=== PATIENT | female | born 1940 | race Caucasian/White ===

== ENCOUNTER → 2016-09-15 | Outpatient (CLI) | payer MEDICARE | LOC: RAD 16:44 | PROVIDERS: ATTEND Internal Medicine | DX: C34.12 Malignant neoplasm of upper lobe, left bronchus or lung (principal) | CPT/HCPCS: 78815; A9552 ==

== ENCOUNTER 2016-10-27 22:37 | Inpatient (IN) | payer MEDICARE ==
[2016-10-27] MEDS ORDERED: IPRATROPIUM/ALBUTEROL 0.5-2.5 MG/3 ML AMPUL NEB ONE (22:48)
[2016-10-27] MEDS ORDERED: MAGNESIUM SULFATE/D5W 100 ML IV ONE (22:48)
[2016-10-27] MEDS ORDERED: LORAZEPAM INJ 2 MG/1 ML VIAL IV ONE (22:49)
--- NOTE | 2016-10-27 23:00 | ER Document Report ---
ED General - General Stated Complaint: DIFFICULTY BREATHING Mode of Arrival: Medic Information source: Patient, Relative, Emergency Med Personnel Notes: This is a 76 year old female with a history of lung cancer who presents via EMS for increased shortness of breath and wheezing. Patient states she has been wheezing for several weeks but it has gradually been getting worse. No fevers or chills. Of note she has also been falling frequently at home and did fall today sustaining a skin tear to her left upper extremity. She is on oral chemotherapy and followed by Dr. Davidson. She received Solumedrol and 2 duonebs enroute. No chest pain. TRAVEL OUTSIDE OF THE [place] IN LAST 30 DAYS: No - Related Data Allergies/Adverse Reactions: latex [Latex] Allergy (Severe, Verified 06/07/11 09:47) rash hydrocodone [Hydrocodone] Allergy (Unknown, Verified 05/07/11 05:17) morphine [Morphine] Allergy (Unknown, Verified 05/07/11 05:17) amoxicillin trihydrate [From Augmentin] Adverse Reaction (Unknown, Verified 01/07 21:27) Dizziness Potassium Clavulanate * [From Augmentin] Adverse Reaction (Unknown, Verified 01/07 21:27) Dizziness olmesartan medoxomil [From May] Adverse Reaction (Verified 05/07/11 05:17) tremor Home Medications: Current Home Medications Acetaminophen 500 mg PO Q4 PRN 10/28/16 [History] Albuterol Sulfate [Proair Respiclick] 90 mcg IH Q4 PRN 10/28/16 [History] Amlodipine Besylate 10 mg PO DAILY 10/28/16 [History] Ascorbic Acid [Vitamin C 500 mg Tablet] 500 mg PO DAILY 10/28/16 [History] Beta-Carotene(A) W-C & E [E-400 C-500 & Beta Carotene] 1 tab PO DAILY 10/28/16 [ History] Budesonide/Formoterol Fumarate [Symbicort Hfa 160-4.5 Mcg Inhaler 6 gm] 2 puff IH Q12 10/28/16 [History] Calcium Carbonate [Calcium] 500 mg PO BID 10/28/16 [History] Cyanocobalamin (Vitamin B-12) [B-12] 1,000 mcg PO DAILY 10/28/16 [History] Erlotinib HCl [Tarceva 150 mg Tablet] 150 mg PO DAILY 10/28/16 [History] Glucosamine/D3/Boswellia Kathy [Osteo Bi-Flex Caplet] 1 tab PO DAILY 10/28/16 [ History] Hydrochlorothiazide 12.5 mg PO DAILY 10/28/16 [History] Loratadine [Claritin] 10 mg PO DAILY 10/28/16 [History] Magnesium Oxide [Magnesium] 500 mg PO DAILY 10/28/16 [History] Multivitamin [Multivitamins] 1 tab PO DAILY 10/28/16 [History] Valsartan [Diovan 160 mg Tablet] 160 mg PO DAILY 10/28/16 [History] Past Medical History - General Information source: Patient, Relative, [facility] Records - Social History Smoking Status: Current Every Day Smoker Drug Abuse: None Lives with: Family Family History: Reviewed & Not Pertinent - Past Medical History Cardiac Medical History: Reports: Hx Hypertension Denies: Hx Coronary Artery Disease, Hx Heart Attack, Hx Pulmonary Embolism Pulmonary Medical History: Denies: Hx Asthma, Hx Bronchitis, Hx Pneumonia, Hx Respiratory Failure, Hx Sleep Apnea, Hx Tuberculosis Neurological Medical History: Denies: Hx Cerebrovascular Accident Malignancy Medical History: Reports: Hx Lung Cancer. Denies: Hx Leukemia Musculoskeltal Medical History: Reports Hx Arthritis, Denies Hx Fibromyalgia, Denies Hx Multiple Sclerosis, Denies Hx Muscular Dystrophy Psychiatric Medical History: Denies: Hx Dementia Traumatic Medical History: Denies: Hx Fractures Infectious Medical History: Denies: Hx HIV Past Surgical History: Reports: Hx Appendectomy - 1977, Hx Hysterectomy, Hx Tonsillectomy - age 17, Hx Tubal Ligation - 1974. Denies: Hx Bowel Surgery, Hx Section, Hx Cholecystectomy, Hx Coronary Artery Bypass Graft, Hx Gastric Bypass Surgery, Hx Herniorrhaphy, Hx Mastectomy - Immunizations Hx Diphtheria, Pertussis, Tetanus Vaccination: No Hx Pneumococcal Vaccination: 04/08/08 Review of Systems - Review of Systems Notes: REVIEW OF SYSTEMS: CONSTITUTIONAL : Denies fever, chills, or sweats. EENT: Denies eye, ear, throat, or mouth pain or symptoms. Denies nasal or sinus congestion. CARDIOVASCULAR: Denies chest pain. RESPIRATORY: As per history of present illness GASTROINTESTINAL: Denies abdominal pain. Denies nausea, vomiting, or diarrhea. GENITOURINARY: Denies difficulty urinating, painful urination, burning, frequency, or blood in urine. MUSCULOSKELETAL: Denies neck or back pain or joint pain or swelling. SKIN: Denies rash or skin lesions. HEMATOLOGIC : Denies easy bruising or bleeding. LYMPHATIC: No complaints NEUROLOGICAL: Denies altered mental status or loss of consciousness. Denies headache. Frequent recent falls as per history of present illness PSYCHIATRIC: Denies anxiety or stress or depression. ALL OTHER SYSTEMS REVIEWED AND NEGATIVE. Physical Exam - Vital signs Vitals: Pulse Ox 100 10/27/16 22:45 - Notes Notes: PHYSICAL EXAMINATION: GENERAL: somewhat ill-appearing elderly female in mild to moderate respiratory distress, conversant with some conversational dyspnea HEAD: Atraumatic, normocephalic. EYES: Pupils equal round and reactive to light, extraocular movements intact, sclera anicteric, conjunctiva are normal. ENT: nares patent, oropharynx clear without exudates. Moist mucous membranes. NECK: Normal range of motion, supple without lymphadenopathy LUNGS: Diffuse inspiratory and expiratory wheezes most pronounced on the left. HEART: Tachycardic, regular rate, no murmurs appreciated. ABDOMEN: Soft, nontender, normoactive bowel sounds. No guarding, no rebound. No masses appreciated. EXTREMITIES: Normal range of motion. 1+ bilateral LE edema, symmetric NEUROLOGICAL: Cranial nerves grossly intact. Normal speech. No gross focal motor or sensory deficits appreciated. PSYCH: Normal mood, somewhat anxious affect SKIN: Warm, Dry, normal turgor, skin tear to L forearm Course - Re-evaluation Re-evalutation: 10/28/16 03:47 Patient has been reevaluated multiple times. At this time she is somewhat improved with a improvement in her conversational dyspnea. She has a O2 requirement of 2 L. Her CTA of her chest is reviewed and she has no visualized PE or infiltrate. I discussed the case with Dr. Carcamo who is on-call for Dr. Albert and she agrees with admission and has no further recommendations at this time. Discussed with hospitalist Dr. Maciel who will admit. Patient and her family are very comfortable with the plan. Questions are answered. - Vital Signs Vital signs: Temp Pulse Resp BP Pulse Ox 98.1 F 109 H 24 H 126/54 H 99 10/28/16 06:31 10/28/16 06:31 10/28/16 06:31 10/28/16 06:31 10/28/16 06:31 - Laboratory Result Diagrams: 10/27/16 23:13 10/27/16 23:13 Laboratory results interpreted by me: 10/27/16 10/27/16 10/27/16 23:13 23:13 23:13 WBC 12.6 H Seg Neutrophils % 87.2 H Lymphocytes % 7.2 L Absolute Neutrophils 10.9 H Carbonic Acid ABG pH ABG pCO2 ABG pO2 ABG HCO3 ABG Total CO2 Sodium 124.9 L Chloride 86 L Glucose 179 H Creatine Kinase 137 H NT-Pro-B Natriuret Pep 603 H 10/28/16 00:05 WBC Seg Neutrophils % Lymphocytes % Absolute Neutrophils Carbonic Acid 1.59 H ABG pH 7.34 L ABG pCO2 52.7 H ABG pO2 107.9 H ABG HCO3 27.5 H ABG Total CO2 29.1 H Sodium Chloride Glucose Creatine Kinase NT-Pro-B Natriuret Pep - Diagnostic Test Radiology reviewed: Reports reviewed - EKG at 2301 demonstrates sinus tachycardia with a rate of 128. There are nonspecific ST-T changes. Discharge - Discharge Clinical Impression: Respiratory distress Lung cancer Qualifiers: Laterality: right Lung location: upper lobe of lung Qualified Code(s): C34.11 - Malignant neoplasm of upper lobe, right bronchus or lung Disposition: ADMITTED INPATIENT Admitting Provider: Hospitalist - Dr. Maciel Unit Admitted: Telemetry
[2016-10-27] MEDS ORDERED: LEVALBUTEROL HCL NEB 1.25 MG/3 ML AMPUL NEB ONE (23:04)
[2016-10-27 23:30] LABS: ABSOLUTE LYMPHOCYTES (AUTO) 0.9 10^3/uL (0.5-4.7); ABSOLUTE MONOCYTES (AUTO) 0.6 10^3/uL (0.1-1.4); ABSOLUTE NEUT (AUTO) 10.9 10^3/uL (1.7-8.2); BASOPHILS % (AUTO) 0.2 % (0-2); EOSINOPHILS % (AUTO) 0.3 % (0-6); HEMATOCRIT 38.6 % (36.0-47.0); HEMOGLOBIN 13.4 g/dL (12.0-15.5); HGB HCT DIFFERENCE 1.6; LYMPHOCYTES % (AUTO) 7.2 % (13-45); MEAN CORPUSCULAR HEMOGLOBIN 31.1 pg (27.0-33.4); MEAN CORPUSCULAR HGB CONC 34.7 g/dL (32.0-36.0); MEAN CORPUSCULAR VOLUME 90 fl (80-97); MONOCYTES % (AUTO) 5.1 % (3-13); RED CELL DISTRIBUTION WIDTH 13.3 % (11.5-14.0); SEGMENTED NEUTROPHILS % (AUTO) 87.2 % (42-78); WHITE BLOOD COUNT 12.6 10^3/uL (4.0-10.5)
[2016-10-27 23:44] LABS: ALANINE AMINOTRANSFERASE 37 U/L (9-52); ALBUMIN 4.3 g/dL (3.5-5.0); ALKALINE PHOSPHATASE 109 U/L (38-126); ANION GAP 12 (5-19); ASPARTATE AMINO TRANSFERASE 33 U/L (14-36); BILIRUBIN,DIRECT 0.2 mg/dL (0.0-0.4); BILIRUBIN,TOTAL 0.6 mg/dL (0.2-1.3); BLOOD UREA NITROGEN 18 mg/dL (7-20); CALCIUM 9.7 mg/dL (8.4-10.2); CARBON DIOXIDE 27 mmol/L (22-30); CHLORIDE 86 mmol/L (98-107); CREATINE KINASE 137 U/L (30-135); CREATININE RESULT 0.69 mg/dL (0.52-1.25); GLUCOSE 179 mg/dL (75-110); SODIUM 124.9 mmol/L (137-145); TOTAL PROTEIN 7.2 g/dL (6.3-8.2)
[2016-10-27 23:56] LABS: CREATINE KINASE MB 3.79 ng/mL (<4.55)
[2016-10-27 23:57] LABS: TROPONIN I < 0.012 ng/mL
[2016-10-28 00:20] LABS: ARTERIAL BLOOD BASE EXCESS 0.7 mmol/L; ARTERIAL BLOOD O2 SATURATION 97.6 % (94-98)
--- NOTE | 2016-10-28 00:26 | EKG REPORT ---
SEVERITY:- ABNORMAL ECG - SINUS TACHYCARDIA MIKEL, CONSIDER BIATRIAL ABNORMALITIES INFERIOR INFARCT, AGE INDETERMINATE ANTERIOR INFARCT, OLD : Confirmed by: Alissa Vigil 28-Oct-2016 00:25:26
[2016-10-28] MEDS ORDERED: NORMAL SALINE 500 ML IV ONE (03:07)
[2016-10-28] MEDS ORDERED: TRAMADOL HCL 50 MG TABLET PO PRN (03:48)
[2016-10-28] MEDS ORDERED: ACETAMINOPHEN 325 MG TABLET PO PRN ×2 (03:52→05:00)
[2016-10-28] MEDS ORDERED: IPRATROPIUM/ALBUTEROL 0.5-2.5 MG/3 ML AMPUL NEB PRN ×2 (03:52→05:01)
[2016-10-28] MEDS ORDERED: ONDANSETRON HCL INJ/PF 4 MG/2 ML SDV IV PRN ×2 (03:52→05:01)
[2016-10-28] MEDS ORDERED: FLUTICASONE NASAL SPRAY 50 MCG/SPRY 120 SPRAY/16 GM NASL SCH (04:00)
[2016-10-28] MEDS ORDERED: AZITHROMYCIN INJ 500 MG VIAL IV PRN (04:40)
[2016-10-28] MEDS ORDERED: AZITHROMYCIN 500 MG in DEXTROSE 5%-WATER 250 ML IV ONE (05:00)
[2016-10-28] MEDS ORDERED: CHLORPHENIRAMINE MALEATE 4 MG TABLET PO PRN (05:06)
[2016-10-28] MEDS ORDERED: CHLORPHENIRAMINE MALEATE 4 MG TABLET PO ONE (05:06)
[2016-10-28] MEDS ORDERED: (PENDING PHARMACY ID) (Acetaminophen [Acetaminophen] 500 MG) PO PRN (05:07)
--- NOTE | 2016-10-28 05:25 | PDOC H&P ---
History of Present Illness Admission Date/PCP: 10/28/16 03:57 ELIZ BACA MD Patient complains of: Shortness of breath History of Present Illness: NISA JC is a 76 year old female with a past medical history of hypertension, COPD with ongoing tobacco dependence and lung cancer. She been her usual state of health until proximally 4 days ago noting rhinorrhea and postnasal drip despite the use of Claritin. She denies chest pain nausea vomiting diaphoresis or fever. In the emergency room she has a fairly unremarkable workup with mild hypoxia a negative CTA of the chest and referred to the hospitalist for admission. Past Medical History Cardiac Medical History: Reports: Hypertension Denies: Coronary Artery Disease, Myocardial Infarction, Pulmonary Embolism Pulmonary Medical History: Reports: Other - Lung cancer Denies: Asthma, Bronchitis, Pneumonia, Respiratory Failure, Sleep Apnea, Tuberculosis Neurological Medical History: Malignancy Medical History: Reports: Lung Cancer Denies: Leukemia Musculoskeltal Medical History: Reports: Arthritis Denies: Fibromyalgia Psychiatric Medical History: Denies: Dementia Hematology: Reports: Anemia - hx of Denies: Hemophilia, Sickle Cell Disease Infectious Medical History: Denies: HIV Past Surgical History Past Surgical History: Reports: Appendectomy - 1977, Hysterectomy, Tonsillectomy - age 17, Tubal Ligation - 1974 Denies: Amputation, Section, Cholecystectomy, Coronary Artery Bypass Graft, Gastric Bypass Surgery, Herniorrhaphy, Mastectomy Social History Information Source: Patient, Relative Lives with: Family Smoking Status: Current Every Day Smoker Cigarettes Packs Per Day: 1 Number of Years Smokin Frequency of Alcohol Use: None - Advance Directive Resuscitation Status: Full Code Family History Family History: COPD Parental Family History Reviewed: Yes Children Family History Reviewed: Yes Sibling(s) Family History Reviewed.: Yes Medication/Allergy Home Medications: Acetaminophen 500 mg PO Q4 PRN 10/28/16 Albuterol Sulfate [Proair Respiclick] 90 mcg IH Q4 PRN 10/28/16 Amlodipine Besylate 10 mg PO DAILY 10/28/16 Ascorbic Acid [Vitamin C 500 mg Tablet] 500 mg PO DAILY 10/28/16 Beta-Carotene(A) W-C & E [E-400 C-500 & Beta Carotene] 1 tab PO DAILY 10/28/16 Budesonide/Formoterol Fumarate [Symbicort Hfa 160-4.5 Mcg Inhaler 6 gm] 2 puff IH Q12 10/28/16 Calcium Carbonate [Calcium] 500 mg PO BID 10/28/16 Cyanocobalamin (Vitamin B-12) [B-12] 1,000 mcg PO DAILY 10/28/16 Erlotinib HCl [Tarceva 150 mg Tablet] 150 mg PO DAILY 10/28/16 Glucosamine/D3/Boswellia Kathy [Osteo Bi-Flex Caplet] 1 tab PO DAILY 10/28/16 Hydrochlorothiazide 12.5 mg PO DAILY 10/28/16 Loratadine [Claritin] 10 mg PO DAILY 10/28/16 Magnesium Oxide [Magnesium] 500 mg PO DAILY 10/28/16 Multivitamin [Multivitamins] 1 tab PO DAILY 10/28/16 Valsartan [Diovan 160 mg Tablet] 160 mg PO DAILY 10/28/16 Allergies/Adverse Reactions: latex [Latex] Allergy (Severe, Verified 06/07/11 09:47) rash hydrocodone [Hydrocodone] Allergy (Unknown, Verified 05/07/11 05:17) morphine [Morphine] Allergy (Unknown, Verified 05/07/11 05:17) amoxicillin trihydrate [From Augmentin] Adverse Reaction (Unknown, Verified 01/07 21:27) Dizziness Potassium Clavulanate * [From Augmentin] Adverse Reaction (Unknown, Verified 01/07 21:27) Dizziness olmesartan medoxomil [From May] Adverse Reaction (Verified 05/07/11 05:17) tremor Review of Systems Constitutional: PRESENT: fatigue, weakness, other - Falls Eyes: ABSENT: visual disturbances Ears: ABSENT: hearing changes Cardiovascular: ABSENT: chest pain, dyspnea on exertion, edema, orthropnea, palpitations Respiratory: PRESENT: cough, dyspnea. ABSENT: hemoptysis, sputum Gastrointestinal: ABSENT: abdominal pain, constipation, diarrhea, hematemesis, hematochezia, nausea, vomiting Genitourinary: ABSENT: dysuria, hematuria Musculoskeletal: PRESENT: muscle weakness Integumentary: PRESENT: other - Chronic changes with Ecchymosis of the forearms and hands Neurological: ABSENT: abnormal gait, abnormal speech, confusion, dizziness, focal weakness, syncope Psychiatric: ABSENT: anxiety, depression, homidical ideation, suicidal ideation Endocrine: ABSENT: cold intolerance, heat intolerance, polydipsia, polyuria Hematologic/Lymphatic: ABSENT: easy bleeding, easy bruising Allergic/Immunologic: PRESENT: as per HPI Physical Exam Vital Signs: Temp Pulse Resp BP Pulse Ox 97.8 F 30 H 128/47 H 97 10/28/16 02:55 10/28/16 04:01 10/28/16 04:01 10/28/16 04:01 General appearance: PRESENT: cooperative, mild distress, thin Head exam: PRESENT: atraumatic, normocephalic Eye exam: PRESENT: conjunctiva pink, EOMI, PERRLA. ABSENT: scleral icterus Ear exam: PRESENT: normal external ear exam Mouth exam: PRESENT: moist, tongue midline Neck exam: ABSENT: carotid bruit, JVD, lymphadenopathy, thyromegaly Respiratory exam: PRESENT: accessory muscle use, crackles, prolonged expiratory phas, retraction, symmetrical, tachypnea, wheezes. ABSENT: chest wall tenderness, clear to auscultation clarice Cardiovascular exam: PRESENT: RRR. ABSENT: diastolic murmur, rubs, systolic murmur Pulses: PRESENT: normal dorsalis pedis pul Vascular exam: PRESENT: normal capillary refill GI/Abdominal exam: PRESENT: normal bowel sounds, soft. ABSENT: distended, guarding, mass, organolmegaly, rebound, tenderness Rectal exam: PRESENT: deferred Extremities exam: PRESENT: full ROM. ABSENT: calf tenderness, clubbing, pedal edema Neurological exam: PRESENT: alert, awake, oriented to person, oriented to place , oriented to time, oriented to situation, CN II-XII grossly intact. ABSENT: motor sensory deficit Psychiatric exam: PRESENT: appropriate affect, normal mood. ABSENT: homicidal ideation, suicidal ideation Skin exam: PRESENT: dry, intact, warm, other - Widespread chronic changes with ecchymosis notable upper extremities. ABSENT: cyanosis, rash, skin tears Results Impressions: Chest X-Ray 10/27/16 22:47 IMPRESSION: NO ACUTE RADIOGRAPHIC FINDING IN THE CHEST.Similar chronic scarring in the left upper lobe and parahilar region. Chest/Abdomen CTA 10/28/16 00:16 IMPRESSION: 1. NORMAL CTA OF THE CHEST. NO PULMONARY EMBOLI. 2. STABLE FINDINGS IN THE CHEST INCLUDING A SPICULATED MASS IN THE RIGHT APEX, SCARRING IN THE LEFT APEX, AND EMPHYSEMATOUS CHANGES. NO ACUTE FINDINGS. Assessment & Plan - Diagnosis (1) COPD exacerbation Is this a current diagnosis for this admission?: YesPlan: Acute on chronic uncontrolled Likely secondary to ongoing tobacco and uncontrolled allergic sinusitis. She'll be observed on a monitored bed without tobacco, initiation of oxygen, chlorpheniramine, prednisone, Flonase and albuterol with Atrovent with reevaluation for home oxygen (2) Allergic sinusitis Is this a current diagnosis for this admission?: YesPlan: Trial chlorpheniramine (3) Hyponatremia Is this a current diagnosis for this admission?: YesPlan: Likely secondary to chronic lung disease versus Hydrocort thiazide will reevaluate chemistry (4) Lung cancer Qualifiers: Laterality: right Lung location: upper lobe of lung Qualified Code( s): C34.11 - Malignant neoplasm of upper lobe, right bronchus or lung Is this a current diagnosis for this admission?: YesPlan: Patient's on Tarceva and will continue consider oncology consultation though imaging reveals stability over time - Time Time Spent: 50 to 70 Minutes
[2016-10-28 05:55] LABS: CREATINE KINASE MB 5.51 ng/mL (<4.55)
[2016-10-28 06:05] LABS: TROPONIN I 0.07 ng/mL
[2016-10-28] MEDS: IPRATROPIUM/ALBUTEROL 0.5-2.5 MG/3 ML AMPUL NEB SCH ×2 (07:54→15:59)
--- NOTE | 2016-10-28 08:44 | Physician Advisory Note ---
Physician Advisor ProgressNote .: [facility] have reviewed the medical record for this patient. Physician Advisor Statement: Very nice documentation in H&P of accessory muscle use, retrations, tachypnea , hypoxemia in ED, & of the hyponatremia w/likely causes. Possible documentation opportunities if attending agrees: 1. "Acute Hypoxemic/Hypercarbic Respiratory Failure" 2. "Suspected Acute Bronchitis" [or what is being tx'd with Zithromax, since not all COPD exac.s require abx] 3. "suspected protein-calorie malnutrition [state mild, mod, or severe] with BMI __, ____[?wt loss, ?appetite loss, ]" [if possible, give specifics on intake, wt loss, loss of SQ fat & muscle mass, diminished hand wool brusher strength, & clinical importance such as (A) nutritional assessment ordered, (B) modified diet or supplements ordered, (C) additional labs ordered, (D) prolonged wound healing time, (E) delayed infxn clearance] 4. "Acute Respiratory Acidosis due to COPD exac" As always, if concerned about any unstable VS or abnormal labs, please comment on them - what bad things they might indicate, why they concern you - & note what doing about them. Please also document each day the potential clinical problems you are concerned could occur if pt not kept in hospital for tx at this time. (These points are john - if present in each note, attending's status decision should be sufficiently supported.) Discussion: 76yo female w/ chronic co-morbidities including emphysema, RUL lung CA of ___ type on po Tarceva, tobacco dependence ongoing, HTN - presented late 30 PM to ED w/SOB/wheezing worsened to the point of conversational dyspnea, "requiring 2L O2" in ED, mild-mod resp distress. EMS gave Solumedrol & 2 Duonebs. ED gave IV Mag, 500ml NS, Duoneb, Xopanex neb, Ativan x1, & 2L O2, with improvement in her conversational dyspnea. (+) Initial VS incl HR 128, RR36 - still w/accessory muscle use, retractions, tachypnea, tachycardia even after EMS & ED tx's. WBC 12.6, Na 124.9, glc 179, Cr 0.69, BNP 603, PH 7.34, pCO2 52.7, bicarb 29.1. CTA neg for PE/infiltrate, but still w/RUL mass & emphysema. Attending ordered q4h VS, prednisone 30mg bid, O2 2L, Duonebs, IV Zithromax, Flonase, I/Os, tele, daily wts, f/u labs, PEP device. Status: Medicare pt arrived very late PM with serious downturn in already-poor breathing function. By time of admission orders, has already failed 1MN worth of intense acute hospital care, & remains severely tachypneic & tachycardic this AM, to the point the telemetry floor nurse has been trying to contact the attending with concerns about accepting patient to that level of care due to such high risk for acute decompensation. There is no question that tx w/monitoring for response in inpatient hospital setting is medically reasonable & necessary to protect pt's health, safety, & medical condition in this case, and that this patient will undoubtedly require at least a 2nd MN of hospital care before there is any chance of her improving sufficiently for safe d/c. Appropriate to change to Inpt status. Thanks for your help with documentation accuracy/specificity improvement! Arabella Monk MD [facility] Physician Advisor, Fellow of Hospital Medicine
[2016-10-28] MEDS ORDERED: OXYCODONE HCL IR 5 MG TABLET PO PRN (08:52)
[2016-10-28] MEDS: NICOTINE 14 MG/24 HR PATCH.TD24 TD SCH (09:29)
[2016-10-28] MEDS: PREDNISONE 20 MG TABLET PO SCH ×2 (09:30→17:14)
[2016-10-28] MEDS: VALSARTAN 160 MG TABLET PO SCH (09:30)
[2016-10-28] MEDS: FLUTICASONE NASAL SPRAY 50 MCG/SPRY 120 SPRAY/16 GM NASL SCH ×2 (09:30→21:59)
[2016-10-28] MEDS ORDERED: METHYLPREDNISOLONE INJ 40 MG/1 ML SDV IV ONE (09:30)
[2016-10-28] MEDS: LORATADINE 10 MG TABLET PO SCH (09:32)
[2016-10-28] MEDS: DOCUSATE SODIUM 100 MG CAPSULE PO SCH ×2 (09:32→17:13)
[2016-10-28] MEDS: AMLODIPINE BESYLATE 10 MG TABLET PO SCH (09:32)
[2016-10-28] MEDS: ERLOTINIB HCL 150 MG PO SCH (09:34)
[2016-10-28] MEDS: HEPARIN SOD (PORCINE) 5,000 UNIT/ML 1 ML SYRINGE SUBCUT SCH ×3 (09:34→21:59)
[2016-10-28] MEDS ORDERED: (PENDING PHARMACY ID) (Magnesium Oxide [Magnesium] 500 MG) PO SCH (10:00)
[2016-10-28] MEDS ORDERED: BENAZEPRIL PO SCH (10:00)
[2016-10-28] MEDS ORDERED: AMLODIPINE BESYLATE PO SCH (10:00)
--- NOTE | 2016-10-28 10:14 | PDOC PROGRESS REPORT ---
Subjective Progress Note for:: 10/28/16 Subjective:: Continues with cough and shortness of breath. Also complains of back pain. Physical Exam Vital Signs: Temp Pulse Resp BP Pulse Ox 98.8 F 107 H 17 142/57 H 95 10/28/16 07:52 10/28/16 07:54 10/28/16 07:54 10/28/16 07:52 10/28/16 07:52 General appearance: PRESENT: mild distress Eye exam: PRESENT: conjunctiva pink. ABSENT: scleral icterus Mouth exam: PRESENT: moist, tongue midline Neck exam: ABSENT: JVD Respiratory exam: PRESENT: accessory muscle use, prolonged expiratory phas, retraction, tachypnea, wheezes Cardiovascular exam: PRESENT: RRR. ABSENT: diastolic murmur, rubs, systolic murmur GI/Abdominal exam: PRESENT: normal bowel sounds, soft. ABSENT: distended, guarding, mass, organolmegaly, rebound, tenderness Extremities exam: ABSENT: calf tenderness, clubbing, pedal edema Neurological exam: PRESENT: alert, awake, oriented to person, oriented to place , oriented to time, oriented to situation, CN II-XII grossly intact. ABSENT: motor sensory deficit Psychiatric exam: PRESENT: anxious Skin exam: PRESENT: dry, intact, warm. ABSENT: cyanosis, rash Results Impressions: Chest X-Ray 10/27/16 22:47 IMPRESSION: NO ACUTE RADIOGRAPHIC FINDING IN THE CHEST.Similar chronic scarring in the left upper lobe and parahilar region. Chest/Abdomen CTA 10/28/16 00:16 IMPRESSION: 1. NORMAL CTA OF THE CHEST. NO PULMONARY EMBOLI. 2. STABLE FINDINGS IN THE CHEST INCLUDING A SPICULATED MASS IN THE RIGHT APEX, SCARRING IN THE LEFT APEX, AND EMPHYSEMATOUS CHANGES. NO ACUTE FINDINGS. Assessment & Plan - Diagnosis (1) Acute and chronic respiratory failure with hypoxia Is this a current diagnosis for this admission?: YesPlan: The patient has acute on chronic respiratory failure secondary to her COPD, bronchitis, lung cancer. The patient is an mild to moderate risk for distress this morning with continued expiratory wheezing, retraction and some splinting. Because of this we will add on IV steroids. The patient will be changed from an observation to inpatient as she is going to require at least 2 additional midnights because of her worsening respiratory failure. (2) COPD exacerbation Is this a current diagnosis for this admission?: YesPlan: Patient has an acute COPD exacerbation. We'll treat with the IV Solu-Medrol, nebulizers, Zithromax. (3) Acute bronchitis Is this a current diagnosis for this admission?: YesPlan: Patient has an acute bronchitis and has been started on Zithromax. (4) Hyponatremia Is this a current diagnosis for this admission?: YesPlan: Most likely secondary to her underlying lung cancer. (5) Lung cancer Qualifiers: Laterality: right Lung location: upper lobe of lung Qualified Code( s): C34.11 - Malignant neoplasm of upper lobe, right bronchus or lung Is this a current diagnosis for this admission?: YesPlan: CT scan does not show any progression. She has been on Tarceva. (6) Tobacco dependence Is this a current diagnosis for this admission?: YesPlan: The patient has been encouraged to quit smoking. (7) Back pain Is this a current diagnosis for this admission?: YesPlan: Patient has pain over her sacroiliac joint area. Will give oxycodone as needed. This should hopefully improve also with the IV steroids. - Time Time Spent with patient: 25-34 minutes - Inpatient Certification Medical Necessity: Need Close Monitoring Due to Risk of Patient Decompensation - Plan Summary Plan Summary: We'll be changed from an observation to inpatient as I anticipate that she will require at least 2 or more midnight hospital stay because of her worsening respiratory status with acute on chronic hypoxic respiratory failure.
[2016-10-28] MEDS: MAGNESIUM OXIDE 400 MG TABLET PO SCH (11:19)
[2016-10-28 11:36] LABS: CREATINE KINASE MB 6.22 ng/mL (<4.55); TROPONIN I 0.066 ng/mL
[2016-10-28 13:18] LABS: APPEARANCE,URINE CLEAR; BILIRUBIN,URINE NEGATIVE (NEGATIVE); GLUCOSE, URINE NEGATIVE (NEGATIVE); KETONES,URINE NEGATIVE (NEGATIVE); LEUKOCYTE ESTERASE,URINE NEGATIVE (NEGATIVE); NITRITE,URINE NEGATIVE (NEGATIVE); PROTEIN,URINE NEGATIVE (NEGATIVE); URINE SPECIFIC GRAVITY 1.008; UROBILINOGEN,URINE NEGATIVE mg/dL (<2.0)
[2016-10-28] MEDS: METHYLPREDNISOLONE INJ 40 MG/1 ML SDV IV SCH ×2 (13:36→21:59)
[2016-10-28 17:50] LABS: CREATINE KINASE MB 6.13 ng/mL (<4.55); TROPONIN I 0.05 ng/mL
[2016-10-28] MEDS: AZITHROMYCIN 500 MG in DEXTROSE 5%-WATER 250 ML IV SCH (21:59)
[2016-10-29] MEDS: IPRATROPIUM/ALBUTEROL 0.5-2.5 MG/3 ML AMPUL NEB SCH ×4 (00:14→19:57)
[2016-10-29 04:38] LABS: ABSOLUTE LYMPHOCYTES (AUTO) 0.5 10^3/uL (0.5-4.7); ABSOLUTE MONOCYTES (AUTO) 0.4 10^3/uL (0.1-1.4); ABSOLUTE NEUT (AUTO) 7.7 10^3/uL (1.7-8.2); BASOPHILS % (AUTO) 0.1 % (0-2); HEMATOCRIT 32.3 % (36.0-47.0); LYMPHOCYTES % (AUTO) 6.3 % (13-45); MEAN CORPUSCULAR HEMOGLOBIN 30.9 pg (27.0-33.4); MEAN CORPUSCULAR HGB CONC 34.4 g/dL (32.0-36.0); MEAN CORPUSCULAR VOLUME 90 fl (80-97); MONOCYTES % (AUTO) 4.6 % (3-13); RED CELL DISTRIBUTION WIDTH 13.4 % (11.5-14.0); WHITE BLOOD COUNT 8.7 10^3/uL (4.0-10.5)
[2016-10-29 04:44] LABS: ANION GAP 8 (5-19); BLOOD UREA NITROGEN 16 mg/dL (7-20); CALCIUM 9.3 mg/dL (8.4-10.2); CARBON DIOXIDE 30 mmol/L (22-30); CHLORIDE 95 mmol/L (98-107); CREATININE RESULT 0.59 mg/dL (0.52-1.25); GLUCOSE 139 mg/dL (75-110); POTASSIUM 4.4 mmol/L (3.6-5.0); SODIUM 132.7 mmol/L (137-145)
[2016-10-29 04:51] LABS: HEMOGLOBIN 11.1 g/dL (12.0-15.5)
[2016-10-29] MEDS: HEPARIN SOD (PORCINE) 5,000 UNIT/ML 1 ML SYRINGE SUBCUT SCH ×3 (05:36→22:36)
[2016-10-29] MEDS: METHYLPREDNISOLONE INJ 40 MG/1 ML SDV IV SCH (05:36)
[2016-10-29] MEDS: VALSARTAN 160 MG TABLET PO SCH (09:09)
[2016-10-29] MEDS: AMLODIPINE BESYLATE 10 MG TABLET PO SCH (09:10)
[2016-10-29] MEDS: PREDNISONE 20 MG TABLET PO SCH (09:10)
[2016-10-29] MEDS: DOCUSATE SODIUM 100 MG CAPSULE PO SCH ×2 (09:10→18:13)
[2016-10-29] MEDS: MAGNESIUM OXIDE 400 MG TABLET PO SCH (09:10)
[2016-10-29] MEDS: NICOTINE 14 MG/24 HR PATCH.TD24 TD SCH (09:10)
[2016-10-29] MEDS: LORATADINE 10 MG TABLET PO SCH (09:10)
[2016-10-29] MEDS: ERLOTINIB HCL 150 MG PO SCH (09:12)
[2016-10-29] MEDS: FLUTICASONE NASAL SPRAY 50 MCG/SPRY 120 SPRAY/16 GM NASL SCH ×2 (09:13→23:54)
[2016-10-29] MEDS ORDERED: METHYLPREDNISOLONE INJ 40 MG/1 ML SDV IV SCH (15:00)
[2016-10-29] MEDS ORDERED: IPRATROPIUM/ALBUTEROL 0.5-2.5 MG/3 ML AMPUL NEB PRN (15:00)
--- NOTE | 2016-10-29 15:06 | PDOC PROGRESS REPORT ---
Subjective Progress Note for:: 10/29/16 Subjective:: Patient's breathing improved, still with a lot of coughing however. No chills or fever. No chest pain nausea or vomiting. No dizziness or lightheadedness. Patient has baseline chronic wheezing. Still is a current smoker despite having COPD, and lung cancer. Patient wants to change diet to regular. Physical Exam Vital Signs: Temp Pulse Resp BP Pulse Ox 97.9 F 109 H 18 127/56 H 97 10/29/16 11:11 10/29/16 11:11 10/29/16 11:11 10/29/16 11:11 10/29/16 11:11 Intake & Output 10/28/16 10/29/16 10/30/16 06:59 06:59 06:59 Intake Total 941 Output Total 2300 Balance -1359 Weight 67.5 kg General appearance: PRESENT: cooperative, mild distress - Respiratory villalobos Head exam: PRESENT: normocephalic Eye exam: PRESENT: conjunctiva pale, EOMI Ear exam: PRESENT: drainage, normal external ear exam, TM's normal bilaterally Mouth exam: PRESENT: moist, neck supple Neck exam: ABSENT: JVD Respiratory exam: PRESENT: rhonchi - few bilateral, wheezes - Mild bilateral expiratory Cardiovascular exam: PRESENT: RRR. ABSENT: gallop GI/Abdominal exam: PRESENT: diminished bowel sounds, soft. ABSENT: tenderness Extremities exam: ABSENT: pedal edema Neurological exam: PRESENT: alert, awake, oriented to situation Skin exam: PRESENT: dry, warm. ABSENT: cyanosis Results Laboratory Results: 10/29/16 03:54 10/29/16 03:54 10/29/16 10/29/16 03:54 03:54 WBC 8.7 RBC 3.60 L Hgb 11.1 L D Hct 32.3 L MCV 90 MCH 30.9 MCHC 34.4 RDW 13.4 Plt Count 176 Seg Neutrophils % 89.0 H Lymphocytes % 6.3 L Monocytes % 4.6 Eosinophils % 0.0 Basophils % 0.1 Absolute Neutrophils 7.7 Absolute Lymphocytes 0.5 Absolute Monocytes 0.4 Absolute Eosinophils 0.0 Absolute Basophils 0.0 Sodium 132.7 L Potassium 4.4 Chloride 95 L Carbon Dioxide 30 Anion Gap 8 BUN 16 Creatinine 0.59 Est GFR ( Amer) > 60 Est GFR (Non-Af Amer) > 60 Glucose 139 H Calcium 9.3 10/28/16 10/28/16 10/28/16 10:56 10:56 17:00 Creatine Kinase 213 H 397 H CK-MB (CK-2) 6.22 H Troponin I 0.066 10/28/16 17:00 Creatine Kinase CK-MB (CK-2) 6.13 H Troponin I 0.050 Impressions: Chest X-Ray 10/27/16 22:47 IMPRESSION: NO ACUTE RADIOGRAPHIC FINDING IN THE CHEST.Similar chronic scarring in the left upper lobe and parahilar region. Chest/Abdomen CTA 10/28/16 00:16 IMPRESSION: 1. NORMAL CTA OF THE CHEST. NO PULMONARY EMBOLI. 2. STABLE FINDINGS IN THE CHEST INCLUDING A SPICULATED MASS IN THE RIGHT APEX, SCARRING IN THE LEFT APEX, AND EMPHYSEMATOUS CHANGES. NO ACUTE FINDINGS. Assessment & Plan - Diagnosis (1) COPD exacerbation Is this a current diagnosis for this admission?: Yes (2) Allergic sinusitis Is this a current diagnosis for this admission?: Yes (3) Hyponatremia Is this a current diagnosis for this admission?: Yes (4) Lung cancer Qualifiers: Laterality: right Lung location: upper lobe of lung Qualified Code( s): C34.11 - Malignant neoplasm of upper lobe, right bronchus or lung Is this a current diagnosis for this admission?: Yes (5) Tobacco dependence Is this a current diagnosis for this admission?: Yes (6) Essential hypertension Is this a current diagnosis for this admission?: Yes - Time Time Spent with patient: 25-34 minutes - Plan Summary Plan Summary: Increase steroids and nebulizers. Change diet to regular. Out of bed and have physical therapy. Continue other medications and supportive care.
[2016-10-29] MEDS: METHYLPREDNISOLONE INJ 125 MG/2 ML SDV IV SCH ×2 (15:23→22:34)
[2016-10-29] MEDS: AZITHROMYCIN 500 MG in DEXTROSE 5%-WATER 250 ML IV SCH (22:35)
[2016-10-29] MEDS ORDERED: FLUTICASONE NASAL SPRAY 50 MCG/SPRY 120 SPRAY/16 GM ONE (23:10)
[2016-10-30] MEDS: IPRATROPIUM/ALBUTEROL 0.5-2.5 MG/3 ML AMPUL NEB SCH ×7 (00:31→23:27)
[2016-10-30] MEDS: METHYLPREDNISOLONE INJ 125 MG/2 ML SDV IV SCH ×4 (04:29→21:38)
[2016-10-30] MEDS: HEPARIN SOD (PORCINE) 5,000 UNIT/ML 1 ML SYRINGE SUBCUT SCH ×3 (05:16→21:39)
[2016-10-30] MEDS: LORATADINE 10 MG TABLET PO SCH (10:04)
[2016-10-30] MEDS: MAGNESIUM OXIDE 400 MG TABLET PO SCH (10:04)
[2016-10-30] MEDS: VALSARTAN 160 MG TABLET PO SCH (10:04)
[2016-10-30] MEDS: DOCUSATE SODIUM 100 MG CAPSULE PO SCH ×2 (10:04→19:59)
[2016-10-30] MEDS: FLUTICASONE NASAL SPRAY 50 MCG/SPRY 120 SPRAY/16 GM NASL SCH (10:05)
[2016-10-30] MEDS: AMLODIPINE BESYLATE 10 MG TABLET PO SCH (10:05)
[2016-10-30] MEDS: NICOTINE 14 MG/24 HR PATCH.TD24 TD SCH (10:05)
[2016-10-30] MEDS: ERLOTINIB HCL 150 MG PO SCH (10:06)
--- NOTE | 2016-10-30 14:43 | PDOC PROGRESS REPORT ---
Subjective Progress Note for:: 10/30/16 Subjective:: Patient slightly improved today from yesterday. There is no diarrhea, but is constipated. No reported temperature spikes, nausea or vomiting, chills nor fever, worsening respiratory discomfort. Patient reports Claritin intake but not sure whether it is helping. Patient likewise not on oxygen at home, baseline has intermittent wheezing. Physical Exam Vital Signs: Temp Pulse Resp BP Pulse Ox 97.6 F 92 21 H 162/61 H 99 10/30/16 12:00 10/30/16 12:00 10/30/16 12:00 10/30/16 12:00 10/30/16 12:00 Intake & Output 10/29/16 10/30/16 10/31/16 06:59 06:59 06:59 Intake Total 941 2592 Output Total 2300 2800 Balance -1359 -208 Weight 67.5 kg 64.7 kg General appearance: PRESENT: no acute distress, cooperative Head exam: PRESENT: normocephalic Eye exam: PRESENT: EOMI, PERRLA Mouth exam: PRESENT: moist, neck supple Neck exam: ABSENT: JVD Respiratory exam: PRESENT: rhonchi - few, wheezes - Mild expiratory Cardiovascular exam: PRESENT: RRR. ABSENT: gallop GI/Abdominal exam: PRESENT: soft. ABSENT: distended, tenderness Extremities exam: ABSENT: pedal edema Neurological exam: PRESENT: alert, awake, oriented to situation Skin exam: PRESENT: dry, warm. ABSENT: cyanosis Results Laboratory Results: 10/29/16 03:54 10/29/16 03:54 10/28/16 10/28/16 10/28/16 10:56 10:56 17:00 Creatine Kinase 213 H 397 H CK-MB (CK-2) 6.22 H Troponin I 0.066 10/28/16 17:00 Creatine Kinase CK-MB (CK-2) 6.13 H Troponin I 0.050 Impressions: Chest X-Ray 10/27/16 22:47 IMPRESSION: NO ACUTE RADIOGRAPHIC FINDING IN THE CHEST.Similar chronic scarring in the left upper lobe and parahilar region. Chest/Abdomen CTA 10/28/16 00:16 IMPRESSION: 1. NORMAL CTA OF THE CHEST. NO PULMONARY EMBOLI. 2. STABLE FINDINGS IN THE CHEST INCLUDING A SPICULATED MASS IN THE RIGHT APEX, SCARRING IN THE LEFT APEX, AND EMPHYSEMATOUS CHANGES. NO ACUTE FINDINGS. Assessment & Plan - Diagnosis (1) COPD exacerbation Is this a current diagnosis for this admission?: Yes (2) Allergic sinusitis Is this a current diagnosis for this admission?: Yes (3) Hyponatremia Is this a current diagnosis for this admission?: Yes (4) Lung cancer Qualifiers: Laterality: right Lung location: upper lobe of lung Qualified Code( s): C34.11 - Malignant neoplasm of upper lobe, right bronchus or lung Is this a current diagnosis for this admission?: Yes (5) Tobacco dependence Is this a current diagnosis for this admission?: Yes (6) Essential hypertension Is this a current diagnosis for this admission?: Yes - Time Time Spent with patient: 25-34 minutes - Plan Summary Plan Summary: I will try the patient on metered-dose inhalers and Cipro to help w/ Advair. Continue steroids and nebulizers. Discontinue intravenous antibiotic and switched to oral. Increase activity and ambulate around with physical therapy. Check room air oxygen at rest and on ambulation in a.m..
[2016-10-30] MEDS ORDERED: BISACODYL 10 MG SUPP.RECT PR ONE (15:00)
[2016-10-30] MEDS: LEVOFLOXACIN 750 MG TABLET PO SCH (15:28)
[2016-10-30] MEDS: FLUTICASONE/SALMETEROL DISKUS 250-50 MCG/DOSE IH SCH (19:59)
[2016-10-30 20:11] LABS: ARTERIAL BLOOD BASE EXCESS 6.5 mmol/L; ARTERIAL BLOOD O2 SATURATION 93.2 % (94-98)
[2016-10-31] MEDS: METHYLPREDNISOLONE INJ 125 MG/2 ML SDV IV SCH ×3 (04:00→17:22)
[2016-10-31] MEDS: LORAZEPAM INJ 2 MG/1 ML VIAL IV PRN ×2 (04:00→22:32)
[2016-10-31] MEDS: IPRATROPIUM/ALBUTEROL 0.5-2.5 MG/3 ML AMPUL NEB SCH ×2 (04:46→07:57)
[2016-10-31] MEDS: ERLOTINIB HCL 150 MG PO SCH (07:07)
[2016-10-31] MEDS: HEPARIN SOD (PORCINE) 5,000 UNIT/ML 1 ML SYRINGE SUBCUT SCH ×3 (07:10→21:33)
[2016-10-31] MEDS: FLUTICASONE/SALMETEROL DISKUS 250-50 MCG/DOSE IH SCH ×2 (07:13→17:22)
[2016-10-31] MEDS ORDERED: LEVALBUTEROL HCL NEB 1.25 MG/3 ML AMPUL NEB PRN (08:15)
--- NOTE | 2016-10-31 08:29 | PDOC PROGRESS REPORT ---
Subjective Progress Note for:: 10/31/16 Subjective:: Patient yesterday developed episodes of tachycardia and shortness of breath. Patient developed shaking as well. Thought she might be having seizures. Patient likewise started to develop reportedly some upward rolling of the eyeballs, after seizure activity described to the patient and the family. CT of the brain did not reveal any metastatic disease. Chest x-ray without any acute infiltrate. ABG shows no CO2 retention. Started on and beer yesterday. On high-dose steroids. This morning she is much better. Physical Exam Vital Signs: Temp Pulse Resp BP Pulse Ox 98.3 F 111 H 18 151/71 H 93 10/31/16 03:38 10/31/16 08:00 10/31/16 08:00 10/31/16 03:38 10/31/16 08:00 Intake & Output 10/30/16 10/31/16 11/01/16 06:59 06:59 06:59 Intake Total 2592 1172 Output Total 2800 2300 Balance -208 -1128 Weight 64.7 kg 57.9 kg General appearance: PRESENT: no acute distress, cooperative Head exam: PRESENT: normocephalic Eye exam: PRESENT: EOMI Mouth exam: PRESENT: moist, neck supple Neck exam: ABSENT: JVD Respiratory exam: PRESENT: decreased breath sounds, wheezes - Significantly improved Cardiovascular exam: PRESENT: RRR. ABSENT: gallop GI/Abdominal exam: PRESENT: normal bowel sounds, soft. ABSENT: distended Extremities exam: ABSENT: pedal edema Neurological exam: PRESENT: alert, awake, oriented to situation Skin exam: PRESENT: dry, warm. ABSENT: cyanosis Results Laboratory Results: 10/29/16 03:54 10/29/16 03:54 10/30/16 20:00 Carbonic Acid 1.21 HCO3/H2CO3 Ratio 25:1 ABG pH 7.49 H ABG pCO2 40.3 ABG pO2 61.1 L ABG HCO3 30.3 H ABG O2 Saturation 93.2 L ABG Base Excess 6.5 FiO2 2L 10/28/16 10/28/16 10/28/16 10:56 10:56 17:00 Creatine Kinase 213 H 397 H CK-MB (CK-2) 6.22 H Troponin I 0.066 10/28/16 17:00 Creatine Kinase CK-MB (CK-2) 6.13 H Troponin I 0.050 Impressions: Chest/Abdomen CTA 10/28/16 00:16 IMPRESSION: 1. NORMAL CTA OF THE CHEST. NO PULMONARY EMBOLI. 2. STABLE FINDINGS IN THE CHEST INCLUDING A SPICULATED MASS IN THE RIGHT APEX, SCARRING IN THE LEFT APEX, AND EMPHYSEMATOUS CHANGES. NO ACUTE FINDINGS. Chest X-Ray 10/30/16 00:00 IMPRESSION: NO ACUTE RADIOGRAPHIC FINDING IN THE CHEST. Head CT 10/30/16 00:00 IMPRESSION: No acute findings.No enhancing lesions. Assessment & Plan - Diagnosis (1) COPD exacerbation Is this a current diagnosis for this admission?: Yes (2) Allergic sinusitis Is this a current diagnosis for this admission?: Yes (3) Hyponatremia Is this a current diagnosis for this admission?: Yes (4) Lung cancer Qualifiers: Laterality: right Lung location: upper lobe of lung Qualified Code( s): C34.11 - Malignant neoplasm of upper lobe, right bronchus or lung Is this a current diagnosis for this admission?: Yes (5) Tobacco dependence Is this a current diagnosis for this admission?: Yes (6) Essential hypertension Is this a current diagnosis for this admission?: Yes - Time Time Spent with patient: 25-34 minutes - Plan Summary Plan Summary: Change albuterol to Xopenex. Continue Advair. Decrease intravenous steroid dose. Obtain home oxygen requirement/O2 saturation on ambulation and at rest. Continue current antibiotics for now. Blood culture result likely a contaminant. Continue supportive care.
[2016-10-31] MEDS: MAGNESIUM OXIDE 400 MG TABLET PO SCH (11:03)
[2016-10-31] MEDS: VALSARTAN 160 MG TABLET PO SCH (11:03)
[2016-10-31] MEDS: LORATADINE 10 MG TABLET PO SCH (11:03)
[2016-10-31] MEDS: AMLODIPINE BESYLATE 10 MG TABLET PO SCH (11:03)
[2016-10-31] MEDS: DOCUSATE SODIUM 100 MG CAPSULE PO SCH ×2 (11:03→17:22)
[2016-10-31] MEDS: NICOTINE 14 MG/24 HR PATCH.TD24 TD SCH (11:04)
[2016-10-31] MEDS: IPRATROPIUM BROMIDE 0.02% NEB 0.5 MG/2.5 ML AMPUL NEB SCH ×4 (12:24→23:20)
[2016-10-31] MEDS: LEVALBUTEROL HCL NEB 1.25 MG/3 ML AMPUL NEB SCH ×4 (12:24→23:21)
[2016-10-31] MEDS: LEVOFLOXACIN 750 MG TABLET PO SCH (17:22)
[2016-11-01] MEDS: METHYLPREDNISOLONE INJ 125 MG/2 ML SDV IV SCH ×3 (02:25→17:17)
[2016-11-01] MEDS: LEVALBUTEROL HCL NEB 1.25 MG/3 ML AMPUL NEB SCH ×5 (03:57→20:48)
[2016-11-01] MEDS: IPRATROPIUM BROMIDE 0.02% NEB 0.5 MG/2.5 ML AMPUL NEB SCH ×3 (03:58→12:38)
[2016-11-01] MEDS: FLUTICASONE/SALMETEROL DISKUS 250-50 MCG/DOSE IH SCH ×2 (05:18→17:18)
[2016-11-01] MEDS: GUAIFENESIN SYRP 200 MG/10 ML UDC PO PRN ×2 (05:19→19:48)
[2016-11-01] MEDS: ERLOTINIB HCL 150 MG PO SCH (05:19)
[2016-11-01] MEDS: HEPARIN SOD (PORCINE) 5,000 UNIT/ML 1 ML SYRINGE SUBCUT SCH ×3 (05:19→22:55)
[2016-11-01 06:16] LABS: HEMATOCRIT 35.2 % (36.0-47.0); HGB HCT DIFFERENCE 0.8; MEAN CORPUSCULAR HEMOGLOBIN 30.9 pg (27.0-33.4); MEAN CORPUSCULAR HGB CONC 34.2 g/dL (32.0-36.0); MEAN CORPUSCULAR VOLUME 90 fl (80-97); RED BLOOD COUNT 3.89 10^6/uL (3.72-5.28); RED CELL DISTRIBUTION WIDTH 13.6 % (11.5-14.0); WHITE BLOOD COUNT 8.4 10^3/uL (4.0-10.5)
[2016-11-01 06:33] LABS: ANION GAP 9 (5-19); BLOOD UREA NITROGEN 27 mg/dL (7-20); CALCIUM 9.3 mg/dL (8.4-10.2); CARBON DIOXIDE 34 mmol/L (22-30); CHLORIDE 90 mmol/L (98-107); GLUCOSE 141 mg/dL (75-110); POTASSIUM 4.3 mmol/L (3.6-5.0); SODIUM 132.7 mmol/L (137-145)
[2016-11-01] MEDS: DOCUSATE SODIUM 100 MG CAPSULE PO SCH ×2 (10:24→17:17)
[2016-11-01] MEDS: MAGNESIUM OXIDE 400 MG TABLET PO SCH (10:24)
[2016-11-01] MEDS: LORATADINE 10 MG TABLET PO SCH (10:24)
[2016-11-01] MEDS: VALSARTAN 160 MG TABLET PO SCH (10:24)
[2016-11-01] MEDS: AMLODIPINE BESYLATE 10 MG TABLET PO SCH (10:24)
[2016-11-01] MEDS: NICOTINE 14 MG/24 HR PATCH.TD24 TD SCH (10:25)
--- NOTE | 2016-11-01 10:43 | PDOC PROGRESS REPORT ---
Subjective Progress Note for:: 11/01/16 Subjective:: Complains of some shortness of breath but reports it is slowly improving. Physical Exam Vital Signs: Temp Pulse Resp BP Pulse Ox 97.5 F 121 H 24 H 122/49 L 94 11/01/16 00:06 11/01/16 08:14 11/01/16 08:14 11/01/16 00:06 11/01/16 08:14 Intake & Output 10/31/16 11/01/16 11/02/16 06:59 06:59 06:59 Intake Total 1172 1255 Output Total 2300 2100 Balance -1128 -845 Weight 57.9 kg 62.3 kg General appearance: PRESENT: no acute distress Eye exam: PRESENT: conjunctiva pink. ABSENT: scleral icterus Ear exam: PRESENT: normal external ear exam Mouth exam: PRESENT: moist, tongue midline Neck exam: ABSENT: JVD Respiratory exam: PRESENT: wheezes - Scattered expiratory wheezes on the left. ABSENT: rales, rhonchi Cardiovascular exam: PRESENT: RRR. ABSENT: diastolic murmur, rubs, systolic murmur GI/Abdominal exam: PRESENT: normal bowel sounds, soft. ABSENT: distended, guarding, mass, organolmegaly, rebound, tenderness Extremities exam: ABSENT: calf tenderness, clubbing, pedal edema Neurological exam: PRESENT: alert, awake, oriented to person, oriented to place , oriented to time, oriented to situation, CN II-XII grossly intact. ABSENT: motor sensory deficit Psychiatric exam: PRESENT: appropriate affect Skin exam: PRESENT: dry, intact, warm. ABSENT: cyanosis, rash Results Laboratory Results: 11/01/16 05:00 11/01/16 05:00 11/01/16 11/01/16 05:00 05:00 WBC 8.4 RBC 3.89 Hgb 12.0 Hct 35.2 L MCV 90 MCH 30.9 MCHC 34.2 RDW 13.6 Plt Count 204 Sodium 132.7 L Potassium 4.3 Chloride 90 L Carbon Dioxide 34 H Anion Gap 9 BUN 27 H Creatinine 0.80 Est GFR ( Amer) > 60 Est GFR (Non-Af Amer) > 60 Glucose 141 H Calcium 9.3 10/28/16 10/28/16 10/28/16 10:56 10:56 17:00 Creatine Kinase 213 H 397 H CK-MB (CK-2) 6.22 H Troponin I 0.066 10/28/16 17:00 Creatine Kinase CK-MB (CK-2) 6.13 H Troponin I 0.050 Impressions: Chest/Abdomen CTA 10/28/16 00:16 IMPRESSION: 1. NORMAL CTA OF THE CHEST. NO PULMONARY EMBOLI. 2. STABLE FINDINGS IN THE CHEST INCLUDING A SPICULATED MASS IN THE RIGHT APEX, SCARRING IN THE LEFT APEX, AND EMPHYSEMATOUS CHANGES. NO ACUTE FINDINGS. Chest X-Ray 10/30/16 00:00 IMPRESSION: NO ACUTE RADIOGRAPHIC FINDING IN THE CHEST. Head CT 10/30/16 00:00 IMPRESSION: No acute findings.No enhancing lesions. Assessment & Plan - Diagnosis (1) Acute and chronic respiratory failure with hypoxia Is this a current diagnosis for this admission?: YesPlan: Secondary to acute COPD exacerbation. Patient still has some scattered expiratory wheezes on the left. We'll continue with the steroids and nebulizers. (2) COPD exacerbation Is this a current diagnosis for this admission?: YesPlan: Patient has an acute COPD exacerbation. We'll treat with the IV Solu-Medrol, nebulizers, and Levaquin. (3) Acute bronchitis Is this a current diagnosis for this admission?: YesPlan: Patient has an acute bronchitis and is on Levaquin. (4) Hyponatremia Is this a current diagnosis for this admission?: YesPlan: Most likely secondary to her underlying lung cancer. (5) Lung cancer Qualifiers: Laterality: right Lung location: upper lobe of lung Qualified Code( s): C34.11 - Malignant neoplasm of upper lobe, right bronchus or lung Is this a current diagnosis for this admission?: YesPlan: CT scan does not show any progression. She has been on Tarceva. (6) Tobacco dependence Is this a current diagnosis for this admission?: YesPlan: The patient has been encouraged to quit smoking. (7) Back pain Is this a current diagnosis for this admission?: YesPlan: Improving. - Time Time Spent with patient: 25-34 minutes - Inpatient Certification Medical Necessity: Need Close Monitoring Due to Risk of Patient Decompensation
[2016-11-01] MEDS: LEVOFLOXACIN 750 MG TABLET PO SCH (17:18)
[2016-11-02] MEDS: LORAZEPAM INJ 2 MG/1 ML VIAL IV PRN (00:19)
[2016-11-02] MEDS: METHYLPREDNISOLONE INJ 125 MG/2 ML SDV IV SCH (02:29)
[2016-11-02 05:51] LABS: ABSOLUTE LYMPHOCYTES (AUTO) 0.5 10^3/uL (0.5-4.7); ABSOLUTE MONOCYTES (AUTO) 0.6 10^3/uL (0.1-1.4); ABSOLUTE NEUT (AUTO) 7.8 10^3/uL (1.7-8.2); BASOPHILS % (AUTO) 0.1 % (0-2); HEMATOCRIT 35.1 % (36.0-47.0); HEMOGLOBIN 12.1 g/dL (12.0-15.5); HGB HCT DIFFERENCE 1.2; LYMPHOCYTES % (AUTO) 5.7 % (13-45); MEAN CORPUSCULAR HEMOGLOBIN 31.3 pg (27.0-33.4); MEAN CORPUSCULAR HGB CONC 34.4 g/dL (32.0-36.0); MEAN CORPUSCULAR VOLUME 91 fl (80-97); MONOCYTES % (AUTO) 6.5 % (3-13); RED BLOOD COUNT 3.86 10^6/uL (3.72-5.28); RED CELL DISTRIBUTION WIDTH 13.6 % (11.5-14.0); SEGMENTED NEUTROPHILS % (AUTO) 87.7 % (42-78); WHITE BLOOD COUNT 8.9 10^3/uL (4.0-10.5)
[2016-11-02] MEDS: FLUTICASONE/SALMETEROL DISKUS 250-50 MCG/DOSE IH SCH ×2 (06:06→17:24)
[2016-11-02] MEDS: ERLOTINIB HCL 150 MG PO SCH (06:06)
[2016-11-02] MEDS: HEPARIN SOD (PORCINE) 5,000 UNIT/ML 1 ML SYRINGE SUBCUT SCH ×3 (06:06→21:56)
[2016-11-02 06:09] LABS: ANION GAP 6 (5-19); BLOOD UREA NITROGEN 23 mg/dL (7-20); CALCIUM 8.8 mg/dL (8.4-10.2); CARBON DIOXIDE 35 mmol/L (22-30); CHLORIDE 91 mmol/L (98-107); CREATININE RESULT 0.69 mg/dL (0.52-1.25); GLUCOSE 132 mg/dL (75-110); POTASSIUM 4.1 mmol/L (3.6-5.0); SODIUM 132.3 mmol/L (137-145)
[2016-11-02] MEDS: LEVALBUTEROL HCL NEB 1.25 MG/3 ML AMPUL NEB SCH ×3 (08:25→19:24)
--- NOTE | 2016-11-02 10:13 | PDOC PROGRESS REPORT ---
Subjective Progress Note for:: 11/02/16 Subjective:: Complains of nonproductive cough. Physical Exam Vital Signs: Temp Pulse Resp BP Pulse Ox 98.1 F 107 H 18 130/59 H 97 11/02/16 04:51 11/02/16 07:15 11/02/16 07:15 11/02/16 07:15 11/02/16 07:15 Intake & Output 11/01/16 11/02/16 11/03/16 06:59 06:59 06:59 Intake Total 1255 1070 Output Total 2100 Balance -845 1070 Weight 62.3 kg 62.4 kg General appearance: PRESENT: no acute distress Eye exam: PRESENT: conjunctiva pink. ABSENT: scleral icterus Mouth exam: PRESENT: moist, tongue midline Neck exam: ABSENT: JVD Respiratory exam: PRESENT: clear to auscultation clarice. ABSENT: rales, rhonchi, wheezes Cardiovascular exam: PRESENT: RRR. ABSENT: diastolic murmur, rubs, systolic murmur GI/Abdominal exam: PRESENT: normal bowel sounds, soft. ABSENT: distended, guarding, mass, organolmegaly, rebound, tenderness Extremities exam: ABSENT: calf tenderness, clubbing, pedal edema Neurological exam: PRESENT: alert, awake, oriented to person, oriented to place , oriented to time, oriented to situation, CN II-XII grossly intact. ABSENT: motor sensory deficit Psychiatric exam: PRESENT: appropriate affect Skin exam: PRESENT: dry, intact, warm. ABSENT: cyanosis, rash Results Laboratory Results: 11/02/16 05:04 11/02/16 05:04 11/02/16 11/02/16 05:04 05:04 WBC 8.9 RBC 3.86 Hgb 12.1 Hct 35.1 L MCV 91 MCH 31.3 MCHC 34.4 RDW 13.6 Plt Count 187 Seg Neutrophils % 87.7 H Lymphocytes % 5.7 L Monocytes % 6.5 Eosinophils % 0.0 Basophils % 0.1 Absolute Neutrophils 7.8 Absolute Lymphocytes 0.5 Absolute Monocytes 0.6 Absolute Eosinophils 0.0 Absolute Basophils 0.0 Sodium 132.3 L Potassium 4.1 Chloride 91 L Carbon Dioxide 35 H Anion Gap 6 BUN 23 H Creatinine 0.69 Est GFR ( Amer) > 60 Est GFR (Non-Af Amer) > 60 Glucose 132 H Calcium 8.8 10/28/16 10/28/16 10/28/16 10:56 10:56 17:00 Creatine Kinase 213 H 397 H CK-MB (CK-2) 6.22 H Troponin I 0.066 10/28/16 17:00 Creatine Kinase CK-MB (CK-2) 6.13 H Troponin I 0.050 Impressions: Chest/Abdomen CTA 10/28/16 00:16 IMPRESSION: 1. NORMAL CTA OF THE CHEST. NO PULMONARY EMBOLI. 2. STABLE FINDINGS IN THE CHEST INCLUDING A SPICULATED MASS IN THE RIGHT APEX, SCARRING IN THE LEFT APEX, AND EMPHYSEMATOUS CHANGES. NO ACUTE FINDINGS. Chest X-Ray 10/30/16 00:00 IMPRESSION: NO ACUTE RADIOGRAPHIC FINDING IN THE CHEST. Head CT 10/30/16 00:00 IMPRESSION: No acute findings.No enhancing lesions. Assessment & Plan - Diagnosis (1) Acute and chronic respiratory failure with hypoxia Is this a current diagnosis for this admission?: YesPlan: Secondary to acute COPD exacerbation. Patient is improving with no wheezing today on exam. She desaturates on room air when walking. Will change to oral prednisone and if she continues to improve we'll plan on discharge home tomorrow with home oxygen. (2) COPD exacerbation Is this a current diagnosis for this admission?: YesPlan: Patient has an acute COPD exacerbation. We'll change from Solu-Medrol to prednisone and continue with nebulizers, and Levaquin. (3) Acute bronchitis Is this a current diagnosis for this admission?: YesPlan: Patient has an acute bronchitis and is on Levaquin. (4) Hyponatremia Is this a current diagnosis for this admission?: YesPlan: Most likely secondary to her underlying lung cancer. (5) Lung cancer Qualifiers: Laterality: right Lung location: upper lobe of lung Qualified Code( s): C34.11 - Malignant neoplasm of upper lobe, right bronchus or lung Is this a current diagnosis for this admission?: YesPlan: CT scan does not show any progression. She has been on Tarceva. (6) Tobacco dependence Is this a current diagnosis for this admission?: YesPlan: The patient has been encouraged to quit smoking. (7) Back pain Is this a current diagnosis for this admission?: YesPlan: Improving. - Time Time Spent with patient: 25-34 minutes - Inpatient Certification Medical Necessity: Need Close Monitoring Due to Risk of Patient Decompensation - Plan Summary Plan Summary: We'll plan on discharge tomorrow if she continues to improve. She will need home oxygen at 2 L per nasal cannula.
[2016-11-02] MEDS: DOCUSATE SODIUM 100 MG CAPSULE PO SCH ×2 (10:20→17:24)
[2016-11-02] MEDS: LORATADINE 10 MG TABLET PO SCH (10:20)
[2016-11-02] MEDS: AMLODIPINE BESYLATE 10 MG TABLET PO SCH (10:21)
[2016-11-02] MEDS: NICOTINE 14 MG/24 HR PATCH.TD24 TD SCH (10:21)
[2016-11-02] MEDS: VALSARTAN 160 MG TABLET PO SCH (10:21)
[2016-11-02] MEDS: MAGNESIUM OXIDE 400 MG TABLET PO SCH (10:21)
[2016-11-02] MEDS: GUAIFENESIN 600 MG TABLET.SA PO SCH ×2 (12:05→21:56)
[2016-11-02] MEDS: PREDNISONE 20 MG TABLET PO SCH (12:06)
[2016-11-02] MEDS: LEVOFLOXACIN 750 MG TABLET PO SCH (16:07)
[2016-11-02] MEDS: FAMOTIDINE 20 MG TABLET PO SCH (17:24)
[2016-11-03] MEDS: FLUTICASONE/SALMETEROL DISKUS 250-50 MCG/DOSE IH SCH (06:17)
[2016-11-03] MEDS: ERLOTINIB HCL 150 MG PO SCH (06:18)
[2016-11-03] MEDS: HEPARIN SOD (PORCINE) 5,000 UNIT/ML 1 ML SYRINGE SUBCUT SCH (06:18)
[2016-11-03] MEDS: LEVALBUTEROL HCL NEB 1.25 MG/3 ML AMPUL NEB SCH (07:43)
[2016-11-03 07:59] VITALS: BP 124/70
--- NOTE | 2016-11-03 10:05 | PDOC DISCHARGE SUMMARY ---
General - Admit/Disc Date/PCP Admission Date/Primary Care Provider: 10/28/16 08:53 LEIZ BACA MD Discharge Date: 11/03/16 - Discharge Diagnosis (1) Acute and chronic respiratory failure with hypoxia Is this a current diagnosis for this admission?: YesSummary: Secondary to acute COPD exacerbation and bronchitis. (2) COPD exacerbation Is this a current diagnosis for this admission?: YesSummary: Treated with IV steroids and Levaquin. Being sent home on a prednisone taper. (3) Acute bronchitis Is this a current diagnosis for this admission?: YesSummary: Completed a course of Levaquin. (4) Hyponatremia Is this a current diagnosis for this admission?: YesSummary: Most likely secondary to her underlying lung cancer. (5) Lung cancer Is this a current diagnosis for this admission?: YesSummary: Being treated with Tarceva as an outpatient (6) Tobacco dependence Is this a current diagnosis for this admission?: YesSummary: Patient is encouraged to quit smoking (7) Back pain Is this a current diagnosis for this admission?: Yes - Additional Information Resuscitation Status: Full Code Discharge Diet: Cardiac Discharge Activity: Activity As Tolerated Home Medications: Acetaminophen 500 mg PO Q4 PRN 10/28/16 Albuterol Sulfate [Proair HFA Inhalation Aerosol 8.5 gm MDI] 2 puff IH Q6HP PRN 10/28/16 Amlodipine Besylate 10 mg PO DAILY 10/28/16 Budesonide/Formoterol Fumarate [Symbicort Hfa 160-4.5 Mcg Inhaler 6 gm] 2 puff IH Q12 10/28/16 Erlotinib HCl [Tarceva 150 mg Tablet] 150 mg PO DAILY 10/28/16 Hydrochlorothiazide 12.5 mg PO DAILY 10/28/16 Loratadine [Claritin] 10 mg PO DAILY 10/28/16 Valsartan [Diovan 160 mg Tablet] 160 mg PO DAILY 10/28/16 Guaifenesin [Mucinex Sr 600 mg Tablet.sa] 1,200 mg PO Q12 tablet.sa 11/03/16 Nicotine [Nicoderm 14 mg/24 Hr Transdermal Patch] 1 each TD DAILY patch.td24 Prednisone [Deltasone 20 mg Tablet] 10 mg PO DAILY #39 tablet 11/03/16 History of Present Illness History of Present Illness: NISA JC is a 76 year old female who has been getting treatment as outpatient for lung cancer presented with a four-day history of cough and wheezing and shortness of breath. Patient was found to have an acute COPD exacerbation and acute bronchitis and is admitted for treatment. Hospital Course Hospital Course: 76-year-old female with lung cancer who's been getting treatment with Tarceva as an outpatient who presented with a four-day history of cough shortness of breath and was found to be hypoxic. Patient was noted to have an acute COPD exacerbation along with bronchitis. Patient was started on IV Levaquin, IV steroids and nebulizers. The patient was significantly hypoxic when she presented. The patient improved, and on the day of discharge she was no longer hypoxic at rest with saturations of 95%, and when ambulating her oxygen saturations decreased to 88%. It was felt that she did not need any home oxygen. The patient is being sent home on a prednisone taper and she has completed a course of Levaquin for bronchitis. She Is strongly encouraged to quit smoking. Physical Exam Vital Signs: Temp Pulse Resp BP Pulse Ox 98.0 F 98 18 124/70 93 11/03/16 07:35 11/03/16 07:35 11/03/16 07:35 11/03/16 07:35 11/03/16 07:35 Intake & Output 11/02/16 11/03/16 11/04/16 06:59 06:59 06:59 Intake Total 1070 1270 Output Total 1150 Balance 1070 120 Weight 62.4 kg 79.8 kg General appearance: PRESENT: no acute distress Eye exam: PRESENT: conjunctiva pink. ABSENT: scleral icterus Mouth exam: PRESENT: moist, tongue midline Neck exam: ABSENT: JVD Respiratory exam: PRESENT: clear to auscultation clarice. ABSENT: rales, rhonchi, wheezes Cardiovascular exam: PRESENT: RRR. ABSENT: diastolic murmur, rubs, systolic murmur GI/Abdominal exam: PRESENT: normal bowel sounds, soft. ABSENT: distended, guarding, mass, organolmegaly, rebound, tenderness Extremities exam: ABSENT: calf tenderness, clubbing, pedal edema Neurological exam: PRESENT: alert, awake, oriented to person, oriented to place , oriented to time, oriented to situation, CN II-XII grossly intact. ABSENT: motor sensory deficit Psychiatric exam: PRESENT: appropriate affect Skin exam: PRESENT: dry, intact, warm. ABSENT: cyanosis, rash Results Laboratory Results: 11/02/16 05:04 11/02/16 05:04 10/28/16 10/28/16 10/28/16 10:56 10:56 17:00 Creatine Kinase 213 H 397 H CK-MB (CK-2) 6.22 H Troponin I 0.066 10/28/16 17:00 Creatine Kinase CK-MB (CK-2) 6.13 H Troponin I 0.050 Impressions: Chest/Abdomen CTA 10/28/16 00:16 IMPRESSION: 1. NORMAL CTA OF THE CHEST. NO PULMONARY EMBOLI. 2. STABLE FINDINGS IN THE CHEST INCLUDING A SPICULATED MASS IN THE RIGHT APEX, SCARRING IN THE LEFT APEX, AND EMPHYSEMATOUS CHANGES. NO ACUTE FINDINGS. Chest X-Ray 10/30/16 00:00 IMPRESSION: NO ACUTE RADIOGRAPHIC FINDING IN THE CHEST. Head CT 10/30/16 00:00 IMPRESSION: No acute findings.No enhancing lesions. Qualifiers PATEINT BEING DISCHARGED WITH ANY OF THE FOLLOWING DIAGNOSIS?: No Plan Discharge Plan: Patient is discharged home in stable condition. Will follow up with primary care in 1-2 weeks. Time Spent: Greater than 30 Minutes
[2016-11-03] MEDS: GUAIFENESIN 600 MG TABLET.SA PO SCH (10:24)
[2016-11-03] MEDS: LORATADINE 10 MG TABLET PO SCH (10:24)
[2016-11-03] MEDS: NICOTINE 14 MG/24 HR PATCH.TD24 TD SCH (10:24)
[2016-11-03] MEDS: PREDNISONE 20 MG TABLET PO SCH (10:24)
[2016-11-03] MEDS: AMLODIPINE BESYLATE 10 MG TABLET PO SCH (10:25)
[2016-11-03] MEDS: FAMOTIDINE 20 MG TABLET PO SCH (10:25)
[2016-11-03] MEDS: MAGNESIUM OXIDE 400 MG TABLET PO SCH (10:25)
[2016-11-03] MEDS: VALSARTAN 160 MG TABLET PO SCH (10:25)
[2016-11-03] MEDS: DOCUSATE SODIUM 100 MG CAPSULE PO SCH (10:26)
== END 2016-11-03 10:45 | disposition home or self-care (01) | DRG 189 ==
LOC: ER 22:37 → UNDOADMOB 10-28 03:52 → 4N 10-28 03:52 → EH 10-28 03:52 → UNDOADMOB 10-28 03:57 → EH 10-28 03:57 → INTOOBSV 10-28 03:57 → 4N 10-28 06:00 → EH 10-28 06:00 → INTOOBSV 10-28 08:53 → OBSVTOIN 10-28 08:53
PROVIDERS: ADMIT Internal Medicine; ATTEND Internal Medicine
PROC: 3E0F7GC Introduction of Other Therapeutic Substance into Respiratory Tract, Via Natural or Artificial Opening (ICD-10-PCS; principal; 2016-10-28)
DX: J96.21 Acute and chronic respiratory failure with hypoxia (principal); J44.0 Chronic obstructive pulmonary disease with (acute) lower respiratory infection; J44.1 Chronic obstructive pulmonary disease with (acute) exacerbation; E87.1 Hypo-osmolality and hyponatremia; C34.11 Malignant neoplasm of upper lobe, right bronchus or lung; J20.9 Acute bronchitis, unspecified; I10 Essential (primary) hypertension; M54.9 Dorsalgia, unspecified; F17.210 Nicotine dependence, cigarettes, uncomplicated; Z79.899 Other long term (current) drug therapy; Z90.710 Acquired absence of both cervix and uterus; Z91.040 Latex allergy status; Z88.8 Allergy status to other drugs, medicaments and biological substances
CPT/HCPCS: 36415; 36600; 70460; 71010; 71275; 80048; 80053; 81001; 82550; 82553; 82803; 83880; 84100; 84484; 85025; 85027; 87040; 87077; 87186; 93005; 93010; 94667; 94668; 99285; G0378; J0456; J1644; J2060; J2405; J2920; J2930; J3475; J3490; J7040; J7060; J7512; J7620

== ENCOUNTER → 2016-12-15 | Outpatient (CLI) | payer MEDICARE ==
--- NOTE | 2016-12-15 20:37 | RADIOLOGY REPORT (SQ) ---
EXAM DESCRIPTION: PET CT SKULL/THIGH COMPLETED DATE/TIME: 12/15/2016 6:48 pm REASON FOR STUDY: LUNG CANCER C34.12 MALIGNANT NEOPLASM OF UPPER LOBE, LEFT BRONCHUS OR FE COMPARISON: PET-CT 05/12/2011, 10/09/2014, 06/16/2016, 09/15/2016 CT chest 10/28/2016 RADIONUCLIDE AND DOSE: 8 mCi F18 FDG The route of agent administration: Intravenous FASTING BLOOD SUGAR: 91 mg/dl CONTRAST TYPE AND DOSE: No CT contrast given. TECHNIQUE: Blood glucose level was verified. Above dose of FDG was injected intravenously. 2-D seg mented attenuation correction images were obtained from the base of the skull to the midthighs. Nonc ontrast CT images were obtained for attenuation correction and fusion with emission images. CT image s were performed without oral or intravenous contrast and are not sensitive for parenchymal lesions. A series of overlapping emission PET images were obtained. Images reviewed and manipulated [facility] by the radiologist. Images stored on PACS. LIMITATIONS: None. FINDINGS: HEAD AND NECK: No areas of abnormal metabolic activity in the soft tissues of the head and neck. CHEST: The 1.8 x 1.4 cm spiculated right upper lobe nodule is present with SUV 4.4. This is similar compared to PET-CT 06/16/2015 there, and larger than on PET-CT 10/09/2014. Patient is post radiation therapy to the left perihilar region. There is bandlike consolidation in t he medial left lung with minimal metabolic activity at baseline SUV 2.3. This is similar compared to 06/16/2016 and 10/09/2014. Patient has old posterior left upper rib fractures. In the left posterior upper chest wall adjacent to the fractures there is minimal metabolic increased activity with SUV of 3.3, nonspecific. ABDOMEN AND PELVIS: A 1 cm right adrenal nodule is present with SUV 2.5. This new compared to previo us studies. PROXIMAL LOWER EXTREMITIES: No areas of abnormal metabolic activity in the soft tissues of the lower extremities. BONES: No abnormal metabolic activity in the visualized skeleton. ADDITIONAL CT FINDINGS: Obstructive lung disease. Gallstones. 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 Calcified carotid artery and coronary arteries. Post hysterectomy. Colonic diverti culi. Right lower lobe calcified granuloma. OTHER: Blood pool activity SUV 1.9, liver SUV 2.5 IMPRESSION: Stable spiculated nodule right lung apex, with stable increased metabolic activity as co mpared to prior PET-CT 09/15/2016 New metabolically active right adrenal nodule Post radiation change in the left perihilar lung would volume loss and consolidation. Minimal metabo lic activity at baseline, similar compared to previous studies. There is also mild increased chest w all activity adjacent to posterior left rib fractures which likely represents post radiation change TECHNICAL DOCUMENTATION: JOB ID: [id number] [employer]- All Rights Reserved
== END ==
LOC: RAD 14:48
PROVIDERS: ATTEND Internal Medicine
DX: C34.12 Malignant neoplasm of upper lobe, left bronchus or lung (principal)
CPT/HCPCS: 78815; A9552

== ENCOUNTER 2017-02-11 18:06 | Inpatient (IN) | payer MEDICARE ==
[2017-02-11] MEDS ORDERED: NORMAL SALINE 1000 ML 1,000 ML IV ONE (18:23)
--- NOTE | 2017-02-11 18:32 | ER Document Report ---
ED General - General Chief Complaint: Abnormal Lab Results Stated Complaint: ABNORMAL LABS Time Seen by Provider: 02/11/17 18:23 Mode of Arrival: Ambulatory Information source: Patient Notes: 76 yr old female presents from home because of confusion. Pt noted to have sodium 122 by primary care. Pt denies any fevers or chills, notes that her confusion is getting better . denies any weakness TRAVEL OUTSIDE OF THE [place] IN LAST 30 DAYS: No - HPI Onset: Other - 2-3 days Onset/Duration: Waxing and waning Quality of pain: No pain Severity: Mild Pain Level: 1 Associated symptoms: Weakness Exacerbated by: Denies Relieved by: Denies Similar symptoms previously: No Recently seen / treated by doctor: No - Related Data Allergies/Adverse Reactions: latex [Latex] Allergy (Severe, Verified 02/11/17 18:18) rash hydrocodone [Hydrocodone] Allergy (Unknown, Verified 02/11/17 18:18) morphine [Morphine] Allergy (Unknown, Verified 02/11/17 18:18) amoxicillin trihydrate [From Augmentin] Adverse Reaction (Unknown, Verified 18:18) Dizziness Potassium Clavulanate * [From Augmentin] Adverse Reaction (Unknown, Verified 18:18) Dizziness olmesartan medoxomil [From May] Adverse Reaction (Verified 02/11/17 18:18) tremor Past Medical History - Social History Smoking Status: Current Every Day Smoker Cigarette use (# per day): Yes Chew tobacco use (# tins/day): No Smoking Education Provided: No Frequency of alcohol use: None Drug Abuse: None Family History: Reviewed & Not Pertinent Patient has suicidal ideation: No Patient has homicidal ideation: No - Past Medical History Cardiac Medical History: Reports: Hx Hypertension Denies: Hx Coronary Artery Disease, Hx Heart Attack, Hx Pulmonary Embolism Pulmonary Medical History: Denies: Hx Asthma, Hx Bronchitis, Hx Pneumonia, Hx Respiratory Failure, Hx Sleep Apnea, Hx Tuberculosis Neurological Medical History: Denies: Hx Cerebrovascular Accident Renal/ Medical History: Denies: Hx Peritoneal Dialysis Malignancy Medical History: Reports: Hx Lung Cancer. Denies: Hx Leukemia Musculoskeltal Medical History: Reports Hx Arthritis, Denies Hx Fibromyalgia, Denies Hx Multiple Sclerosis, Denies Hx Muscular Dystrophy Psychiatric Medical History: Denies: Hx Dementia Traumatic Medical History: Denies: Hx Fractures Infectious Medical History: Denies: Hx HIV Past Surgical History: Reports: Hx Appendectomy - 1977, Hx Hysterectomy, Hx Tonsillectomy - age 17, Hx Tubal Ligation. Denies: Hx Bowel Surgery, Hx Section, Hx Cholecystectomy, Hx Coronary Artery Bypass Graft, Hx Gastric Bypass Surgery, Hx Herniorrhaphy, Hx Mastectomy - Immunizations Hx Diphtheria, Pertussis, Tetanus Vaccination: No Hx Pneumococcal Vaccination: 04/08/08 Review of Systems - Review of Systems Notes: REVIEW OF SYSTEMS: CONSTITUTIONAL : Denies fever, chills, or sweats. Denies recent illness. EENT: Denies eye, ear, throat, or mouth pain or symptoms. Denies nasal or sinus congestion or discharge. Denies throat, tongue, or mouth swelling or difficulty swallowing. CARDIOVASCULAR: Denies chest pain. Denies palpitations or racing or irregular heart beat. Denies ankle edema. RESPIRATORY: Denies cough, cold, or chest congestion. Denies shortness of breath, difficulty breathing, or wheezing. GASTROINTESTINAL: Denies abdominal pain or distention. Denies nausea, vomiting , or diarrhea. Denies blood in vomitus, stools, or per rectum. Denies black, tarry stools. Denies constipation. GENITOURINARY: Denies difficulty urinating, painful urination, burning, frequency, blood in urine, or discharge. FEMALE GENITOURINARY: Denies vaginal bleeding, heavy or abnormal periods, irregular periods. Denies vaginal discharge or odor. MUSCULOSKELETAL: Denies back or neck pain or stiffness. Denies joint pain or swelling. SKIN: Denies rash, lesions or sores. HEMATOLOGIC : Denies easy bruising or bleeding. LYMPHATIC: Denies swollen, enlarged glands. NEUROLOGICAL: confusion PSYCHIATRIC: Denies anxiety or stress. Denies depression, suicidal ideation, or homicidal ideation. ALL OTHER SYSTEMS REVIEWED AND NEGATIVE. PHYSICAL EXAMINATION: GENERAL: Well-appearing, well-nourished and in no acute distress. HEAD: Atraumatic, normocephalic. EYES: Pupils equal round and reactive to light, extraocular movements intact, conjunctiva are normal. ENT: Nares patent, oropharynx clear without exudates. Moist mucous membranes. NECK: Normal range of motion, supple without lymphadenopathy LUNGS: Breath sounds clear to auscultation bilaterally and equal. No wheezes rales or rhonchi. HEART: Regular rate and rhythm without murmurs ABDOMEN: Soft, nontender, nondistended abdomen. No guarding, no rebound. No masses appreciated. Female : deferred Musculoskeletal: Normal range of motion, no pitting or edema. No cyanosis. NEUROLOGICAL: Cranial nerves grossly intact. Normal speech, normal gait. Normal sensory, motor exams PSYCH: Normal mood, normal affect. SKIN: Warm, Dry, normal turgor, no rashes or lesions noted. Dictation was performed using [employer] voice recognition software Course - Re-evaluation Re-evalutation: 02/11/17 19:[address] lab work from Dr Moore, she will be admitted due to her worsening sodium level 02/11/17 20:12 patients sodium is now 119.9. Pt other villalobos well appearing in no distress - Laboratory Result Diagrams: 02/11/17 19:10 02/11/17 19:10 Laboratory results interpreted by me: 02/11/17 02/11/17 19:10 19:10 Sodium 119.9 L* Chloride 83 L Urine Protein 100 H Discharge - Discharge Clinical Impression: Hyponatremia Lung cancer Qualifiers: Laterality: right Lung location: upper lobe of lung Qualified Code(s): C34.11 - Malignant neoplasm of upper lobe, right bronchus or lung Condition: Stable Disposition: ADMITTED INPATIENT Admitting Provider: Hospitalist Unit Admitted: [facility]
[2017-02-11 19:40] LABS: ABSOLUTE EOSINOPHILS # (AUTO) 0.1 10^3/uL (0.0-0.6); ABSOLUTE LYMPHOCYTES (AUTO) 1.1 10^3/uL (0.5-4.7); ABSOLUTE MONOCYTES (AUTO) 0.8 10^3/uL (0.1-1.4); ABSOLUTE NEUT (AUTO) 5.5 10^3/uL (1.7-8.2); BASOPHILS % (AUTO) 0.3 % (0-2); EOSINOPHILS % (AUTO) 0.8 % (0-6); HEMATOCRIT 36.1 % (36.0-47.0); HEMOGLOBIN 12.5 g/dL (12.0-15.5); HGB HCT DIFFERENCE 1.4; LYMPHOCYTES % (AUTO) 14.1 % (13-45); MEAN CORPUSCULAR HEMOGLOBIN 30.9 pg (27.0-33.4); MEAN CORPUSCULAR HGB CONC 34.6 g/dL (32.0-36.0); MEAN CORPUSCULAR VOLUME 89 fl (80-97); MONOCYTES % (AUTO) 10.9 % (3-13); RED BLOOD COUNT 4.05 10^6/uL (3.72-5.28); RED CELL DISTRIBUTION WIDTH 13.4 % (11.5-14.0); SEGMENTED NEUTROPHILS % (AUTO) 73.9 % (42-78); WHITE BLOOD COUNT 7.5 10^3/uL (4.0-10.5)
[2017-02-11 19:45] LABS: APPEARANCE,URINE SLIGHTLY-CLOUDY; BILIRUBIN,URINE NEGATIVE (NEGATIVE); GLUCOSE, URINE NEGATIVE (NEGATIVE); KETONES,URINE NEGATIVE (NEGATIVE); LEUKOCYTE ESTERASE,URINE NEGATIVE (NEGATIVE); NITRITE,URINE NEGATIVE (NEGATIVE); PROTEIN,URINE 100 mg/dL (NEGATIVE); URINE SPECIFIC GRAVITY 1.011; UROBILINOGEN,URINE NEGATIVE mg/dL (<2.0)
[2017-02-11 19:55] LABS: ALANINE AMINOTRANSFERASE 26 U/L (9-52); ALBUMIN 4.1 g/dL (3.5-5.0); ALKALINE PHOSPHATASE 88 U/L (38-126); ANION GAP 11 (5-19); ASPARTATE AMINO TRANSFERASE 22 U/L (14-36); BILIRUBIN,DIRECT 0.4 mg/dL (0.0-0.4); BILIRUBIN,TOTAL 0.5 mg/dL (0.2-1.3); BLOOD UREA NITROGEN 17 mg/dL (7-20); CALCIUM 9.8 mg/dL (8.4-10.2); CARBON DIOXIDE 26 mmol/L (22-30); CHLORIDE 83 mmol/L (98-107); CREATININE RESULT 0.84 mg/dL (0.52-1.25); GLUCOSE 101 mg/dL (75-110); POTASSIUM 4.3 mmol/L (3.6-5.0); TOTAL PROTEIN 6.9 g/dL (6.3-8.2)
[2017-02-11 20:08] LABS: SODIUM 119.9 mmol/L (137-145)
[2017-02-11 21:27] LABS: ANION GAP 10 (5-19); BLOOD UREA NITROGEN 16 mg/dL (7-20); CALCIUM 9.6 mg/dL (8.4-10.2); CARBON DIOXIDE 26 mmol/L (22-30); CHLORIDE 85 mmol/L (98-107); CREATININE RESULT 0.79 mg/dL (0.52-1.25); GLUCOSE 93 mg/dL (75-110)
[2017-02-11 22:01] LABS: SODIUM 120.5 mmol/L (137-145)
[2017-02-11] MEDS: HEPARIN SOD (PORCINE) 5,000 UNIT/ML 1 ML SYRINGE SUBCUT SCH (23:23)
[2017-02-12] MEDS: IPRATROPIUM/ALBUTEROL 0.5-2.5 MG/3 ML AMPUL NEB SCH ×3 (00:04→16:17)
--- NOTE | 2017-02-12 03:12 | PDOC H&P ---
History of Present Illness Admission Date/PCP: 02/11/17 20:41 Patient complains of: Abnormal labs History of Present Illness: NISA JC is a 76 year old female with a past medical history of hypertension, anxiety, GERD, COPD with ongoing tobacco dependence and active lung cancer. She did her usual state of health until 72-48 hours prior to presentation developing confusion versus anxiety prompting to seek evaluation by her primary care provider. Labs including chemistry was obtained. Results returned significant for a sodium of 118 and she is referred to Hospital emergency room for evaluation. Denies nausea vomiting seizure or activity. Patient is unclear of her current daily medication regiment taking Zoloft intermittently. Recently beginning Spironolactone. It is unclear if she still takes hydrochlorothiazide. That said in the emergency room she is started on normal saline prior to the return of labs which suggest SIADH. Patient states she drinks as much water she possibly can because of the dry mouth. She also admits clear color urine. She is awake and alert oriented 3 conversational with an anxious affect. 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 Denies: Leukemia Musculoskeltal Medical History: Reports: Arthritis Denies: Fibromyalgia Psychiatric Medical History: Reports: General Anxiety Disorder Denies: Dementia Hematology: Reports: Anemia - hx of Denies: Hemophilia, Sickle Cell Disease Infectious Medical History: Denies: HIV Past Surgical History Past Surgical History: Reports: Appendectomy - 1977, Hysterectomy, Tonsillectomy - age 17, Tubal Ligation Denies: Amputation, Section, Cholecystectomy, Coronary Artery Bypass Graft, Gastric Bypass Surgery, Herniorrhaphy, Mastectomy Social History Information Source: Patient Smoking Status: Current Every Day Smoker Cigarettes Packs Per Day: 1 Last Time Smoked: 02/11/2017 Frequency of Alcohol Use: None Hx Recreational Drug Use: No Drugs: None Hx Prescription Drug Abuse: No - Advance Directive Resuscitation Status: Full Code Family History Family History: Hypertension Parental Family History Reviewed: Yes Children Family History Reviewed: Yes Sibling(s) Family History Reviewed.: Yes Medication/Allergy Home Medications: Acetaminophen [Tylenol Arthritis 650 mg Tablet] 650 mg PO Q8 02/11/17 Albuterol Sulfate [Proair HFA] 1 puff IH Q6HP PRN 02/11/17 Erlotinib HCl [Tarceva 150 mg Tablet] 150 mg PO QAM 02/11/17 Fluticasone Propionate [Flonase Nasal [place] 50 Mcg/[place] 16 gm] 1 spray NASL DAILY 02/11/17 Fluticasone/Salmeterol [Advair 250-50 Diskus 28 dose] 2 puff IH DAILY 02/11/17 Lansoprazole [Prevacid] 15 mg PO DAILY 02/11/17 Sertraline HCl [Zoloft] 25 mg PO DAILY 02/11/17 Spironolactone [Aldactone 25 mg Tablet] 25 mg PO Q12 02/11/17 Valsartan [Diovan] 320 mg PO DAILY 02/11/17 Allergies/Adverse Reactions: latex [Latex] Allergy (Severe, Verified 02/11/17 18:18) rash hydrocodone [Hydrocodone] Allergy (Unknown, Verified 02/11/17 18:18) morphine [Morphine] Allergy (Unknown, Verified 02/11/17 18:18) amoxicillin trihydrate [From Augmentin] Adverse Reaction (Unknown, Verified 18:18) Dizziness Potassium Clavulanate * [From Augmentin] Adverse Reaction (Unknown, Verified 18:18) Dizziness olmesartan medoxomil [From May] Adverse Reaction (Verified 02/11/17 18:18) tremor Review of Systems Constitutional: ABSENT: chills, fever(s), headache(s), weight gain, weight loss Eyes: ABSENT: visual disturbances Ears: ABSENT: hearing changes Cardiovascular: ABSENT: chest pain, dyspnea on exertion, edema, orthropnea, palpitations Respiratory: ABSENT: cough, hemoptysis Gastrointestinal: ABSENT: abdominal pain, constipation, diarrhea, hematemesis, hematochezia, nausea, vomiting Genitourinary: ABSENT: dysuria, hematuria Musculoskeletal: PRESENT: as per HPI Integumentary: ABSENT: rash, wounds Neurological: PRESENT: confusion. ABSENT: abnormal gait, abnormal speech, dizziness, focal weakness, syncope Psychiatric: ABSENT: anxiety, depression, homidical ideation, suicidal ideation Endocrine: ABSENT: cold intolerance, heat intolerance, polydipsia, polyuria Hematologic/Lymphatic: ABSENT: easy bleeding, easy bruising Physical Exam Vital Signs: Temp Pulse Resp BP Pulse Ox 97.9 F 88 18 162/71 H 100 02/12/17 01:26 02/12/17 02:00 02/12/17 01:26 02/12/17 02:40 02/12/17 01:26 Intake & Output 02/10/17 02/11/17 02/12/17 11:59 11:59 11:59 Weight 59.9 kg Results Laboratory Results: 02/11/17 21:03 02/11/17 21:03 Sodium 120.5 L* Potassium 4.0 Chloride 85 L Carbon Dioxide 26 Anion Gap 10 BUN 16 Creatinine 0.79 Est GFR ( Amer) > 60 Est GFR (Non-Af Amer) > 60 Glucose 93 Calcium 9.6 Assessment & Plan - Diagnosis (1) Hyponatremia Is this a current diagnosis for this admission?: YesPlan: No concern for neurologic decompensation. Underlying cause of mild hypervolemic , hypotonic, hyponatremia is somewhat unclear though the patient has multiple risks including non-small lung cancer, advanced COPD, multiple medications including hydrochlorothiazide, SSRI, proton pump inhibitor, personal history suggesting polydipsia. Labs including a serum osmolarity of 255 and urine sodium of 47. She is placed on a 1200 mL fluid restriction with serial chemistries every 6 hours, discontinuation of hydrochlorothiazide. (2) Tobacco dependence Is this a current diagnosis for this admission?: YesPlan: Tobacco Dependence patient received tobacco cessation counseling and offered nicotine replacement options (3) Lung cancer Qualifiers: Laterality: right Lung location: upper lobe of lung Qualified Code( s): C34.11 - Malignant neoplasm of upper lobe, right bronchus or lung Is this a current diagnosis for this admission?: YesPlan: Defer to outpatient oncology Dr. Galvez - Time Time Spent: 50 to 70 Minutes - Inpatient Certification Medical Necessity: Need Close Monitoring Due to Risk of Patient Decompensation
[2017-02-12 03:35] LABS: ABSOLUTE EOSINOPHILS # (AUTO) 0.1 10^3/uL (0.0-0.6); ABSOLUTE LYMPHOCYTES (AUTO) 1.2 10^3/uL (0.5-4.7); ABSOLUTE MONOCYTES (AUTO) 0.7 10^3/uL (0.1-1.4); ABSOLUTE NEUT (AUTO) 4.5 10^3/uL (1.7-8.2); BASOPHILS % (AUTO) 0.5 % (0-2); EOSINOPHILS % (AUTO) 0.9 % (0-6); HEMATOCRIT 33.9 % (36.0-47.0); HEMOGLOBIN 11.7 g/dL (12.0-15.5); HGB HCT DIFFERENCE 1.2; LYMPHOCYTES % (AUTO) 18.1 % (13-45); MEAN CORPUSCULAR HEMOGLOBIN 30.8 pg (27.0-33.4); MEAN CORPUSCULAR HGB CONC 34.5 g/dL (32.0-36.0); MEAN CORPUSCULAR VOLUME 89 fl (80-97); MONOCYTES % (AUTO) 10.3 % (3-13); RED CELL DISTRIBUTION WIDTH 13.8 % (11.5-14.0); SEGMENTED NEUTROPHILS % (AUTO) 70.2 % (42-78); WHITE BLOOD COUNT 6.5 10^3/uL (4.0-10.5)
[2017-02-12 03:48] LABS: ANION GAP 7 (5-19); BLOOD UREA NITROGEN 13 mg/dL (7-20); CALCIUM 9.4 mg/dL (8.4-10.2); CARBON DIOXIDE 25 mmol/L (22-30); CHLORIDE 90 mmol/L (98-107); CREATININE RESULT 0.64 mg/dL (0.52-1.25); GLUCOSE 103 mg/dL (75-110); POTASSIUM 3.8 mmol/L (3.6-5.0); SODIUM 122.4 mmol/L (137-145)
[2017-02-12] MEDS: HEPARIN SOD (PORCINE) 5,000 UNIT/ML 1 ML SYRINGE SUBCUT SCH ×3 (05:52→21:54)
[2017-02-12] MEDS: DOCUSATE SODIUM 100 MG CAPSULE PO SCH ×2 (09:46→18:40)
[2017-02-12 10:21] LABS: ANION GAP 9 (5-19); BLOOD UREA NITROGEN 11 mg/dL (7-20); CALCIUM 9.5 mg/dL (8.4-10.2); CARBON DIOXIDE 28 mmol/L (22-30); CHLORIDE 88 mmol/L (98-107); CREATININE RESULT 0.62 mg/dL (0.52-1.25); GLUCOSE 136 mg/dL (75-110); POTASSIUM 3.6 mmol/L (3.6-5.0); SODIUM 125.3 mmol/L (137-145)
[2017-02-12] MEDS ORDERED: ALBUTEROL SULFATE HFA (90 MCG/PUFF) 8 GM MDI (1 MDI/ER DISP) IH PRN (11:39)
[2017-02-12] MEDS ORDERED: (PENDING PHARMACY ID) (Sertraline Hcl [Zoloft] 25 MG) PO SCH (11:45)
[2017-02-12] MEDS ORDERED: (PENDING PHARMACY ID) (Lansoprazole [Prevacid] 15 MG) PO SCH (11:45)
[2017-02-12] MEDS ORDERED: (PENDING PHARMACY ID) (Valsartan [Diovan] 320 MG) PO SCH (11:45)
[2017-02-12] MEDS ORDERED: FLUTICASONE NASAL SPRAY 50 MCG/SPRY 120 SPRAY/16 GM NASL SCH (11:45)
[2017-02-12] MEDS ORDERED: ALBUTEROL SULFATE HFA (90 MCG/PUFF) 200 PUFF/8.5 GM MDI IH PRN (12:30)
[2017-02-12] MEDS ORDERED: LANSOPRAZOLE 15 MG TAB.RAP.DR PO ONE (12:30)
[2017-02-12] MEDS ORDERED: VALSARTAN 160 MG TABLET PO ONE (12:30)
[2017-02-12] MEDS ORDERED: SERTRALINE HCL 50 MG TABLET PO ONE (12:30)
[2017-02-12] MEDS ORDERED: FLUTICASONE NASAL SPRAY 50 MCG/SPRY 120 SPRAY/16 GM NASL ONE (12:45)
[2017-02-12] MEDS ORDERED: ERLOTINIB HCL 150 MG PO ONE (12:45)
[2017-02-12] MEDS ORDERED: FLUTICASONE/SALMETEROL DISKUS 250-50 MCG/DOSE IH ONE (12:45)
[2017-02-12] MEDS: ACETAMINOPHEN 325 MG TABLET PO PRN ×2 (15:16→19:45)
[2017-02-12 15:39] LABS: ANION GAP 9 (5-19); BLOOD UREA NITROGEN 15 mg/dL (7-20); CALCIUM 9.8 mg/dL (8.4-10.2); CARBON DIOXIDE 30 mmol/L (22-30); CHLORIDE 88 mmol/L (98-107); CREATININE RESULT 0.83 mg/dL (0.52-1.25); GLUCOSE 106 mg/dL (75-110); POTASSIUM 4.3 mmol/L (3.6-5.0); SODIUM 126.5 mmol/L (137-145)
--- NOTE | 2017-02-12 16:19 | PDOC PROGRESS REPORT ---
Subjective Progress Note for:: 02/12/17 Subjective:: The patient states she feels better now than when she first came in. She has concerns that she may be dying because of her sodium being as low as it is. I have offered her reassurance on this matter. She denies any chest pain or shortness of breath. Physical Exam Vital Signs: Temp Pulse Resp BP Pulse Ox 97.8 F 87 16 129/63 H 99 02/12/17 11:58 02/12/17 11:58 02/12/17 11:58 02/12/17 11:58 02/12/17 11:58 Intake & Output 02/11/17 02/12/17 02/13/17 06:59 06:59 06:59 Intake Total 153 300 Output Total 400 650 Balance -247 -350 Weight 59.9 kg GENERAL: This is a well-developed well-nourished thin elderly white female resting on the side of her bed currently in no acute distress HEART: Regular rate and rhythm. No murmurs, rubs or gallops. LUNGS: Clear to auscultation bilaterally with equal rise and fall of the chest. ABDOMEN: Soft, nontender, nondistended with normoactive bowel sounds EXTREMETIES: No clubbing, cyanosis or edema. 2+ peripheral pulses bilaterally. NEURO: Awake, alert and oriented 3. Cranial nerves II through XII are grossly intact. Results Laboratory Results: 02/12/17 03:26 02/12/17 15:10 02/11/17 02/12/17 02/12/17 21:03 03:26 03:26 WBC 6.5 RBC 3.80 Hgb 11.7 L Hct 33.9 L MCV 89 MCH 30.8 MCHC 34.5 RDW 13.8 Plt Count 179 Seg Neutrophils % 70.2 Lymphocytes % 18.1 Monocytes % 10.3 Eosinophils % 0.9 Basophils % 0.5 Absolute Neutrophils 4.5 Absolute Lymphocytes 1.2 Absolute Monocytes 0.7 Absolute Eosinophils 0.1 Absolute Basophils 0.0 Sodium 120.5 L* 122.4 L Potassium 4.0 3.8 Chloride 85 L 90 L Carbon Dioxide 26 25 Anion Gap 10 7 BUN 16 13 Creatinine 0.79 0.64 Est GFR ( Amer) > 60 > 60 Est GFR (Non-Af Amer) > 60 > 60 Glucose 93 103 Calcium 9.6 9.4 02/12/17 02/12/17 09:54 15:10 WBC RBC Hgb Hct MCV MCH MCHC RDW Plt Count Seg Neutrophils % Lymphocytes % Monocytes % Eosinophils % Basophils % Absolute Neutrophils Absolute Lymphocytes Absolute Monocytes Absolute Eosinophils Absolute Basophils Sodium 125.3 L 126.5 L Potassium 3.6 4.3 Chloride 88 L 88 L Carbon Dioxide 28 30 Anion Gap 9 9 BUN 11 15 Creatinine 0.62 0.83 Est GFR ( Amer) > 60 > 60 Est GFR (Non-Af Amer) > 60 > 60 Glucose 136 H 106 Calcium 9.5 9.8 Assessment & Plan - Diagnosis (1) Hyponatremia Plan: Patient's sodium is improving already. Her sodium is in the 120s now. Discontinue serial chemistries later on this afternoon. Recheck again in the morning. The patient consumes 4-516 ounce glasses of water a day in addition to 6 or 7 cups of coffee a day. She is currently on a fluid restriction we may be able to liberalize this depending on what her sodium is by tomorrow. Patient states she was told to stay well hydrated by her outpatient physicians. (2) Lung cancer Qualifiers: Laterality: right Lung location: upper lobe of lung Qualified Code(s): C34.11 - Malignant neoplasm of upper lobe, right bronchus or lung Is this a current diagnosis for this admission?: Yes Plan: Follow-up with outpatient primary oncologist. - Time Time Spent with patient: 25-34 minutes - Inpatient Certification Medical Necessity: Need Close Monitoring Due to Risk of Patient Decompensation
[2017-02-12] MEDS ORDERED: NORMAL SALINE 1000 ML 1,000 ML IV PRN (16:20)
[2017-02-13] MEDS: IPRATROPIUM/ALBUTEROL 0.5-2.5 MG/3 ML AMPUL NEB SCH ×2 (00:02→07:45)
[2017-02-13] MEDS: HEPARIN SOD (PORCINE) 5,000 UNIT/ML 1 ML SYRINGE SUBCUT SCH ×2 (06:02→15:52)
[2017-02-13 07:24] LABS: ABSOLUTE EOSINOPHILS # (AUTO) 0.1 10^3/uL (0.0-0.6); ABSOLUTE LYMPHOCYTES (AUTO) 1.2 10^3/uL (0.5-4.7); ABSOLUTE MONOCYTES (AUTO) 0.6 10^3/uL (0.1-1.4); ABSOLUTE NEUT (AUTO) 5.5 10^3/uL (1.7-8.2); BASOPHILS % (AUTO) 0.7 % (0-2); EOSINOPHILS % (AUTO) 0.7 % (0-6); HEMATOCRIT 34.3 % (36.0-47.0); HEMOGLOBIN 11.8 g/dL (12.0-15.5); HGB HCT DIFFERENCE 1.1; LYMPHOCYTES % (AUTO) 16.4 % (13-45); MEAN CORPUSCULAR HEMOGLOBIN 31.4 pg (27.0-33.4); MEAN CORPUSCULAR HGB CONC 34.5 g/dL (32.0-36.0); MEAN CORPUSCULAR VOLUME 91 fl (80-97); MONOCYTES % (AUTO) 8.1 % (3-13); RED BLOOD COUNT 3.77 10^6/uL (3.72-5.28); SEGMENTED NEUTROPHILS % (AUTO) 74.1 % (42-78); WHITE BLOOD COUNT 7.4 10^3/uL (4.0-10.5)
[2017-02-13] MEDS: ACETAMINOPHEN 325 MG TABLET PO PRN (07:50)
[2017-02-13 07:52] LABS: ANION GAP 8 (5-19); BLOOD UREA NITROGEN 17 mg/dL (7-20); CALCIUM 9.5 mg/dL (8.4-10.2); CARBON DIOXIDE 26 mmol/L (22-30); CHLORIDE 97 mmol/L (98-107); CREATININE RESULT 0.61 mg/dL (0.52-1.25); GLUCOSE 86 mg/dL (75-110); MAGNESIUM 1.6 mg/dL (1.6-2.3); POTASSIUM 4.4 mmol/L (3.6-5.0); SODIUM 130.5 mmol/L (137-145)
[2017-02-13] MEDS ORDERED: ERLOTINIB HCL 150 MG PO SCH (08:00)
[2017-02-13] MEDS ORDERED: VALSARTAN 160 MG TABLET PO SCH (10:00)
[2017-02-13] MEDS ORDERED: SERTRALINE HCL 50 MG TABLET PO SCH (10:00)
[2017-02-13] MEDS ORDERED: FLUTICASONE/SALMETEROL DISKUS 250-50 MCG/DOSE IH SCH (10:00)
[2017-02-13] MEDS ORDERED: FLUTICASONE NASAL SPRAY 50 MCG/SPRY 120 SPRAY/16 GM NASL SCH (10:00)
[2017-02-13] MEDS ORDERED: SODIUM CHLORIDE 1 GM TABLET PO SCH (10:00)
[2017-02-13] MEDS ORDERED: LANSOPRAZOLE 15 MG TAB.RAP.DR PO SCH (10:00)
[2017-02-13] MEDS: DOCUSATE SODIUM 100 MG CAPSULE PO SCH (10:49)
[2017-02-13 14:41] LABS: ANION GAP 8 (5-19); BLOOD UREA NITROGEN 16 mg/dL (7-20); CALCIUM 9.4 mg/dL (8.4-10.2); CARBON DIOXIDE 25 mmol/L (22-30); CHLORIDE 96 mmol/L (98-107); CREATININE RESULT 0.65 mg/dL (0.52-1.25); GLUCOSE 105 mg/dL (75-110); SODIUM 129.1 mmol/L (137-145)
--- NOTE | 2017-02-13 14:49 | PDOC DISCHARGE SUMMARY ---
General - Admit/Disc Date/PCP Admission Date/Primary Care Provider: 02/11/17 20:41 Discharge Date: 02/13/17 - Discharge Diagnosis (1) Hyponatremia Summary: Patient's sodium is now in the low normal range in the 130s. This is a reasonable level. She is instructed to continue sodium tablets as an outpatient for the next 3 days she is permitted to liberalize salt in her diet for the next 3 days. She is however encouraged to reduce the amount of total fluid that she is taken in. She usually consumes 5-16 ounce glasses of water a day. she has been told to limit this to 4. She usually consumes 7 cups of coffee a day; she has been asked to limit this to 4. I would like for her to follow with her primary care physician on Friday for repeat sodium. (2) Lung cancer Is this a current diagnosis for this admission?: Yes Summary: Follow-up with primary oncologist as an outpatient. (3) Essential hypertension Summary: Continue home medications. - Additional Information Resuscitation Status: Full Code Home Medications: Acetaminophen [Tylenol Arthritis 650 mg Tablet] 650 mg PO Q8 02/11/17 Albuterol Sulfate [Proair HFA] 1 puff IH Q6HP PRN 02/11/17 Erlotinib HCl [Tarceva 150 mg Tablet] 150 mg PO QAM 02/11/17 Fluticasone Propionate [Flonase Nasal [place] 50 Mcg/[place] 16 gm] 1 spray NASL DAILY 02/11/17 Fluticasone/Salmeterol [Advair 250-50 Diskus 28 dose] 2 puff IH DAILY 02/11/17 Lansoprazole [Prevacid] 15 mg PO DAILY 02/11/17 Sertraline HCl [Zoloft] 25 mg PO DAILY 02/11/17 Spironolactone [Aldactone 25 mg Tablet] 25 mg PO Q12 02/11/17 Valsartan [Diovan] 320 mg PO DAILY 02/11/17 Sodium Chloride [Sodium Chloride 1 gm Tablet] 1 gm PO DAILY #3 tablet 02/13/17 History of Present Illness History of Present Illness: HPI as per admitting physician: History of Present Illness Admission Date/PCP: 02/11/17 20:41 Patient complains of: Abnormal labs History of Present Illness: NISA JC is a 76 year old female with a past medical history of hypertension, anxiety, GERD, COPD with ongoing tobacco dependence and active lung cancer. She did her usual state of health until 72-48 hours prior to presentation developing confusion versus anxiety prompting to seek evaluation by her primary care provider. Labs including chemistry was obtained. Results returned significant for a sodium of 118 and she is referred to Hospital emergency room for evaluation. Denies nausea vomiting seizure or activity. Patient is unclear of her current daily medication regiment taking Zoloft intermittently. Recently beginning Spironolactone. It is unclear if she still takes hydrochlorothiazide. That said in the emergency room she is started on normal saline prior to the return of labs which suggest SIADH. Patient states she drinks as much water she possibly can because of the dry mouth. She also admits clear color urine. She is awake and alert oriented 3 conversational with an anxious affect. Hospital Course Hospital Course: Patient was admitted to the hospital and started on normal saline solution with a restriction of 1200 cc per day. Her sodium gradually increased up to 130. Her diet was liberalized to allow for sodium. 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 overall the patient did very well without any mental status changes. She is stable for discharge. Physical Exam Vital Signs: Temp Pulse Resp BP Pulse Ox 98.4 F 70 14 145/101 H 100 02/13/17 07:37 02/13/17 07:45 02/13/17 07:45 02/13/17 07:37 02/13/17 07:45 Intake & Output 02/12/17 02/13/17 02/14/17 06:59 06:59 06:59 Intake Total 153 2160 Output Total 400 2550 Balance -247 -390 Weight 59.9 kg GENERAL: This is a well-developed well-nourished thin elderly white female resting on the side of her bed currently in no acute distress HEART: Regular rate and rhythm. No murmurs, rubs or gallops. LUNGS: Clear to auscultation bilaterally with equal rise and fall of the chest. ABDOMEN: Soft, nontender, nondistended with normoactive bowel sounds EXTREMETIES: No clubbing, cyanosis or edema. 2+ peripheral pulses bilaterally. NEURO: Awake, alert and oriented 3. Cranial nerves II through XII are grossly intact. Results Laboratory Results: 02/13/17 06:47 02/12/17 02/13/17 02/13/17 15:10 06:47 06:47 WBC 7.4 RBC 3.77 Hgb 11.8 L Hct 34.3 L MCV 91 MCH 31.4 MCHC 34.5 RDW 14.0 Plt Count 187 Seg Neutrophils % 74.1 Lymphocytes % 16.4 Monocytes % 8.1 Eosinophils % 0.7 Basophils % 0.7 Absolute Neutrophils 5.5 Absolute Lymphocytes 1.2 Absolute Monocytes 0.6 Absolute Eosinophils 0.1 Absolute Basophils 0.0 Sodium 126.5 L 130.5 L Potassium 4.3 4.4 Chloride 88 L 97 L Carbon Dioxide 30 26 Anion Gap 9 8 BUN 15 17 Creatinine 0.83 0.61 Est GFR ( Amer) > 60 > 60 Est GFR (Non-Af Amer) > 60 > 60 Glucose 106 86 Calcium 9.8 9.5 Magnesium 1.6 Qualifiers [place] BEING DISCHARGED WITH ANY OF THE FOLLOWING DIAGNOSIS?: No Plan Time Spent: Less than 30 Minutes
[2017-02-13 15:23] VITALS: BP 162/71
[2017-02-14] MEDS ORDERED: ERLOTINIB HCL 150 MG PO SCH (07:00)
[2017-02-14] MEDS ORDERED: LANSOPRAZOLE 15 MG TAB.RAP.DR PO SCH (08:00)
== END 2017-02-13 16:29 | disposition home or self-care (01) | DRG 644 ==
LOC: ER 18:06 → EH 20:32 → UNDOADMIN 20:32 → EH 20:41 → 3S 02-12 01:15
PROVIDERS: ADMIT Internal Medicine; ATTEND Internal Medicine
PROC: 3E0F73Z Introduction of Anti-inflammatory into Respiratory Tract, Via Natural or Artificial Opening (ICD-10-PCS; principal; 2017-02-12)
DX: E22.2 Syndrome of inappropriate secretion of antidiuretic hormone (principal); C34.11 Malignant neoplasm of upper lobe, right bronchus or lung; C79.70 Secondary malignant neoplasm of unspecified adrenal gland; J44.9 Chronic obstructive pulmonary disease, unspecified; I10 Essential (primary) hypertension; F41.9 Anxiety disorder, unspecified; K21.9 Gastro-esophageal reflux disease without esophagitis; M19.90 Unspecified osteoarthritis, unspecified site; F41.1 Generalized anxiety disorder; F17.210 Nicotine dependence, cigarettes, uncomplicated; Z79.899 Other long term (current) drug therapy; Z90.710 Acquired absence of both cervix and uterus; Z88.8 Allergy status to other drugs, medicaments and biological substances; Z88.6 Allergy status to analgesic agent; Z88.1 Allergy status to other antibiotic agents; Z91.040 Latex allergy status; Z82.49 Family history of ischemic heart disease and other diseases of the circulatory system
CPT/HCPCS: 36415; 80048; 80053; 81001; 82533; 83735; 83880; 83930; 83935; 84300; 84443; 84550; 85025; 85610; 94640; 96360; 99285; J1644; J3490; J7030; J7620

== ENCOUNTER → 2017-03-09 | Outpatient (CLI) | payer MEDICARE ==
--- NOTE | 2017-03-10 09:38 | RADIOLOGY REPORT (SQ) ---
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 TECHNIQUE: Blood glucose level was verified. Above dose of FDG was injected intravenously. 2-D seg mented attenuation correction images were obtained from the base of the skull to the midthighs. Nonc ontrast CT images were obtained for attenuation correction and fusion with emission images. CT image s were performed without oral or intravenous contrast and are not sensitive for parenchymal lesions. A series of overlapping emission PET images were obtained. Images reviewed and manipulated at [facility] work station by the radiologist. Images stored on PACS. LIMITATIONS: None. FINDINGS: HEAD AND NECK: No areas of abnormal metabolic activity in the soft tissues of the head and neck. CHEST: A stable spiculated nodule is present in the right lung apex, similar compared to 12/05/2016 and 06/06/2016. Currently this measures about 1.7 x 1.6 cm in diameter on axial image 62, with SUV 4.7 ( was 1.8 x 1.4 cm SUV 4.4 on PET-CT 12/05/2016). Patient has bandlike left perihilar scarring and consolidation in the medial left lung. Minimal acti vity SUV 2.4, similar compared to 12/05/2016 and 06/06/2016. There are old left upper posterior rib fractures with left chest wall activity adjacent to the fractu res, SUV 2.6 (was SUV 3.3 on 12/15/2016 PET-CT). ABDOMEN AND PELVIS: There is increase in metabolic activity of the right adrenal gland, currently SUV 4.0 (was 2.5 on September 13. The sac size of 2 right adrenal nodule is difficult to measure on axial CT image 123. PROXIMAL LOWER EXTREMITIES: No areas of abnormal metabolic activity in the soft tissues of the lower extremities. BONES: No abnormal metabolic activity in the visualized skeleton. ADDITIONAL CT FINDINGS: Benign left ethmoid sinus osteoma, calcified carotid bifurcations and coronar y arteries. Right central line tip superior vena cava. Obstructive lung disease with calcified gran uloma right posterior costophrenic sulcus. Calcified gallstones. Less than 5 mm cyst sub- diaphragm atic surface left lobe liver. Post hysterectomy. Colonic diverticulosis without CT evidence of acut e diverticulitis. Diffuse degenerative changes throughout the spine. OTHER: Liver background activity 2.1 SUV, blood pool background activity 1.4 SUV. IMPRESSION: Stable right upper lobe nodule, with stable size and metabolic activity compared to 2016 and 06/06/2016. Increase in metabolic activity right adrenal gland as compared to 12/05/2016. TECHNICAL DOCUMENTATION: JOB ID: [id number] [employer]- All Rights Reserved
== END ==
LOC: RAD 14:54
PROVIDERS: ATTEND Internal Medicine
DX: C34.12 Malignant neoplasm of upper lobe, left bronchus or lung (principal)
CPT/HCPCS: 78815; A9552

== ENCOUNTER → 2017-06-03 | Outpatient (CLI) | payer MEDICARE ==
--- NOTE | 2017-06-04 10:26 | RADIOLOGY REPORT (SQ) ---
EXAM DESCRIPTION: PET CT SKULL/THIGH COMPLETED DATE/TIME: 06/03/2017 8:47 pm REASON FOR STUDY: C34.12 MALIGNANT NEOPLASM OF UPPER LOBE, LEFT BRONCHUS OR LUNG C34.12 MALIGNANT N EOPLASM OF UPPER LOBE, LEFT BRONCHUS OR FE COMPARISON: 03/09/2017 and 12/15/2016. RADIONUCLIDE AND DOSE: 10.0 mCi F18 FDG The route of agent administration: Intravenous FASTING BLOOD SUGAR: 90 mg/dl CONTRAST TYPE AND DOSE: No CT contrast given. TECHNIQUE: Blood glucose level was verified. Above dose of FDG was injected intravenously. 2-D seg mented attenuation correction images were obtained from the base of the skull to the midthighs. Nonc ontrast CT images were obtained for attenuation correction and fusion with emission images. CT image s were performed without oral or intravenous contrast and are not sensitive for parenchymal lesions. A series of overlapping emission PET images were obtained. Images reviewed and manipulated at [facility] work [facility] by the radiologist. Images stored on PACS. LIMITATIONS: None. FINDINGS: HEAD AND NECK: No areas of abnormal metabolic activity in the soft tissues of the head and neck. CHEST: 1.5 cm spiculated mass in the right upper lobe, unchanged. Mean SUV value 5.51. Again seen i s volume loss with chronic scarring in the medial left lung. Minimal activity with mean SUV value 2. 30. ABDOMEN AND PELVIS: Right adrenal nodule measuring approximately 1.3 x 1.5 cm. Mean SUV value 5.35. Previous value 4.0. No other areas of abnormal metabolic activity in the abdomen or pelvis. Expect ed physiologic activity is present in the genitourinary system and bowel. PROXIMAL LOWER EXTREMITIES: No areas of abnormal metabolic activity in the soft tissues of the lower extremities. BONES: No abnormal metabolic activity in the visualized skeleton. ADDITIONAL CT FINDINGS: Osteoma in the left ethmoid sinus. Gallstones. Emphysematous changes with c alcified granuloma. OTHER: No other significant findings. IMPRESSION: 1. SPICULATED MASS IN THE RIGHT UPPER LOBE STABLE AND UNCHANGED. CHRONIC VOLUME LOSS AND SCARRING IN THE MEDIAL LEFT LUNG. 2. RIGHT ADRENAL NODULE WITH SLIGHTLY INCREASED ACTIVITY COMPARED TO THE MOST RECENT STUDY. 3. NO OTHER AREAS OF ABNORMAL ACTIVITY ON PET IMAGING. STABLE INCIDENTAL CT FINDINGS ABOVE. TECHNICAL DOCUMENTATION: JOB ID: [id number]- All Rights Reserved
== END ==
LOC: RAD 15:42
PROVIDERS: ATTEND Internal Medicine
DX: C34.12 Malignant neoplasm of upper lobe, left bronchus or lung (principal)
CPT/HCPCS: 78815; A9552

== ENCOUNTER → 2017-07-14 | Outpatient (CLI) | payer MEDICARE ==
--- NOTE | 2017-07-14 16:14 | RADIOLOGY REPORT (SQ) ---
EXAM DESCRIPTION: MRI HEAD COMBO COMPLETED DATE/TIME: 07/14/2017 4:02 pm REASON FOR STUDY: C34.12 MALIGNANT NEOPLASM OF UPPER LOBE, LEFT BRONCHUS OR LUNG C34.12 MALIGNANT N EOPLASM OF UPPER LOBE, LEFT BRONCHUS OR FE COMPARISON: 08/13/2013 TECHNIQUE: Multiplanar imaging includes noncontrasted T1, T2, FLAIR, Diffusion with ADC map and post gadolinium contrast T1 sequences. Images stored on PACS. CONTRAST TYPE AND DOSE: 10 mL Multihance. RENAL FUNCTION: GFR > 60. LIMITATIONS: None. FINDINGS: ANATOMY: No anomalies. Normal vascular flow voids. Pituitary fossa normal. CSF SPACES: Atrophy-induced prominence of CSF spaces and ventricles. CEREBRUM: High-signal intensity lesions scattered throughout the white matter on FLAIR imaging with d istribution suggesting chronic micro-vascular ischemic change. No evidence of hemorrhage, mass, extra axial fluid collection or acute ischemic change. No enhancing lesions. POSTERIOR FOSSA: No signal alteration. No hemorrhage. No edema, masses, or mass effect. Internal sinai tory canals, cerebello-pontine angles, mastoids normal. No enhancing lesions. ORBITS: No masses. Globes normal. PARANASAL SINUSES: Small amount of fluid sphenoid sinuses. DIFFUSION: Normal. No evidence of recent infarct. OTHER: No other significant finding. IMPRESSION: No evidence of metastatic disease. EVIDENCE OF ACUTE STROKE: NO. TECHNICAL DOCUMENTATION: JOB ID: [id number] [employer]- All Rights Reserved
== END ==
LOC: RAD 14:53
PROVIDERS: ATTEND Internal Medicine
DX: C34.12 Malignant neoplasm of upper lobe, left bronchus or lung (principal)
CPT/HCPCS: 70553; 82565

== ENCOUNTER → 2017-09-29 | Outpatient (CLI) | payer MEDICARE ==
--- NOTE | 2017-09-29 15:25 | RADIOLOGY REPORT (SQ) ---
EXAM DESCRIPTION: CT CHEST WITH; CT ABD/PELVIS WITH IV ONLY COMPLETED DATE/TIME: 09/29/2017 2:59 pm REASON FOR STUDY: LUNG CA (C34.12) C34.12 MALIGNANT NEOPLASM OF UPPER LOBE, LEFT BRONCHUS OR FE COMPARISON: CT ANGIO CHEST 05/07/2011, 10/28/2016 CT abdomen pelvis 07/08/2010 PET-CT 06/03/2017, 03/09/2017, 09/15/2016, 05/12/2011 CONTRAST TYPE AND DOSE: contrast/concentration: Isovue 370.00 mg/ml; Total Contrast Delivered: 64.0 ml; Total Saline Delivered: 64.0 ml RENAL FUNCTION: Creatinine 0.7 TECHNIQUE: CT scan of the chest performed using helical scanning technique with dynamic intravenous contrast injection. Images reviewed with lung, soft tissue and bone windows. Reconstructed coronal a nd sagittal MPR images reviewed. All images stored on PACS. CT scan of the abdomen and pelvis performed with intravenous and without oral contrastusing helical s janet technique with dynamic intravenous contrast injection. Images reviewed with lung, soft tissu e and bone windows. Reconstructed coronal and sagittal MPR images reviewed. Delayed images for eval uation of the urinary system also acquired and evaluated. All images stored on PACS. All CT scanners at this facility use dose modulation, iterative reconstruction, and/or weight based d osing when appropriate to reduce radiation dose to as low as reasonably achievable (ALARA). [facility]: Dose Right [facility]: CareDose [facility]: Dose Right [facility]: Teradose 4D [facility]: [employer] RADIATION DOSE: CT Rad equipment meets quality standard of care and radiation dose reduction techniq ues were employed. CTDIvol: 5.2 - 7.3 mGy. DLP: 689 mGy-cm. . LIMITATIONS: None. FINDINGS: CHEST: LUNGS AND PLEURA: 1.8 by 1.6 cm spiculated nodule right upper lobe image 16 is unchanged from multipl e prior studies. There is chronic volume loss and bronchiectasis in the medial left upper lobe from old radiation ther apy. No pleural effusion. No pneumothorax. No new pulmonary nodules. HILAR AND MEDIASTINAL STRUCTURES: No identified masses or abnormal nodes. HEART AND VASCULAR STRUCTURES: No aneurysm or dissection. No central pulmonary emboli. No pericardi al effusion. Aortic valve calcifications are present. Mild coronary artery calcifications. HARDWARE: Right permanent central line tip superior vena cava THYROID AND OTHER SOFT TISSUES: No masses. No adenopathy. BONES: Old nonunited left posterior 4th 5th and 6th rib fractures OTHER: No other significant finding. ABDOMEN AND PELVIS: LIVER: Normal size. No masses. No dilated ducts. SPLEEN: Normal size. No focal lesions. PANCREAS: No masses. No significant calcifications. No adjacent inflammation or peripancreatic fluid collections. Pancreatic duct not dilated. GALLBLADDER: Gallstones. No inflammatory changes to suggest cholecystitis. ADRENAL GLANDS: Bilateral adrenal enlargement is stable RIGHT KIDNEY AND URETER: No solid masses. No significant calcification. No hydronephrosis or hydroure ter. LEFT KIDNEY AND URETER: No solid masses. Left lower pole 1.5 cm renal cortical cyst. No significant calcification. No hydronephrosis or hydroureter. AORTA AND VESSELS: No aneurysm. No dissection. Renal arteries, SMA, celiac without stenosis. RETROPERITONEUM: No retroperitoneal adenopathy, hemorrhage or masses. BOWEL AND PERITONEAL CAVITY: No masses or inflammatory changes. No free fluid or peritoneal masses. Descending and sigmoid colon diverticulosis without CT signs of acute diverticulitis. APPENDIX: Not visualized. No right lower quadrant inflammatory changes ABDOMINAL WALL: No masses. No hernias. PELVIS: No mass or free fluid. Normal bladder. Post hysterectomy BONES: Convex rightward lumbar curvature OTHER: No other significant finding. IMPRESSION: Stable spiculated right apical 1.8 x 1.6 cm mass. Stable post therapeutic changes medial upper left hemithorax. Stable bilateral adrenal gland enlarge ment. TECHNICAL DOCUMENTATION: JOB ID: [id number] Quality ID # [id number]: Final reports with documentation of one or more dose reduction techniques (e.g., Au tomated exposure control, adjustment of the mA and/or kV according to patient size, use of iterative reconstruction technique) 2010 [employer]- All Rights Reserved Reading location - IP/workstation name: [email or web address] [id number]
== END ==
LOC: RAD 13:56
PROVIDERS: ATTEND Internal Medicine
DX: C34.12 Malignant neoplasm of upper lobe, left bronchus or lung (principal)
CPT/HCPCS: 71260; 74177; 82565

== ENCOUNTER 2017-11-11 10:04 | Day surgery (SDC) | payer MEDICARE ==
[~2017-11-11 10:04] MED LIST: BUPIVACAINE HCL 0.75% INJ/PF (7.5 MG/1 ML) 10 ML SDV OS PRN; LIDOCAINE 4% INJ/PF (40 MG/ML) 5 ML AMPUL OS PRN
[2017-11-11] MEDS ORDERED: LIDOCAINE 1% INJ-PF (10 MG/ML) 30 ML SDV ONE (10:07)
[2017-11-11] MEDS ORDERED: EPINEPHRINE INJ/PF 1 MG/1 ML AMPULE ONE (10:07)
[2017-11-11] MEDS ORDERED: CHONDR SU A NA/HYALUR INTRAOC KIT (SURGICARE) ONE (10:07)
[2017-11-11] MEDS: TETRACAINE HCL 0.5% OPH SOLN 0.6 ML DROPERETTE OS PRN ×2 (10:32→10:58)
[2017-11-11] MEDS: CYCLOPENTOLATE 0.2%/PHENYLEPHRINE 1% OPH SOLN 2 ML OS PRN ×3 (10:33→10:57)
[2017-11-11] MEDS: TROPICAMIDE 1% OPH SOLN 3 ML OS PRN ×3 (10:33→10:57)
[2017-11-11] MEDS: KETOROLAC TROMETHAMINE 0.45% 4 DROP/0.4 ML DROPERETTE OS PRN ×2 (10:34→11:48)
[2017-11-11] MEDS: BESIFLOXACIN HCL 0.6% OPH SUSP 5 ML BOTTLE OS PRN ×4 (10:34→11:31)
[2017-11-11] MEDS ORDERED: ALBUTEROL SULFATE 0.083% NEB 2.5 MG/3 ML AMPUL NEB ONE (10:45)
[2017-11-11] MEDS ORDERED: MIDAZOLAM 2 MG/2 ML INJ ONE ×2 (10:49→11:02)
[2017-11-11] MEDS ORDERED: FENTANYL CITRATE INJ/PF 100 MCG/2 ML AMPUL ONE (10:50)
[2017-11-11] MEDS ORDERED: ONDANSETRON HCL INJ/PF 4 MG/2 ML SDV ONE (10:50)
--- NOTE | 2017-11-11 12:19 | [facility] OPERATIVE REPORT E ---
[facility] Operative Report NAME: NISA JC AGE: 77Y DATE OF SURGERY: 11/11/2017 ROOM: PREOPERATIVE DIAGNOSIS: Cataract, left eye. POSTOPERATIVE DIAGNOSIS: Cataract, left eye. PROCEDURE PERFORMED: Phacoemulsification with posterior chamber intraocular lens, left eye. SURGEON: EDEN RODRIGUEZ M.D. ANESTHESIA: Topical with MAC. INDICATIONS FOR SURGERY: Difficulty reading small print, glare with night driving. BEST CORRECTED VISUAL ACUITY: 20/60. DESCRIPTION OF PROCEDURE: The patient was brought to the operating room and placed on the operative table. Following tetracaine drops, topical anesthesia was administered. This consisted of instrument wipe pledgets soaked in a solution of 4% Xylocaine mixed with 0.75% Marcaine in a 1:2 ratio. A 2 x 1 cm pledget was placed in the superior fornix. A 1 x 1 cm pledget was placed in the inferior fornix. The eye was patched shut for 5 minutes. The patch was removed. The eye was sterilely prepped and draped in the usual manner. Lid speculum was placed in the eye. The pledgets were removed, 4-0 black silk sutures were placed around the superior and the inferior rectus muscles to be used as traction. A conjunctival peritomy was made at the 10 o'clock position. Hemostasis was obtained with bipolar cautery. A posterior limbal groove was created using a crescent knife and dissected anteriorly towards the cornea. A sharp point blade was used to create a paracentesis site at the 2 o'clock position. A 2.4 mm keratome was used to enter the anterior chamber through the groove. Viscoelastic was injected into the anterior chamber. An anterior capsulotomy was performed using Utrata forceps in a capsulorrhexis fashion. Hydrodissection and hydrodelineation were performed. Phacoemulsification was performed in [id number] technique. Total phaco time, 4.36 CDE. Following this, the I/A unit was used to remove residual cortex. Viscoelastic was injected into the capsular bag. Intraocular lens Model [id number], 26.0 diopters, serial number [id number] was placed in the capsular bag. The I/A unit was used to remove residual viscoelastic. The wound was seen to be watertight under high and low pressure, and no sutures were placed. The intraocular lens was well centered. The pressure was adjusted in the eye to normal pressure. The 4-0 black silk sutures and lid speculum were removed. The eye was shielded after Besivance drops were placed. The patient tolerated the procedure well and was sent to the recovery room in good condition. DICTATING PHYSICIAN: EDEN RODRIGUEZ M.D. [id number] PHY#: [id number] ID: [id number] JOB#: [id number] ACCT: [id number] cc:EDEN RODRIGUEZ M.D. >
--- NOTE | 2017-11-11 12:20 | [facility] DISCHARGE SUMMARY E ---
[facility] Discharge Summary NAME: NISA JC AGE: 77Y ADMITTED: 11/11/2017 DISCHARGED: 11/11/2017 HOSPITAL COURSE: The patient is a 77-year-old lady who underwent uneventful cataract extraction with intraocular lens implant, left eye, on 11/11/2017. She will be discharged to home. She was instructed to resume preoperative medications, to take Tylenol as needed for discomfort, to keep her eye shielded, to use Besivance, Durezol, and Ilevro at 3:00 p.m. and 8:00 p.m., and to follow up in my office in 1 day. DICTATING PHYSICIAN: EDEN RODRIGUEZ M.D. [id number] Y#: [id number] ID: [id number] JOB#: [id number] ACCT: [id number] cc:EDEN RODRIGUEZ M.D. >
== END 2017-11-11 12:21 | disposition home or self-care (01) ==
LOC: SC 10:04
PROVIDERS: ATTEND Ophthalmology
DX: H25.813 Combined forms of age-related cataract, bilateral (principal); H04.123 Dry eye syndrome of bilateral lacrimal glands; H01.002 Unspecified blepharitis right lower eyelid; H01.005 Unspecified blepharitis left lower eyelid; J44.9 Chronic obstructive pulmonary disease, unspecified; F17.210 Nicotine dependence, cigarettes, uncomplicated; I10 Essential (primary) hypertension; K21.9 Gastro-esophageal reflux disease without esophagitis; Z79.51 Long term (current) use of inhaled steroids; Z85.118 Personal history of other malignant neoplasm of bronchus and lung; Z91.040 Latex allergy status
CPT/HCPCS: 66984; V2632; J2250; J3490 ×4; A9270 ×2; J0171; J2405; 142; J3010

== ENCOUNTER 2017-12-02 09:29 | Day surgery (SDC) | payer MEDICARE ==
[~2017-12-02 09:29] MED LIST changes: +BUPIVACAINE HCL 0.75% INJ/PF (7.5 MG/1 ML) 10 ML SDV OD PRN; -BUPIVACAINE HCL 0.75% INJ/PF (7.5 MG/1 ML) 10 ML SDV OS PRN; +KETOROLAC TROMETHAMINE 0.45% 4 DROP/0.4 ML DROPERETTE OD PRN; +LIDOCAINE 4% INJ/PF (40 MG/ML) 5 ML AMPUL OD PRN; -LIDOCAINE 4% INJ/PF (40 MG/ML) 5 ML AMPUL OS PRN
[2017-12-02] MEDS ORDERED: EPINEPHRINE INJ/PF 1 MG/1 ML AMPULE ONE (09:33)
[2017-12-02] MEDS ORDERED: LIDOCAINE 1% INJ-PF (10 MG/ML) 30 ML SDV ONE (09:33)
[2017-12-02] MEDS ORDERED: CHONDR SU A NA/HYALUR INTRAOC KIT (SURGICARE) ONE (09:33)
[2017-12-02] MEDS: TETRACAINE HCL 0.5% OPH SOLN 0.6 ML DROPERETTE OD PRN ×2 (10:17→10:48)
[2017-12-02] MEDS: CYCLOPENTOLATE 0.2%/PHENYLEPHRINE 1% OPH SOLN 2 ML OD PRN ×3 (10:17→10:40)
[2017-12-02] MEDS: TROPICAMIDE 1% OPH SOLN 3 ML OD PRN ×3 (10:17→10:41)
[2017-12-02] MEDS: BESIFLOXACIN HCL 0.6% OPH SUSP 5 ML BOTTLE OD PRN ×3 (10:18→11:21)
[2017-12-02] MEDS ORDERED: ALBUTEROL SULFATE 0.083% NEB 2.5 MG/3 ML AMPUL NEB ONE (10:20)
[2017-12-02] MEDS ORDERED: MIDAZOLAM 2 MG/2 ML INJ ONE (10:29)
[2017-12-02] MEDS ORDERED: ONDANSETRON HCL INJ/PF 4 MG/2 ML SDV ONE (10:30)
[2017-12-02] MEDS ORDERED: FENTANYL CITRATE INJ/PF 100 MCG/2 ML AMPUL ONE (10:30)
--- NOTE | 2017-12-02 11:54 | [facility] DISCHARGE SUMMARY E ---
[facility] Discharge Summary NAME: NISA JC AGE: 77Y ADMITTED: 12/02/2017 DISCHARGED: 12/02/2017 FINAL DIAGNOSIS: Cataract, right eye. HOSPITAL COURSE: The patient is a 77-year-old lady who underwent uneventful cataract extraction with intraocular lens implant right eye on 12/02/2017. She will be discharged to home. She is instructed to resume preoperative medications, take Tylenol as needed for discomfort, to keep her eye shielded, to use Besivance, Durezol, and Ilevro at 3 p.m. and 8 p.m. and to follow up in my office in 1 day. DICTATING PHYSICIAN: EDEN RODRIGUEZ M.D. [id number] PHY#: [id number] ID: [id number] JOB#: [id number] ACCT: [id number] cc:EDEN RODRIGUEZ M.D. >
--- NOTE | 2017-12-02 11:54 | [facility] OPERATIVE REPORT E ---
[facility] Operative Report NAME: NISA JC AGE: 77Y DATE OF SURGERY: 12/02/2017 ROOM: PREOPERATIVE DIAGNOSIS: Cataract, right eye. POSTOPERATIVE DIAGNOSIS: Cataract, right eye. PROCEDURE PERFORMED: Phacoemulsification with posterior chamber intraocular lens, right eye. SURGEON: EDEN RODRIGUEZ M.D. ANESTHESIA: Topical with MAC. INDICATIONS FOR SURGERY: Difficulty reading small print. Best corrected vision acuity 20/40. PROCEDURE: The patient was brought to the Operating Room and placed on the operative table. Following tetracaine drops, topical anesthesia was administered. This consisted of instrument wipe pledgets soaked in a solution of 4% Xylocaine mixed with 0.75% Marcaine in a 1:2 ratio. A 2 x 1 cm pledget was placed in the superior fornix. A 1 x 1 cm pledget was placed in the inferior fornix. The eye was patched shut for 5 minutes. The patch was removed. The eye was sterilely prepped and draped in the usual manner. Lid speculum was placed in the eye. The pledgets were removed. 4-0 black silk sutures were placed around the superior and the inferior rectus muscles to be used as traction. A conjunctival peritomy was made at the 10 o'clock position. Hemostasis was obtained with bipolar cautery. A posterior limbal groove was created using a crescent knife and dissected anteriorly towards the cornea. A sharp point blade was used to create a paracentesis site at the 2 o'clock position. A 2.4 mm keratome was used to enter the anterior chamber through the groove. Viscoelastic was injected into the anterior chamber. An anterior capsulotomy was performed using Utrata forceps in a capsulorrhexis fashion. Hydrodissection and hydrodelineation were performed. Phacoemulsification was performed in fbdosc-[id number]-[id number] technique. A total of 4.80 CDE phaco time was used. Following this, the I/A unit was used to remove residual cortex. Viscoelastic was injected into the capsular bag. Intraocular lens model SN60WF, 25.5 diopters, serial number [id number] was placed in the capsular bag. The I/A unit was used to remove residual viscoelastic. The wound was seen to be watertight under high and low pressure, and no sutures were placed. The intraocular lens was well centered. The pressure was adjusted in the eye to normal pressure. The 4-0 black silk sutures and lid speculum were removed. The eye was shielded after Besivance drops were placed. The patient tolerated the procedure well and was sent to the Recovery Room in good condition. DICTATING PHYSICIAN: EDEN RODRIGUEZ M.D. [id number] PHY#: [id number] ID: [id number] JOB#: [id number] ACCT: [id number] cc:EDEN RODRIGUEZ M.D. >
== END 2017-12-02 12:06 | disposition home or self-care (01) ==
LOC: SC 09:29
PROVIDERS: ATTEND Ophthalmology
DX: H25.811 Combined forms of age-related cataract, right eye (principal); Z96.1 Presence of intraocular lens; J44.9 Chronic obstructive pulmonary disease, unspecified; M19.90 Unspecified osteoarthritis, unspecified site; I10 Essential (primary) hypertension; F17.210 Nicotine dependence, cigarettes, uncomplicated; R06.00 Dyspnea, unspecified; K21.9 Gastro-esophageal reflux disease without esophagitis; Z79.899 Other long term (current) drug therapy; Z91.040 Latex allergy status; Z79.51 Long term (current) use of inhaled steroids
CPT/HCPCS: 66984; V2632; J2250; J3490 ×4; A9270 ×2; J0171; J2405; 142; J3010

== ENCOUNTER → 2018-01-05 | Outpatient (CLI) | payer MEDICARE ==
--- NOTE | 2018-01-05 15:55 | RADIOLOGY REPORT (SQ) ---
EXAM DESCRIPTION: CT ABD/PELVIS WITH IV ONLY; CT CHEST WITH COMPLETED DATE/TIME: 01/05/2018 3:11 pm REASON FOR STUDY: C34.12; C34.12 MALIGNANT NEOPLASM OF UPPER LOBE, LEFT BRONCHUS OR LUNG C34.12 MAL IGNANT NEOPLASM OF UPPER LOBE, LEFT BRONCHUS OR FE COMPARISON: CT chest abdomen pelvis 10/01/2017 PET-CT 06/03/2017, 03/09/2017 CONTRAST TYPE AND DOSE: contrast/concentration: Isovue 370.00 mg/ml; Total Contrast Delivered: 66.0 ml; Total Saline Delivered: 65.0 ml RENAL FUNCTION: Creatinine 0.7 TECHNIQUE: CT scan of the chest performed using helical scanning technique with dynamic intravenous contrast injection. Images reviewed with lung, soft tissue and bone windows. Reconstructed coronal a nd sagittal MPR images reviewed. All images stored on PACS. CT scan of the abdomen and pelvis performed with intravenous and without oral contrastusing helical s janet technique with dynamic intravenous contrast injection. Images reviewed with lung, soft tissu e and bone windows. Reconstructed coronal and sagittal MPR images reviewed. Delayed images for eval uation of the urinary system also acquired and evaluated. All images stored on PACS. All CT scanners at this facility use dose modulation, iterative reconstruction, and/or weight based d osing when appropriate to reduce radiation dose to as low as reasonably achievable (ALARA). [facility]: Dose Right [facility]: CareDose [facility]: Dose Right [facility]: Teradose 4D [facility]: [employer] RADIATION DOSE: CT Rad equipment meets quality standard of care and radiation dose reduction techniq ues were employed. CTDIvol: 4.4 - 5.2 mGy. DLP: 638 mGy-cm. . LIMITATIONS: None. FINDINGS: CHEST: LUNGS AND PLEURA: Stable right upper lobe nodule accounting for differences in technique, about 2 x 1 .6 cm in size. Adjacent radiotherapy treatment markers. Old left perihilar postradiation changes stable, with bandlike volume loss, bronchiectasis and scarri ng. No new pulmonary nodules. Obstructive lung disease is present. No pleural effusion. No pneumothora x. HILAR AND MEDIASTINAL STRUCTURES: No identified masses or abnormal nodes. HEART AND VASCULAR STRUCTURES: No aneurysm or dissection. No central pulmonary emboli. No pericardi al effusion. Calcified aortic valve HARDWARE: None. THYROID AND OTHER SOFT TISSUES: No masses. No adenopathy. BONES: Old left posterior upper rib fractures. OTHER: No other significant finding. ABDOMEN AND PELVIS: LIVER: Normal size. No masses. No dilated ducts. SPLEEN: Normal size. No focal lesions. PANCREAS: No masses. No significant calcifications. No adjacent inflammation or peripancreatic fluid collections. Pancreatic duct not dilated. GALLBLADDER: Tiny stones in the gallbladder. ADRENAL GLANDS: Bilateral diffuse adrenal enlargement is stable compared to previous studies RIGHT KIDNEY AND URETER: No solid masses. No significant calcification. No hydronephrosis or hydroure ter. LEFT KIDNEY AND URETER: No solid masses. 2 cm left lower pole renal cortical cyst. 1 cm left lower pole renal cortical cyst. No significant calcification. No hydronephrosis or hydroureter. AORTA AND VESSELS: No aneurysm. No dissection. Renal arteries, SMA, celiac without stenosis. RETROPERITONEUM: No retroperitoneal adenopathy, hemorrhage or masses. BOWEL AND PERITONEAL CAVITY: No masses or inflammatory changes. No free fluid or peritoneal masses. No CT evidence of bowel obstruction. APPENDIX: Surgically absent ABDOMINAL WALL: No masses. No hernias. PELVIS: No mass or free fluid. Normal bladder. BONES: Degenerative convex rightward lumbar curvature. OTHER: No other significant finding. IMPRESSION: Stable right upper lobe mass. Stable left perihilar postradiation changes. Stable bilateral adrenal enlargement no CT evidence of metastatic disease to the abdomen or pelvis. TECHNICAL DOCUMENTATION: JOB ID: [id number] Quality ID # [id number]: Final reports with documentation of one or more dose reduction techniques (e.g., Au tomated exposure control, adjustment of the mA and/or kV according to patient size, use of iterative reconstruction technique) 2010 [employer]- All Rights Reserved Reading location - IP/workstation name: [email or web address]
== END ==
LOC: RAD 15:08
PROVIDERS: ATTEND Internal Medicine
DX: C34.12 Malignant neoplasm of upper lobe, left bronchus or lung (principal); J44.9 Chronic obstructive pulmonary disease, unspecified; E27.8 Other specified disorders of adrenal gland; N28.1 Cyst of kidney, acquired
CPT/HCPCS: 71260; 74177; 82565

== ENCOUNTER 2018-01-30 13:23 | Inpatient (IN) | payer MEDICARE ==
--- NOTE | 2018-01-30 13:34 | ER Document Report ---
ED Medical Screen (RME) - General Chief Complaint: Respiratory Distress Stated Complaint: ABNORMAL LABS Time Seen by Provider: 01/30/18 13:34 Notes: 77-year-old female to the emergency department for evaluation of shortness of breath. History of lung cancer. Cannot seem to catch her breath. I have greeted and performed a rapid initial assessment of this patient. A comprehensive ED assessment and evaluation of the patient, analysis of test results and completion of the medical decision making process will be conducted by additional ED providers. TRAVEL OUTSIDE OF THE [place] IN LAST 30 DAYS: No - Related Data Allergies/Adverse Reactions: latex [Latex] Allergy (Severe, Verified 01/30/18 13:26) rash hydrocodone [Hydrocodone] Allergy (Unknown, Verified 01/30/18 13:26) morphine [Morphine] Allergy (Unknown, Verified 01/30/18 13:26) amoxicillin trihydrate [From Augmentin] Adverse Reaction (Unknown, Verified 09/14 13:26) Dizziness Potassium Clavulanate * [From Augmentin] Adverse Reaction (Unknown, Verified 09/14 13:26) Dizziness olmesartan medoxomil [From May] Adverse Reaction (Verified 01/30/18 13:26) tremor Past Medical History - Past Medical History Cardiac Medical History: Reports: Hx Hypertension Denies: Hx Coronary Artery Disease, Hx Heart Attack, Hx Pulmonary Embolism Pulmonary Medical History: Reports: Hx COPD Denies: Hx Asthma, Hx Bronchitis, Hx Pneumonia, Hx Intubation, Hx Respiratory Failure, Hx Sleep Apnea, Hx Tuberculosis Neurological Medical History: Denies: Hx Cerebrovascular Accident, Hx Seizures - SYNCOPE LAST YEAR EPISODE D/T LOW SODIUM Renal/ Medical History: Denies: Hx Peritoneal Dialysis Malignancy Medical History: Reports: Hx Lung Cancer. Denies: Hx Leukemia GI Medical History: Denies: Hx Hepatitis, Hx Hiatal Hernia, Hx Ulcer Musculoskeltal Medical History: Reports Hx Arthritis, Denies Hx Fibromyalgia, Denies Hx Multiple Sclerosis, Denies Hx Muscular Dystrophy Psychiatric Medical History: Denies: Hx Dementia Traumatic Medical History: Denies: Hx Fractures Infectious Medical History: Denies: Hx Hepatitis, Hx HIV Past Surgical History: Reports: Hx Appendectomy - 1977, Hx Hysterectomy, Hx Tonsillectomy - age 17, Hx Tubal Ligation. Denies: Hx Bowel Surgery, Hx Section, Hx Cholecystectomy, Hx Coronary Artery Bypass Graft, Hx Gastric Bypass Surgery, Hx Herniorrhaphy, Hx Mastectomy, Hx Open Heart Surgery, Hx Pacemaker - Immunizations Hx Diphtheria, Pertussis, Tetanus Vaccination: No Physical Exam - Vital signs Vitals: Temp Pulse Resp BP Pulse Ox 98.5 F 93 32 H 150/63 H 96 01/30/18 13:32 01/30/18 13:32 01/30/18 13:32 01/30/18 13:32 01/30/18 13:32 Course - Vital Signs Vital signs: Temp Pulse Resp BP Pulse Ox 98.5 F 80 23 H 134/53 H 93 01/30/18 13:32 01/30/18 14:45 01/30/18 15:01 01/30/18 15:01 01/30/18 15:01 - Laboratory Result Diagrams: 01/30/18 14:05 01/30/18 14:05 Laboratory results interpreted by me: 01/30/18 01/30/18 01/30/18 14:05 14:05 14:05 RDW 14.8 H Seg Neutrophils % 89.2 H Lymphocytes % 8.7 L Monocytes % 1.7 L Sodium 125.8 L Chloride 86 L Glucose 182 H Serum Osmolality 258 L Doctor's Discharge - Discharge Clinical Impression: COPD exacerbation, Hyponatremia, Lung cancer Condition: Fair Disposition: ADMITTED INPATIENT
[2018-01-30] MEDS ORDERED: ALBUTEROL SULFATE 0.083% NEB 2.5 MG/3 ML AMPUL NEB ONE (13:38)
[2018-01-30] MEDS ORDERED: IPRATROPIUM/ALBUTEROL 0.5-2.5 MG/3 ML AMPUL NEB ONE ×2 (13:38→15:56)
[2018-01-30 14:19] LABS: ABSOLUTE LYMPHOCYTES (AUTO) 0.6 10^3/uL (0.5-4.7); ABSOLUTE MONOCYTES (AUTO) 0.1 10^3/uL (0.1-1.4); ABSOLUTE NEUT (AUTO) 6.2 10^3/uL (1.7-8.2); BASOPHILS % (AUTO) 0.3 % (0-2); EOSINOPHILS % (AUTO) 0.1 % (0-6); HEMOGLOBIN 13.8 g/dL (12.0-15.5); LYMPHOCYTES % (AUTO) 8.7 % (13-45); MEAN CORPUSCULAR HEMOGLOBIN 30.4 pg (27.0-33.4); MEAN CORPUSCULAR HGB CONC 34.6 g/dL (32.0-36.0); MEAN CORPUSCULAR VOLUME 88 fl (80-97); MONOCYTES % (AUTO) 1.7 % (3-13); PLATELET COUNT 257 10^3/uL (150-450); RED BLOOD COUNT 4.55 10^6/uL (3.72-5.28); RED CELL DISTRIBUTION WIDTH 14.8 % (11.5-14.0); SEGMENTED NEUTROPHILS % (AUTO) 89.2 % (42-78); TOTAL CELLS COUNTED % (AUTO) 100 %
[2018-01-30] MEDS ORDERED: METHYLPREDNISOLONE INJ 125 MG/2 ML SDV ONE (14:29)
[2018-01-30] MEDS ORDERED: MAGNESIUM SULFATE/D5W 2 GM/200 ML RTUPB IV ONE (14:29)
[2018-01-30] MEDS ORDERED: METHYLPREDNISOLONE INJ 125 MG/2 ML SDV IV ONE (14:30)
--- NOTE | 2018-01-30 14:33 | RADIOLOGY REPORT (SQ) ---
EXAM DESCRIPTION: CHEST SINGLE VIEW COMPLETED DATE/TIME: 01/30/2018 2:14 pm REASON FOR STUDY: sob COMPARISON: CT chest 01/05/2018, 09/29/2017 EXAM PARAMETERS: NUMBER OF VIEWS: One view. TECHNIQUE: Single frontal radiographic view of the chest acquired. RADIATION DOSE: NA LIMITATIONS: None. FINDINGS: LUNGS AND PLEURA: No acute infiltrates. No pleural effusion. No pneumothorax. Lungs are hyperinflated and hyperlucent. In the right upper lobe, there are radiotherapy treatment m arkers, and a pleural-based upper lobe mass superimposed on the right central venous catheter access hub. On the left side, chronic volume loss and scarring in the upper lobe is present, stable. MEDIASTINUM AND HILAR STRUCTURES: No masses. Contour normal. HEART AND VASCULAR STRUCTURES: Heart normal in size. Normal vasculature. BONES: No acute findings. HARDWARE: Right permanent central line tip superior vena cava. OTHER: No other significant finding. IMPRESSION: No acute findings TECHNICAL DOCUMENTATION: JOB ID: [id number] [employer]- All Rights Reserved Reading location - IP/workstation name: [email or web address]
[2018-01-30] MEDS ORDERED: NORMAL SALINE 1000 ML 1,000 ML IV ONE (14:35)
--- NOTE | 2018-01-30 14:44 | ER Document Report ---
ED Respiratory Problem - General Chief Complaint: Respiratory Distress Stated Complaint: ABNORMAL LABS Time Seen by Provider: 01/30/18 13:34 Notes: Patient is here for 2 problems. She has been diagnosed 7 years ago with cancer of the lung and underwent chemotherapy and radiation therapy. She is currently taking Tarceva. She is having increasing difficulty breathing over the past couple of days. She went to see Dr. Moore Friday and he prescribed prednisone and Levaquin and rosario some blood work. His office call the patient today and said she needed to come to the emergency department right away because her sodium level is 122. She has had low sodium levels in the past, as well. She is having significant productive cough, congestion, shortness of breath, etc. Patient says that she has been told that she has COPD and possibly asthma. Still smokes cigarettes. TRAVEL OUTSIDE OF THE [place] IN LAST 30 DAYS: No - Related Data Allergies/Adverse Reactions: latex [Latex] Allergy (Severe, Verified 01/30/18 13:26) rash hydrocodone [Hydrocodone] Allergy (Unknown, Verified 01/30/18 13:26) morphine [Morphine] Allergy (Unknown, Verified 01/30/18 13:26) amoxicillin trihydrate [From Augmentin] Adverse Reaction (Unknown, Verified 09/14 13:26) Dizziness Potassium Clavulanate * [From Augmentin] Adverse Reaction (Unknown, Verified 09/14 13:26) Dizziness olmesartan medoxomil [From May] Adverse Reaction (Verified 01/30/18 13:26) tremor Past Medical History - Social History Smoking Status: Current Every Day Smoker Chew tobacco use (# tins/day): No Frequency of alcohol use: None Drug Abuse: None Family History: Reviewed & Not Pertinent, Hypertension Patient has suicidal ideation: No Patient has homicidal ideation: No - Past Medical History Cardiac Medical History: Reports: Hx Hypertension Pulmonary Medical History: Reports: Hx Asthma, Hx COPD Denies: Hx Intubation Neurological Medical History: Denies: Hx Cerebrovascular Accident, Hx Seizures - SYNCOPE LAST YEAR EPISODE D/T LOW SODIUM Malignancy Medical History: Reports: Hx Lung Cancer - Diagnosed in 2010 and underwent chemotherapy and radiation therapy Musculoskeletal Medical History: Reports Hx Arthritis Past Surgical History: Reports: Hx Appendectomy - 1977, Hx Hysterectomy, Hx Tonsillectomy - age 17, Hx Tubal Ligation - Immunizations Hx Diphtheria, Pertussis, Tetanus Vaccination: No Hx Pneumococcal Vaccination: 04/08/08 Review of Systems - Review of Systems Notes: REVIEW OF SYSTEMS: Difficult to obtain because patient is having so much shortness of breath. Vital signs are essentially normal. O2 sat on room air 96 %. Much of review of systems comes from patient's . CONSTITUTIONAL : Denies fever. EENT: Denies eye, ear, nose or mouth or throat pain or other symptoms. CARDIOVASCULAR: Denies chest pain. RESPIRATORY: See HPI.. GASTROINTESTINAL: Denies abdominal pain or nausea, vomiting, or diarrhea. GENITOURINARY: Denies difficulty or painful urinating, urinary frequency, blood in urine. MUSCULOSKELETAL: Denies back or neck pain. Denies joint pain or swelling. SKIN: Denies rash or skin lesions. NEUROLOGICAL: Denies LOC or altered mental status. Denies headache. Denies sensory loss or motor deficits. ALL OTHER SYSTEMS REVIEWED AND NEGATIVE. -: Yes ROS unobtainable due to patient's medical condition Physical Exam - Vital signs Vitals: Temp Pulse Resp BP Pulse Ox 98.5 F 93 32 H 150/63 H 96 01/30/18 13:32 01/30/18 13:32 01/30/18 13:32 01/30/18 13:32 01/30/18 13:32 Interpretation: Normal - Notes Notes: PHYSICAL EXAMINATION: GENERAL: Well-appearing, in moderate distress. HEAD: Atraumatic, normocephalic. EYES: Pupils equal round and reactive to light, extraocular movements intact. ENT: oropharynx clear without exudates. Moist mucous membranes. NECK: Normal range of motion, supple. LUNGS: Tight, diffuse wheezes in both lung damico. HEART: Regular rate and rhythm without murmurs. ABDOMEN: Soft, nontender. No guarding or rebound. No masses. BACK: No tenderness throughout entire back. EXTREMITIES: Normal range of motion without pain. NEUROLOGICAL: Normal sensory, motor, and reflex exams. Awake, alert, and oriented x3. PSYCH: Normal mood, normal affect. SKIN: Warm, dry, no rashes. Course - Re-evaluation Re-evalutation: 01/30/18 14:47 Patient's port was accessed. Patient was given Solu-Medrol 125 mg IV. 2 g of mag sulfate are going to be given IV. Chest x-ray does not show any acute process. Looks like severe COPD. 01/30/18 16:31 Patient has some improvement in her air exchange. Still has diffuse expiratory wheezes, but not struggling as she was when she arrived. Coughing lasts, as well. Has had her second nebulizer treatment here. Also on her second dose of 2 g of magnesium sulfate. Spoke with hospitalist on-call who will see the patient for admission. - Vital Signs Vital signs: Temp Pulse Resp BP Pulse Ox 98.5 F 80 23 H 134/53 H 93 01/30/18 13:32 01/30/18 14:45 01/30/18 15:01 01/30/18 15:01 01/30/18 15:01 - Laboratory Result Diagrams: 01/30/18 14:05 01/30/18 14:05 Laboratory results interpreted by me: 01/30/18 01/30/18 14:05 14:05 RDW 14.8 H Seg Neutrophils % 89.2 H Lymphocytes % 8.7 L Monocytes % 1.7 L Sodium 125.8 L Chloride 86 L Glucose 182 H - Diagnostic Test Radiology results interpreted by me: 01/30/18 14:47 Chest x-ray looks like severe COPD. No change from previous x-rays. - EKG Interpretation by Al EKG shows normal: Sinus rhythm Rate: Normal Rhythm: NSR - At 93. Critical Care Note - Critical Care Note Total time excluding time spent on procedures (mins): 40 Discharge - Discharge Clinical Impression: COPD exacerbation, Hyponatremia, Lung cancer Condition: Fair Disposition: ADMITTED INPATIENT Admitting Provider: Hospitalist Unit Admitted: Medical Floor Referrals: ELIO VALENTINE MD [Primary Care Provider] - Follow up as needed
[2018-01-30 14:48] LABS: CREATINE KINASE MB 2.81 ng/mL (<4.55)
[2018-01-30 14:58] LABS: TROPONIN I < 0.012 ng/mL
[2018-01-30 15:53] LABS: ALANINE AMINOTRANSFERASE 29 U/L (9-52); ALBUMIN 4.2 g/dL (3.5-5.0); ALKALINE PHOSPHATASE 80 U/L (38-126); ANION GAP 12 (5-19); ASPARTATE AMINO TRANSFERASE 31 U/L (14-36); BILIRUBIN,DIRECT 0.3 mg/dL (0.0-0.4); BILIRUBIN,TOTAL 0.7 mg/dL (0.2-1.3); BLOOD UREA NITROGEN 14 mg/dL (7-20); CARBON DIOXIDE 28 mmol/L (22-30); CHLORIDE 86 mmol/L (98-107); CREATINE KINASE 78 U/L (30-135); GLUCOSE 182 mg/dL (75-110); POTASSIUM 4.1 mmol/L (3.6-5.0); SODIUM 125.8 mmol/L (137-145); TOTAL PROTEIN 7.2 g/dL (6.3-8.2)
[2018-01-30] MEDS ORDERED: MAGNESIUM SULFATE/D5W 1 GM/100 ML RTUPB IV PRN (15:57)
--- NOTE | 2018-01-30 17:21 | PDOC H&P ---
History of Present Illness Admission Date/PCP: 01/30/18 17:11 ELIO VALENTINE MD Patient complains of: Shortness of breath History of Present Illness: NISA JC is a 77 year old female history of lung cancer diagnosed about 7 years ago status post radiation and chemotherapy, history of COPD, continue with smoker, presented to the ED with complaint of shortness of breath. Went to her PCP office 2 days ago and treated with prednisone 20 mg and started on Levaquin. Labs was done and she was called back and told hyponatremic and asked to come to the ED. Patient states she was feeling worse. With regards to her breathing anyway. She reports cough with yellowish phlegm production, denies chest pain or palpitations. No fever or chills. Denies dysuria or polyuria, no urinary frequency. Evaluation in the ED significant for hypoxia, hyponatremia. She was treated with nebulizers with some improvement. Patient referred to hospitalist service for admission. For hyponatremia, of note is that the patient says she has been drinking more fluid recently because she was told to keep herself hydrated. She is also on SSRI and Lasix. Past Medical History Cardiac Medical History: Reports: Hypertension Denies: Coronary Artery Disease, Myocardial Infarction, Pulmonary Embolism Pulmonary Medical History: Reports: Asthma, Chronic Obstructive Pulmonary Disease (COPD) Denies: Bronchitis, Intubation, Pneumonia, Respiratory Failure, Sleep Apnea, Tuberculosis Neurological Medical History: Denies: Seizures - SYNCOPE LAST YEAR EPISODE D/T LOW SODIUM Malignancy Medical History: Reports: Lung Cancer - Diagnosed in 2010 and underwent chemotherapy and radiation therapy Denies: Leukemia GI Medical History: Denies: Hepatitis, Hiatal Hernia Musculoskeltal Medical History: Reports: Arthritis Denies: Fibromyalgia Psychiatric Medical History: Denies: Dementia Hematology: Denies: Anemia, Hemophilia, Sickle Cell Disease Infectious Medical History: Denies: HIV Past Surgical History Past Surgical History: Reports: Appendectomy - 1977, Hysterectomy, Tonsillectomy - age 17, Tubal Ligation Denies: Amputation, Section, Cholecystectomy, Coronary Artery Bypass Graft, Gastric Bypass Surgery, Herniorrhaphy, Mastectomy, Pacemaker Social History Information Source: Patient Smoking Status: Current Every Day Smoker Frequency of Alcohol Use: None Hx Recreational Drug Use: No Drugs: None Hx Prescription Drug Abuse: No Family History Family History: Reviewed & Not Pertinent, Hypertension Parental Family History Reviewed: Yes Children Family History Reviewed: Yes Sibling(s) Family History Reviewed.: Yes Medication/Allergy Home Medications: Acetaminophen [Tylenol Arthritis 650 mg Tablet] 650 mg PO Q8HP PRN 01/30/18 Albuterol Sulfate [Proair HFA Inhalation Aerosol 8.5 gm MDI] 1 puff IH Q6HP PRN 01/30/18 Amlodipine Besylate [Norvasc 5 mg Tablet] 5 mg PO DAILY 01/30/18 Candesartan Cilexetil [Atacand 32 mg Tablet] 32 mg PO DAILY 01/30/18 Carvedilol [Coreg 12.5 mg Tablet] 12.5 mg PO Q12 01/30/18 Clonidine HCl [Catapres 0.2 mg Tablet] 0.2 mg PO Q8 01/30/18 Docusate Sodium [Colace 100 mg Capsule] 100 mg PO DAILYP PRN 01/30/18 Ergocalciferol (Vitamin D2) [Drisdol 50,000 unit (1.25MG) Capsule] 50,000 unit PO TU@1000 01/30/18 Erlotinib HCl [Tarceva 150 mg Tablet] 150 mg PO DAILY 01/30/18 Fluticasone Propionate [Flonase Nasal [place] 50 Mcg/[place] 16 gm] 1 spray NASL DAILY 01/30/18 Fluticasone/Salmeterol [Advair 250-50 Diskus 14 Dose/Diskus] 1 puff IH Q12 01/30 Guaifenesin [Mucinex] 600 mg PO BID 01/30/18 Lansoprazole [Prevacid 24Hr] 15 mg PO DAILYP PRN 01/30/18 Loratadine [Claritin 10 mg Tablet] 10 mg PO DAILY 01/30/18 Allergies/Adverse Reactions: latex [Latex] Allergy (Severe, Verified 01/30/18 13:26) rash hydrocodone [Hydrocodone] Allergy (Unknown, Verified 01/30/18 13:26) morphine [Morphine] Allergy (Unknown, Verified 01/30/18 13:26) amoxicillin trihydrate [From Augmentin] Adverse Reaction (Unknown, Verified 09/14 13:26) Dizziness Potassium Clavulanate * [From Augmentin] Adverse Reaction (Unknown, Verified 09/14 13:26) Dizziness olmesartan medoxomil [From May] Adverse Reaction (Verified 01/30/18 13:26) tremor Review of Systems Review of Systems: CONSTITUTIONAL : Fever, chills -- No; unexpalined fatigue -- No EENT: Denies eye, ear, throat, or mouth pain or symptoms. Denies nasal or sinus congestion or discharge. Denies throat, tongue, or mouth swelling or difficulty swallowing. CARDIOVASCULAR: Denies chest pain. No racing heart RESPIRATORY: Reports cough, shortness of breath. GASTROINTESTINAL: Denies abdominal pain or distention. Denies nausea, vomiting , or diarrhea. No rectal bleeding. GENITOURINARY: Urinary symptoms -- no. MUSCULOSKELETAL: No acute weakness SKIN: Denies rash, lesions or sores. NEUROLOGICAL: New weakness, headaches, slured speach - No PSYCHIATRIC: Changes anxiety or stress, depression, suicidal ideation, or homicidal ideation -- No ALL OTHER SYSTEMS REVIEWED AND NEGATIVE. Physical Exam Vital Signs: Temp Pulse Resp BP Pulse Ox 98.5 F 80 23 H 134/53 H 93 01/30/18 13:32 01/30/18 14:45 01/30/18 15:01 01/30/18 15:01 01/30/18 15:01 GENERAL: Well-developed, no acute distress HEENT: Normocephalic/atraumatic NECK supple, no JVD CARDIOVASCULAR: RRR, bilaterally normal S1-S2 LUNGS: wheezing present diffusely, good air movement ABDOMEN: Soft, NT, NL bowel sounds EXTREMITIES: 1+ bilateral nonpitting edema, clubbing, cyanosis NEUROLOGICAL: Alert, oriented x 3, strength 5/5 throughout, nonfocal exam Results Impressions: Chest X-Ray 01/30/18 13:38 IMPRESSION: No acute findings Assessment & Plan - Diagnosis (1) COPD exacerbation Is this a current diagnosis for this admission?: Yes Plan: We will treat with Solu-Medrol IV. Will treat with nebulizers, O2. Patient counseled about quitting smoking. Chest x-ray negative for infiltrate, but we will continue Levaquin to complete her 7 days course for possible bronchitis, given productive cough. (2) Hyponatremia Is this a current diagnosis for this admission?: Yes Plan: Unsure of etiology of hyponatremia at this time. Patient reports that she has been drinking more fluid recently because she was told to keep herself hydrated. She is also on SSRI and Lasix for chronic swellings and lower extremities. -We will check serum osmolality and urine osmolality. -Fluid restriction for now (3) Hypertension Qualifiers: Hypertension type: essential hypertension Qualified Code(s): I10 - Essential (primary) hypertension Is this a current diagnosis for this admission?: Yes (4) History of lung cancer Is this a current diagnosis for this admission?: Yes (5) Nicotine addiction Qualifiers: Nicotine product type: cigarettes Is this a current diagnosis for this admission?: Yes Plan: Smoking cessation counseling. - Inpatient Certification Medical Necessity: Failure to Improve With Outpatient Therapy, Need Close Monitoring Due to Risk of Patient Decompensation
--- NOTE | 2018-01-30 18:21 | EKG REPORT ---
SEVERITY:- ABNORMAL ECG - SINUS RHYTHM RAA, CONSIDER BIATRIAL ABNORMALITIES BORDERLINE INFERIOR INFARCT, OLD CONSIDER ANTERIOR INFARCT BORDERLINE PROLONGED QT INTERVAL : Confirmed by: Alissa Vigil 30-Jan-2018 18:21:07
[2018-01-30] MEDS ORDERED: LANSOPRAZOLE 15 MG PO PRN (18:53)
[2018-01-30] MEDS ORDERED: LANSOPRAZOLE 15 MG TAB.RAP.DR PO PRN (20:15)
[2018-01-30] MEDS: ACETAMINOPHEN 325 MG TABLET PO PRN (20:25)
[2018-01-30] MEDS: ENOXAPARIN SODIUM INJ 40 MG/0.4 ML DISP.SYRIN SUBCUT SCH (21:58)
[2018-01-30] MEDS: METHYLPREDNISOLONE INJ 125 MG/2 ML SDV IV SCH (21:59)
[2018-01-30] MEDS: CARVEDILOL 12.5 MG TABLET PO SCH (21:59)
[2018-01-31] MEDS: IPRATROPIUM/ALBUTEROL 0.5-2.5 MG/3 ML AMPUL NEB PRN (00:13)
[2018-01-31] MEDS: ACETAMINOPHEN 325 MG TABLET PO PRN ×4 (04:36→20:00)
[2018-01-31] MEDS: METHYLPREDNISOLONE INJ 125 MG/2 ML SDV IV SCH ×2 (06:51→14:49)
[2018-01-31 07:04] LABS: ABSOLUTE LYMPHOCYTES (AUTO) 0.9 10^3/uL (0.5-4.7); ABSOLUTE MONOCYTES (AUTO) 0.4 10^3/uL (0.1-1.4); ABSOLUTE NEUT (AUTO) 6.5 10^3/uL (1.7-8.2); HEMATOCRIT 38.5 % (36.0-47.0); HEMOGLOBIN 13.4 g/dL (12.0-15.5); LYMPHOCYTES % (AUTO) 11.6 % (13-45); MEAN CORPUSCULAR HEMOGLOBIN 30.7 pg (27.0-33.4); MEAN CORPUSCULAR HGB CONC 34.8 g/dL (32.0-36.0); MEAN CORPUSCULAR VOLUME 88 fl (80-97); MONOCYTES % (AUTO) 5.4 % (3-13); PLATELET COUNT 261 10^3/uL (150-450); RED BLOOD COUNT 4.36 10^6/uL (3.72-5.28); RED CELL DISTRIBUTION WIDTH 14.8 % (11.5-14.0); TOTAL CELLS COUNTED % (AUTO) 100 %; WHITE BLOOD COUNT 7.9 10^3/uL (4.0-10.5)
[2018-01-31 07:19] LABS: ALANINE AMINOTRANSFERASE 28 U/L (9-52); ALBUMIN 3.9 g/dL (3.5-5.0); ALKALINE PHOSPHATASE 68 U/L (38-126); ANION GAP 12 (5-19); ASPARTATE AMINO TRANSFERASE 26 U/L (14-36); BILIRUBIN,DIRECT 0.3 mg/dL (0.0-0.4); BILIRUBIN,TOTAL 0.6 mg/dL (0.2-1.3); BLOOD UREA NITROGEN 13 mg/dL (7-20); CALCIUM 8.9 mg/dL (8.4-10.2); CARBON DIOXIDE 27 mmol/L (22-30); CHLORIDE 95 mmol/L (98-107); GLUCOSE 133 mg/dL (75-110); SODIUM 133.9 mmol/L (137-145); TOTAL PROTEIN 6.8 g/dL (6.3-8.2)
[2018-01-31] MEDS: ENOXAPARIN SODIUM INJ 40 MG/0.4 ML DISP.SYRIN SUBCUT SCH (09:45)
[2018-01-31] MEDS: CARVEDILOL 12.5 MG TABLET PO SCH ×2 (09:51→21:15)
[2018-01-31] MEDS: GUAIFENESIN 600 MG TABLET.SA PO SCH ×2 (09:51→17:56)
[2018-01-31] MEDS: LORATADINE 10 MG TABLET PO SCH (09:51)
[2018-01-31] MEDS: LEVOFLOXACIN 500 MG TABLET PO SCH (09:52)
[2018-01-31] MEDS ORDERED: ERLOTINIB HCL 150 MG PO SCH (10:00)
[2018-01-31] MEDS: AMLODIPINE BESYLATE 5 MG TABLET PO SCH (13:04)
[2018-01-31] MEDS: FLUTICASONE/SALMETEROL DISKUS 250-50 MCG/DOSE IH SCH ×2 (13:04→21:15)
--- NOTE | 2018-01-31 15:02 | PDOC PROGRESS REPORT ---
Subjective Progress Note for:: 01/31/18 - seen on rounds this morning Subjective:: states she feels better than when she came in. states her breathing is much better. Reason For Visit: COPD EXACERBATION,HYPONATREMIA Physical Exam Vital Signs: Temp Pulse Resp BP Pulse Ox 97.8 F 77 16 130/51 H 98 01/31/18 11:52 01/31/18 11:52 01/31/18 11:52 01/31/18 11:52 01/31/18 11:52 Intake & Output 01/30/18 01/31/18 02/01/18 06:59 06:59 06:59 Intake Total 1450 Balance 1450 Weight 119 lb 14.903 oz General appearance: PRESENT: no acute distress, thin, well-developed, well- nourished Head exam: PRESENT: atraumatic, normocephalic Eye exam: PRESENT: EOMI, PERRLA. ABSENT: scleral icterus Mouth exam: PRESENT: moist, neck supple, tongue midline Neck exam: ABSENT: tracheal deviation Respiratory exam: PRESENT: clear to auscultation clarice, decreased breath sounds - at the bases, symmetrical Cardiovascular exam: PRESENT: +S1, +S2 Pulses: PRESENT: +2 pedal pulses bilateral GI/Abdominal exam: PRESENT: normal bowel sounds, soft. ABSENT: tenderness Extremities exam: ABSENT: +2 edema Neurological exam: PRESENT: alert, awake, oriented to person, oriented to place , oriented to time, oriented to situation, CN II-XII grossly intact Skin exam: PRESENT: dry, warm Results Laboratory Results: 01/31/18 06:30 01/31/18 06:30 01/30/18 01/31/18 01/31/18 21:00 06:30 06:30 WBC 7.9 RBC 4.36 Hgb 13.4 Hct 38.5 MCV 88 MCH 30.7 MCHC 34.8 RDW 14.8 H Plt Count 261 Seg Neutrophils % 83.0 H Lymphocytes % 11.6 L Monocytes % 5.4 Eosinophils % 0.0 Basophils % 0.0 Absolute Neutrophils 6.5 Absolute Lymphocytes 0.9 Absolute Monocytes 0.4 Absolute Eosinophils 0.0 Absolute Basophils 0.0 Sodium 133.9 L Potassium 4.0 Chloride 95 L Carbon Dioxide 27 Anion Gap 12 BUN 13 Creatinine 0.56 Est GFR ( Amer) > 60 Est GFR (Non-Af Amer) > 60 Glucose 133 H Calcium 8.9 Total Bilirubin 0.6 AST 26 ALT 28 Alkaline Phosphatase 68 Total Protein 6.8 Albumin 3.9 Urine Osmolality 181 L Impressions: Chest X-Ray 01/30/18 13:38 IMPRESSION: No acute findings Assessment & Plan - Diagnosis (1) COPD exacerbation Is this a current diagnosis for this admission?: Yes Plan: will start on solumedrol 60mg IV daily from tomorrow. restart home dose of advair. start on duoneb neb. she seems to be doing well today. likely d/c in 1- 2 days if she continues to improve (2) History of lung cancer Is this a current diagnosis for this admission?: Yes Plan: c/w with her chem Michele from home (3) Essential hypertension Is this a current diagnosis for this admission?: Yes Plan: stable, monitor and c/w current regimen (4) Hyponatremia Is this a current diagnosis for this admission?: Yes Plan: likely 2/2 drinking too much water daily- states she as drinking 8 glasses of water daily. Na much improved today. (5) Tobacco dependence Is this a current diagnosis for this admission?: Yes Plan: spent >5 min counseling on smoking cessation
[2018-02-01] MEDS: ACETAMINOPHEN 325 MG TABLET PO PRN ×3 (01:33→17:46)
[2018-02-01] MEDS ORDERED: METHYLPREDNISOLONE INJ 125 MG/2 ML SDV IV SCH (10:00)
[2018-02-01] MEDS: FLUTICASONE/SALMETEROL DISKUS 250-50 MCG/DOSE IH SCH ×2 (10:27→21:11)
[2018-02-01] MEDS: LORATADINE 10 MG TABLET PO SCH (10:28)
[2018-02-01] MEDS: CLONIDINE HCL 0.1 MG TABLET PO SCH ×2 (10:28→21:12)
[2018-02-01] MEDS: LEVOFLOXACIN 500 MG TABLET PO SCH (10:28)
[2018-02-01] MEDS: GUAIFENESIN 600 MG TABLET.SA PO SCH ×2 (10:28→17:45)
[2018-02-01] MEDS: CARVEDILOL 12.5 MG TABLET PO SCH ×2 (10:28→21:12)
[2018-02-01] MEDS: AMLODIPINE BESYLATE 5 MG TABLET PO SCH (10:28)
[2018-02-01] MEDS ORDERED: GUAIFENESIN 600 MG TABLET.SA PO SCH (11:00)
[2018-02-01] MEDS: ENOXAPARIN SODIUM INJ 40 MG/0.4 ML DISP.SYRIN SUBCUT SCH (11:49)
[2018-02-01 11:51] LABS: ANION GAP 10 (5-19); BLOOD UREA NITROGEN 20 mg/dL (7-20); CALCIUM 9.2 mg/dL (8.4-10.2); CARBON DIOXIDE 32 mmol/L (22-30); CHLORIDE 94 mmol/L (98-107); GLUCOSE 101 mg/dL (75-110); POTASSIUM 3.5 mmol/L (3.6-5.0); SODIUM 136.1 mmol/L (137-145)
--- NOTE | 2018-02-01 16:47 | PDOC PROGRESS REPORT ---
Subjective Progress Note for:: 02/01/18 - Seen on rounds this morning Subjective:: Patient doing really well this morning and wondering when she can go home. also c/o headache this morning. Reason For Visit: COPD EXACERBATION,HYPONATREMIA Physical Exam Vital Signs: Temp Pulse Resp BP Pulse Ox 97.5 F 75 16 97/59 L 97 02/01/18 15:15 02/01/18 15:15 02/01/18 15:15 02/01/18 15:15 02/01/18 15:15 Intake & Output 01/31/18 02/01/18 02/02/18 06:59 06:59 06:59 Intake Total 1450 1060 Balance 1450 1060 Weight 119 lb 14.903 oz 123 lb 0.287 oz General appearance: PRESENT: no acute distress, thin Head exam: PRESENT: atraumatic, normocephalic Eye exam: PRESENT: EOMI, PERRLA. ABSENT: scleral icterus Ear exam: PRESENT: normal external ear exam Mouth exam: PRESENT: neck supple, tongue midline Neck exam: ABSENT: tracheal deviation Respiratory exam: PRESENT: decreased breath sounds - bilaterally at the bases with left sided expiratory wheezing, symmetrical, wheezes Pulses: PRESENT: +2 pedal pulses bilateral GI/Abdominal exam: PRESENT: normal bowel sounds, soft. ABSENT: tenderness Extremities exam: ABSENT: joint swelling, pedal edema Neurological exam: PRESENT: alert, awake, oriented to person, oriented to place , oriented to time, oriented to situation, CN II-XII grossly intact Skin exam: PRESENT: dry, warm Results Laboratory Results: 01/31/18 06:30 02/01/18 10:57 02/01/18 10:57 Sodium 136.1 L Potassium 3.5 L Chloride 94 L Carbon Dioxide 32 H Anion Gap 10 BUN 20 Creatinine 0.78 Est GFR ( Amer) > 60 Est GFR (Non-Af Amer) > 60 Glucose 101 Calcium 9.2 Impressions: Chest X-Ray 01/30/18 13:38 IMPRESSION: No acute findings Assessment & Plan - Diagnosis (1) COPD exacerbation Is this a current diagnosis for this admission?: Yes Plan: Started on Solu-Medrol IV and we will switch her to prednisone 60 mg daily from tomorrow. I have restarted home dose of advair. on duoneb neb. she seems to be doing well today. likely d/c in 1-2 days if she continues to improve (2) History of lung cancer Is this a current diagnosis for this admission?: Yes (3) Essential hypertension Is this a current diagnosis for this admission?: Yes Plan: due to normal BP yesterday I hadn't started her on clonidine- she tells me she takes 0.1mg TID- this might be causing her headache- will start her back on it. she's also on candesartan - not on formulary- since her bp is improving we will hold off on it for now. re-eval tomorrow (4) Hyponatremia Is this a current diagnosis for this admission?: Yes (5) Tobacco dependence Is this a current diagnosis for this admission?: Yes Plan: discussed about cessation again. she's refusing nicotine patch
[2018-02-02] MEDS ORDERED: AMLODIPINE BESYLATE 5 MG TABLET PO SCH (08:45)
[2018-02-02] MEDS ORDERED: POTASSIUM CHLORIDE 10 MEQ CAPSULE.ER PO ONE (09:00)
[2018-02-02] MEDS: CARVEDILOL 12.5 MG TABLET PO SCH (09:07)
[2018-02-02] MEDS: CLONIDINE HCL 0.1 MG TABLET PO SCH (09:07)
[2018-02-02] MEDS: GUAIFENESIN 600 MG TABLET.SA PO SCH (09:07)
[2018-02-02] MEDS: LEVOFLOXACIN 500 MG TABLET PO SCH (09:08)
[2018-02-02] MEDS: LORATADINE 10 MG TABLET PO SCH (09:08)
[2018-02-02] MEDS: FLUTICASONE/SALMETEROL DISKUS 250-50 MCG/DOSE IH SCH (09:10)
[2018-02-02] MEDS: IPRATROPIUM/ALBUTEROL 0.5-2.5 MG/3 ML AMPUL NEB PRN (09:23)
[2018-02-02] MEDS ORDERED: PREDNISONE 20 MG TABLET PO SCH (10:00)
--- NOTE | 2018-02-02 11:52 | PDOC DISCHARGE SUMMARY ---
General - Admit/Disc Date/PCP Admission Date/Primary Care Provider: 01/30/18 17:11 ELIO DAVIDSON MD robotic weld technician: Dr Moore Discharge Date: 02/02/18 - Discharge Diagnosis (1) COPD exacerbation Is this a current diagnosis for this admission?: Yes Summary: Resolving. The patient still has some mild end expiratory wheezing. She will complete a long prednisone taper and complete a course of p.o. Levaquin as an outpatient. (2) Lung cancer Is this a current diagnosis for this admission?: Yes Summary: She will keep her regularly scheduled appointment with Dr. Davidson. (3) Hypertension Is this a current diagnosis for this admission?: Yes Summary: Stable (4) Tobacco dependence Is this a current diagnosis for this admission?: Yes Summary: Certainly it would be in her best interest to quit smoking at this point. She has been counseled regarding abstinence (5) Hyponatremia Is this a current diagnosis for this admission?: Yes Summary: Much improved. Almost back to normal. (6) Hypokalemia Is this a current diagnosis for this admission?: Yes Summary: Repleted on the day of discharge. (7) Full code status Is this a current diagnosis for this admission?: Yes - Additional Information Prescriptions: Clonidine HCl [Catapres 0.1 mg Tablet] 0.1 mg PO Q12 #60 tablet Levofloxacin [Levaquin 500 mg Tablet] 500 mg PO DAILY #5 tablet Prednisone 10 mg PO ASDIR #39 tablet Home Medications: Acetaminophen [Tylenol Arthritis 650 mg Tablet] 650 mg PO Q8HP PRN 01/30/18 Albuterol Sulfate [Proair HFA Inhalation Aerosol 8.5 gm MDI] 1 puff IH Q6HP PRN 01/30/18 Amlodipine Besylate [Norvasc 5 mg Tablet] 5 mg PO DAILY 01/30/18 Candesartan Cilexetil [Atacand 32 mg Tablet] 32 mg PO DAILY 01/30/18 Carvedilol [Coreg 12.5 mg Tablet] 12.5 mg PO Q12 01/30/18 Docusate Sodium [Colace 100 mg Capsule] 100 mg PO DAILYP PRN 01/30/18 Ergocalciferol (Vitamin D2) [Drisdol 50,000 unit (1.25MG) Capsule] 50,000 unit PO TU@1000 01/30/18 Erlotinib HCl [Tarceva 150 mg Tablet] 150 mg PO DAILY 01/30/18 Fluticasone Propionate [Flonase Nasal Kidder 50 Mcg/Kidder 16 gm] 1 spray NASL DAILY 01/30/18 Fluticasone/Salmeterol [Advair 250-50 Diskus 14 Dose/Diskus] 1 puff IH Q12 01/30 Guaifenesin [Mucinex] 600 mg PO BID 01/30/18 Lansoprazole [Prevacid 24Hr] 15 mg PO DAILYP PRN 01/30/18 Loratadine [Claritin 10 mg Tablet] 10 mg PO DAILY 01/30/18 Clonidine HCl [Catapres 0.1 mg Tablet] 0.1 mg PO Q12 #60 tablet 02/02/18 Levofloxacin [Levaquin 500 mg Tablet] 500 mg PO DAILY #5 tablet 02/02/18 Prednisone 10 mg PO ASDIR #39 tablet 02/02/18 History of Present Illness History of Present Illness: NISA JC is a 77 year old female who presented to the emergency room with increased shortness of breath. Hospital Course Hospital Course: The patient is a very pleasant 77-year-old female with a past medical history significant for lung cancer diagnosed about 7 years ago. She is status post radiation and chemotherapy. In addition she has a history of COPD. Unfortunately she continues to smoke. The patient presented to the emergency room with increased shortness of breath. She had been started on p.o. Levaquin as well as low-dose prednisone by her primary care provider. She had labs done during that visit and was called back and told that she was severely hyponatremic and to come to the emergency room. The patient was admitted to the hospital. The patient reported that she had been drinking quite a bit of free water prior to coming to the hospital up to 8 glasses of water daily. Her sodium level began to improve after admission. She was started on Levaquin as well as IV Solu-Medrol and over the course of the hospitalization her breathing is greatly improved. Yesterday she was changed to p.o. prednisone and today she is doing much better. At this point it is felt that she can safely be discharged home with site close outpatient follow-up. We will make her an appointment to follow-up with her primary care provider and she will keep her regularly scheduled appointment with Dr. Davidson next week. Of note her sodium level is almost back to normal at 136.1 on the day of discharge. Physical Exam Vital Signs: Temp Pulse Resp BP Pulse Ox 98.1 F 71 18 141/50 H 98 02/02/18 11:11 02/02/18 11:11 02/02/18 11:11 02/02/18 11:11 02/02/18 11:11 Intake & Output 02/01/18 02/02/18 02/03/18 06:59 06:59 06:59 Intake Total 1060 1184 Balance 1060 1184 Weight 55.8 kg 51.8 kg General appearance: PRESENT: no acute distress, thin, other - Chronically ill- appearing Head exam: PRESENT: atraumatic, normocephalic Mouth exam: PRESENT: moist, tongue midline Respiratory exam: PRESENT: other - She has some mild end expiratory wheezing throughout all lung damico. She is diminished bilaterally Cardiovascular exam: PRESENT: RRR. ABSENT: diastolic murmur, rubs, systolic murmur Pulses: PRESENT: normal dorsalis pedis pul GI/Abdominal exam: PRESENT: normal bowel sounds, soft. ABSENT: distended, guarding, mass, organolmegaly, rebound, tenderness Rectal exam: PRESENT: deferred Extremities exam: PRESENT: full ROM. ABSENT: calf tenderness, clubbing, pedal edema Musculoskeletal exam: PRESENT: ambulatory Neurological exam: PRESENT: alert, awake, oriented to person, oriented to place , oriented to time, oriented to situation, CN II-XII grossly intact. ABSENT: motor sensory deficit Psychiatric exam: PRESENT: appropriate affect, normal mood. ABSENT: homicidal ideation, suicidal ideation Skin exam: PRESENT: dry, intact, warm. ABSENT: cyanosis, rash Results Laboratory Results: 01/31/18 06:30 02/01/18 10:57 02/01/18 10:57 Sodium 136.1 L Potassium 3.5 L Chloride 94 L Carbon Dioxide 32 H Anion Gap 10 BUN 20 Creatinine 0.78 Est GFR ( Amer) > 60 Est GFR (Non-Af Amer) > 60 Glucose 101 Calcium 9.2 01/30/18 17:15 Sputum Gram Stain - Final 01/30/18 17:15 Sputum Sputum Culture - Final NORMAL ANA Impressions: Chest X-Ray 01/30/18 13:38 IMPRESSION: No acute findings Qualifiers - * PATIENT BEING DISCHARGED WITH ANY OF THE FOLLOWING DIAGNOSIS: No Plan Time Spent: Greater than 30 Minutes
[2018-02-02 14:07] VITALS: BP 131/69
[2018-02-03] MEDS ORDERED: ERGOCALCIFEROL (VITAMIN D2) 50000 UNIT (1.25 MG) CAPSULE PO SCH (10:00)
== END 2018-02-02 14:50 | disposition home health service (06) | DRG 191 ==
LOC: ER 13:23 → EH 17:11 → 4S 19:04
PROVIDERS: ADMIT Internal Medicine; ATTEND Internal Medicine
PROC: 3E0F73Z Introduction of Anti-inflammatory into Respiratory Tract, Via Natural or Artificial Opening (ICD-10-PCS; principal; 2018-01-31)
DX: J44.1 Chronic obstructive pulmonary disease with (acute) exacerbation (principal); E87.1 Hypo-osmolality and hyponatremia; C34.90 Malignant neoplasm of unspecified part of unspecified bronchus or lung; F17.210 Nicotine dependence, cigarettes, uncomplicated; I10 Essential (primary) hypertension; M19.90 Unspecified osteoarthritis, unspecified site; Z92.21 Personal history of antineoplastic chemotherapy; Z92.3 Personal history of irradiation; Z90.49 Acquired absence of other specified parts of digestive tract; Z82.49 Family history of ischemic heart disease and other diseases of the circulatory system; Z91.040 Latex allergy status; Z88.0 Allergy status to penicillin; Z88.8 Allergy status to other drugs, medicaments and biological substances
CPT/HCPCS: 36415; 71045; 80048; 80053; 82550; 82553; 83930; 83935; 84484; 85025; 87070; 87205; 93005; 93010; 94640; 96365; 96375; 99291; J1642; J1650; J2930; J3475; J3490; J7030; J7512; J7620

== ENCOUNTER 2018-04-12 11:34 | Inpatient (IN) | payer MEDICARE ==
--- NOTE | 2018-04-12 12:14 | ER Document Report ---
ED Dizziness/Weakness - General Chief Complaint: General Weakness Stated Complaint: POSSIBLE SYNCOPE Time Seen by Provider: 04/12/18 12:03 Mode of Arrival: Stretcher Information source: Patient, Emergency Med Personnel Notes: Patient passed out this morning according to her . Her was there to catch her and she did not hit her head did not hit the ground according to the . TRAVEL OUTSIDE OF THE [place] IN LAST 30 DAYS: No - HPI Patient complains to provider of: Dizziness, Syncope Onset: Just prior to arrival Onset/Duration: Sudden Quality of pain: No pain Severity: Moderate Pain Level: 3 Associated symptoms: None Baseline gait: Walks w/o assistance - Related Data Allergies/Adverse Reactions: latex [Latex] Allergy (Severe, Verified 01/30/18 13:26) rash hydrocodone [Hydrocodone] Allergy (Unknown, Verified 01/30/18 13:26) morphine [Morphine] Allergy (Unknown, Verified 01/30/18 13:26) amoxicillin trihydrate [From Augmentin] Adverse Reaction (Unknown, Verified 09/14 13:26) Dizziness Potassium Clavulanate * [From Augmentin] Adverse Reaction (Unknown, Verified 09/14 13:26) Dizziness olmesartan medoxomil [From May] Adverse Reaction (Verified 01/30/18 13:26) tremor Past Medical History - Social History Smoking Status: Former Smoker Family History: Reviewed & Not Pertinent, Hypertension - Past Medical History Cardiac Medical History: Reports: Hx Hypertension Denies: Hx Coronary Artery Disease, Hx Heart Attack, Hx Pulmonary Embolism Pulmonary Medical History: Reports: Hx COPD Denies: Hx Asthma, Hx Bronchitis, Hx Pneumonia, Hx Intubation, Hx Respiratory Failure, Hx Sleep Apnea, Hx Tuberculosis Neurological Medical History: Denies: Hx Cerebrovascular Accident, Hx Seizures - SYNCOPE LAST YEAR EPISODE D/T LOW SODIUM Renal/ Medical History: Denies: Hx Peritoneal Dialysis Malignancy Medical History: Reports: Hx Lung Cancer. Denies: Hx Leukemia GI Medical History: Denies: Hx Hepatitis, Hx Hiatal Hernia, Hx Ulcer Musculoskeletal Medical History: Reports Hx Arthritis, Denies Hx Fibromyalgia, Denies Hx Multiple Sclerosis, Denies Hx Muscular Dystrophy Psychiatric Medical History: Denies: Hx Dementia Traumatic Medical History: Denies: Hx Fractures Infectious Medical History: Denies: Hx Hepatitis, Hx HIV Past Surgical History: Reports: Hx Appendectomy - 1977, Hx Hysterectomy, Hx Tonsillectomy - age 17, Hx Tubal Ligation. Denies: Hx Bowel Surgery, Hx Section, Hx Cholecystectomy, Hx Coronary Artery Bypass Graft, Hx Gastric Bypass Surgery, Hx Herniorrhaphy, Hx Mastectomy, Hx Open Heart Surgery, Hx Pacemaker - Immunizations Hx Diphtheria, Pertussis, Tetanus Vaccination: No Hx Pneumococcal Vaccination: 04/08/08 Review of Systems - Review of Systems Constitutional: No symptoms reported EENT: No symptoms reported Cardiovascular: No symptoms reported Respiratory: Short of breath Gastrointestinal: No symptoms reported Genitourinary: No symptoms reported Female Genitourinary: No symptoms reported Musculoskeletal: No symptoms reported Skin: No symptoms reported Hematologic/Lymphatic: No symptoms reported Neurological/Psychological: No symptoms reported -: Yes All other systems reviewed and negative Physical Exam - Vital signs Vitals: Resp Pulse Ox 21 H 97 04/12/18 11:42 04/12/18 11:42 - General General appearance: Appears well, Alert In distress: None - HEENT Head: Normocephalic, Atraumatic Eyes: Normal Pupils: PERRL - Cardiovascular Rhythm: Regular Heart sounds: Normal auscultation Murmur: No - Abdominal Inspection: Normal Distension: No distension Bowel sounds: Normal Tenderness: Nontender Organomegaly: No organomegaly - Back Back: Normal, Nontender - Extremities General upper extremity: Normal inspection, Nontender, Normal color, Normal ROM , Normal temperature General lower extremity: Normal inspection, Nontender, Normal color, Normal ROM , Normal temperature, Normal weight bearing. No: Ralph's sign - Neurological Neuro grossly intact: Yes Cognition: Normal Orientation: AAOx4 Mame Coma Scale Eye Opening: Spontaneous Langley Coma Scale Verbal: Oriented L[place]y Coma Scale Motor: Obeys Commands Mame Coma Scale Total: 15 Speech: Normal Motor strength normal: LUE, RUE, LLE, RLE Sensory: Normal - Psychological Associated symptoms: Normal affect, Normal mood - Skin Skin Temperature: Warm Skin Moisture: Dry Skin Color: Normal Course - Vital Signs Vital signs: Temp Pulse Resp BP Pulse Ox 90 14 176/70 H 95 04/12/18 16:21 04/12/18 14:00 04/12/18 16:21 04/12/18 14:00 - Laboratory Result Diagrams: 04/12/18 13:00 04/12/18 13:00 Laboratory results interpreted by me: 04/12/18 04/12/18 04/12/18 13:00 13:00 13:00 RDW 14.5 H Seg Neutrophils % 80.3 H Lymphocytes % 12.4 L Sodium 133.4 L Chloride 94 L Carbon Dioxide 31 H NT-Pro-B Natriuret Pep 1060 H Urine Bilirubin 04/12/18 13:45 RDW Seg Neutrophils % Lymphocytes % Sodium Chloride Carbon Dioxide NT-Pro-B Natriuret Pep Urine Bilirubin SMALL H - Diagnostic Test Radiology reviewed: Image reviewed, Reports reviewed - EKG Interpretation by Me EKG shows normal: Sinus rhythm Rate: Normal - 68 Rhythm: NSR When compared to previous EKG there are: Previous EKG unavailable Additional EKG results interpreted by me: 04/12/18 13:04 No STEMI - Transfer of Care Notes: 04/12/18 16:34 I consulted the hospitalist on-call Dr. Christie. He will admit patient for further management. Discharge - Discharge Clinical Impression: Hyponatremia Syncope Qualifiers: Syncope type: unspecified Qualified Code(s): R55 - Syncope and collapse Lung cancer Qualifiers: Laterality: right Lung location: upper lobe of lung Qualified Code(s): C34.11 - Malignant neoplasm of upper lobe, right bronchus or lung Condition: Stable Disposition: ADMITTED INPATIENT Admitting Provider: Hospitalist - Dr Pak Unit Admitted: Telemetry Referrals: PATRICK OBRIEN PA-C [ALLIED HEALTH PROFESSIONAL] - Follow up as needed
[2018-04-12 13:29] LABS: ABSOLUTE LYMPHOCYTES (AUTO) 0.9 10^3/uL (0.5-4.7); ABSOLUTE MONOCYTES (AUTO) 0.5 10^3/uL (0.1-1.4); ABSOLUTE NEUT (AUTO) 5.8 10^3/uL (1.7-8.2); BASOPHILS % (AUTO) 0.3 % (0-2); EOSINOPHILS % (AUTO) 0.4 % (0-6); HEMATOCRIT 36.2 % (36.0-47.0); HEMOGLOBIN 12.6 g/dL (12.0-15.5); LYMPHOCYTES % (AUTO) 12.4 % (13-45); MEAN CORPUSCULAR HEMOGLOBIN 32.1 pg (27.0-33.4); MEAN CORPUSCULAR HGB CONC 34.9 g/dL (32.0-36.0); MEAN CORPUSCULAR VOLUME 92 fl (80-97); MONOCYTES % (AUTO) 6.6 % (3-13); PLATELET COUNT 232 10^3/uL (150-450); RED BLOOD COUNT 3.94 10^6/uL (3.72-5.28); RED CELL DISTRIBUTION WIDTH 14.5 % (11.5-14.0); SEGMENTED NEUTROPHILS % (AUTO) 80.3 % (42-78); TOTAL CELLS COUNTED % (AUTO) 100 %; WHITE BLOOD COUNT 7.2 10^3/uL (4.0-10.5)
--- NOTE | 2018-04-12 13:36 | RADIOLOGY REPORT (SQ) ---
EXAM DESCRIPTION: CHEST SINGLE VIEW COMPLETED DATE/TIME: 04/12/2018 1:17 pm REASON FOR STUDY: SOB COMPARISON: 01/30/2018 TECHNIQUE: Single frontal radiographic view of the chest acquired. NUMBER OF VIEWS: One view. LIMITATIONS: None. FINDINGS: LUNGS AND PLEURA: No pneumothorax. Similar left upper lobe parenchymal architectural dist ortion -nodularity. No acute consolidation or pleural effusion. MEDIASTINUM AND HILAR STRUCTURES: Stable. HEART AND VASCULAR STRUCTURES: Stable. BONES: No acute findings. HARDWARE: Right chest port. OTHER: No other significant finding. IMPRESSION: NO ACUTE FINDINGS. TECHNICAL DOCUMENTATION: JOB ID: [id number] [place]-72 2010 [employer]- All Rights Reserved Reading location - IP/workstation name: [email or web address]
--- NOTE | 2018-04-12 13:43 | RADIOLOGY REPORT (SQ) ---
EXAM DESCRIPTION: CT HEAD WITHOUT COMPLETED DATE/TIME: 04/12/2018 1:22 pm REASON FOR STUDY: Syncope COMPARISON: 07/14/2017 TECHNIQUE: Axial images acquired through the brain without intravenous contrast. Images reviewed wi th bone, brain and subdural windows. Images stored on PACS. All CT scanners at this facility use dose modulation, iterative reconstruction, and/or weight based d osing when appropriate to reduce radiation dose to as low as reasonably achievable (ALARA). [facility]: Dose Right [facility]: CareDose [facility]: Dose Right [facility]: Teradose 4D [facility]: Smart ESP Systems RADIATION DOSE: CT Rad equipment meets quality standard of care and radiation dose reduction techniq ues were employed. CTDIvol: 53.2 mGy. DLP: 991 mGy-cm. mGy. LIMITATIONS: None. FINDINGS: VENTRICLES: Prominent. CEREBRUM: No masses. No hemorrhage. No midline shift. Areas of low density in the white matter mos t likely due to chronic micro-vascular ischemic change. No evidence for acute infarction. CEREBELLUM: No masses. No hemorrhage. No alteration of density. No evidence for acute infarction. EXTRAAXIAL SPACES: Mild age-related involutional change. No fluid collections. No masses. ORBITS AND GLOBE: No intra- or extraconal masses. Normal contour of globe without masses. CALVARIUM: No fracture. PARANASAL SINUSES: No fluid or mucosal thickening. SOFT TISSUES: No mass or hematoma. OTHER: No other significant finding. IMPRESSION: MILD CHRONIC CHANGES OF ATROPHY AND MICROVASCULAR ISCHEMIA. NO ACUTE PROCESS. EVIDENCE OF ACUTE STROKE: NO. TECHNICAL DOCUMENTATION: JOB ID: [id number] [place]-72 Quality ID # [id number]: Final reports with documentation of one or more dose reduction techniques (e.g., Au tomated exposure control, adjustment of the mA and/or kV according to patient size, use of iterative reconstruction technique) 2010 [employer]- All Rights Reserved Reading location - IP/workstation name: [email or web address]
[2018-04-12 14:02] LABS: CREATINE KINASE MB 2.06 ng/mL (<4.55); NT PRO BNP 1060 pg/mL (<450)
[2018-04-12 14:03] LABS: TROPONIN I < 0.012 ng/mL
[2018-04-12 14:04] LABS: ALANINE AMINOTRANSFERASE 24 U/L (9-52); ALBUMIN 3.9 g/dL (3.5-5.0); ALKALINE PHOSPHATASE 66 U/L (38-126); ANION GAP 8 (5-19); ASPARTATE AMINO TRANSFERASE 21 U/L (14-36); BILIRUBIN,DIRECT 0.3 mg/dL (0.0-0.4); BILIRUBIN,TOTAL 0.7 mg/dL (0.2-1.3); BLOOD UREA NITROGEN 16 mg/dL (7-20); CALCIUM 9.3 mg/dL (8.4-10.2); CARBON DIOXIDE 31 mmol/L (22-30); CHLORIDE 94 mmol/L (98-107); CREATINE KINASE 38 U/L (30-135); GLUCOSE 101 mg/dL (75-110); POTASSIUM 3.9 mmol/L (3.6-5.0); SODIUM 133.4 mmol/L (137-145); TOTAL PROTEIN 6.8 g/dL (6.3-8.2)
[2018-04-12 14:17] LABS: APPEARANCE,URINE CLEAR; BILIRUBIN,URINE SMALL (NEGATIVE); COLOR,URINE YELLOW; GLUCOSE, URINE NEGATIVE (NEGATIVE); KETONES,URINE NEGATIVE (NEGATIVE); LEUKOCYTE ESTERASE,URINE NEGATIVE (NEGATIVE); NITRITE,URINE NEGATIVE (NEGATIVE); PROTEIN,URINE NEGATIVE (NEGATIVE); URINE SPECIFIC GRAVITY 1.018; UROBILINOGEN,URINE NEGATIVE mg/dL (<2.0)
--- NOTE | 2018-04-12 15:33 | RADIOLOGY REPORT (SQ) ---
EXAM DESCRIPTION: CTA CHEST COMPLETED DATE/TIME: 04/12/2018 2:42 pm REASON FOR STUDY: difficulty breathing, sob COMPARISON: 01/05/2018 TECHNIQUE: CT scan of the chest performed using helical scanning technique with dynamic intravenous contrast injection. Images reviewed with lung, soft tissue and bone windows. Reconstructed coronal and sagittal MPR images reviewed. Additional 3 dimensional post-processing performed to develop Maximal Intensity Projection images (MD P). All images stored on PACS. All CT scanners at this facility use dose modulation, iterative reconstruction, and/or weight based d osing when appropriate to reduce radiation dose to as low as reasonably achievable (ALARA). [facility]: Dose Right [facility]: CareDose [facility]: Dose Right [facility]: Teradose 4D [facility]: [employer]pr CONTRAST TYPE AND DOSE: contrast/concentration: Isovue 350.00 mg/ml; Total Contrast Delivered: 66.0 ml; Total Saline Delivered: 106.0 ml Contrast bolus optimized for the pulmonary arteries. Not diagnostic for the aorta. RENAL FUNCTION: GFR > 60. RADIATION DOSE: CT Rad equipment meets quality standard of care and radiation dose reduction techniq ues were employed. CTDIvol: 16.5 - 18.1 mGy. DLP: 672 mGy-cm. . LIMITATIONS: None. FINDINGS: LUNGS AND PLEURA: Increased size and volume of the right upper lobe spiculated mass measur ing 2.3 cm on the current exam, previously this same dimension measured 2.0 cm. The left upper lobe postprocedural changes appear similar to the prior exam. No new consolidation or pleural effusion. AORTA AND GREAT VESSELS: No aneurysm. Contrast bolus not optimized for the aorta. HEART: No pericardial effusion. Mild coronary artery calcifications. PULMONARY ARTERIES: No emboli visualized in the main pulmonary arteries or the segmental branches. HILAR AND MEDIASTINAL STRUCTURES: Similar architectural distortion in the left upper mediastinum and scattered small nodes. HARDWARE: Right chest port. UPPER ABDOMEN: Similar adrenal nodularity and tiny hepatic hypodensities. Limited exam. THYROID AND OTHER SOFT TISSUES: No masses. No adenopathy. BONES: No acute finding. 3D MIPS: Confirm above findings. OTHER: No other significant finding. IMPRESSION: No emboli visualized in the main pulmonary arteries or the segmental branches. Increased size and volume of the right upper lobe spiculated mass measuring 2.3 cm on the current exa m, previously this same dimension measured 2.0 cm. The left upper lobe postprocedural changes appear similar to the prior exam. No new consolidation or pleural effusion. Similar adrenal nodularity and t iny hepatic hypodensities. COMMENT: Quality ID # [id number]: Final reports with documentation of one or more dose reduction techniques (e.g., Automated exposure control, adjustment of the mA and/or kV according to patient size, use of iterative reconstruction technique) TECHNICAL DOCUMENTATION: JOB ID: [id number] [place]-72 2010 [employer]- All Rights Reserved Reading location - IP/workstation name: [email or web address]
[2018-04-12] MEDS ORDERED: NORMAL SALINE 1000 ML 1,000 ML IV ONE (16:22)
[2018-04-12] MEDS ORDERED: IPRATROPIUM/ALBUTEROL 0.5-2.5 MG/3 ML AMPUL NEB ONE ×2 (16:38→16:54)
--- NOTE | 2018-04-12 18:07 | PDOC H&P ---
History of Present Illness Admission Date/PCP: 04/12/18 16:52 ELIZ BACA MD History of Present Illness: NISA JC is a 77 year old female with a PMH of COPD not on home O2, history of lung cancer with prior chemotherapy and radiation, currently on Erlotinib, hypertension on multiple antihypertensives who was brought in because of syncope with prior syncopal episodes in the past. Patient is with family on bedside. She says that earlier today while sitting, she felt light headed and felt that she was going to pass out. She had dimming of vision and per patient's , he was able to support her head and she passed out for 3 minutes before EMS arrive. No reported seizure like activity, no urinary or bowel incontinence. In the ER, patient does have a positive orthostasis with blood pressures as follow: supine- 176/70 sitting-153/71 standing-125/60. She is fully awake and coherent and comfortable in bed. She did report she had occasional chest fluttering in the past 2 days. She does not have a prior history of Afib. She denies chest pain. She does complain of shortness of breath in the past 2 hrs with bilateral wheezing upon examination. Chest CTA is negative for PE but does show slight increase of her right lung mass from 2 cm to 2.3 cm compared to the chest CT 3 months ago. Past Medical History Cardiac Medical History: Reports: Hypertension Denies: Coronary Artery Disease, Myocardial Infarction, Pulmonary Embolism Pulmonary Medical History: Reports: Chronic Obstructive Pulmonary Disease (COPD) Denies: Asthma, Bronchitis, Intubation, Pneumonia, Respiratory Failure, Sleep Apnea, Tuberculosis Neurological Medical History: Denies: Seizures - SYNCOPE LAST YEAR EPISODE D/T LOW SODIUM Malignancy Medical History: Reports: Lung Cancer Denies: Leukemia GI Medical History: Denies: Hepatitis, Hiatal Hernia Musculoskeltal Medical History: Reports: Arthritis Denies: Fibromyalgia Psychiatric Medical History: Denies: Dementia Hematology: Denies: Anemia, Hemophilia, Sickle Cell Disease Infectious Medical History: Denies: HIV Past Surgical History Past Surgical History: Reports: Appendectomy - 1977, Hysterectomy, Tonsillectomy - age 17, Tubal Ligation Denies: Amputation, Section, Cholecystectomy, Coronary Artery Bypass Graft, Gastric Bypass Surgery, Herniorrhaphy, Mastectomy, Pacemaker Social History Smoking Status: Former Smoker Frequency of Alcohol Use: None Hx Recreational Drug Use: No Drugs: None Hx Prescription Drug Abuse: No Family History Family History: Reviewed & Not Pertinent, Hypertension Parental Family History Reviewed: Yes - no premature CAD Children Family History Reviewed: No Sibling(s) Family History Reviewed.: No Medication/Allergy Home Medications: Acetaminophen [Tylenol Arthritis 650 mg Tablet] 650 mg PO Q8HP PRN 01/30/18 Albuterol Sulfate [Proair HFA Inhalation Aerosol 8.5 gm MDI] 1 puff IH Q6HP PRN 01/30/18 Amlodipine Besylate [Norvasc 5 mg Tablet] 5 mg PO DAILY 01/30/18 Candesartan Cilexetil [Atacand 32 mg Tablet] 32 mg PO DAILY 01/30/18 Carvedilol [Coreg 12.5 mg Tablet] 12.5 mg PO Q12 01/30/18 Docusate Sodium [Colace 100 mg Capsule] 100 mg PO DAILYP PRN 01/30/18 Ergocalciferol (Vitamin D2) [Drisdol 50,000 unit (1.25MG) Capsule] 50,000 unit PO TU@1000 01/30/18 Erlotinib HCl [Tarceva 150 mg Tablet] 150 mg PO DAILY 01/30/18 Fluticasone Propionate [Flonase Nasal [place] 50 Mcg/[place] 16 gm] 1 spray NASL DAILY 01/30/18 Fluticasone/Salmeterol [Advair 250-50 Diskus 14 Dose/Diskus] 1 puff IH Q12 01/30 Guaifenesin [Mucinex] 600 mg PO BID 01/30/18 Lansoprazole [Prevacid 24Hr] 15 mg PO DAILYP PRN 01/30/18 Loratadine [Claritin 10 mg Tablet] 10 mg PO DAILY 01/30/18 Clonidine HCl [Catapres 0.1 mg Tablet] 0.1 mg PO Q12 #60 tablet 02/02/18 Levofloxacin [Levaquin 500 mg Tablet] 500 mg PO DAILY #5 tablet 02/02/18 Prednisone 10 mg PO ASDIR #39 tablet 02/02/18 Allergies/Adverse Reactions: latex [Latex] Allergy (Severe, Verified 01/30/18 13:26) rash hydrocodone [Hydrocodone] Allergy (Unknown, Verified 01/30/18 13:26) morphine [Morphine] Allergy (Unknown, Verified 01/30/18 13:26) amoxicillin trihydrate [From Augmentin] Adverse Reaction (Unknown, Verified 09/14 13:26) Dizziness Potassium Clavulanate * [From Augmentin] Adverse Reaction (Unknown, Verified 09/14 13:26) Dizziness olmesartan medoxomil [From May] Adverse Reaction (Verified 01/30/18 13:26) tremor Review of Systems All systems: reviewed and no additional remarkable complaints except as stated - as mentioned in HPI Physical Exam Vital Signs: Temp Pulse Resp BP Pulse Ox 90 14 176/70 H 95 04/12/18 16:21 04/12/18 14:00 04/12/18 16:21 04/12/18 14:00 General appearance: PRESENT: no acute distress, well-developed, well-nourished Head exam: PRESENT: atraumatic, normocephalic Eye exam: PRESENT: conjunctiva pink, EOMI, PERRLA. ABSENT: scleral icterus Ear exam: PRESENT: normal external ear exam Mouth exam: PRESENT: moist, tongue midline Neck exam: ABSENT: carotid bruit, JVD, lymphadenopathy, thyromegaly Respiratory exam: PRESENT: clear to auscultation clarice, wheezes - bilaterally. ABSENT: rales, rhonchi Cardiovascular exam: PRESENT: RRR. ABSENT: diastolic murmur, rubs, systolic murmur Pulses: PRESENT: normal dorsalis pedis pul GI/Abdominal exam: PRESENT: normal bowel sounds, soft. ABSENT: distended, guarding, mass, organolmegaly, rebound, tenderness Rectal exam: PRESENT: deferred Neurological exam: PRESENT: alert, awake, oriented to person, oriented to place , oriented to time, oriented to situation, CN II-XII grossly intact. ABSENT: motor sensory deficit Results Impressions: Chest X-Ray 04/12/18 12:12 IMPRESSION: NO ACUTE FINDINGS. Head CT 04/12/18 12:13 IMPRESSION: MILD CHRONIC CHANGES OF ATROPHY AND MICROVASCULAR ISCHEMIA. NO ACUTE PROCESS. EVIDENCE OF ACUTE STROKE: NO. Chest/Abdomen CTA 04/12/18 14:12 IMPRESSION: No emboli visualized in the main pulmonary arteries or the segmental branches. Increased size and volume of the right upper lobe spiculated mass measuring 2.3 cm on the current exam, previously this same dimension measured 2.0 cm. The left upper lobe postprocedural changes appear similar to the prior exam. No new consolidation or pleural effusion. Similar adrenal nodularity and tiny hepatic hypodensities. Assessment & Plan - Diagnosis (1) Syncope Qualifiers: Syncope type: unspecified Qualified Code(s): R55 - Syncope and collapse Is this a current diagnosis for this admission?: Yes Plan: Syncope is likely related to orthostases. Her orthostatic blood pressures in the ER are as follows: She is on multiple antihypertensives including candesartan, hydralazine, carvedilol, amlodipine and clonidine. Will closely monitor blood pressures and will restart one antihypertensive at a time depending on subsequent blood pressures. Will restart Coreg later tonight as it has lesser risk of causing hypotension compared her other antihypertensives. Will place patient on telemetry to monitor for arrhythmia. Check carotid US and echo. Will also get further cardio eval for possible supine hypertension/ orthostatic hypotension syndrome. (2) COPD exacerbation Is this a current diagnosis for this admission?: Yes Plan: Patient does complain of worsening SOB and has bilateral wheezing. Will start breathing treatments and oral steroids. (3) Lung cancer Qualifiers: Laterality: right Lung location: upper lobe of lung Qualified Code(s): C34.11 - Malignant neoplasm of upper lobe, right bronchus or lung Is this a current diagnosis for this admission?: Yes Plan: Patient has history of right lung CA. She is not able to recall the stage but had prior chemo and radiation. She is currently on Erlotinib. Chest CT shows increase in size of right lung mass from 2 to 2.3 cm. She says she has missed her appointment with Dr. Davidson. Will consult Dr. Davidson for further recommendations. - Time Time Spent: 30 to 50 Minutes
--- NOTE | 2018-04-12 18:32 | PDOC CONSULTATION ---
Consultation Consult Date: 04/12/18 Attending physician:: MIRNA TAI Consult reason:: Syncope History of Present Illness Admission Date/PCP: 04/12/18 16:52 EILZ BACA MD Patient complains of: Syncope History of Present Illness: NISA JC is a 77 year old female with a PMH of COPD not on home O2, history of lung cancer with prior chemotherapy and radiation, currently on Erlotinib, hypertension on multiple antihypertensives who was brought in because of syncope with prior syncopal episodes in the past. Patient is with family on bedside. She says that earlier today while sitting, she felt light headed and felt that she was going to pass out. She had dimming of vision and per patient's , he was able to support her head and she passed out for 3 minutes before EMS arrive. No reported seizure like activity, no urinary or bowel incontinence. In the ER, patient does have a positive orthostasis with blood pressures as follow: supine- 176/70 sitting-153/71 standing-125/60. She is fully awake and coherent and comfortable in bed. She did report she had occasional chest fluttering in the past 2 days. She does not have a prior history of Afib. She denies chest pain. She does complain of shortness of breath in the past 2 hrs with bilateral wheezing upon examination. Chest CTA is negative for PE but does show slight increase of her right lung mass from 2 cm to 2.3 cm compared to the chest CT 3 months ago. This history obtained by the hospital was reviewed with the patient and family. This was confirmed. Patient gives 3 prior spells of near syncope and syncope. This occurred earlier this year. Patient has difficult to control hypertension and patient primary care physician has been adding more and more blood pressure medications lately. Patient continues to smoke. She smokes about 1 pack/day. Past Medical History Cardiac Medical History: Reports: Hypertension Denies: Coronary Artery Disease, Myocardial Infarction, Pulmonary Embolism Pulmonary Medical History: Reports: Chronic Obstructive Pulmonary Disease (COPD) Denies: Asthma, Bronchitis, Intubation, Pneumonia, Respiratory Failure, Sleep Apnea, Tuberculosis Neurological Medical History: Denies: Seizures - SYNCOPE LAST YEAR EPISODE D/T LOW SODIUM Malignancy Medical History: Reports: Lung Cancer Denies: Leukemia GI Medical History: Denies: Hepatitis, Hiatal Hernia Musculoskeltal Medical History: Reports: Arthritis Denies: Fibromyalgia Psychiatric Medical History: Denies: Dementia Hematology: Denies: Anemia, Hemophilia, Sickle Cell Disease Infectious Medical History: Denies: HIV Past Surgical History Past Surgical History: Reports: Appendectomy - 1978, Hysterectomy, Tonsillectomy - age 17, Tubal Ligation Denies: Amputation, Section, Cholecystectomy, Coronary Artery Bypass Graft, Gastric Bypass Surgery, Herniorrhaphy, Mastectomy, Pacemaker Social History Information Source: Patient Smoking Status: Former Smoker Frequency of Alcohol Use: None Hx Recreational Drug Use: No Drugs: None Hx Prescription Drug Abuse: No - Advance Directive Resuscitation Status: Full Code Surrogate healthcare decision maker:: Patient's is the surrogate decision-maker Family History Family History: Reviewed & Not Pertinent, Hypertension Parental Family History Reviewed: Yes Children Family History Reviewed: Yes Sibling(s) Family History Reviewed.: Yes Medication/Allergy Home Medications: Acetaminophen [Tylenol Arthritis 650 mg Tablet] 650 mg PO Q8HP PRN 01/30/18 Albuterol Sulfate [Proair HFA Inhalation Aerosol 8.5 gm MDI] 1 puff IH Q6HP PRN 01/30/18 Amlodipine Besylate [Norvasc 5 mg Tablet] 5 mg PO DAILY 01/30/18 Candesartan Cilexetil [Atacand 32 mg Tablet] 32 mg PO DAILY 01/30/18 Carvedilol [Coreg 12.5 mg Tablet] 12.5 mg PO Q12 01/30/18 Docusate Sodium [Colace 100 mg Capsule] 100 mg PO DAILYP PRN 01/30/18 Ergocalciferol (Vitamin D2) [Drisdol 50,000 unit (1.25MG) Capsule] 50,000 unit PO TU@1000 01/30/18 Erlotinib HCl [Tarceva 150 mg Tablet] 150 mg PO DAILY 01/30/18 Fluticasone Propionate [Flonase Nasal [place] 50 Mcg/[place] 16 gm] 1 spray NASL DAILY 01/30/18 Fluticasone/Salmeterol [Advair 250-50 Diskus 14 Dose/Diskus] 1 puff IH Q12 01/30 Guaifenesin [Mucinex] 600 mg PO BID 01/30/18 Lansoprazole [Prevacid 24Hr] 15 mg PO DAILYP PRN 01/30/18 Loratadine [Claritin 10 mg Tablet] 10 mg PO DAILY 01/30/18 Clonidine HCl [Catapres 0.1 mg Tablet] 0.1 mg PO Q12 #60 tablet 02/02/18 Levofloxacin [Levaquin 500 mg Tablet] 500 mg PO DAILY #5 tablet 02/02/18 Prednisone 10 mg PO ASDIR #39 tablet 02/02/18 Allergies/Adverse Reactions: latex [Latex] Allergy (Severe, Verified 01/30/18 13:26) rash hydrocodone [Hydrocodone] Allergy (Unknown, Verified 01/30/18 13:26) morphine [Morphine] Allergy (Unknown, Verified 01/30/18 13:26) amoxicillin trihydrate [From Augmentin] Adverse Reaction (Unknown, Verified 09/14 13:26) Dizziness Potassium Clavulanate * [From Augmentin] Adverse Reaction (Unknown, Verified 09/14 13:26) Dizziness olmesartan medoxomil [From May] Adverse Reaction (Verified 01/30/18 13:26) tremor Review of Systems Review of Systems: Please see history of present illness and past medical history as wall. Constitutional: No fever or chills reported. Head : No recent chronic headaches, recent head injury. Eyes: No recent eye pain, diplopia, redness, discharge, acute visual changes. Ears: No recent chronic ear pain, acute hearing loss, ear discharge. Oral cavity: No recent ulcerations, bleeding, oral cavity discomfort. Neck: No recent acute neck pain reported. Hematologic: No recent easy bruising or bleeding. Lymphatic: No recent lymph node enlargement reported. Cardiovascular system review: See history of present illness. Respiratory system review: No hemoptysis or blood clots in the lungs reported. Mild Shortness of breath on exertion. History of chronic cough and wheezing. Gastrointestinal system review: Negative for any recent acute hematemesis, melena. Genitourinary system review: No recent acute or chronic hematuria, flank pain, UTI etc. reported. Skin system review: Negative for any recent abnormal bruising, no rash, no pruritus reported. Neurologic: No prior history of strokes, mini strokes, seizure disorder. History of prior syncopal spell but no strokes or seizure disorder. Psychologic: No history of major psychosis or major depression reported. Musculoskeletal: Minor aches and pains reported. No acute joint swelling reported. Endocrine: No recent polyuria, polydipsia, recent heat or cold intolerance. Physical Exam Vital Signs: Temp Pulse Resp BP Pulse Ox 94 30 H 177/68 H 95 04/12/18 18:10 04/12/18 16:06 04/12/18 17:00 04/12/18 17:01 Exam: GENERAL: well-nourished and in no acute distress. Alert and oriented x3 HEAD: Atraumatic, normocephalic. EYES: Pupils equal round and reactive to light, extraocular movements intact, sclera anicteric, conjunctiva are normal. ENT: TMs normal, nares patent, oropharynx clear without exudates. Moist mucous membranes. No oral ulcerations or bleeding gums noted NECK: supple without lymphadenopathy. Trachea is central. No cervical or axillary lymphadenopathy noted. Carotids are 2+, JVD WNL LUNGS: Respiration seems nonlabored, no significant accessory muscle action noted. Breath sounds clear to auscultation bilaterally and equal noted. Bilateral wheezes rales or rhonchi noted. No significant dullness noted on percussion. CHEST: Palpation of the chest wall shows no significant chest wall tenderness. HEART: [place] [employer], No PSH, 1/6 [place] aortic area, 1/6 [place] systolic murmur mitral area, no rubs, no gallops. ABDOMEN: Soft, no significant tenderness appreciated, normoactive bowel sounds. No guarding, no rebound. No rigidity noted . No masses appreciated. EXTREMITIES: Pedal pulses are 1-2+, no calf tenderness noted. No clubbing or cyanosis. negative pedal edema noted NEUROLOGICAL: Focused neurological exam showed no significant neurologic deficit. Normal speech, no focal weakness appreciated. PSYCH: Normal mood, normal affect. Judgment and insight within normal limits. SKIN: No significant ecchymosis, skin is noted to be warm. MUSCULOSKELETAL EXAM: No significant acute joint swelling noted. Results EKG Comments: Sinus rhythm, no acute ST-T wave changes are noted Impressions: Chest X-Ray 04/12/18 12:12 IMPRESSION: NO ACUTE FINDINGS. Head CT 04/12/18 12:13 IMPRESSION: MILD CHRONIC CHANGES OF ATROPHY AND MICROVASCULAR ISCHEMIA. NO ACUTE PROCESS. EVIDENCE OF ACUTE STROKE: NO. Chest/Abdomen CTA 04/12/18 14:12 IMPRESSION: No emboli visualized in the main pulmonary arteries or the segmental branches. Increased size and volume of the right upper lobe spiculated mass measuring 2.3 cm on the current exam, previously this same dimension measured 2.0 cm. The left upper lobe postprocedural changes appear similar to the prior exam. No new consolidation or pleural effusion. Similar adrenal nodularity and tiny hepatic hypodensities. Assessment & Plan - Diagnosis (1) Syncope Qualifiers: Syncope type: unspecified Qualified Code(s): R55 - Syncope and collapse Is this a current diagnosis for this admission?: Yes (2) Orthostatic hypotension Is this a current diagnosis for this admission?: Yes (3) Essential hypertension Is this a current diagnosis for this admission?: Yes (4) History of lung cancer Is this a current diagnosis for this admission?: Yes (5) COPD (chronic obstructive pulmonary disease) Qualifiers: COPD type: unspecified COPD Qualified Code(s): J44.9 - Chronic obstructive pulmonary disease, unspecified Is this a current diagnosis for this admission?: Yes (6) Tobacco abuse Is this a current diagnosis for this admission?: Yes - Notes Notes: Syncope: Most likely related to orthostatic hypotension. Patient was noted to be sitting still for about 30 minutes on a barstool at her kitchen. EMS did not report any low heart rate. Patient blood pressure medication would need to be adjusted. ROBERT inhibitor/ARB, clonidine etc. are best for blood pressure control in people with orthostatic hypotension. Beta-blockers are also better medications but patient has significant COPD. Should avoid pure vasodilators and diuretics. However would also recommend cardiac monitoring as an outpatient. Will also recommend carotid duplex to be checked as an outpatient. Orthostatic hypotension: Monitor blood pressure medications. Patient advised to quit smoking. Hypertension: Will probably recommend liberal control in this patient. History of lung cancer: Seen on CT. Recommend oncology referral. Tobacco abuse: Patient has been advised to quit smoking. COPD: Patient felt to have severe COPD with ongoing wheezing. Recommend bronchodilator therapy and steroid therapy as needed. - Time Time Spent: 30 to 50 Minutes - CODE STATUS was discussed, patient remains full code. Surrogate decision-maker patient's . Multiple medical problems were addressed. More than 50% of the time spent coordinating care, discussing management plans with involved caregivers. Management plans discussed with involved personnels. Medical decision making was of moderate to high complexity , patient's has multiple comorbidities. Medications reviewed and adjusted accordingly: Yes
--- NOTE | 2018-04-12 19:48 | EKG REPORT ---
SEVERITY:- ABNORMAL ECG - SINUS RHYTHM PROBABLE INFERIOR INFARCT, OLD CONSIDER ANTERIOR INFARCT : Confirmed by: Mary Carmen Dorantes MD 12-Apr-2018 19:46:57
[2018-04-12] MEDS: IPRATROPIUM/ALBUTEROL 0.5-2.5 MG/3 ML AMPUL NEB SCH (20:05)
[2018-04-12] MEDS: ACETAMINOPHEN 325 MG TABLET PO PRN (20:12)
[2018-04-12] MEDS: PREDNISONE 20 MG TABLET PO SCH (20:12)
[2018-04-12] MEDS: CARVEDILOL 12.5 MG TABLET PO SCH (21:38)
[2018-04-13] MEDS: IPRATROPIUM/ALBUTEROL 0.5-2.5 MG/3 ML AMPUL NEB SCH ×4 (02:16→20:13)
[2018-04-13] MEDS: PREDNISONE 20 MG TABLET PO SCH ×2 (05:18→17:00)
[2018-04-13] MEDS: NORMAL SALINE 1000 ML 1,000 ML IV PRN ×2 (07:44→21:36)
[2018-04-13] MEDS: ACETAMINOPHEN 325 MG TABLET PO PRN ×2 (07:44→22:19)
--- NOTE | 2018-04-13 08:11 | PDOC CONSULTATION ---
Consultation Consult Date: 04/13/18 Attending physician:: MIRNA TAI Consult reason:: RUL lung ca w/ prev hx L lung ca History of Present Illness Admission Date/PCP: 04/12/18 16:52 ELIZ BACA MD Patient complains of: lung cancer, recent syncope History of Present Illness: NISA JC is a 77 year old female with known history of previous stage III left lung cancer, status post concurrent chemoradiation complete response on the left side. She completed chemoradiation to that side in 2011, so she is over 5 years out from treatment. However, about 2 years after completion of concurrent chemoradiation she had the emergence of a right upper lobe lesion, we then placed her on Tarceva, and she has been on Tarceva for about 4 years now. She has had good control of disease until the last year or so, he has had some growth in the right upper lobe lesion. She was sent to [place] for rebiopsy, unfortunately that was insufficient tissue to do all of the studies that we wanted to do, but fiducial markers were placed at that time. And we decided at that time to consider radiation with CyberKnife therapy to that side versus watching for a few more months. At that time, we decided to watch after discussion in tumor board in [place]. She had CTA of the chest upon admission, she was admitted because she had syncopal episodes which seem to be related to orthostasis. However she does have known vascular disease because of years of smoking, and she also told me that she does have carotid disease that is being monitored by her PCP. She probably does have multiple reasons for syncope. CTA of the chest indicated slight increase in size of the right upper lesion to 2.3 cm from 2 cm. I reviewed the images myself, there is some slight increase in size but not much. Of note the areas in the adrenals have been monitored closely and those are not felt to be cancerous because PET CTs have been negative in that area. In addition the liver areas are PET negative so I believe the adrenal areas are probably just adenomas, and the liver areas are probably just cysts. Today I had a long discussion with patient and family , we spent greater than 70 minutes in discussion, I also had a discussion about smoking cessation. Past Medical History Cardiac Medical History: Reports: Hypertension Denies: Coronary Artery Disease, Myocardial Infarction, Pulmonary Embolism Pulmonary Medical History: Reports: Chronic Obstructive Pulmonary Disease (COPD) Denies: Asthma, Bronchitis, Intubation, Pneumonia, Respiratory Failure, Sleep Apnea, Tuberculosis Neurological Medical History: Denies: Seizures - SYNCOPE LAST YEAR EPISODE D/T LOW SODIUM Malignancy Medical History: Reports: Lung Cancer Denies: Leukemia GI Medical History: Denies: Hepatitis, Hiatal Hernia Musculoskeltal Medical History: Reports: Arthritis Denies: Fibromyalgia Psychiatric Medical History: Reports: Depression Denies: Dementia Hematology: Denies: Anemia, Hemophilia, Sickle Cell Disease Infectious Medical History: Denies: HIV Past Surgical History Past Surgical History: Reports: Appendectomy - 1977, Hysterectomy, Tonsillectomy - age 17, Tubal Ligation Denies: Amputation, Section, Cholecystectomy, Coronary Artery Bypass Graft, Gastric Bypass Surgery, Herniorrhaphy, Mastectomy, Pacemaker Social History Information Source: Patient Smoking Status: Current Every Day Smoker Cigarettes Packs Per Day: 1 Number of Years Smokin Frequency of Alcohol Use: None Hx Recreational Drug Use: No Drugs: None Hx Prescription Drug Abuse: No - Advance Directive Resuscitation Status: Full Code Family History Family History: Reviewed & Not Pertinent, Hypertension Parental Family History Reviewed: Yes Children Family History Reviewed: Yes Sibling(s) Family History Reviewed.: Yes Medication/Allergy Allergies/Adverse Reactions: latex [Latex] Allergy (Severe, Verified 01/30/18 13:26) rash hydrocodone [Hydrocodone] Allergy (Unknown, Verified 01/30/18 13:26) morphine [Morphine] Allergy (Unknown, Verified 01/30/18 13:26) amoxicillin trihydrate [From Augmentin] Adverse Reaction (Unknown, Verified 09/14 13:26) Dizziness Potassium Clavulanate * [From Augmentin] Adverse Reaction (Unknown, Verified 09/14 13:26) Dizziness olmesartan medoxomil [From May] Adverse Reaction (Verified 01/30/18 13:26) tremor Review of Systems Constitutional: PRESENT: fatigue, weakness Cardiovascular: PRESENT: dyspnea on exertion Gastrointestinal: ABSENT: abdominal pain, constipation, diarrhea, hematemesis, hematochezia, nausea, vomiting Musculoskeletal: ABSENT: joint swelling Integumentary: ABSENT: rash, wounds Neurological: PRESENT: syncope Endocrine: PRESENT: cold intolerance Physical Exam Vital Signs: Temp Pulse Resp BP Pulse Ox 98.1 F 81 17 151/61 H 96 04/13/18 07:28 04/13/18 07:28 04/13/18 07:28 04/13/18 07:28 04/13/18 07:28 Intake & Output 04/12/18 04/13/18 04/14/18 06:59 06:59 06:59 Intake Total 1110 Output Total 1400 Balance -290 Weight 58.9 kg General appearance: PRESENT: no acute distress, well-developed, well-nourished Head exam: PRESENT: atraumatic, normocephalic Eye exam: PRESENT: conjunctiva pink, EOMI, PERRLA. ABSENT: scleral icterus Ear exam: PRESENT: normal external ear exam Mouth exam: PRESENT: moist, tongue midline Neck exam: ABSENT: carotid bruit, JVD, lymphadenopathy, thyromegaly Respiratory exam: PRESENT: clear to auscultation clarice. ABSENT: rales, rhonchi, wheezes Cardiovascular exam: PRESENT: RRR. ABSENT: diastolic murmur, rubs, systolic murmur Pulses: PRESENT: normal dorsalis pedis pul Vascular exam: PRESENT: normal capillary refill GI/Abdominal exam: PRESENT: normal bowel sounds, soft. ABSENT: distended, guarding, mass, organolmegaly, rebound, tenderness Rectal exam: PRESENT: deferred Extremities exam: PRESENT: full ROM. ABSENT: calf tenderness, clubbing, pedal edema Neurological exam: PRESENT: alert, awake, oriented to person, oriented to place , oriented to time, oriented to situation, CN II-XII grossly intact. ABSENT: motor sensory deficit Psychiatric exam: PRESENT: appropriate affect, normal mood. ABSENT: homicidal ideation, suicidal ideation Skin exam: PRESENT: dry, intact, warm. ABSENT: cyanosis, rash Results Impressions: Chest X-Ray 04/12/18 12:12 IMPRESSION: NO ACUTE FINDINGS. Head CT 04/12/18 12:13 IMPRESSION: MILD CHRONIC CHANGES OF ATROPHY AND MICROVASCULAR ISCHEMIA. NO ACUTE PROCESS. EVIDENCE OF ACUTE STROKE: NO. Chest/Abdomen CTA 04/12/18 14:12 IMPRESSION: No emboli visualized in the main pulmonary arteries or the segmental branches. Increased size and volume of the right upper lobe spiculated mass measuring 2.3 cm on the current exam, previously this same dimension measured 2.0 cm. The left upper lobe postprocedural changes appear similar to the prior exam. No new consolidation or pleural effusion. Similar adrenal nodularity and tiny hepatic hypodensities. Status: Image reviewed by me Assessment & Plan - Diagnosis (1) Lung cancer Qualifiers: Laterality: right Lung location: upper lobe of lung Qualified Code(s): C34.11 - Malignant neoplasm of upper lobe, right bronchus or lung Is this a current diagnosis for this admission?: Yes Plan: No history of recurrent right upper lobe lung cancer, currently on Tarceva. Today we discussed the plan would be continued monitoring on Tarceva, plan for CT most likely in 2 months. She had a CT set up tomorrow as an outpatient but we will discontinue that. She can continue to take Tarceva while admitted, she can take her home medication I will write for that. I have asked them to call us after discharge so that they can be seen within a week of discharge so we can decide on next steps of care. - Time Time Spent: Greater than 70 Minutes - Inpatient Certification Based on my medical assessment, after consideration of the patient's comorbidities, presenting symptoms, or acuity I expect that the services needed warrant INPATIENT care.: Yes I certify that my determination is in accordance with my understanding of Medicare's requirements for reasonable and necessary INPATIENT services [42 CFR 412.3e].: Yes Medical Necessity: Failure to Improve With Outpatient Therapy, Risk of Complication if Not Cared For in Hospital
[2018-04-13] MEDS: ENOXAPARIN SODIUM INJ 30 MG/0.3 ML DISP.SYRIN SUBCUT SCH (09:06)
[2018-04-13] MEDS: CARVEDILOL 12.5 MG TABLET PO SCH (09:06)
[2018-04-13] MEDS ORDERED: ERLOTINIB HCL 150 MG PO SCH (10:00)
--- NOTE | 2018-04-13 12:56 | XCELERA REPORT ---
[address] [address] Transthoracic Echocardiogram Report Name: NISA JC Age: 77 yrs Gender: Female : 1940 Patient Status: Inpatient Patient Location: [address] [place] [address] Study Date: 04/13/2018 10:39 AM Height: 63 in Weight: 130 lb BSA: 1.6 m2 Procedure: A complete two-dimensional transthoracic echocardiogram was performed (2D, M-mode, spectral and color flow Doppler). The study was technically adequate with some images being suboptimal in quality. Reason For Study: syncope Ordering Physician: MIRNA TAI Performed By: Maru Cleaning Interpretation Summary The left ventricular ejection fraction is normal. There is borderline concentric left ventricular hypertrophy. The left ventricle is grossly normal size. Doppler measurements suggest pseudonormalized left ventricular relaxation, which is associated with grade II/IV or mild to moderate diastolic dysfunction Wall motion cannot be accurately commented on, but no definite regional wall motion abnormalities noted. The right ventricular systolic function is normal. The left atrial size is normal. The right atrium is normal in size There is a trace amount of mitral regurgitation There is no mitral valve stenosis. There is no aortic valve stenosis There is a mild amount of aortic regurgitation There is a trace or physiologic amount of tricuspid regurgitation Tricuspid regurgitation jet envelope not well defined to measure RV systolic pressure accurately. The aortic root is not well visualized but is probably normal size. The inferior vena cava appeared normal and decreased > 50% with respiration (RAP 5-10 mmHg) There is no pericardial effusion. MMode/2D Measurements & Calculations RVDd: 3.0 cm LVIDd: 4.6 cm FS: 41.4 % Ao root diam: 3.0 cm IVSd: 0.87 cm LVIDs: 2.7 cm EDV(Teich): 98.5 ml Ao root area: 7.2 cm2 LVPWd: 0.90 cm ESV(Teich): 27.3 ml LA dimension: 3.3 cm EF(Teich): 72.3 % LVOT diam: 1.7 cm LVOT area: 2.3 cm2 Doppler Measurements & Calculations MV E max nisreen: MV P1/2t max nisreen: Ao V2 max: AI max nisreen: 125.2 cm/sec 131.7 cm/sec 181.9 cm/sec 320.3 cm/sec MV A max nisreen: MV P1/2t: 78.9 msec Ao max PG: AI max P.6 cm/sec MVA(P1/2t): 2.8 cm2 13.2 mmHg 41.0 mmHg MV E/A: 0.82 MV dec slope: SHANT(V,D): 1.9 cm2 AI dec slope: 223.3 cm/sec2 488.7 cm/sec2 AI P1/2t: MV dec time: 420.1 msec 0.30 sec LV V1 max PG: PA V2 max: AV P1/2t-pr_phl: MV P1/2t-pr_phl: 9.4 mmHg 109.9 cm/sec 420.1 msec 78.9 msec LV V1 max: PA max P.8 mmHg 153.6 cm/sec Left Ventricle The left ventricle is grossly normal size. There is borderline concentric left ventricular hypertrophy. The left ventricular ejection fraction is normal. Doppler measurements suggest pseudonormalized left ventricular relaxation, which is associated with grade II/IV or mild to moderate diastolic dysfunction. Wall motion cannot be accurately commented on, but no definite regional wall motion abnormalities noted. Right Ventricle The right ventricle is grossly normal size. There is normal right ventricular wall thickness. The right ventricular systolic function is normal. Atria The right atrium is normal in size. The left atrial size is normal. Interarterial septum not well visualized and not well dopplered. Cannot comment on ASD/PFO presence. Mitral Valve The mitral valve is not well visualized. There is no mitral valve stenosis. There is a trace amount of mitral regurgitation. Aortic Valve The aortic valve is grossly normal. There is no aortic valve stenosis. There is a mild amount of aortic regurgitation. Tricuspid Valve The tricuspid valve is not well visualized secondary to technical limitations. There is no tricuspid stenosis. There is a trace or physiologic amount of tricuspid regurgitation. Tricuspid regurgitation jet envelope not well defined to measure RV systolic pressure accurately. Pulmonic Valve The pulmonic valve is not well visualized. Great Vessels The aortic root is not well visualized but is probably normal size. The inferior vena cava appeared normal and decreased > 50% with respiration (RAP 5-10 mmHg). Effusions There is no pericardial effusion. : MIRNA TAI > Alissa Vigil
--- NOTE | 2018-04-13 13:14 | Physician Advisory Note ---
Physician Advisor ProgressNote .: Pursuant to the plan for [facility], I have reviewed the medical record for this patient. Physician Advisor Statement: Please consider documenting, if you agree: 1. "Acute hyponatremia, suspect due to " 2. "Chronic diastolic CHF" (+ddysfn on ECHO, which is stage B if never had CHF exac before) 3. Medical necessity: "continues to require hospitalization because " ( & please continue to spell this out daily, may use info below as desired) Status: 77yo Medicare pt w/COPD, stage 3 lung CA on Tarceva, HTN. Came in w/ orthostatic hypotension causing recurrent syncope. Had been having increasing BP meds trying to better control HTN outpt. - Typically orthostatic hypotension is most appropriate for Obs status (as is COPD exacerb), but in this case, mutlifactorial causes, multiple meds potentially at fault, & need to still have some BP control after d/c led to attending plan to give IVF for BP support & then gradually re-introduce BP meds , watching response, to determine which meds are most appropriate at this time, which will take >2 MNs to achieve safely in this very elderly pt. [employer] Grade Teacher recommends ACEI/ARB, Clonidine, BB types, but not pure vasodil.s/ diuretics. Meanwhile, IVF are cautious but ongoing, & pt has underlying chr diast CHF. Approp for INpt status. Thanks! CK
--- NOTE | 2018-04-13 13:25 | RADIOLOGY REPORT (SQ) ---
EXAM DESCRIPTION: CAROTID DOPPLER COMPLETED DATE/TIME: 04/13/2018 12:06 pm REASON FOR STUDY: syncope COMPARISON: None. TECHNIQUE: Grayscale ultrasound, Doppler velocity and spectra, and color Doppler images acquired of the extra-cranial carotid and vertebral arteries. Images stored on PACS. LIMITATIONS: None. FINDINGS: RIGHT CAROTID CCA Velocities: 59 centimeters/second ICA Velocities Peak systolic 120 cm/s. End diastolic 25 cm/s. Proximal ICA/CCA peak systolic ratio 2. Moderate plaques are present in the carotid bulb and proximal internal carotid we shadowing. LEFT CAROTID CCA Velocities: 47 centimeters/second ICA Velocities Peak systolic 332 cm/s. End diastolic 63 cm/s. Proximal ICA/CCA peak systolic ratio 7. Dense shadowing plaque is present in the carotid bulb and proximal internal carotid. VERTEBRAL ARTERIES: Antegrade flow. Normal waveforms. SUBCLAVIAN ARTERIES: No finding. OTHER: No other significant finding. IMPRESSION: Atherosclerotic changes with less than 50% stenosis on the right and with greater than 7 0% stenosis on the left. COMMENT: Quality ID #[id number]: Velocity criteria are extrapolated from the diameter data as defined by t he Society of Radiologists in Ultrasound Consensus Conference. Radiology 2003: 229; 340-346. TECHNICAL DOCUMENTATION: JOB ID: [id number] [employer]- All Rights Reserved Reading location - IP/workstation name: [email or web address]
[2018-04-13] MEDS: ERLOTINIB PO SCH (14:08)
--- NOTE | 2018-04-13 15:27 | PDOC PROGRESS REPORT ---
Subjective Progress Note for:: 04/13/18 Subjective:: NISA JC is a 77 year old female with a PMH of COPD not on home O2, history of lung cancer with prior chemotherapy and radiation, currently on Erlotinib, hypertension on multiple antihypertensives who was brought in because of syncope with prior syncopal episodes in the past. In the ER, patient does have a positive orthostasis with blood pressures as follow: supine- 176/70 sitting-153/71 standing-125/60. No acute event overnight. Tele monitoring was unremarkable overnight. Blood pressures are improving with no recurrence of orthostasis after just restarting Coreg. No recurrence of syncope, no chest pain or SOB. Reason For Visit: SYNCOPE, COPD EXACERBATION Physical Exam Vital Signs: Temp Pulse Resp BP Pulse Ox 97.7 F 79 14 150/57 H 94 04/13/18 11:26 04/13/18 14:00 04/13/18 13:53 04/13/18 11:26 04/13/18 13:53 Intake & Output 04/12/18 04/13/18 04/14/18 06:59 06:59 06:59 Intake Total 1110 Output Total 1400 Balance -290 Weight 129 lb 13.636 oz General appearance: PRESENT: no acute distress, well-developed, well-nourished Head exam: PRESENT: atraumatic, normocephalic Eye exam: PRESENT: conjunctiva pink, EOMI, PERRLA. ABSENT: scleral icterus Ear exam: PRESENT: normal external ear exam Mouth exam: PRESENT: moist, tongue midline Neck exam: ABSENT: carotid bruit, JVD, lymphadenopathy, thyromegaly Respiratory exam: PRESENT: clear to auscultation clarice. ABSENT: rales, rhonchi, wheezes Cardiovascular exam: PRESENT: RRR. ABSENT: diastolic murmur, rubs, systolic murmur Pulses: PRESENT: normal dorsalis pedis pul GI/Abdominal exam: PRESENT: normal bowel sounds, soft. ABSENT: distended, guarding, mass, organolmegaly, rebound, tenderness Rectal exam: PRESENT: deferred Neurological exam: PRESENT: alert, awake, oriented to person, oriented to place , oriented to time, oriented to situation, CN II-XII grossly intact. ABSENT: motor sensory deficit Results Impressions: Chest X-Ray 04/12/18 12:12 IMPRESSION: NO ACUTE FINDINGS. Head CT 04/12/18 12:13 IMPRESSION: MILD CHRONIC CHANGES OF ATROPHY AND MICROVASCULAR ISCHEMIA. NO ACUTE PROCESS. EVIDENCE OF ACUTE STROKE: NO. Chest/Abdomen CTA 04/12/18 14:12 IMPRESSION: No emboli visualized in the main pulmonary arteries or the segmental branches. Increased size and volume of the right upper lobe spiculated mass measuring 2.3 cm on the current exam, previously this same dimension measured 2.0 cm. The left upper lobe postprocedural changes appear similar to the prior exam. No new consolidation or pleural effusion. Similar adrenal nodularity and tiny hepatic hypodensities. Carotid Doppler Study 04/13/18 00:00 IMPRESSION: Atherosclerotic changes with less than 50% stenosis on the right and with greater than 70% stenosis on the left. Assessment & Plan - Diagnosis (1) Syncope Qualifiers: Syncope type: unspecified Qualified Code(s): R55 - Syncope and collapse Is this a current diagnosis for this admission?: Yes Plan: Syncope is likely related to both orthostasis (multiple antihypertensives) and carotid stenoses. Carotid US show <50% stenosis on the right and >70% stenosis on the left. Blood pressures are close to goal with no orthostasis after holding of antihypertensives except Coreg. Cardiology recommends resuming just Candesartan due to her COPD as well. Will switch Coreg to Candesartan today and see if this will be enough to control her blood pressures. Continue holding hydralazine, carvedilol, amlodipine and clonidine. Will start aspirin and statin. Patient will follow up with Dr. Vigil after discharge for further work-up of her carotid stenoses as she may need evaluation for possible endarterectomy after further work-up and risk assessment. (2) COPD exacerbation Is this a current diagnosis for this admission?: Yes Plan: Continue breathing treatments and oral steroids. (3) Lung cancer Qualifiers: Laterality: right Lung location: upper lobe of lung Qualified Code(s): C34.11 - Malignant neoplasm of upper lobe, right bronchus or lung Is this a current diagnosis for this admission?: Yes Plan: On Erlotinib. Appreciate hem/onc recommendations. - Time Time Spent with patient: 15-24 minutes
[2018-04-13] MEDS: ASPIRIN 81 MG TABLET, CHEWABLE PO SCH (17:00)
[2018-04-13] MEDS: CANDESARTAN PO SCH (17:00)
[2018-04-13] MEDS: ATORVASTATIN CALCIUM 20 MG TABLET PO SCH (22:04)
--- NOTE | 2018-04-13 22:51 | PDOC PROGRESS REPORT ---
Subjective Progress Note for:: 04/13/18 Subjective:: Patient seems to be doing better with gradual improvement. Pt is denying any chest arm or neck discomfort. Patient denying any PND, orthopnea. Patient denied any sustained palpitations, dizziness, syncope, near syncope. Patient denying any fever chills. Patient denying any other significant discomfort. Orthostatic changes are noted to have improved. Patient did have carotid duplex which did show carotid artery stenosis but does not quite explain syncope. Patient is maintaining sinus rhythm. Review of systems: Rest review of systems negative. Medications: Medications have been reviewed. Reason For Visit: SYNCOPE, COPD EXACERBATION Physical Exam Vital Signs: Temp Pulse Resp BP Pulse Ox 98.1 F 80 18 180/62 H 96 04/13/18 20:00 04/13/18 20:15 04/13/18 20:15 04/13/18 20:00 04/13/18 20:15 Intake & Output 04/12/18 04/13/18 04/14/18 06:59 06:59 06:59 Intake Total 1110 1828 Output Total 1400 Balance -290 1828 Weight 58.9 kg Exam: GENERAL: well-nourished and in no acute distress. Alert and oriented x3 HEAD: Atraumatic, normocephalic. EYES: Pupils equal round and reactive to light, extraocular movements intact, sclera anicteric, conjunctiva are normal. ENT: TMs normal, nares patent, oropharynx clear without exudates. Moist mucous membranes. No oral ulcerations or bleeding gums noted NECK: supple without lymphadenopathy. Trachea is central. No cervical or axillary lymphadenopathy noted. Carotids are 2+, JVD WNL LUNGS: Respiration seems nonlabored, no significant accessory muscle action noted. Few bibasilar crackles and scattered wheezing noted. No significant dullness noted on percussion. CHEST: Palpation of the chest wall shows no significant chest wall tenderness. HEART: [place] [employer], No PSH, 1/6 [place] aortic area, 1/6 [place] systolic murmur mitral area, no rubs, no gallops. ABDOMEN: Soft, no significant tenderness appreciated, normoactive bowel sounds. No guarding, no rebound. No rigidity noted . No masses appreciated. EXTREMITIES: Pedal pulses are 1-2+, no calf tenderness noted. No clubbing or cyanosis. negative pedal edema noted NEUROLOGICAL: Focused neurological exam showed no significant neurologic deficit. Normal speech, no focal weakness appreciated. PSYCH: Normal mood, normal affect. Judgment and insight within normal limits. SKIN: No significant ecchymosis, skin is noted to be warm. MUSCULOSKELETAL EXAM: No significant acute joint swelling noted. Results EKG Comments: Telemetry shows sinus rhythm without any sustained tachycardia or bradycardia. Impressions: Chest X-Ray 04/12/18 12:12 IMPRESSION: NO ACUTE FINDINGS. Head CT 04/12/18 12:13 IMPRESSION: MILD CHRONIC CHANGES OF ATROPHY AND MICROVASCULAR ISCHEMIA. NO ACUTE PROCESS. EVIDENCE OF ACUTE STROKE: NO. Chest/Abdomen CTA 04/12/18 14:12 IMPRESSION: No emboli visualized in the main pulmonary arteries or the segmental branches. Increased size and volume of the right upper lobe spiculated mass measuring 2.3 cm on the current exam, previously this same dimension measured 2.0 cm. The left upper lobe postprocedural changes appear similar to the prior exam. No new consolidation or pleural effusion. Similar adrenal nodularity and tiny hepatic hypodensities. Carotid Doppler Study 04/13/18 00:00 IMPRESSION: Atherosclerotic changes with less than 50% stenosis on the right and with greater than 70% stenosis on the left. Assessment & Plan - Diagnosis (1) Syncope Qualifiers: Syncope type: unspecified Qualified Code(s): R55 - Syncope and collapse Is this a current diagnosis for this admission?: Yes (2) Orthostatic hypotension Is this a current diagnosis for this admission?: Yes (3) Essential hypertension Is this a current diagnosis for this admission?: Yes (4) History of lung cancer Is this a current diagnosis for this admission?: Yes (5) COPD (chronic obstructive pulmonary disease) Qualifiers: COPD type: unspecified COPD Qualified Code(s): J44.9 - Chronic obstructive pulmonary disease, unspecified Is this a current diagnosis for this admission?: Yes (6) Tobacco abuse Is this a current diagnosis for this admission?: Yes - Notes Notes: Syncope: Most likely related to orthostatic hypotension. Please follow recommendations are outlined in yesterday's note. However would also recommend cardiac monitoring as an outpatient. 2D echo shows no stenotic valve disease, normal LVEF. Carotid duplex report reviewed. Orthostatic hypotension: Monitor blood pressure medications. Patient advised to quit smoking. Hypertension: Will probably recommend liberal control in this patient. History of lung cancer: Seen on CT. Recommend oncology referral. Tobacco abuse: Patient has been advised to quit smoking. COPD: Patient felt to have severe COPD with ongoing wheezing. Recommend bronchodilator therapy and steroid therapy as needed. Patient has done generally well. Will sign off. Please reconsult if needed. Patient can follow-up with me if she wishes. - Time Time with patient: Greater than 35 minutes - CODE STATUS was discussed, patient remains full code. Surrogate decision-maker unchanged. Multiple medical problems were addressed. More than 50% of the time spent coordinating care, discussing management plans with involved caregivers. Management plans discussed with involved personnels. Medical decision making was of moderate to high complexity, patient's has multiple comorbidities. Medications reviewed and adjusted accordingly: Yes
[2018-04-14] MEDS: IPRATROPIUM/ALBUTEROL 0.5-2.5 MG/3 ML AMPUL NEB SCH ×4 (02:09→19:50)
[2018-04-14] MEDS: PREDNISONE 20 MG TABLET PO SCH ×2 (06:42→17:29)
--- NOTE | 2018-04-14 08:22 | PDOC PROGRESS REPORT ---
Subjective Progress Note for:: 04/14/18 Subjective:: No acute events overnight. Asked nursing to get patient up and move around the webb. Reason For Visit: SYNCOPE, COPD EXACERBATION Physical Exam Vital Signs: Temp Pulse Resp BP Pulse Ox 98.0 F 74 18 151/59 H 96 04/14/18 03:14 04/14/18 07:00 04/14/18 03:14 04/14/18 03:14 04/14/18 03:14 Intake & Output 04/13/18 04/14/18 04/15/18 06:59 06:59 06:59 Intake Total 1110 2228 Output Total 1400 Balance -290 2228 Weight 58.9 kg 58.9 kg General appearance: PRESENT: no acute distress, well-developed, well-nourished Head exam: PRESENT: atraumatic, normocephalic Eye exam: PRESENT: conjunctiva pink, EOMI, PERRLA. ABSENT: scleral icterus Ear exam: PRESENT: normal external ear exam Mouth exam: PRESENT: moist, tongue midline Neck exam: ABSENT: carotid bruit, JVD, lymphadenopathy, thyromegaly Respiratory exam: PRESENT: clear to auscultation clarice. ABSENT: rales, rhonchi, wheezes Cardiovascular exam: PRESENT: RRR. ABSENT: diastolic murmur, rubs, systolic murmur Pulses: PRESENT: normal dorsalis pedis pul Vascular exam: PRESENT: normal capillary refill GI/Abdominal exam: PRESENT: normal bowel sounds, soft. ABSENT: distended, guarding, mass, organolmegaly, rebound, tenderness Rectal exam: PRESENT: deferred Extremities exam: PRESENT: full ROM. ABSENT: calf tenderness, clubbing, pedal edema Neurological exam: PRESENT: alert, awake, oriented to person, oriented to place , oriented to time, oriented to situation, CN II-XII grossly intact. ABSENT: motor sensory deficit Psychiatric exam: PRESENT: appropriate affect, normal mood. ABSENT: homicidal ideation, suicidal ideation Skin exam: PRESENT: dry, intact, warm. ABSENT: cyanosis, rash Results Impressions: Chest X-Ray 04/12/18 12:12 IMPRESSION: NO ACUTE FINDINGS. Head CT 04/12/18 12:13 IMPRESSION: MILD CHRONIC CHANGES OF ATROPHY AND MICROVASCULAR ISCHEMIA. NO ACUTE PROCESS. EVIDENCE OF ACUTE STROKE: NO. Chest/Abdomen CTA 04/12/18 14:12 IMPRESSION: No emboli visualized in the main pulmonary arteries or the segmental branches. Increased size and volume of the right upper lobe spiculated mass measuring 2.3 cm on the current exam, previously this same dimension measured 2.0 cm. The left upper lobe postprocedural changes appear similar to the prior exam. No new consolidation or pleural effusion. Similar adrenal nodularity and tiny hepatic hypodensities. Carotid Doppler Study 04/13/18 00:00 IMPRESSION: Atherosclerotic changes with less than 50% stenosis on the right and with greater than 70% stenosis on the left. Assessment & Plan - Diagnosis (1) Lung cancer Qualifiers: Laterality: right Lung location: upper lobe of lung Qualified Code(s): C34.11 - Malignant neoplasm of upper lobe, right bronchus or lung Is this a current diagnosis for this admission?: Yes Plan: As noted previously generally stable disease, we will further address as an outpatient. - Time Time Spent with patient: 15-24 minutes
[2018-04-14] MEDS: ASPIRIN 81 MG TABLET, CHEWABLE PO SCH (09:01)
[2018-04-14] MEDS: CANDESARTAN PO SCH (09:02)
[2018-04-14] MEDS: ERLOTINIB PO SCH (09:03)
[2018-04-14] MEDS: ENOXAPARIN SODIUM INJ 30 MG/0.3 ML DISP.SYRIN SUBCUT SCH (09:03)
[2018-04-14] MEDS ORDERED: AMLODIPINE BESYLATE 5 MG TABLET PO SCH (10:00)
--- NOTE | 2018-04-14 10:54 | PDOC PROGRESS REPORT ---
Subjective Progress Note for:: 04/14/18 Subjective:: 77-year-old female past medical history of COPD not on home oxygen, Lung cancer status post XRT currently on erlotinib, hypertension, syncope who was admitted on 04/12/2018 for an episode of syncope. On admission in the ER orthostatic vitals were positive. Systolic blood pressure were as follows supine 176, sitting 153, standing 125. Head CT on 1013 2017- for any stroke. CTA chest and abdomen on 1013 2017- for any PE. Carotid Doppler on 04/13/2018 was positive for right carotid artery stenosis less than 50% and left carotid stenosis of 70%. 2D echo on 04/13/2018 showed normal ejection fraction, left ventricular hypertrophy and grade 2/4 or mild to moderate diastolic dysfunction. Syncope was thought to be possibly due to orthostatic hypotension. Patient is on multiple blood pressure medication which were held since admission. Cardiology was consulted and he recommended to DC beta-blockers due to underlying COPD and restart candesartan. Patient was started on aspirin and statin and for her carotid stenosis plan is to discharge patient to follow-up with Dr. Vigil as outpatient. 04/14/2018. No acute events overnight. On my encounter patient is sitting on the edge of her bed and enjoying her breakfast. Patient is stating she had a good night sleep however she has been having chronic back pain. Denies any fever, chills, nausea, vomiting, diarrhea, constipation, urinary symptoms, shortness of breath or any chest pain. Patient is asking when she could be discharged home. Reason For Visit: SYNCOPE, COPD EXACERBATION Physical Exam Vital Signs: Temp Pulse Resp BP Pulse Ox 98.0 F 81 14 151/59 H 93 04/14/18 03:14 04/14/18 08:29 04/14/18 08:29 04/14/18 03:14 04/14/18 08:29 Intake & Output 04/13/18 04/14/18 04/15/18 06:59 06:59 06:59 Intake Total 1110 2228 Output Total 1400 Balance -290 2228 Weight 58.9 kg 58.9 kg General appearance: PRESENT: no acute distress, well-developed, well-nourished Head exam: PRESENT: atraumatic, normocephalic Eye exam: PRESENT: conjunctiva pink, EOMI, PERRLA. ABSENT: scleral icterus Ear exam: PRESENT: normal external ear exam Mouth exam: PRESENT: moist, tongue midline Neck exam: ABSENT: carotid bruit, JVD, lymphadenopathy, thyromegaly Respiratory exam: PRESENT: prolonged expiratory phas, wheezes. ABSENT: rales, rhonchi Cardiovascular exam: PRESENT: RRR. ABSENT: diastolic murmur, rubs, systolic murmur Pulses: PRESENT: normal dorsalis pedis pul Vascular exam: PRESENT: normal capillary refill GI/Abdominal exam: PRESENT: normal bowel sounds, soft. ABSENT: distended, guarding, mass, organolmegaly, rebound, tenderness Rectal exam: PRESENT: deferred Extremities exam: PRESENT: full ROM. ABSENT: calf tenderness, clubbing, pedal edema Neurological exam: PRESENT: alert, awake, oriented to person, oriented to place , oriented to time, oriented to situation, CN II-XII grossly intact. ABSENT: motor sensory deficit Psychiatric exam: PRESENT: appropriate affect, normal mood. ABSENT: homicidal ideation, suicidal ideation Skin exam: PRESENT: dry, intact, warm. ABSENT: cyanosis, rash Results Impressions: Chest X-Ray 04/12/18 12:12 IMPRESSION: NO ACUTE FINDINGS. Head CT 04/12/18 12:13 IMPRESSION: MILD CHRONIC CHANGES OF ATROPHY AND MICROVASCULAR ISCHEMIA. NO ACUTE PROCESS. EVIDENCE OF ACUTE STROKE: NO. Chest/Abdomen CTA 04/12/18 14:12 IMPRESSION: No emboli visualized in the main pulmonary arteries or the segmental branches. Increased size and volume of the right upper lobe spiculated mass measuring 2.3 cm on the current exam, previously this same dimension measured 2.0 cm. The left upper lobe postprocedural changes appear similar to the prior exam. No new consolidation or pleural effusion. Similar adrenal nodularity and tiny hepatic hypodensities. Carotid Doppler Study 04/13/18 00:00 IMPRESSION: Atherosclerotic changes with less than 50% stenosis on the right and with greater than 70% stenosis on the left. Assessment & Plan - Diagnosis (1) Syncope Qualifiers: Syncope type: unspecified Qualified Code(s): R55 - Syncope and collapse Is this a current diagnosis for this admission?: Yes Plan: Likely orthostatic less likely due to underlying carotid stenosis. CT head negative for any acute stroke. CTA Chest negative for PE. 2D echo negative. Carotid Doppler positive for right carotid stenosis less than 50% and left carotid stenosis. 70%. Blood pressure medications were held on admission will restart and titrate as clinically appropriate. Hold Coreg as per cardiology recommendation. Continue aspirin, statin. Outpatient follow-up with Dr. Vigil for possible carotid endarterectomy evaluation. (2) COPD (chronic obstructive pulmonary disease) Qualifiers: COPD type: unspecified COPD Qualified Code(s): J44.9 - Chronic obstructive pulmonary disease, unspecified Is this a current diagnosis for this admission?: Yes Plan: Continue steroids, nebs. Patient advised on smoking cessation. (3) Lung cancer Qualifiers: Laterality: right Lung location: upper lobe of lung Qualified Code(s): C34.11 - Malignant neoplasm of upper lobe, right bronchus or lung Is this a current diagnosis for this admission?: Yes Plan: Status post XRT. Only on erlotinib. Heme on consulted. Outpatient oncology follow-up. (4) Orthostatic hypotension Is this a current diagnosis for this admission?: Yes (5) Tobacco abuse Is this a current diagnosis for this admission?: Yes (6) Hypertension Qualifiers: Hypertension type: essential hypertension Qualified Code(s): I10 - Essential (primary) hypertension Is this a current diagnosis for this admission?: No Plan: Patient presented with syncope. Positive orthostasis. Patient is on multiple antihypertensive medications. Antihypertensive medications were held on admission. Morning systolic blood pressure in 200s. Restarted on candesartan and amlodipine. Restart home medication except for Coreg as per cardiology recommendation. Adjust medications as needed. Once patient is normotensive we will DC home to follow-up with Dr. Vigil for possible evaluation of carotid endarterectomy. Follow-up with PCP.
[2018-04-14] MEDS: NORMAL SALINE 1000 ML 1,000 ML IV PRN (11:35)
[2018-04-15] MEDS: ATORVASTATIN CALCIUM 20 MG TABLET PO SCH (00:34)
[2018-04-15] MEDS: NORMAL SALINE 1000 ML 1,000 ML IV PRN ×2 (00:37→14:26)
[2018-04-15] MEDS: IPRATROPIUM/ALBUTEROL 0.5-2.5 MG/3 ML AMPUL NEB SCH ×4 (02:27→19:26)
[2018-04-15 05:13] LABS: ABSOLUTE LYMPHOCYTES (AUTO) 1.4 10^3/uL (0.5-4.7); ABSOLUTE MONOCYTES (AUTO) 0.8 10^3/uL (0.1-1.4); ABSOLUTE NEUT (AUTO) 5.8 10^3/uL (1.7-8.2); BASOPHILS % (AUTO) 0.2 % (0-2); EOSINOPHILS % (AUTO) 0.1 % (0-6); LYMPHOCYTES % (AUTO) 17.2 % (13-45); MEAN CORPUSCULAR HEMOGLOBIN 31.9 pg (27.0-33.4); MEAN CORPUSCULAR HGB CONC 34.3 g/dL (32.0-36.0); MEAN CORPUSCULAR VOLUME 93 fl (80-97); MONOCYTES % (AUTO) 9.5 % (3-13); PLATELET COUNT 207 10^3/uL (150-450); RED BLOOD COUNT 3.76 10^6/uL (3.72-5.28); TOTAL CELLS COUNTED % (AUTO) 100 %; WHITE BLOOD COUNT 7.9 10^3/uL (4.0-10.5)
[2018-04-15 05:38] LABS: ALANINE AMINOTRANSFERASE 30 U/L (9-52); ALBUMIN 3.5 g/dL (3.5-5.0); ALKALINE PHOSPHATASE 51 U/L (38-126); ANION GAP 9 (5-19); ASPARTATE AMINO TRANSFERASE 21 U/L (14-36); BILIRUBIN,DIRECT 0.1 mg/dL (0.0-0.4); BILIRUBIN,TOTAL 0.4 mg/dL (0.2-1.3); BLOOD UREA NITROGEN 17 mg/dL (7-20); CALCIUM 9.3 mg/dL (8.4-10.2); CARBON DIOXIDE 26 mmol/L (22-30); CHLORIDE 101 mmol/L (98-107); GLUCOSE 96 mg/dL (75-110); POTASSIUM 3.9 mmol/L (3.6-5.0); SODIUM 135.7 mmol/L (137-145); TOTAL PROTEIN 6.1 g/dL (6.3-8.2)
[2018-04-15] MEDS: PREDNISONE 20 MG TABLET PO SCH ×2 (06:31→17:47)
[2018-04-15] MEDS ORDERED: AMLODIPINE BESYLATE 5 MG TABLET PO SCH (07:26)
[2018-04-15] MEDS: AMLODIPINE BESYLATE 10 MG TABLET PO SCH (09:36)
[2018-04-15] MEDS: ASPIRIN 81 MG TABLET, CHEWABLE PO SCH (09:36)
[2018-04-15] MEDS: GUAIFENESIN 600 MG TABLET.SA PO SCH ×2 (09:36→21:17)
[2018-04-15] MEDS: ENOXAPARIN SODIUM INJ 30 MG/0.3 ML DISP.SYRIN SUBCUT SCH (09:37)
[2018-04-15] MEDS: CANDESARTAN PO SCH (09:37)
[2018-04-15] MEDS: ERLOTINIB PO SCH (09:38)
[2018-04-15] MEDS ORDERED: LISINOPRIL 5 MG TABLET PO SCH (11:15)
--- NOTE | 2018-04-15 11:55 | PDOC PROGRESS REPORT ---
Subjective Progress Note for:: 04/15/18 Subjective:: 77-year-old female past medical history of COPD not on home oxygen, Lung cancer status post XRT currently on erlotinib, hypertension, syncope who was admitted on 04/12/2018 for an episode of syncope. On admission in the ER orthostatic vitals were positive. Systolic blood pressure were as follows supine 176, sitting 153, standing 125. Head CT on 1013 2017- for any stroke. CTA chest and abdomen on 1013 2017- for any PE. Carotid Doppler on 04/13/2018 was positive for right carotid artery stenosis less than 50% and left carotid stenosis of 70%. 2D echo on 04/13/2018 showed normal ejection fraction, left ventricular hypertrophy and grade 2/4 or mild to moderate diastolic dysfunction. Syncope was thought to be possibly due to orthostatic hypotension. Patient is on multiple blood pressure medication which were held since admission. Cardiology was consulted and he recommended to DC beta-blockers due to underlying COPD and restart candesartan. Patient was started on aspirin and statin and for her carotid stenosis plan is to discharge patient to follow-up with Dr. Vigil as outpatient. 04/14/2018. No acute events overnight. On my encounter patient is sitting on the edge of her bed and enjoying her breakfast. Patient is stating she had a good night sleep however she has been having chronic back pain. Denies any fever, chills, nausea, vomiting, diarrhea, constipation, urinary symptoms, shortness of breath or any chest pain. Patient is asking when she could be discharged home. 04/15/2018. No acute events overnight. On my encounter patient is sitting in her bed and having her breakfast. She is very pleasant and cooperative with physical examination. 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 I explained to her that it was started because she presented with syncope and first impression was a possible stroke. I explained to her that we will stop her atorvastatin. She denies any fever, chills, nausea, vomiting, chest pain, shortness of breath, diarrhea, constipation or any urinary symptoms. Reason For Visit: SYNCOPE, COPD EXACERBATION Physical Exam Vital Signs: Temp Pulse Resp BP Pulse Ox 97.6 F 80 16 152/69 H 100 04/15/18 08:00 04/15/18 08:00 04/15/18 08:00 04/15/18 03:48 04/15/18 08:00 Intake & Output 04/14/18 04/15/18 04/16/18 06:59 06:59 06:59 Intake Total 2228 2623 Balance 2228 2623 Weight 58.9 kg 58.9 kg General appearance: PRESENT: no acute distress, well-developed, well-nourished Head exam: PRESENT: atraumatic, normocephalic Eye exam: PRESENT: conjunctiva pink, EOMI, PERRLA. ABSENT: scleral icterus Ear exam: PRESENT: normal external ear exam Mouth exam: PRESENT: moist, tongue midline Neck exam: ABSENT: carotid bruit, JVD, lymphadenopathy, thyromegaly Respiratory exam: PRESENT: clear to auscultation clarice. ABSENT: rales, rhonchi, wheezes Cardiovascular exam: PRESENT: RRR. ABSENT: diastolic murmur, rubs, systolic murmur Pulses: PRESENT: normal dorsalis pedis pul Vascular exam: PRESENT: normal capillary refill GI/Abdominal exam: PRESENT: normal bowel sounds, soft. ABSENT: distended, guarding, mass, organolmegaly, rebound, tenderness Rectal exam: PRESENT: deferred Extremities exam: PRESENT: full ROM. ABSENT: calf tenderness, clubbing, pedal edema Neurological exam: PRESENT: alert, awake, oriented to person, oriented to place , oriented to time, oriented to situation, CN II-XII grossly intact. ABSENT: motor sensory deficit Psychiatric exam: PRESENT: appropriate affect, normal mood. ABSENT: homicidal ideation, suicidal ideation Skin exam: PRESENT: dry, intact, warm. ABSENT: cyanosis, rash Results Laboratory Results: 04/15/18 04:30 04/15/18 04:30 04/15/18 04/15/18 04:30 04:30 WBC 7.9 RBC 3.76 Hgb 12.0 Hct 35.0 L MCV 93 MCH 31.9 MCHC 34.3 RDW 15.0 H Plt Count 207 Seg Neutrophils % 73.0 Lymphocytes % 17.2 Monocytes % 9.5 Eosinophils % 0.1 Basophils % 0.2 Absolute Neutrophils 5.8 Absolute Lymphocytes 1.4 Absolute Monocytes 0.8 Absolute Eosinophils 0.0 Absolute Basophils 0.0 Sodium 135.7 L Potassium 3.9 Chloride 101 Carbon Dioxide 26 Anion Gap 9 BUN 17 Creatinine 0.60 Est GFR ( Amer) > 60 Est GFR (Non-Af Amer) > 60 Glucose 96 Calcium 9.3 Total Bilirubin 0.4 AST 21 ALT 30 Alkaline Phosphatase 51 Total Protein 6.1 L Albumin 3.5 Impressions: Chest X-Ray 04/12/18 12:12 IMPRESSION: NO ACUTE FINDINGS. Head CT 04/12/18 12:13 IMPRESSION: MILD CHRONIC CHANGES OF ATROPHY AND MICROVASCULAR ISCHEMIA. NO ACUTE PROCESS. EVIDENCE OF ACUTE STROKE: NO. Chest/Abdomen CTA 04/12/18 14:12 IMPRESSION: No emboli visualized in the main pulmonary arteries or the segmental branches. Increased size and volume of the right upper lobe spiculated mass measuring 2.3 cm on the current exam, previously this same dimension measured 2.0 cm. The left upper lobe postprocedural changes appear similar to the prior exam. No new consolidation or pleural effusion. Similar adrenal nodularity and tiny hepatic hypodensities. Carotid Doppler Study 04/13/18 00:00 IMPRESSION: Atherosclerotic changes with less than 50% stenosis on the right and with greater than 70% stenosis on the left. Assessment & Plan - Diagnosis (1) Syncope Qualifiers: Syncope type: unspecified Qualified Code(s): R55 - Syncope and collapse Is this a current diagnosis for this admission?: Yes Plan: Likely orthostatic less likely due to underlying carotid stenosis. No recurrence of syncope since admission. CT head negative for any acute stroke. CTA Chest negative for PE. 2D echo negative. Carotid Doppler positive for right carotid stenosis less than 50% and left carotid stenosis. 70%. Blood pressure medications were held on admission will restart and titrate as clinically appropriate. Hold Coreg as per cardiology recommendation. Continue aspirin, statin. Outpatient follow-up with Dr. Vigil for possible carotid endarterectomy evaluation. (2) COPD (chronic obstructive pulmonary disease) Qualifiers: COPD type: unspecified COPD Qualified Code(s): J44.9 - Chronic obstructive pulmonary disease, unspecified Is this a current diagnosis for this admission?: Yes Plan: Continue steroids, nebs. Patient advised on smoking cessation. (3) Lung cancer Qualifiers: Laterality: right Lung location: upper lobe of lung Qualified Code(s): C34.11 - Malignant neoplasm of upper lobe, right bronchus or lung Is this a current diagnosis for this admission?: Yes Plan: Status post XRT. Only on erlotinib. Heme on consulted. Outpatient oncology follow-up. (4) Tobacco abuse Is this a current diagnosis for this admission?: Yes Plan: Advised on quitting patient states she has cut down her tobacco usage. (5) Hypertension Qualifiers: Hypertension type: essential hypertension Qualified Code(s): I10 - Essential (primary) hypertension Is this a current diagnosis for this admission?: No Plan: Improving but not optimal. Patient presented with syncope. Positive orthostasis. Patient is on multiple antihypertensive medications. Antihypertensive medications were held on admission. Morning systolic blood pressure in 200s. Restarted on candesartan increase amlodipine to 10 mg. Restart home medication except for Coreg as per cardiology recommendation. Adjust medications as needed. Once patient is normotensive we will DC home to follow-up with Dr. Vigil for possible evaluation of carotid endarterectomy. Follow-up with PCP.
[2018-04-15] MEDS ORDERED: HYDROCHLOROTHIAZIDE 12.5 MG TABLET PO SCH (16:00)
[2018-04-15] MEDS: ACETAMINOPHEN 325 MG TABLET PO PRN (21:10)
[2018-04-16] MEDS: IPRATROPIUM/ALBUTEROL 0.5-2.5 MG/3 ML AMPUL NEB SCH ×3 (01:54→14:11)
[2018-04-16] MEDS: PREDNISONE 20 MG TABLET PO SCH (06:12)
[2018-04-16] MEDS: NORMAL SALINE 1000 ML 1,000 ML IV PRN (06:12)
[2018-04-16 06:23] LABS: ABSOLUTE LYMPHOCYTES (AUTO) 1.5 10^3/uL (0.5-4.7); ABSOLUTE MONOCYTES (AUTO) 0.9 10^3/uL (0.1-1.4); ABSOLUTE NEUT (AUTO) 6.2 10^3/uL (1.7-8.2); BASOPHILS % (AUTO) 0.2 % (0-2); EOSINOPHILS % (AUTO) 0.2 % (0-6); HEMATOCRIT 34.4 % (36.0-47.0); HEMOGLOBIN 11.7 g/dL (12.0-15.5); LYMPHOCYTES % (AUTO) 17.6 % (13-45); MEAN CORPUSCULAR HEMOGLOBIN 31.9 pg (27.0-33.4); MEAN CORPUSCULAR HGB CONC 34.2 g/dL (32.0-36.0); MEAN CORPUSCULAR VOLUME 93 fl (80-97); MONOCYTES % (AUTO) 10.4 % (3-13); PLATELET COUNT 203 10^3/uL (150-450); RED BLOOD COUNT 3.68 10^6/uL (3.72-5.28); RED CELL DISTRIBUTION WIDTH 14.6 % (11.5-14.0); SEGMENTED NEUTROPHILS % (AUTO) 71.6 % (42-78); TOTAL CELLS COUNTED % (AUTO) 100 %; WHITE BLOOD COUNT 8.6 10^3/uL (4.0-10.5)
[2018-04-16 06:49] LABS: ALANINE AMINOTRANSFERASE 29 U/L (9-52); ALBUMIN 3.4 g/dL (3.5-5.0); ALKALINE PHOSPHATASE 54 U/L (38-126); ANION GAP 8 (5-19); ASPARTATE AMINO TRANSFERASE 21 U/L (14-36); BILIRUBIN,DIRECT 0.1 mg/dL (0.0-0.4); BILIRUBIN,TOTAL 0.4 mg/dL (0.2-1.3); BLOOD UREA NITROGEN 16 mg/dL (7-20); CALCIUM 9.3 mg/dL (8.4-10.2); CARBON DIOXIDE 25 mmol/L (22-30); CHLORIDE 101 mmol/L (98-107); GLUCOSE 87 mg/dL (75-110); POTASSIUM 4.3 mmol/L (3.6-5.0); SODIUM 134.3 mmol/L (137-145); TOTAL PROTEIN 5.9 g/dL (6.3-8.2)
[2018-04-16] MEDS ORDERED: HYDROCHLOROTHIAZIDE 12.5 MG TABLET PO SCH (10:00)
[2018-04-16] MEDS: CANDESARTAN PO SCH (10:11)
[2018-04-16] MEDS: GUAIFENESIN 600 MG TABLET.SA PO SCH (10:11)
[2018-04-16] MEDS: ASPIRIN 81 MG TABLET, CHEWABLE PO SCH (10:11)
[2018-04-16] MEDS: ENOXAPARIN SODIUM INJ 30 MG/0.3 ML DISP.SYRIN SUBCUT SCH (10:11)
[2018-04-16] MEDS: AMLODIPINE BESYLATE 10 MG TABLET PO SCH (10:11)
[2018-04-16] MEDS: ERLOTINIB PO SCH (10:13)
[2018-04-16] MEDS ORDERED: HYDRALAZINE HCL 10 MG TABLET PO ONE (10:30)
[2018-04-16] MEDS ORDERED: HYDRALAZINE HCL 25 MG TABLET PO SCH (14:00)
[2018-04-16] MEDS ORDERED: HYDRALAZINE HCL 10 MG TABLET PO SCH ×2 (14:00)
[2018-04-16 15:27] VITALS: BP 114/49
--- NOTE | 2018-04-16 17:45 | PDOC DISCHARGE SUMMARY ---
General - Admit/Disc Date/PCP Admission Date/Primary Care Provider: 04/12/18 16:52 ELIZ BACA MD Discharge Date: 04/16/18 - Discharge Diagnosis (1) Syncope Is this a current diagnosis for this admission?: Yes (2) COPD (chronic obstructive pulmonary disease) Is this a current diagnosis for this admission?: Yes (3) Lung cancer Is this a current diagnosis for this admission?: Yes (4) Tobacco abuse Is this a current diagnosis for this admission?: Yes (5) Hypertension Is this a current diagnosis for this admission?: No - Additional Information Resuscitation Status: Full Code Discharge Diet: As Tolerated Discharge Activity: Activity As Tolerated, Balance Activity w/Rest Prescriptions: Amlodipine Besylate [Norvasc 5 mg Tablet] 10 mg PO DAILY 30 Days #30 tablet Hydralazine HCl [Apresoline 10 mg Tablet] 25 mg PO Q8 30 Days #90 tablet Home Medications: Acetaminophen [Tylenol 325 mg Tablet] 650 mg PO Q8HP PRN 04/13/18 Albuterol Sulfate [Proair HFA Inhalation Aerosol 8.5 gm MDI] 1 puff IH Q6HP PRN 04/13/18 Ca Citrate/Mgox/Vit D3/B6/Min [Citracal Plus Tablet] 1 tab PO DAILY 04/13/18 Candesartan Cilexetil [Atacand 32 mg Tablet] 32 mg PO DAILY 04/13/18 Docusate Sodium [Colace 100 mg Capsule] 100 mg PO DAILYP PRN 04/13/18 Erlotinib HCl [Tarceva 150 mg Tablet] 150 mg PO DAILY 04/13/18 Fluticasone Propionate [Flonase Nasal Donie 50 Mcg/Donie 16 gm] 1 spray NASL DAILY 04/13/18 Fluticasone/Salmeterol [Advair 250-50 Diskus 14 Dose/Diskus] 2 puff IH DAILY Guaifenesin [Mucinex] 600 mg PO BID 04/13/18 Loratadine [Claritin 10 mg Tablet] 10 mg PO DAILY 04/13/18 Multivitamin [Daily Multiple Vitamin] 1 tab PO DAILY 04/13/18 Amlodipine Besylate [Norvasc 5 mg Tablet] 10 mg PO DAILY 30 Days #30 tablet Hydralazine HCl [Apresoline 10 mg Tablet] 25 mg PO Q8 30 Days #90 tablet History of Present Illness Patient complains of: Syncope History of Present Illness: 77-year-old female past medical history of COPD not on home oxygen, Lung cancer status post XRT currently on erlotinib, hypertension, syncope who was admitted on 04/12/2018 for an episode of syncope. On admission in the ER orthostatic vitals were positive. Systolic blood pressure were as follows supine 176, sitting 153, standing 125. Head CT on 1013 2017- for any stroke. CTA chest and abdomen on 1013 2017- for any PE. Carotid Doppler on 04/13/2018 was positive for right carotid artery stenosis less than 50% and left carotid stenosis of 70%. 2D echo on 04/13/2018 showed normal ejection fraction, left ventricular hypertrophy and grade 2/4 or mild to moderate diastolic dysfunction. Syncope was thought to be possibly due to orthostatic hypotension. Patient is on multiple blood pressure medication which were held since admission. Cardiology was consulted and he recommended to DC beta-blockers due to underlying COPD and restart candesartan. Patient was started on aspirin and statin and for her carotid stenosis plan is to discharge patient to follow-up with Dr. Vigil as outpatient. Hospital Course Hospital Course: (1) Syncope Likely orthostatic less likely due to underlying carotid stenosis. No recurrence of syncope since admission. CT head negative for any acute stroke. CTA Chest negative for PE. 2D echo negative. Carotid Doppler positive for right carotid stenosis less than 50% and left carotid stenosis. 70%. Blood pressure medications were held on admission will restart and titrate as clinically appropriate. Hold Coreg as per cardiology recommendation. Continue aspirin, statin. Outpatient follow-up with Dr. Vigil for possible carotid endarterectomy evaluation. (2) COPD (chronic obstructive pulmonary disease) Continued steroids, nebs. Patient advised on smoking cessation. (3) Lung cancer Status post XRT. Only on erlotinib. Heme on consulted. Outpatient oncology follow-up. (4) Tobacco abuse Advised on quitting patient states she has cut down her tobacco usage. (5) Hypertension Patient presented with syncope. Positive orthostasis. Patient was on multiple antihypertensive medications. Antihypertensive medications were held on admission. Morning systolic blood pressure in 200s. Restarted on candesartan increase amlodipine to 10 mg hydralazine to 25 every 8. And has history of hyponatremia caused by hydrochlorothiazide. Coreg was held as per cardiology recommendation. And was asked to follow-up with Dr. Vigil for possible evaluation of carotid endarterectomy. Follow-up with PCP. She was also counseled about her orthostasis. She was asked to monitor her blood pressure at home if too high or too low or symptomatic to call his PCP immediately or come to ED. Physical Exam Vital Signs: Temp Pulse Resp BP Pulse Ox 98.4 F 95 18 114/49 L 97 04/16/18 16:29 04/16/18 16:29 04/16/18 16:29 04/16/18 16:29 04/16/18 16:29 Intake & Output 04/15/18 04/16/18 04/17/18 06:59 06:59 06:59 Intake Total 2623 3095 Output Total 0 Balance 2623 3095 Weight 58.9 kg 59 kg General appearance: PRESENT: no acute distress, well-developed, well-nourished Head exam: PRESENT: atraumatic, normocephalic Eye exam: PRESENT: conjunctiva pink, EOMI, PERRLA. ABSENT: scleral icterus Ear exam: PRESENT: normal external ear exam Mouth exam: PRESENT: moist, tongue midline Neck exam: ABSENT: carotid bruit, JVD, lymphadenopathy, thyromegaly Respiratory exam: PRESENT: clear to auscultation clarice. ABSENT: rales, rhonchi, wheezes Cardiovascular exam: PRESENT: RRR. ABSENT: diastolic murmur, rubs, systolic murmur Pulses: PRESENT: normal dorsalis pedis pul Vascular exam: PRESENT: normal capillary refill GI/Abdominal exam: PRESENT: normal bowel sounds, soft. ABSENT: distended, guarding, mass, organolmegaly, rebound, tenderness Rectal exam: PRESENT: deferred Extremities exam: PRESENT: full ROM. ABSENT: calf tenderness, clubbing, pedal edema Neurological exam: PRESENT: alert, awake, oriented to person, oriented to place , oriented to time, oriented to situation, CN II-XII grossly intact. ABSENT: motor sensory deficit Psychiatric exam: PRESENT: appropriate affect, normal mood. ABSENT: homicidal ideation, suicidal ideation Skin exam: PRESENT: dry, intact, warm. ABSENT: cyanosis, rash Results Laboratory Results: 04/16/18 05:36 04/16/18 05:36 04/16/18 04/16/18 05:36 05:36 WBC 8.6 RBC 3.68 L Hgb 11.7 L Hct 34.4 L MCV 93 MCH 31.9 MCHC 34.2 RDW 14.6 H Plt Count 203 Seg Neutrophils % 71.6 Lymphocytes % 17.6 Monocytes % 10.4 Eosinophils % 0.2 Basophils % 0.2 Absolute Neutrophils 6.2 Absolute Lymphocytes 1.5 Absolute Monocytes 0.9 Absolute Eosinophils 0.0 Absolute Basophils 0.0 Sodium 134.3 L Potassium 4.3 Chloride 101 Carbon Dioxide 25 Anion Gap 8 BUN 16 Creatinine 0.56 Est GFR ( Amer) > 60 Est GFR (Non-Af Amer) > 60 Glucose 87 Calcium 9.3 Total Bilirubin 0.4 AST 21 ALT 29 Alkaline Phosphatase 54 Total Protein 5.9 L Albumin 3.4 L Impressions: Chest X-Ray 04/12/18 12:12 IMPRESSION: NO ACUTE FINDINGS. Head CT 04/12/18 12:13 IMPRESSION: MILD CHRONIC CHANGES OF ATROPHY AND MICROVASCULAR ISCHEMIA. NO ACUTE PROCESS. EVIDENCE OF ACUTE STROKE: NO. Chest/Abdomen CTA 04/12/18 14:12 IMPRESSION: No emboli visualized in the main pulmonary arteries or the segmental branches. Increased size and volume of the right upper lobe spiculated mass measuring 2.3 cm on the current exam, previously this same dimension measured 2.0 cm. The left upper lobe postprocedural changes appear similar to the prior exam. No new consolidation or pleural effusion. Similar adrenal nodularity and tiny hepatic hypodensities. Carotid Doppler Study 04/13/18 00:00 IMPRESSION: Atherosclerotic changes with less than 50% stenosis on the right and with greater than 70% stenosis on the left. Qualifiers - * PATIENT BEING DISCHARGED WITH ANY OF THE FOLLOWING DIAGNOSIS: No
== END 2018-04-16 17:05 | disposition home or self-care (01) | DRG 312 ==
LOC: ER 11:34 → EH 16:52 → 4S 18:09
PROVIDERS: ADMIT Internal Medicine; ATTEND Internal Medicine
PROC: 3E0F73Z Introduction of Anti-inflammatory into Respiratory Tract, Via Natural or Artificial Opening (ICD-10-PCS; 2018-04-12)
PROC: 3E02340 Introduction of Influenza Vaccine into Muscle, Percutaneous Approach (ICD-10-PCS; principal; 2018-04-16)
DX: I95.1 Orthostatic hypotension (principal); C34.11 Malignant neoplasm of upper lobe, right bronchus or lung; T46.5X5A Adverse effect of other antihypertensive drugs, initial encounter; J44.9 Chronic obstructive pulmonary disease, unspecified; I10 Essential (primary) hypertension; M19.90 Unspecified osteoarthritis, unspecified site; Z23 Encounter for immunization; Z90.49 Acquired absence of other specified parts of digestive tract; Z90.710 Acquired absence of both cervix and uterus; Z88.5 Allergy status to narcotic agent; Z88.8 Allergy status to other drugs, medicaments and biological substances; Z91.040 Latex allergy status; Z88.6 Allergy status to analgesic agent; Z98.51 Tubal ligation status; Z87.891 Personal history of nicotine dependence; Z79.899 Other long term (current) drug therapy; Z79.82 Long term (current) use of aspirin; Z92.21 Personal history of antineoplastic chemotherapy; Z92.3 Personal history of irradiation
CPT/HCPCS: 36415; 70450; 71045; 71275; 80053; 81001; 82550; 82553; 83880; 84484; 85025; 90471; 90686; 93005; 93010; 93306; 93880; 99285; G0008; J1650; J3490; J7030; J7512; J7620

== ENCOUNTER 2018-05-17 13:25 | Inpatient (IN) | payer MEDICARE ==
[2018-05-17 13:39] LABS: ABSOLUTE MONOCYTES (AUTO) 0.6 10^3/uL (0.1-1.4); ABSOLUTE NEUT (AUTO) 11.5 10^3/uL (1.7-8.2); BASOPHILS % (AUTO) 0.1 % (0-2); EOSINOPHILS % (AUTO) 0.1 % (0-6); HEMATOCRIT 42.8 % (36.0-47.0); HEMOGLOBIN 14.4 g/dL (12.0-15.5); LYMPHOCYTES % (AUTO) 7.8 % (13-45); MEAN CORPUSCULAR HEMOGLOBIN 31.1 pg (27.0-33.4); MEAN CORPUSCULAR HGB CONC 33.6 g/dL (32.0-36.0); MEAN CORPUSCULAR VOLUME 93 fl (80-97); MONOCYTES % (AUTO) 4.2 % (3-13); PLATELET COUNT 345 10^3/uL (150-450); RED BLOOD COUNT 4.63 10^6/uL (3.72-5.28); RED CELL DISTRIBUTION WIDTH 13.5 % (11.5-14.0); SEGMENTED NEUTROPHILS % (AUTO) 87.8 % (42-78); TOTAL CELLS COUNTED % (AUTO) 100 %; WHITE BLOOD COUNT 13.1 10^3/uL (4.0-10.5)
[2018-05-17 13:55] LABS: ALANINE AMINOTRANSFERASE 19 U/L (9-52); ALBUMIN 4.3 g/dL (3.5-5.0); ALKALINE PHOSPHATASE 80 U/L (38-126); ANION GAP 15 (5-19); ASPARTATE AMINO TRANSFERASE 25 U/L (14-36); BILIRUBIN,DIRECT 0.4 mg/dL (0.0-0.4); BILIRUBIN,TOTAL 0.8 mg/dL (0.2-1.3); BLOOD UREA NITROGEN 16 mg/dL (7-20); CALCIUM 9.5 mg/dL (8.4-10.2); CARBON DIOXIDE 27 mmol/L (22-30); CHLORIDE 91 mmol/L (98-107); CREATINE KINASE 41 U/L (30-135); GLUCOSE 138 mg/dL (75-110); POTASSIUM 4.1 mmol/L (3.6-5.0); SODIUM 132.5 mmol/L (137-145); TOTAL PROTEIN 7.2 g/dL (6.3-8.2)
[2018-05-17] MEDS ORDERED: ALBUTEROL SULFATE 0.083% NEB 2.5 MG/3 ML AMPUL NEB ONE ×2 (13:56→16:47)
[2018-05-17 14:06] LABS: CREATINE KINASE MB 2.37 ng/mL (<4.55); TROPONIN I 0.016 ng/mL
[2018-05-17] MEDS ORDERED: LORAZEPAM 1 MG TABLET PO ONE (14:06)
[2018-05-17] MEDS ORDERED: RINGERS SOLUTION,LACTATED 1,000 ML IV ONE (14:06)
--- NOTE | 2018-05-17 14:06 | ER Document Report ---
ED General - General Chief Complaint: Shortness Of Breath Stated Complaint: SHORTNESS OF BREATH Time Seen by Provider: 05/17/18 13:56 Mode of Arrival: Medic Information source: Patient, Relative, Emergency Med Personnel, [facility] Records Notes: 77-year-old female with metastatic lung cancer, COPD, hypertension, seizures presents via EMS from home with complaint of shortness of breath. Patient states shortness of breath started 1 week prior to arrival. She states that she saw her primary care physician Dr. Eddy 6 days ago and was started on an antibiotic and prednisone. She states last night the shortness of breath worsened causing her to call EMS this morning. Patient was recently hospitalized in March 2018 but cannot tell me why. She is not currently undergoing chemotherapy or radiation therapy. Patient does admit to an associated productive cough. She denies any headache, visual changes, nausea, vomiting, chest pain, abdominal pain, back pain, dysuria, hematuria, lower extremity edema. TRAVEL OUTSIDE OF THE [place] IN LAST 30 DAYS: No - HPI Onset: Last week Onset/Duration: Gradual, Persistent, Worse Quality of pain: No pain Severity: Moderate Associated symptoms: Nonproductive cough, Shortness of breath. denies: Body/ muscle aches, Chest pain, Fever, Headache, Hoarseness, Hurts to breath, Nausea, Vomiting Exacerbated by: Movement, Walking Relieved by: Denies Similar symptoms previously: Yes Recently seen / treated by doctor: Yes - Dr. Eddy last week - Related Data Allergies/Adverse Reactions: latex [Latex] Allergy (Severe, Verified 01/30/18 13:26) rash hydrocodone [Hydrocodone] Allergy (Unknown, Verified 01/30/18 13:26) morphine [Morphine] Allergy (Unknown, Verified 01/30/18 13:26) amoxicillin trihydrate [From Augmentin] Adverse Reaction (Unknown, Verified 09/14 13:26) Dizziness Potassium Clavulanate * [From Augmentin] Adverse Reaction (Unknown, Verified 09/14 13:26) Dizziness olmesartan medoxomil [From May] Adverse Reaction (Verified 01/30/18 13:26) tremor Past Medical History - General Information source: Patient, Relative, Emergency Med Personnel, [facility] Records - Social History Smoking Status: Current Every Day Smoker Cigarette use (# per day): Yes - 10 Chew tobacco use (# tins/day): No Smoking Education Provided: Yes - Smoking cessation counseling was provided for 4 minutes at the bedside Frequency of alcohol use: None Drug Abuse: None Lives with: Spouse/Significant other Family History: Reviewed & Not Pertinent, Hypertension Patient has suicidal ideation: No Patient has homicidal ideation: No - Past Medical History Cardiac Medical History: Reports: Hx Hypertension Denies: Hx Coronary Artery Disease, Hx Heart Attack, Hx Pulmonary Embolism Pulmonary Medical History: Reports: Hx COPD Denies: Hx Asthma, Hx Bronchitis, Hx Pneumonia, Hx Intubation, Hx Respiratory Failure, Hx Sleep Apnea, Hx Tuberculosis Neurological Medical History: Denies: Hx Cerebrovascular Accident, Hx Seizures - SYNCOPE LAST YEAR EPISODE D/T LOW SODIUM Renal/ Medical History: Denies: Hx Peritoneal Dialysis Malignancy Medical History: Reports: Hx Lung Cancer. Denies: Hx Leukemia GI Medical History: Denies: Hx Hepatitis, Hx Hiatal Hernia, Hx Ulcer Musculoskeletal Medical History: Reports Hx Arthritis, Denies Hx Fibromyalgia, Denies Hx Multiple Sclerosis, Denies Hx Muscular Dystrophy Psychiatric Medical History: Reports: Hx Depression Denies: Hx Dementia Traumatic Medical History: Denies: Hx Fractures Infectious Medical History: Denies: Hx Hepatitis, Hx HIV Past Surgical History: Reports: Hx Appendectomy - 1977, Hx Hysterectomy, Hx Tonsillectomy - age 17, Hx Tubal Ligation. Denies: Hx Bowel Surgery, Hx Section, Hx Cholecystectomy, Hx Coronary Artery Bypass Graft, Hx Gastric Bypass Surgery, Hx Herniorrhaphy, Hx Mastectomy, Hx Open Heart Surgery, Hx Pacemaker - Immunizations Hx Diphtheria, Pertussis, Tetanus Vaccination: No Hx Pneumococcal Vaccination: 04/08/08 Review of Systems - Review of Systems Notes: REVIEW OF SYSTEMS: CONSTITUTIONAL : Denies fever, chills, or sweats. Denies recent illness. Denies weight loss, EENT: Denies visual changes, eye pain. Denies sore throat, oral lesions, difficulty swallowing. CARDIOVASCULAR: Denies chest pain. Denies palpitations. Denies lower extremity edema. RESPIRATORY: +cough. + shortness of breath, wheezing. GASTROINTESTINAL: Denies abdominal pain or distention. Denies nausea, vomiting , or diarrhea. Denies blood in vomitus, stools, or per rectum. Denies black, tarry stools. Denies constipation. GENITOURINARY: Denies difficulty urinating, painful urination, frequency, blood in urine, or vaginal discharge. MUSCULOSKELETAL: Denies back or neck pain or stiffness. Denies joint pain or swelling. SKIN: Denies rash, lesions or sores. HEMATOLOGIC : Denies easy bruising or bleeding. LYMPHATIC: Denies swollen glands. NEUROLOGICAL: Denies confusion or altered mental status. Denies loss of consciousness. Denies dizziness or lightheadedness. Denies headache. Denies weakness or paralysis. Denies problems difficulty with ambulation, slurred speech. Denies sensory loss, numbness, or tingling. Denies seizures. PSYCHIATRIC: Denies anxiety or stress. Denies depression, suicidal ideation, or homicidal ideation. Denies visual or auditory hallucinations. Constitutional: Recent illness Physical Exam - Vital signs Vitals: Pulse Ox 96 05/17/18 13:29 - Notes Notes: PHYSICAL EXAMINATION: GENERAL: Cachectic, mild distress HEAD: Atraumatic, normocephalic. EYES: Pupils equal round and reactive to light, extraocular movements intact, conjunctiva are normal. ENT: Nares patent, oropharynx clear without exudates. Moist mucous membranes. NECK: Normal range of motion, supple without lymphadenopathy LUNGS: Coarse breath sounds bilaterally with expiratory wheezing. HEART: Tachycardic, regular rate and rhythm. ABDOMEN: Soft, nontender, nondistended abdomen. No guarding, no rebound. No masses appreciated. Female : deferred Musculoskeletal: Normal range of motion, no pitting or edema. No cyanosis. NEUROLOGICAL: Cranial nerves grossly intact. Normal speech, normal gait. Normal sensory, motor exams PSYCH: Normal mood, normal affect. SKIN: Warm, Dry, normal turgor, no rashes or lesions noted. Course - Re-evaluation Re-evalutation: 05/17/18 18:34 Laboratory 05/17/18 05/17/18 05/17/18 13:00 13:00 13:00 WBC 13.1 H RBC 4.63 Hgb 14.4 Hct 42.8 MCV 93 MCH 31.1 MCHC 33.6 RDW 13.5 Plt Count 345 Seg Neutrophils % 87.8 H Lymphocytes % 7.8 L Monocytes % 4.2 Eosinophils % 0.1 Basophils % 0.1 Absolute Neutrophils 11.5 H Absolute Lymphocytes 1.0 Absolute Monocytes 0.6 Absolute Eosinophils 0.0 Absolute Basophils 0.0 VBG pH VBG pCO2 VBG HCO3 VBG Base Excess Sodium 132.5 L Potassium 4.1 Chloride 91 L Carbon Dioxide 27 Anion Gap 15 BUN 16 Creatinine 0.57 Est GFR ( Amer) > 60 Est GFR (Non-Af Amer) > 60 Glucose 138 H Lactic Acid Calcium 9.5 Total Bilirubin 0.8 Direct Bilirubin 0.4 Neonat Total Bilirubin Not Reportable Neonat Direct Bilirubin Not Reportable Neonat Indirect Bili Not Reportable AST 25 ALT 19 Alkaline Phosphatase 80 Creatine Kinase 41 CK-MB (CK-2) 2.37 Troponin I 0.016 Total Protein 7.2 Albumin 4.3 Urine Color Urine Appearance Urine pH Ur Specific Amigo Urine Protein Urine Glucose (UA) Urine Ketones Urine Blood Urine Nitrite Urine Bilirubin Urine Urobilinogen Ur Leukocyte Esterase Urine WBC (Auto) Urine RBC (Auto) Squamous Epi Cells Auto Urine Mucus (Auto) Urine Ascorbic Acid 05/17/18 05/17/18 05/17/18 14:00 14:00 17:37 WBC RBC Hgb Hct MCV MCH MCHC RDW Plt Count Seg Neutrophils % Lymphocytes % Monocytes % Eosinophils % Basophils % Absolute Neutrophils Absolute Lymphocytes Absolute Monocytes Absolute Eosinophils Absolute Basophils VBG pH 7.40 VBG pCO2 40.3 VBG HCO3 24.3 VBG Base Excess -0.4 Sodium Potassium Chloride Carbon Dioxide Anion Gap BUN Creatinine Est GFR ( Amer) Est GFR (Non-Af Amer) Glucose Lactic Acid 1.4 Calcium Total Bilirubin Direct Bilirubin Neonat Total Bilirubin Neonat Direct Bilirubin Neonat Indirect Bili AST ALT Alkaline Phosphatase Creatine Kinase CK-MB (CK-2) Troponin I Total Protein Albumin Urine Color STRAW Urine Appearance CLEAR Urine pH 5.0 Ur Specific Amigo 1.025 Urine Protein NEGATIVE Urine Glucose (UA) NEGATIVE Urine Ketones NEGATIVE Urine Blood NEGATIVE Urine Nitrite NEGATIVE Urine Bilirubin NEGATIVE Urine Urobilinogen NEGATIVE Ur Leukocyte Esterase NEGATIVE Urine WBC (Auto) 0 Urine RBC (Auto) 0 Squamous Epi Cells Auto <1 Urine Mucus (Auto) RARE Urine Ascorbic Acid NEGATIVE Chest X-Ray 05/17/18 13:29 IMPRESSION: Chronic changes. No acute findings. Chest/Abdomen CTA 05/17/18 14:07 IMPRESSION: 1 No evidence of pulmonary emboli. Centrilobular emphysema. 2.7 x 2.4 cm spiculated mass right upper lobe consistent carcinoma. Status post left thoracotomy. Fibrotic scarring and traction bronchiectasis left upper lobe and superior segment left lower lobe consistent post radiation change. 2. Bilateral adrenal masses right greater than left. Persistent hypodensities within the liver too small to characterize. Cholelithiasis. 77-year-old female with metastatic lung cancer, COPD presented via EMS in respiratory distress. Upon arrival patient is tachypneic with accessory muscle use. She is not hypoxic but has increased work of breathing. She has coarse breath sounds and diffuse wheezing. She is frail, cachectic. Patient placed on cardiac catheterization technologist and EKG was obtained. Prior to arrival patient did receive Solu-Medrol, breathing treatments. Vital signs reviewed upon arrival and patient is tachycardic, tachypneic but afebrile and not hypoxic. Patient is not currently undergoing chemotherapy or radiation therapy. On reevaluation patient states that she is feeling better but she is still retracting, tachypneic with significant wheezing. BiPAP ordered. CTA was obtained due to patient's persistent tachycardia, history of cancer and showed no evidence of PE but did show COPD and a spiculated right upper lobe mass consistent with carcinoma. Patient was placed on continuous nebs. She was discussed with the hospitalist who agrees with admission. I did discuss the patient's CODE STATUS with her and her significant other and at this time she states that if her heart were to stop she does not want chest compressions but she is willing to be intubated for respiratory distress if needed. This was conveyed to the hospitalist. 05/17/18 22:05 6 - Vital Signs Vital signs: Temp Pulse Resp BP Pulse Ox 97.9 F 113 H 26 H 117/52 L 100 05/17/18 19:42 05/17/18 19:49 05/17/18 19:01 05/17/18 19:42 05/17/18 19:42 - Laboratory Result Diagrams: 05/17/18 13:00 05/17/18 13:00 Laboratory results interpreted by me: 05/17/18 05/17/18 13:00 13:00 WBC 13.1 H Seg Neutrophils % 87.8 H Lymphocytes % 7.8 L Absolute Neutrophils 11.5 H Sodium 132.5 L Chloride 91 L Glucose 138 H - Diagnostic Test Radiology reviewed: Image reviewed, Reports reviewed - EKG Interpretation by Me EKG shows normal: Sinus rhythm Rate: Tachycardia Rhythm: NSR When compared to previous EKG there are: No significant change Critical Care Note - Critical Care Note Total time excluding time spent on procedures (mins): 35 - Minutes of critical care time spent in direct contact evaluating and reevaluating the patient, treating symptoms, reviewing labs and studies and speaking with family and consultants excluding any procedures Discharge - Discharge Clinical Impression: COPD exacerbation, Respiratory distress, Tobacco abuse Lung cancer Qualifiers: Laterality: right Lung location: upper lobe of lung Qualified Code(s): C34.11 - Malignant neoplasm of upper lobe, right bronchus or lung Condition: Fair Disposition: ADMITTED INPATIENT Admitting Provider: Hospitalist Unit Admitted: [facility]
[2018-05-17 14:19] LABS: VENOUS BLOOD BASE EXCESS -0.4 mmol/L; VENOUS BLOOD HCO3 24.3 mmol/L (20-32); VENOUS BLOOD PCO2 40.3 mmHg (35-63); VENOUS BLOOD PH 7.4 (7.30-7.42)
[2018-05-17] MEDS: MAGNESIUM SULFATE/D5W 1 GM/100 ML RTUPB IV SCH ×2 (14:20→14:34)
--- NOTE | 2018-05-17 14:22 | RADIOLOGY REPORT (SQ) ---
EXAM DESCRIPTION: CHEST SINGLE VIEW COMPLETED DATE/TIME: 05/17/2018 2:12 pm REASON FOR STUDY: bed 16 db COMPARISON: 10/30/2016 EXAM PARAMETERS: NUMBER OF VIEWS: One view. TECHNIQUE: Single frontal radiographic view of the chest acquired. RADIATION DOSE: NA LIMITATIONS: None. FINDINGS: LUNGS AND PLEURA: No opacities, masses or pneumothorax. No pleural effusion. Hyperinflati on. MEDIASTINUM AND HILAR STRUCTURES: Chronic left perihilar changes. HEART AND VASCULAR STRUCTURES: Heart normal in size. Normal vasculature. BONES: No acute findings. HARDWARE: Venous access catheter tip at the cavoatrial junction. OTHER: No other significant finding. IMPRESSION: Chronic changes. No acute findings. TECHNICAL DOCUMENTATION: JOB ID: [id number] [employer]- All Rights Reserved Reading location - IP/workstation name: [email or web address]
--- NOTE | 2018-05-17 15:54 | RADIOLOGY REPORT (SQ) ---
EXAM DESCRIPTION: CTA CHEST COMPLETED DATE/TIME: 05/17/2018 3:09 pm REASON FOR STUDY: cancer sob COMPARISON: 04/12/2018. TECHNIQUE: CT scan of the chest performed using helical scanning technique with dynamic intravenous contrast injection. Images reviewed with lung, soft tissue and bone windows. Reconstructed coronal and sagittal MPR images reviewed. Additional 3 dimensional post-processing performed to develop Maximal Intensity Projection images (MA P). All images stored on PACS. All CT scanners at this facility use dose modulation, iterative reconstruction, and/or weight based d osing when appropriate to reduce radiation dose to as low as reasonably achievable (ALARA). [facility]: Dose Right [facility]: CareDose [facility]: Dose Right [facility]: Teradose 4D [facility]: [employer]Realm CONTRAST TYPE AND DOSE: contrast/concentration: Isovue 350.00 mg/ml; Total Contrast Delivered: 63.0 ml; Total Saline Delivered: 104.0 ml Contrast bolus optimized for the pulmonary arteries. Not diagnostic for the aorta. RENAL FUNCTION: Creatinine: 0.57. RADIATION DOSE: CT Rad equipment meets quality standard of care and radiation dose reduction techniq ues were employed. CTDIvol: 13.2 - 14.3 mGy. DLP: 571 mGy-cm. . LIMITATIONS: None. FINDINGS: LUNGS AND PLEURA: Centrilobular emphysema. Spiculated mass have us right upper lobe jeyson uring 2.7 x 2.4 cm consistent with carcinoma. Calcified granuloma right lower lobe. Fibrotic change s and traction bronchiectasis left upper lobe and superior segment left lower lobe consistent with po st radiation change AORTA AND GREAT VESSELS: No aneurysm. Contrast bolus not optimized for the aorta. HEART: Small pericardial effusion. . No significant coronary artery calcifications. PULMONARY ARTERIES: Prominence of pulmonary arteries with cor pulmonale not excluded. No pulmonary e mbolus seen. HILAR AND MEDIASTINAL STRUCTURES: No identified masses or abnormal nodes. HARDWARE: None in the chest. UPPER ABDOMEN: Bilateral adrenal masses ,right larger than left, again noted. Multiple hypodensities within the liver too small to characterize. Cholelithiasis. THYROID AND OTHER SOFT TISSUES: No abnormality seen. . BONES: Post thoracotomy changes left posterior 4th -6th ribs. 3D MIPS: Confirm above findings. OTHER: Right Port-A-Cath in place. IMPRESSION: 1 No evidence of pulmonary emboli. Centrilobular emphysema. 2.7 x 2.4 cm spiculated mass right upper lobe consistent carcinoma. Status post left thoracotomy. Fibrotic scarring and tract ion bronchiectasis left upper lobe and superior segment left lower lobe consistent post radiation gli nge. 2. Bilateral adrenal masses right greater than left. Persistent hypodensities within the live r too small to characterize. Cholelithiasis. COMMENT: Quality ID # [id number]: Final reports with documentation of one or more dose reduction techniques (e.g., Automated exposure control, adjustment of the mA and/or kV according to patient size, use of iterative reconstruction technique) TECHNICAL DOCUMENTATION: JOB ID: [id number] SC-[id number] 2010 [employer]- All Rights Reserved Reading location - IP/workstation name: [email or web address]
[2018-05-17] MEDS ORDERED: IPRATROPIUM/ALBUTEROL 0.5-2.5 MG/3 ML AMPUL NEB ONE (16:49)
--- NOTE | 2018-05-17 17:30 | EKG REPORT ---
SEVERITY:- ABNORMAL ECG - SINUS TACHYCARDIA PROBABLE INFERIOR INFARCT, OLD CONSIDER ANTERIOR INFARCT : Confirmed by: Alissa Vigil 17-May-2018 17:30:01
[2018-05-17 17:54] LABS: APPEARANCE,URINE CLEAR; BILIRUBIN,URINE NEGATIVE (NEGATIVE); COLOR,URINE STRAW; GLUCOSE, URINE NEGATIVE (NEGATIVE); KETONES,URINE NEGATIVE (NEGATIVE); LEUKOCYTE ESTERASE,URINE NEGATIVE (NEGATIVE); NITRITE,URINE NEGATIVE (NEGATIVE); PROTEIN,URINE NEGATIVE (NEGATIVE); URINE SPECIFIC GRAVITY 1.025; UROBILINOGEN,URINE NEGATIVE mg/dL (<2.0)
[2018-05-17] MEDS ORDERED: IPRATROPIUM/ALBUTEROL 0.5-2.5 MG/3 ML AMPUL NEB SCH (18:00)
[2018-05-17] MEDS ORDERED: ALBUTEROL SULFATE HFA (90 MCG/PUFF) 200 PUFF/8.5 GM MDI IH PRN ×2 (18:29→19:30)
[2018-05-17] MEDS ORDERED: DOCUSATE SODIUM 100 MG CAPSULE PO PRN (18:29)
--- NOTE | 2018-05-17 19:06 | PDOC H&P ---
History of Present Illness Admission Date/PCP: 05/17/18 17:09 ELIZ BACA MD Patient complains of: Shortness of breath History of Present Illness: NISA JC is a 77 year old female who has severe COPD and metastatic lung cancer status post radiation and chemotherapy and currently on Tarceva. Patient is current everyday smoker. Patient presents to the emergency room due to acute on chronic onset of severe progressive shortness of breath started about a week ago. This was associated with cough with blood-tinged sputum and wheezing. She saw her primary care physician about 4 or 5 days ago and was prescribed oral steroids and antibiotics, I believe it was doxycycline. She continued to worsen and presented to the emergency room for evaluation. She is tachypneic and using accessory muscles. She is also tachycardic. She is getting ready to receive BiPAP treatment. She was here in this hospital last month for syncope and workup shows more than 70% stenosis on the left carotid artery. Past Medical History Cardiac Medical History: Reports: Hypertension Denies: Coronary Artery Disease, Myocardial Infarction, Pulmonary Embolism Pulmonary Medical History: Reports: Chronic Obstructive Pulmonary Disease (COPD) Denies: Asthma, Bronchitis, Intubation, Pneumonia, Respiratory Failure, Sleep Apnea, Tuberculosis Neurological Medical History: Denies: Seizures - SYNCOPE LAST YEAR EPISODE D/T LOW SODIUM Malignancy Medical History: Reports: Lung Cancer Denies: Leukemia GI Medical History: Denies: Hepatitis, Hiatal Hernia Musculoskeltal Medical History: Reports: Arthritis Denies: Fibromyalgia Psychiatric Medical History: Reports: Depression Denies: Dementia Hematology: Denies: Anemia, Hemophilia, Sickle Cell Disease Infectious Medical History: Denies: HIV Past Surgical History Past Surgical History: Reports: Appendectomy - 1977, Hysterectomy, Tonsillectomy - age 17, Tubal Ligation Denies: Amputation, Section, Cholecystectomy, Coronary Artery Bypass Graft, Gastric Bypass Surgery, Herniorrhaphy, Mastectomy, Pacemaker Social History Lives with: Spouse/Significant other Smoking Status: Current Every Day Smoker Frequency of Alcohol Use: None Hx Recreational Drug Use: No Drugs: None Hx Prescription Drug Abuse: No - Advance Directive Resuscitation Status: Do Not Resuscitate Family History Family History: Reviewed & Not Pertinent, Hypertension Parental Family History Reviewed: Yes Children Family History Reviewed: Yes Sibling(s) Family History Reviewed.: Yes Medication/Allergy Home Medications: Acetaminophen [Tylenol 325 mg Tablet] 650 mg PO Q8HP PRN 04/13/18 Albuterol Sulfate [Proair HFA Inhalation Aerosol 8.5 gm MDI] 1 puff IH Q6HP PRN 04/13/18 Ca Citrate/Mgox/Vit D3/B6/Min [Citracal Plus Tablet] 1 tab PO DAILY 04/13/18 Candesartan Cilexetil [Atacand 32 mg Tablet] 32 mg PO DAILY 04/13/18 Docusate Sodium [Colace 100 mg Capsule] 100 mg PO DAILYP PRN 04/13/18 Erlotinib HCl [Tarceva 150 mg Tablet] 150 mg PO DAILY 04/13/18 Fluticasone Propionate [Flonase Nasal [place] 50 Mcg/[place] 16 gm] 1 spray NASL DAILY 04/13/18 Fluticasone/Salmeterol [Advair 250-50 Diskus 14 Dose/Diskus] 2 puff IH DAILY Guaifenesin [Mucinex] 600 mg PO BID 04/13/18 Loratadine [Claritin 10 mg Tablet] 10 mg PO DAILY 04/13/18 Multivitamin [Daily Multiple Vitamin] 1 tab PO DAILY 04/13/18 Hydralazine HCl [Apresoline 10 mg Tablet] 25 mg PO Q8 30 Days #90 tablet Amlodipine Besylate [Norvasc 5 mg Tablet] 5 mg PO DAILY 05/17/18 Aspirin [Ecotrin] 81 mg PO DAILY 05/17/18 Doxycycline Hyclate 100 mg PO BID 05/17/18 Prednisone 10 mg PO BID 05/17/18 Allergies/Adverse Reactions: latex [Latex] Allergy (Severe, Verified 01/30/18 13:26) rash hydrocodone [Hydrocodone] Allergy (Unknown, Verified 01/30/18 13:26) morphine [Morphine] Allergy (Unknown, Verified 01/30/18 13:26) amoxicillin trihydrate [From Augmentin] Adverse Reaction (Unknown, Verified 09/14 13:26) Dizziness Potassium Clavulanate * [From Augmentin] Adverse Reaction (Unknown, Verified 09/14 13:26) Dizziness olmesartan medoxomil [From May] Adverse Reaction (Verified 01/30/18 13:26) tremor Review of Systems All systems: reviewed and no additional remarkable complaints except as stated Physical Exam Vital Signs: Temp Pulse Resp BP Pulse Ox 98.0 F 119 H 26 H 116/58 L 99 11/18/18 13:50 05/17/18 13:50 05/17/18 18:01 05/17/18 18:00 05/17/18 18:01 General appearance: PRESENT: cooperative, severe distress Head exam: PRESENT: atraumatic, normocephalic Eye exam: PRESENT: EOMI, PERRLA Ear exam: ABSENT: bleeding, drainage Mouth exam: PRESENT: neck supple, tongue midline Neck exam: ABSENT: meningismus, tracheostomy Respiratory exam: PRESENT: accessory muscle use, prolonged expiratory phas, rhonchi, wheezes Cardiovascular exam: PRESENT: tachycardia. ABSENT: diastolic murmur, systolic murmur Pulses: PRESENT: normal radial pulses GI/Abdominal exam: PRESENT: normal bowel sounds, soft. ABSENT: ascites, tenderness Rectal exam: PRESENT: deferred Extremities exam: ABSENT: joint swelling, pedal edema Musculoskeletal exam: PRESENT: normal inspection. ABSENT: tenderness Neurological exam: PRESENT: alert, altered, awake, oriented to person, oriented to place, oriented to time, oriented to situation Psychiatric exam: PRESENT: anxious. ABSENT: homicidal ideation, suicidal ideation Results Laboratory Results: 05/17/18 17:37 Urine Color STRAW Urine Appearance CLEAR Urine pH 5.0 Ur Specific [place] 1.025 Urine Protein NEGATIVE Urine Glucose (UA) NEGATIVE Urine Ketones NEGATIVE Urine Blood NEGATIVE Urine Nitrite NEGATIVE Ur Leukocyte Esterase NEGATIVE Urine WBC (Auto) 0 Urine RBC (Auto) 0 Impressions: Chest X-Ray 05/17/18 13:29 IMPRESSION: Chronic changes. No acute findings. Chest/Abdomen CTA 05/17/18 14:07 IMPRESSION: 1 No evidence of pulmonary emboli. Centrilobular emphysema. 2.7 x 2.4 cm spiculated mass right upper lobe consistent carcinoma. Status post left thoracotomy. Fibrotic scarring and traction bronchiectasis left upper lobe and superior segment left lower lobe consistent post radiation change. 2. Bilateral adrenal masses right greater than left. Persistent hypodensities within the liver too small to characterize. Cholelithiasis. Assessment & Plan - Diagnosis (1) COPD exacerbation Is this a current diagnosis for this admission?: Yes Plan: Patient is tachypneic and tachycardic and using accessory respiratory muscle Her venous gas is within normal limits CT angiogram of the chest is negative for PE Patient clinically in severe respiratory distress She is getting ready to receive BiPAP treatment which I agree with We will start empiric Levaquin and 40 mg prednisone orally Start scheduled DuoNeb and as needed albuterol Consult Dr. Brown her capacity planning manager (2) Lung cancer Qualifiers: Laterality: right Lung location: upper lobe of lung Qualified Code(s): C34.11 - Malignant neoplasm of upper lobe, right bronchus or lung Is this a current diagnosis for this admission?: Yes Plan: Patient is status post chemotherapy and radiation therapy She currently on Tarceva CT scan of the chest shows right spiculated mass which is known from prior CT scans He also showed post radiation changes in the left upper lobe, also bilateral adrenal masses and hypodensities in the liver She follows with oncology and will consult Dr. Davidson (3) Essential hypertension Is this a current diagnosis for this admission?: Yes Plan: Continue home medications and monitor blood pressure (4) Nicotine addiction Qualifiers: Nicotine product type: cigarettes Is this a current diagnosis for this admission?: Yes Plan: Patient is still smoking despite her illnesses are most likely caused by smoking She was counseled and advised to quit smoking She is offered nicotine patch
[2018-05-17] MEDS ORDERED: LEVOFLOXACIN 750 MG TABLET PO ONE (19:30)
[2018-05-17] MEDS: ACETAMINOPHEN 325 MG TABLET PO PRN (20:46)
[2018-05-17] MEDS: LORAZEPAM 1 MG TABLET PO PRN (21:18)
[2018-05-17] MEDS: HYDRALAZINE HCL 10 MG TABLET PO SCH (21:19)
[2018-05-18] MEDS: IPRATROPIUM/ALBUTEROL 0.5-2.5 MG/3 ML AMPUL NEB SCH ×6 (00:31→19:58)
[2018-05-18 04:59] LABS: HEMATOCRIT 32.3 % (36.0-47.0); MEAN CORPUSCULAR HEMOGLOBIN 32.4 pg (27.0-33.4); MEAN CORPUSCULAR HGB CONC 35.1 g/dL (32.0-36.0); MEAN CORPUSCULAR VOLUME 92 fl (80-97); PLATELET COUNT 242 10^3/uL (150-450); RED CELL DISTRIBUTION WIDTH 13.8 % (11.5-14.0); WHITE BLOOD COUNT 10.1 10^3/uL (4.0-10.5)
[2018-05-18 05:04] LABS: HEMOGLOBIN 11.3 g/dL (12.0-15.5)
[2018-05-18] MEDS: HYDRALAZINE HCL 10 MG TABLET PO SCH (05:08)
[2018-05-18 05:29] LABS: ANION GAP 7 (5-19); BLOOD UREA NITROGEN 18 mg/dL (7-20); CALCIUM 8.5 mg/dL (8.4-10.2); CARBON DIOXIDE 29 mmol/L (22-30); CHLORIDE 95 mmol/L (98-107); GLUCOSE 91 mg/dL (75-110); POTASSIUM 3.9 mmol/L (3.6-5.0); SODIUM 130.9 mmol/L (137-145)
[2018-05-18] MEDS ORDERED: ERLOTINIB HCL 150 MG PO SCH (06:00)
--- NOTE | 2018-05-18 07:56 | PDOC CONSULTATION ---
Consultation Consult Date: 05/18/18 Attending physician:: ASA MARTELL Consult reason:: Stage IV lung cancer, COPD exacerbation History of Present Illness Admission Date/PCP: 05/17/18 17:09 ELIZ BACA MD Patient complains of: Shortness of breath, dyspnea on exertion History of Present Illness: NISA JC is a 77 year old female well-known to our oncology clinic who we have been following for nearly 7 years, she has stage IV lung cancer. She has a known right upper lobe mass, spiculated that we have been monitoring. She also has bilateral adrenal nodules although in the past they were not hypermetabolic. She has been on Tarceva with appropriate control of disease. Unfortunately we have not been able to get more information with lung biopsy of the right upper lobe nodule, but she has been relatively stable on current therapy. Unfortunately she does have worsening lung function, she continues to smoke and her COPD seems to be worsening. Her hospitalization seem more frequent. We have discussed smoking cessation at length, she does diligently follow with doctors however so I do not think there is any noncompliance in terms of medication. She had repeat CTA of the chest once again, I reviewed the images myself going back 1 year of images and the right upper lobe nodule is generally the same in appearance, there does not seem to be a change in the adrenal nodules either. Past Medical History Cardiac Medical History: Reports: Hypertension Denies: Coronary Artery Disease, Myocardial Infarction, Pulmonary Embolism Pulmonary Medical History: Reports: Chronic Obstructive Pulmonary Disease (COPD) Denies: Asthma, Bronchitis, Intubation, Pneumonia, Respiratory Failure, Sleep Apnea, Tuberculosis Neurological Medical History: Denies: Seizures - SYNCOPE LAST YEAR EPISODE D/T LOW SODIUM Malignancy Medical History: Reports: Lung Cancer - Originally stage III lung cancer status post chemoradiation, with recurrenc Denies: Leukemia GI Medical History: Denies: Hepatitis, Hiatal Hernia Musculoskeltal Medical History: Reports: Arthritis Denies: Fibromyalgia Psychiatric Medical History: Reports: Depression Denies: Dementia Hematology: Denies: Anemia, Hemophilia, Sickle Cell Disease Infectious Medical History: Denies: HIV Past Surgical History Past Surgical History: Reports: Appendectomy - 1977, Hysterectomy, Tonsillectomy - age 17, Tubal Ligation, Other - Lung biopsy Denies: Amputation, Section, Cholecystectomy, Coronary Artery Bypass Graft, Gastric Bypass Surgery, Herniorrhaphy, Mastectomy, Pacemaker Social History Information Source: Patient Lives with: Spouse/Significant other Smoking Status: Current Every Day Smoker Cigarettes Packs Per Day: 2 Number of Years Smokin Frequency of Alcohol Use: None Hx Recreational Drug Use: No Drugs: None Hx Prescription Drug Abuse: No - Advance Directive Resuscitation Status: Do Not Resuscitate Family History Family History: Reviewed & Not Pertinent, Hypertension Parental Family History Reviewed: Yes Children Family History Reviewed: Yes Sibling(s) Family History Reviewed.: Yes Medication/Allergy Home Medications: Acetaminophen [Tylenol 325 mg Tablet] 650 mg PO Q8HP PRN 04/13/18 Albuterol Sulfate [Proair HFA Inhalation Aerosol 8.5 gm MDI] 1 puff IH Q6HP PRN 04/13/18 Ca Citrate/Mgox/Vit D3/B6/Min [Citracal Plus Tablet] 1 tab PO DAILY 04/13/18 Candesartan Cilexetil [Atacand 32 mg Tablet] 32 mg PO DAILY 04/13/18 Docusate Sodium [Colace 100 mg Capsule] 100 mg PO DAILYP PRN 04/13/18 Erlotinib HCl [Tarceva 150 mg Tablet] 150 mg PO DAILY 04/13/18 Fluticasone Propionate [Flonase Nasal [place] 50 Mcg/[place] 16 gm] 1 spray NASL DAILY 04/13/18 Fluticasone/Salmeterol [Advair 250-50 Diskus 14 Dose/Diskus] 2 puff IH DAILY Guaifenesin [Mucinex] 600 mg PO BID 04/13/18 Loratadine [Claritin 10 mg Tablet] 10 mg PO DAILY 04/13/18 Multivitamin [Daily Multiple Vitamin] 1 tab PO DAILY 04/13/18 Hydralazine HCl [Apresoline 10 mg Tablet] 25 mg PO Q8 30 Days #90 tablet Amlodipine Besylate [Norvasc 5 mg Tablet] 5 mg PO DAILY 05/17/18 Aspirin [Ecotrin] 81 mg PO DAILY 05/17/18 Doxycycline Hyclate 100 mg PO BID 05/17/18 Prednisone 10 mg PO BID 05/17/18 Allergies/Adverse Reactions: latex [Latex] Allergy (Severe, Verified 01/30/18 13:26) rash hydrocodone [Hydrocodone] Allergy (Unknown, Verified 01/30/18 13:26) morphine [Morphine] Allergy (Unknown, Verified 01/30/18 13:26) amoxicillin trihydrate [From Augmentin] Adverse Reaction (Unknown, Verified 09/14 13:26) Dizziness Potassium Clavulanate * [From Augmentin] Adverse Reaction (Unknown, Verified 09/14 13:26) Dizziness olmesartan medoxomil [From May] Adverse Reaction (Verified 01/30/18 13:26) tremor Review of Systems Constitutional: PRESENT: anorexia, fatigue, weakness Cardiovascular: PRESENT: dyspnea on exertion Gastrointestinal: ABSENT: abdominal pain, constipation, diarrhea, hematemesis, hematochezia, nausea, vomiting Musculoskeletal: ABSENT: joint swelling Neurological: ABSENT: abnormal gait, abnormal speech, confusion, dizziness, focal weakness, syncope Psychiatric: PRESENT: anxiety Physical Exam Vital Signs: Temp Pulse Resp BP Pulse Ox 97.7 F 106 H 22 H 117/61 96 05/18/18 03:53 05/18/18 07:00 05/18/18 04:33 05/18/18 05:07 05/18/18 04:33 Intake & Output 05/17/18 05/18/18 05/19/18 06:59 06:59 06:59 Weight 58.6 kg General appearance: PRESENT: no acute distress, well-developed, well-nourished Head exam: PRESENT: atraumatic, normocephalic Eye exam: PRESENT: conjunctiva pink, EOMI, PERRLA. ABSENT: scleral icterus Ear exam: PRESENT: normal external ear exam Mouth exam: PRESENT: moist, tongue midline Neck exam: ABSENT: carotid bruit, JVD, lymphadenopathy, thyromegaly Respiratory exam: PRESENT: clear to auscultation clarice. ABSENT: rales, rhonchi, wheezes Cardiovascular exam: PRESENT: RRR. ABSENT: diastolic murmur, rubs, systolic murmur Pulses: PRESENT: normal dorsalis pedis pul Vascular exam: PRESENT: normal capillary refill GI/Abdominal exam: PRESENT: normal bowel sounds, soft. ABSENT: distended, guarding, mass, organolmegaly, rebound, tenderness Rectal exam: PRESENT: deferred Extremities exam: PRESENT: full ROM. ABSENT: calf tenderness, clubbing, pedal edema Neurological exam: PRESENT: alert, awake, oriented to person, oriented to place , oriented to time, oriented to situation, CN II-XII grossly intact. ABSENT: motor sensory deficit Psychiatric exam: PRESENT: appropriate affect, normal mood. ABSENT: homicidal ideation, suicidal ideation Skin exam: PRESENT: dry, intact, warm. ABSENT: cyanosis, rash Results Laboratory Results: 05/18/18 04:46 05/18/18 04:46 05/17/18 05/18/18 05/18/18 17:37 04:46 04:46 WBC 10.1 RBC 3.50 L Hgb 11.3 L D Hct 32.3 L MCV 92 MCH 32.4 MCHC 35.1 RDW 13.8 Plt Count 242 Sodium 130.9 L Potassium 3.9 Chloride 95 L Carbon Dioxide 29 Anion Gap 7 BUN 18 Creatinine 0.58 Est GFR ( Amer) > 60 Est GFR (Non-Af Amer) > 60 Glucose 91 Calcium 8.5 Urine Color STRAW Urine Appearance CLEAR Urine pH 5.0 Ur Specific [place] 1.025 Urine Protein NEGATIVE Urine Glucose (UA) NEGATIVE Urine Ketones NEGATIVE Urine Blood NEGATIVE Urine Nitrite NEGATIVE Ur Leukocyte Esterase NEGATIVE Urine WBC (Auto) 0 Urine RBC (Auto) 0 Impressions: Chest X-Ray 05/17/18 13:29 IMPRESSION: Chronic changes. No acute findings. Chest/Abdomen CTA 05/17/18 14:07 IMPRESSION: 1 No evidence of pulmonary emboli. Centrilobular emphysema. 2.7 x 2.4 cm spiculated mass right upper lobe consistent carcinoma. Status post left thoracotomy. Fibrotic scarring and traction bronchiectasis left upper lobe and superior segment left lower lobe consistent post radiation change. 2. Bilateral adrenal masses right greater than left. Persistent hypodensities within the liver too small to characterize. Cholelithiasis. Status: Image reviewed by me Assessment & Plan - Diagnosis (1) Lung cancer Qualifiers: Laterality: right Lung location: upper lobe of lung Qualified Code(s): C34.11 - Malignant neoplasm of upper lobe, right bronchus or lung Is this a current diagnosis for this admission?: Yes Plan: Stage IV right lung cancer, overall stable disease per my view. We will continue to monitor as an outpatient probable next imaging in 3 months time. (2) COPD exacerbation Is this a current diagnosis for this admission?: Yes Plan: Severe, continue per protocol of hospitalist team - Time Time Spent: Greater than 70 Minutes - Inpatient Certification Based on my medical assessment, after consideration of the patient's comorbidities, presenting symptoms, or acuity I expect that the services needed warrant INPATIENT care.: Yes I certify that my determination is in accordance with my understanding of Medicare's requirements for reasonable and necessary INPATIENT services [42 CFR 412.3e].: Yes Medical Necessity: Need Close Monitoring Due to Risk of Patient Decompensation, Need For Continuous Telemetry Monitoring, Need for Nebulizer Therapy and Monitoring of Response, Risk of Complication if Not Cared For in Hospital
[2018-05-18] MEDS: ACETAMINOPHEN 325 MG TABLET PO PRN ×2 (09:35→19:39)
[2018-05-18] MEDS: GUAIFENESIN 600 MG TABLET.SA PO SCH ×2 (09:35→21:08)
[2018-05-18] MEDS: ASPIRIN 81 MG TABLET, ENT COATED PO SCH (09:37)
[2018-05-18] MEDS: MULTIVITAMIN TABLET PO SCH (09:37)
[2018-05-18] MEDS: CALCIUM CARBONATE 250 MG/VITAMIN D3 125 UNIT TABLET PO SCH (09:38)
[2018-05-18] MEDS: LORAZEPAM 1 MG TABLET PO PRN ×2 (09:38→22:09)
[2018-05-18] MEDS: FLUTICASONE/SALMETEROL DISKUS 250-50 MCG/DOSE IH SCH (09:39)
[2018-05-18] MEDS: FLUTICASONE NASAL SPRAY 50 MCG/SPRY 120 SPRAY/16 GM NASL SCH (09:39)
[2018-05-18] MEDS: PREDNISONE 20 MG TABLET PO SCH (09:42)
[2018-05-18] MEDS: ENOXAPARIN SODIUM INJ 40 MG/0.4 ML DISP.SYRIN SUBCUT SCH (09:43)
[2018-05-18] MEDS: LORATADINE 10 MG TABLET PO SCH (09:43)
[2018-05-18] MEDS ORDERED: FLUTICASONE NASAL SPRAY 50 MCG/SPRY 120 SPRAY/16 GM NASL SCH (10:00)
[2018-05-18] MEDS ORDERED: [UNRECOGNIZED DRUG - OTHER] PO SCH (10:00)
[2018-05-18] MEDS ORDERED: CA CITRATE PO SCH (10:00)
[2018-05-18] MEDS ORDERED: B6 PO SCH (10:00)
[2018-05-18] MEDS ORDERED: VIT D3 PO SCH (10:00)
[2018-05-18] MEDS ORDERED: MGOX PO SCH (10:00)
--- NOTE | 2018-05-18 10:24 | PDOC PROGRESS REPORT ---
Subjective Progress Note for:: 05/18/18 Subjective:: Is afebrile and her white count is normalized now. She still very tachypneic and cannot finish a full sentence. She was also wheezing on exam. Her venous gas was normal yesterday. She said she had trouble breathing this morning and was put on BiPAP and this improved her respiratory status. Currently she is on nasal cannula oxygen. She was seen by oncology earlier today. Reason For Visit: COPD EXACERBATION Physical Exam Vital Signs: Temp Pulse Resp BP Pulse Ox 98.6 F 102 H 17 107/43 L 100 05/18/18 07:44 05/18/18 08:12 05/18/18 08:12 05/18/18 07:44 05/18/18 08:12 Intake & Output 05/17/18 05/18/18 05/19/18 06:59 06:59 06:59 Intake Total 659 Balance 659 Weight 129 lb 3.054 oz General appearance: PRESENT: cooperative, mild distress, thin Head exam: PRESENT: atraumatic, normocephalic Eye exam: PRESENT: EOMI, PERRLA Ear exam: ABSENT: bleeding, drainage Mouth exam: PRESENT: neck supple, tongue midline Neck exam: ABSENT: meningismus, tracheostomy Respiratory exam: PRESENT: accessory muscle use, prolonged expiratory phas, tachypnea, wheezes Cardiovascular exam: PRESENT: RRR. ABSENT: diastolic murmur, systolic murmur Pulses: PRESENT: normal radial pulses GI/Abdominal exam: PRESENT: normal bowel sounds, soft. ABSENT: ascites, tenderness Rectal exam: PRESENT: deferred Neurological exam: PRESENT: alert, awake, oriented to person, oriented to place , oriented to time, oriented to situation Psychiatric exam: PRESENT: anxious. ABSENT: agitated, homicidal ideation, suicidal ideation Results Laboratory Results: 05/18/18 04:46 05/18/18 04:46 05/17/18 05/18/18 05/18/18 17:37 04:46 04:46 WBC 10.1 RBC 3.50 L Hgb 11.3 L D Hct 32.3 L MCV 92 MCH 32.4 MCHC 35.1 RDW 13.8 Plt Count 242 Sodium 130.9 L Potassium 3.9 Chloride 95 L Carbon Dioxide 29 Anion Gap 7 BUN 18 Creatinine 0.58 Est GFR ( Amer) > 60 Est GFR (Non-Af Amer) > 60 Glucose 91 Calcium 8.5 Urine Color STRAW Urine Appearance CLEAR Urine pH 5.0 Ur Specific [place] 1.025 Urine Protein NEGATIVE Urine Glucose (UA) NEGATIVE Urine Ketones NEGATIVE Urine Blood NEGATIVE Urine Nitrite NEGATIVE Ur Leukocyte Esterase NEGATIVE Urine WBC (Auto) 0 Urine RBC (Auto) 0 Impressions: Chest X-Ray 05/17/18 13:29 IMPRESSION: Chronic changes. No acute findings. Chest/Abdomen CTA 05/17/18 14:07 IMPRESSION: 1 No evidence of pulmonary emboli. Centrilobular emphysema. 2.7 x 2.4 cm spiculated mass right upper lobe consistent carcinoma. Status post left thoracotomy. Fibrotic scarring and traction bronchiectasis left upper lobe and superior segment left lower lobe consistent post radiation change. 2. Bilateral adrenal masses right greater than left. Persistent hypodensities within the liver too small to characterize. Cholelithiasis. Assessment & Plan - Diagnosis (1) COPD exacerbation Is this a current diagnosis for this admission?: Yes Plan: Patient is tachypneic and using accessory respiratory muscle Her venous gas was normal yesterday CT angiogram of the chest is negative for PE Continue Levaquin and 40 mg prednisone orally Continue scheduled DuoNeb and as needed albuterol Continue BiPAP as needed Check ABG Consulted Dr. Brown her airplane coverer (2) Lung cancer Qualifiers: Laterality: right Lung location: upper lobe of lung Qualified Code(s): C34.11 - Malignant neoplasm of upper lobe, right bronchus or lung Is this a current diagnosis for this admission?: Yes Plan: Patient is status post chemotherapy and radiation therapy She currently on Tarceva CT scan of the chest shows right spiculated mass which is known from prior CT scans CT scan also showed post radiation changes in the left upper lobe, also bilateral adrenal masses and hypodensities in the liver She follows with Dr. Davidson. She has stage IV cancer. (3) Essential hypertension Is this a current diagnosis for this admission?: Yes Plan: Continue home medications and monitor blood pressure (4) Nicotine addiction Qualifiers: Nicotine product type: cigarettes Is this a current diagnosis for this admission?: Yes Plan: Patient is still active smoker She was counseled and advised to quit smoking She is offered nicotine patch
[2018-05-18 12:34] LABS: ARTERIAL BLOOD BASE EXCESS 1.3 mmol/L; ARTERIAL BLOOD H2CO3 1.15 mmol/L (1.05-1.35); ARTERIAL BLOOD HCO3 25.4 mmol/L (20-24); ARTERIAL BLOOD O2 SATURATION 90.6 % (94-98); ARTERIAL BLOOD PCO2 38.2 mmHg (35-45); ARTERIAL BLOOD PH 7.44 (7.35-7.45); ARTERIAL BLOOD PO2 56.6 mmHg (80-100); ARTERIAL BLOOD TOTAL CO2 26.5 mmol/L (21-25)
[2018-05-18 12:42] LABS: ARTERIAL BLOOD FIO2 3L
[2018-05-18] MEDS: LOSARTAN POTASSIUM 50 MG TABLET PO SCH (12:56)
[2018-05-18] MEDS: AMLODIPINE BESYLATE 5 MG TABLET PO SCH (12:56)
[2018-05-18] MEDS: HYDRALAZINE HCL 25 MG TABLET PO SCH ×2 (16:03→21:08)
[2018-05-18] MEDS: LEVOFLOXACIN 750 MG TABLET PO SCH (18:50)
[2018-05-19] MEDS: IPRATROPIUM/ALBUTEROL 0.5-2.5 MG/3 ML AMPUL NEB SCH ×5 (00:23→20:40)
[2018-05-19] MEDS: ACETAMINOPHEN 325 MG TABLET PO PRN (05:36)
[2018-05-19] MEDS: HYDRALAZINE HCL 25 MG TABLET PO SCH ×3 (05:36→21:43)
[2018-05-19 06:02] LABS: HEMATOCRIT 32.7 % (36.0-47.0); HEMOGLOBIN 11.3 g/dL (12.0-15.5); MEAN CORPUSCULAR HGB CONC 34.7 g/dL (32.0-36.0); MEAN CORPUSCULAR VOLUME 92 fl (80-97); PLATELET COUNT 236 10^3/uL (150-450); RED BLOOD COUNT 3.55 10^6/uL (3.72-5.28); RED CELL DISTRIBUTION WIDTH 13.6 % (11.5-14.0); WHITE BLOOD COUNT 11.2 10^3/uL (4.0-10.5)
[2018-05-19 06:18] LABS: ANION GAP 7 (5-19); BLOOD UREA NITROGEN 15 mg/dL (7-20); CALCIUM 8.4 mg/dL (8.4-10.2); CARBON DIOXIDE 30 mmol/L (22-30); CHLORIDE 91 mmol/L (98-107); GLUCOSE 82 mg/dL (75-110); SODIUM 128.3 mmol/L (137-145)
--- NOTE | 2018-05-19 07:47 | PDOC PROGRESS REPORT ---
Subjective Progress Note for:: 05/19/18 Subjective:: Pt off BIPAP now, but still w/ SOB/ANDREW. Asked nursing to get pt up and walk down webb if able. Had long discussion w/ pt about COPD exacerbation and smoking cessation Reason For Visit: COPD EXACERBATION Physical Exam Vital Signs: Temp Pulse Resp BP Pulse Ox 98.0 F 107 H 16 114/48 L 99 05/19/18 03:27 05/19/18 04:53 05/19/18 04:53 05/19/18 03:27 05/19/18 04:53 Intake & Output 05/18/18 05/19/18 05/20/18 06:59 06:59 06:59 Intake Total 1550 Balance 1550 Weight 58.6 kg 59.8 kg General appearance: PRESENT: no acute distress, well-developed, well-nourished Head exam: PRESENT: atraumatic, normocephalic Eye exam: PRESENT: conjunctiva pink, EOMI, PERRLA. ABSENT: scleral icterus Ear exam: PRESENT: normal external ear exam Mouth exam: PRESENT: moist, tongue midline Neck exam: ABSENT: carotid bruit, JVD, lymphadenopathy, thyromegaly Respiratory exam: PRESENT: clear to auscultation clarice. ABSENT: rales, rhonchi, wheezes Cardiovascular exam: PRESENT: RRR. ABSENT: diastolic murmur, rubs, systolic murmur Pulses: PRESENT: normal dorsalis pedis pul Vascular exam: PRESENT: normal capillary refill GI/Abdominal exam: PRESENT: normal bowel sounds, soft. ABSENT: distended, guarding, mass, organolmegaly, rebound, tenderness Rectal exam: PRESENT: deferred Extremities exam: PRESENT: full ROM. ABSENT: calf tenderness, clubbing, pedal edema Neurological exam: PRESENT: alert, awake, oriented to person, oriented to place , oriented to time, oriented to situation, CN II-XII grossly intact. ABSENT: motor sensory deficit Psychiatric exam: PRESENT: appropriate affect, normal mood. ABSENT: homicidal ideation, suicidal ideation Skin exam: PRESENT: dry, intact, warm. ABSENT: cyanosis, rash Results Laboratory Results: 05/19/18 05:46 05/19/18 05:46 05/18/18 05/19/18 05/19/18 12:08 05:46 05:46 WBC 11.2 H RBC 3.55 L Hgb 11.3 L Hct 32.7 L MCV 92 MCH 32.0 MCHC 34.7 RDW 13.6 Plt Count 236 Carbonic Acid 1.15 HCO3/H2CO3 Ratio 22:1 ABG pH 7.44 ABG pCO2 38.2 ABG pO2 56.6 L ABG HCO3 25.4 H ABG O2 Saturation 90.6 L ABG Base Excess 1.3 FiO2 3L Sodium 128.3 L Potassium 4.0 Chloride 91 L Carbon Dioxide 30 Anion Gap 7 BUN 15 Creatinine 0.58 Est GFR ( Amer) > 60 Est GFR (Non-Af Amer) > 60 Glucose 82 Calcium 8.4 Impressions: Chest X-Ray 05/17/18 13:29 IMPRESSION: Chronic changes. No acute findings. Chest/Abdomen CTA 05/17/18 14:07 IMPRESSION: 1 No evidence of pulmonary emboli. Centrilobular emphysema. 2.7 x 2.4 cm spiculated mass right upper lobe consistent carcinoma. Status post left thoracotomy. Fibrotic scarring and traction bronchiectasis left upper lobe and superior segment left lower lobe consistent post radiation change. 2. Bilateral adrenal masses right greater than left. Persistent hypodensities within the liver too small to characterize. Cholelithiasis. Assessment & Plan - Diagnosis (1) Lung cancer Qualifiers: Laterality: right Lung location: upper lobe of lung Qualified Code(s): C34.11 - Malignant neoplasm of upper lobe, right bronchus or lung Is this a current diagnosis for this admission?: Yes Plan: Stable disease, hold Tarceva while admitted and she can restart as outpt. Will be out for next few days, Dr. Toussaint will follow, call her for any needs. (2) COPD exacerbation Is this a current diagnosis for this admission?: Yes Plan: Cont current rx, will probably need 24-48 more hours admit to get over it. - Time Time Spent with patient: 35 or more minutes - Inpatient Certification Based on my medical assessment, after consideration of the patient's comorbidities, presenting symptoms, or acuity I expect that the services needed warrant INPATIENT care.: Yes I certify that my determination is in accordance with my understanding of Medicare's requirements for reasonable and necessary INPATIENT services [42 CFR 412.3e].: Yes Medical Necessity: Need for Nebulizer Therapy and Monitoring of Response
[2018-05-19] MEDS: AMLODIPINE BESYLATE 5 MG TABLET PO SCH (09:27)
[2018-05-19] MEDS: ASPIRIN 81 MG TABLET, ENT COATED PO SCH (09:27)
[2018-05-19] MEDS: MULTIVITAMIN TABLET PO SCH (09:27)
[2018-05-19] MEDS: LOSARTAN POTASSIUM 50 MG TABLET PO SCH (09:29)
[2018-05-19] MEDS: GUAIFENESIN 600 MG TABLET.SA PO SCH ×2 (09:31→21:43)
[2018-05-19] MEDS: CALCIUM CARBONATE 250 MG/VITAMIN D3 125 UNIT TABLET PO SCH (09:31)
[2018-05-19] MEDS: PREDNISONE 20 MG TABLET PO SCH (09:31)
[2018-05-19] MEDS: LORATADINE 10 MG TABLET PO SCH (09:31)
[2018-05-19] MEDS: FLUTICASONE/SALMETEROL DISKUS 250-50 MCG/DOSE IH SCH (09:32)
[2018-05-19] MEDS: ENOXAPARIN SODIUM INJ 40 MG/0.4 ML DISP.SYRIN SUBCUT SCH (09:33)
[2018-05-19] MEDS: FLUTICASONE NASAL SPRAY 50 MCG/SPRY 120 SPRAY/16 GM NASL SCH (09:33)
[2018-05-19] MEDS: LORAZEPAM 1 MG TABLET PO PRN (09:46)
[2018-05-19] MEDS ORDERED: ALBUTEROL SULFATE HFA (90 MCG/PUFF) 200 PUFF/8.5 GM MDI IH PRN (10:09)
[2018-05-19] MEDS ORDERED: LORAZEPAM INJ 2 MG/1 ML VIAL ONE (10:19)
[2018-05-19] MEDS ORDERED: LEVALBUTEROL HCL NEB 1.25 MG/3 ML AMPUL NEB ONE (10:24)
[2018-05-19] MEDS ORDERED: MIDAZOLAM 2 MG/2 ML INJ ONE (11:00)
[2018-05-19] MEDS ORDERED: METHYLPREDNISOLONE INJ 125 MG/2 ML SDV ONE (11:01)
[2018-05-19] MEDS: BUDESONIDE NEB 0.5 MG/2 ML AMPUL NEB SCH ×2 (11:09→20:40)
[2018-05-19] MEDS ORDERED: MIDAZOLAM 2 MG/2 ML INJ IV PRN (11:14)
[2018-05-19 13:56] LABS: ARTERIAL BLOOD BASE EXCESS 3.7 mmol/L; ARTERIAL BLOOD FIO2 3L; ARTERIAL BLOOD H2CO3 1.25 mmol/L (1.05-1.35); ARTERIAL BLOOD HCO3 28.1 mmol/L (20-24); ARTERIAL BLOOD O2 SATURATION 96.5 % (94-98); ARTERIAL BLOOD PCO2 41.5 mmHg (35-45); ARTERIAL BLOOD PH 7.45 (7.35-7.45); ARTERIAL BLOOD PO2 82.2 mmHg (80-100); ARTERIAL BLOOD TOTAL CO2 29.3 mmol/L (21-25)
[2018-05-19] MEDS: ROFLUMILAST 500 MCG TABLET PO SCH (14:58)
--- NOTE | 2018-05-19 15:51 | PDOC PROGRESS REPORT ---
Subjective Progress Note for:: 05/19/18 Subjective:: The patient is a 77-year-old female with severe COPD, metastatic lung cancer status post radiation chemotherapy currently on Tarceva, hypertension, arthritis , depression, and tobacco abuse with continuous use who was admitted on 2017 for acute respiratory failure secondary to COPD exacerbation in the setting of lung cancer. The patient was seen on morning rounds with her daughter present. She was found resting in bed on supplemental oxygen via nasal cannula at 2 L/min. The patient was noted to be tachypneic with a respiratory rate in the mid 20s, however, fully conversational without pauses. The patient reports slight improvement overall as compared to yesterday, however states that she became short of breath following a coughing fit that occurred while she was ambulating back from the restroom. She states that she is unable to tolerate BiPAP due to sensation of claustrophobia and nasal congestion. Long discussion was had about the benefits of BiPAP if she is able to tolerate. She reports severe anxiety this morning following exacerbation of respiratory symptoms. The patient admits to occasional anxiety at home but states that she very rarely requires Ativan. Review of the [place] database shows that her last prescription was filled in July 2017. The patient does confirm that she is a DNR and tells me that she is uncertain about her desire to be intubated if necessary. The patient is noted to be fatigued and falling asleep and sentence having just been provided IV Ativan for her anxiety/panic attack and to the conversation is not continued further with regard to goals of care. Patient denies fever, chills, chest pain, palpitations, orthopnea, abdominal pain, nausea and vomiting. She has no questions or concerns at this time. No further concerns per nursing. Reason For Visit: COPD EXACERBATION Physical Exam Vital Signs: Temp Pulse Resp BP Pulse Ox 97.8 F 118 H 20 127/49 H 98 05/19/18 11:52 05/19/18 14:00 05/19/18 14:00 05/19/18 11:52 05/19/18 14:00 Intake & Output 05/18/18 05/19/18 05/20/18 06:59 06:59 06:59 Intake Total 1550 237 Balance 1550 237 Weight 58.6 kg 59.8 kg General appearance: PRESENT: mild distress, well-developed, well-nourished Head exam: PRESENT: atraumatic, normocephalic Eye exam: PRESENT: conjunctiva pink, EOMI, PERRLA. ABSENT: scleral icterus Ear exam: PRESENT: normal external ear exam Mouth exam: PRESENT: moist, tongue midline Neck exam: ABSENT: carotid bruit, JVD, lymphadenopathy, thyromegaly Respiratory exam: PRESENT: decreased breath sounds - Bibasilar, prolonged expiratory phas, symmetrical, tachypnea, wheezes - Inspiratory and expiratory wheezing throughout, other - Supplemental oxygen via nasal cannula. ABSENT: rales, rhonchi Cardiovascular exam: PRESENT: RRR, tachycardia. ABSENT: diastolic murmur, rubs , systolic murmur Pulses: PRESENT: normal dorsalis pedis pul Vascular exam: PRESENT: normal capillary refill GI/Abdominal exam: PRESENT: normal bowel sounds, soft. ABSENT: distended, guarding, mass, organolmegaly, rebound, tenderness Rectal exam: PRESENT: deferred Extremities exam: PRESENT: full ROM. ABSENT: calf tenderness, clubbing, pedal edema Neurological exam: PRESENT: alert, awake, oriented to person, oriented to place , oriented to time, oriented to situation, CN II-XII grossly intact. ABSENT: motor sensory deficit Psychiatric exam: PRESENT: anxious, appropriate affect. ABSENT: homicidal ideation, suicidal ideation Skin exam: PRESENT: dry, intact, warm. ABSENT: cyanosis, rash Results Laboratory Results: 05/19/18 05:46 05/19/18 05:46 05/19/18 05/19/18 05/19/18 05:46 05:46 12:45 WBC 11.2 H RBC 3.55 L Hgb 11.3 L Hct 32.7 L MCV 92 MCH 32.0 MCHC 34.7 RDW 13.6 Plt Count 236 Carbonic Acid Cancelled HCO3/H2CO3 Ratio Cancelled ABG pH Cancelled ABG pCO2 Cancelled ABG pO2 Cancelled ABG HCO3 Cancelled ABG O2 Saturation Cancelled ABG Base Excess Cancelled FiO2 Cancelled Sodium 128.3 L Potassium 4.0 Chloride 91 L Carbon Dioxide 30 Anion Gap 7 BUN 15 Creatinine 0.58 Est GFR ( Amer) > 60 Est GFR (Non-Af Amer) > 60 Glucose 82 Calcium 8.4 05/19/18 13:43 WBC RBC Hgb Hct MCV MCH MCHC RDW Plt Count Carbonic Acid 1.25 HCO3/H2CO3 Ratio 22:1 ABG pH 7.45 ABG pCO2 41.5 ABG pO2 82.2 ABG HCO3 28.1 H ABG O2 Saturation 96.5 ABG Base Excess 3.7 FiO2 3L Sodium Potassium Chloride Carbon Dioxide Anion Gap BUN Creatinine Est GFR ( Amer) Est GFR (Non-Af Amer) Glucose Calcium Impressions: Chest X-Ray 05/17/18 13:29 IMPRESSION: Chronic changes. No acute findings. Chest/Abdomen CTA 05/17/18 14:07 IMPRESSION: 1 No evidence of pulmonary emboli. Centrilobular emphysema. 2.7 x 2.4 cm spiculated mass right upper lobe consistent carcinoma. Status post left thoracotomy. Fibrotic scarring and traction bronchiectasis left upper lobe and superior segment left lower lobe consistent post radiation change. 2. Bilateral adrenal masses right greater than left. Persistent hypodensities within the liver too small to characterize. Cholelithiasis. Assessment & Plan - Diagnosis (1) Acute respiratory failure with hypoxia Is this a current diagnosis for this admission?: Yes Plan: Secondary to COPD exacerbation in the setting of lung cancer. The patient is admitted to [facility] on continuous cardiac telemetry. She is provided supplemental oxygen and BiPAP as needed to maintain oxygen saturations greater than 89%. Remaining plan as outlined below. (2) COPD exacerbation Is this a current diagnosis for this admission?: Yes Plan: The patient continues to be tachypneic, tachycardic, with inspiratory and expiratory wheezing, increased work of breathing, accessory muscle use. CTA of the chest is negative for PE but does reveal emphysema, spiculated mass to the right upper lobe consistent with carcinoma, postradiation changes to the left upper lobe, bilateral adrenal masses, multiple hypodensities within the liver. repeat ABG today is reassurin.45/41.5/82.2/28.1 on 3 lpm via [place]. The patient has been admitted to [facility] on continuous cardiac telemetry. She is provided supplemental oxygen as needed to maintain oxygen saturations greater than 89%. The patient is encouraged to attempt BiPAP use; per nursing the patient has refused to use BiPAP or at most has tolerated 5-10 minutes at a time. The patient was empirically placed on Levaquin for coverage of bronchitis. Sputum culture has been ordered but at this time the patient does not have a productive cough. She is placed on scheduled and as needed nebulizer treatments. Pulmonology was consulted; appreciate Dr. Brown's assistance. He has placed her on twice daily Pulmicort, Daliresp, and Solu-Medrol 125 mg every 6 hours. Continue Mucinex twice daily. Incentive spirometry and flutter valve to bedside. Will ask physical therapy to evaluate patient; daughter reports concern with patient's ability to care for self at home. Discharge planning and Palliative care consultations are placed. (3) Lung cancer Qualifiers: Laterality: right Lung location: upper lobe of lung Qualified Code(s): C34.11 - Malignant neoplasm of upper lobe, right bronchus or lung Is this a current diagnosis for this admission?: Yes Plan: The patient is established with Dr. Davidson; currently on Tarceva. Oncology has been consulted; appreciate their evaluation recommendations. (4) Essential hypertension Is this a current diagnosis for this admission?: Yes Plan: Blood pressures are acceptable for age; will continue her home medication regiment. (5) Tobacco abuse Is this a current diagnosis for this admission?: Yes Plan: The patient continues to smoke multiple packs daily. She acknowledges that this is likely contributing to her repeat admissions and progressively worsening COPD. Despite this, she appears to be pre-contemplative with regard to smoking cessation. Nicotine replacement therapies (patch and gum) are offered; declined by patient. (6) Anxiety Is this a current diagnosis for this admission?: Yes Plan: Patient admits to history of depression and anxiety; not on maintenance medications. Will trial scheduled Buspar twice daily. Ativan 1 mg p.o. every 6 hours as needed. (7) Hyponatremia Is this a current diagnosis for this admission?: Yes Plan: Pt with history of hyponatremia; baseline 130. Has been as low as 119.9 in the past. Possibly related to Lung CA w/ adrenal masses. Currently 128.3 Regular diet. IVF have been discontinued. Will continue to monitor; if continues to drift downward, will need to evaluate all medications and consider laboratory evaluation for SIADH. - Time Time Spent with patient: 25-34 minutes Smoking Cessation Education: 3 to 10 minutes Medications reviewed and adjusted accordingly: Yes Anticipated discharge: Home Within: within 72 hours
[2018-05-19] MEDS: LEVOFLOXACIN 750 MG TABLET PO SCH (17:05)
[2018-05-19] MEDS: METHYLPREDNISOLONE INJ 125 MG/2 ML SDV IV SCH (17:05)
[2018-05-19] MEDS: SODIUM CHLORIDE NASAL SPRAY 44 ML NASL SCH ×2 (21:42→23:09)
[2018-05-19] MEDS: BUSPIRONE HCL 10 MG TABLET PO SCH (21:43)
[2018-05-20] MEDS: METHYLPREDNISOLONE INJ 125 MG/2 ML SDV IV SCH ×3 (00:11→12:37)
[2018-05-20] MEDS: ACETAMINOPHEN 325 MG TABLET PO PRN ×3 (00:13→17:19)
[2018-05-20] MEDS: IPRATROPIUM/ALBUTEROL 0.5-2.5 MG/3 ML AMPUL NEB SCH ×3 (02:16→13:48)
[2018-05-20] MEDS: HYDRALAZINE HCL 25 MG TABLET PO SCH ×3 (05:17→21:47)
[2018-05-20 06:09] LABS: HEMATOCRIT 34.7 % (36.0-47.0); MEAN CORPUSCULAR HEMOGLOBIN 31.9 pg (27.0-33.4); MEAN CORPUSCULAR HGB CONC 34.7 g/dL (32.0-36.0); MEAN CORPUSCULAR VOLUME 92 fl (80-97); PLATELET COUNT 251 10^3/uL (150-450); RED BLOOD COUNT 3.77 10^6/uL (3.72-5.28); RED CELL DISTRIBUTION WIDTH 13.8 % (11.5-14.0); WHITE BLOOD COUNT 6.9 10^3/uL (4.0-10.5)
[2018-05-20 06:27] LABS: ANION GAP 10 (5-19); BLOOD UREA NITROGEN 12 mg/dL (7-20); CARBON DIOXIDE 30 mmol/L (22-30); CHLORIDE 88 mmol/L (98-107); GLUCOSE 150 mg/dL (75-110); POTASSIUM 4.7 mmol/L (3.6-5.0); SODIUM 128.1 mmol/L (137-145)
[2018-05-20] MEDS: BUDESONIDE NEB 0.5 MG/2 ML AMPUL NEB SCH ×2 (07:55→20:39)
[2018-05-20] MEDS: SODIUM CHLORIDE NASAL SPRAY 44 ML NASL SCH ×4 (08:40→21:46)
[2018-05-20] MEDS: BUSPIRONE HCL 10 MG TABLET PO SCH ×2 (08:40→21:47)
--- NOTE | 2018-05-20 08:54 | PDOC PROGRESS REPORT ---
Subjective Progress Note for:: 05/20/18 Subjective:: Patient states she is about the same. She is having more difficulty with her breathing due to nasal congestion than her lungs. She states her lungs are better. She is having neck pain and side pain from the bed. She has not been out of the bed much yet. She is receiving Tylenol PRN for the soreness. ROS: Mild confusion, Good BMs, poor appetite. Reason For Visit: COPD EXACERBATION Physical Exam Vital Signs: Temp Pulse Resp BP Pulse Ox 98.2 F 110 H 18 138/58 H 91 L 05/20/18 03:53 05/20/18 07:57 05/20/18 07:57 05/20/18 03:53 05/20/18 07:57 Intake & Output 05/19/18 05/20/18 05/21/18 06:59 06:59 06:59 Intake Total 1550 562 Balance 1550 562 Weight 59.8 kg 62.1 kg General appearance: PRESENT: mild distress, thin Head exam: PRESENT: normocephalic Respiratory exam: PRESENT: clear to auscultation clarice Cardiovascular exam: PRESENT: RRR GI/Abdominal exam: PRESENT: soft. ABSENT: tenderness Extremities exam: ABSENT: pedal edema Neurological exam: PRESENT: alert, awake Psychiatric exam: PRESENT: appropriate affect Skin exam: PRESENT: normal color Results Laboratory Results: 05/20/18 05:30 05/20/18 05:30 05/19/18 05/19/18 05/20/18 12:45 13:43 05:30 WBC RBC Hgb Hct MCV MCH MCHC RDW Plt Count Carbonic Acid Cancelled 1.25 HCO3/H2CO3 Ratio Cancelled 22:1 ABG pH Cancelled 7.45 ABG pCO2 Cancelled 41.5 ABG pO2 Cancelled 82.2 ABG HCO3 Cancelled 28.1 H ABG O2 Saturation Cancelled 96.5 ABG Base Excess Cancelled 3.7 FiO2 Cancelled 3L Sodium 128.1 L Potassium 4.7 Chloride 88 L Carbon Dioxide 30 Anion Gap 10 BUN 12 Creatinine 0.56 Est GFR ( Amer) > 60 Est GFR (Non-Af Amer) > 60 Glucose 150 H Calcium 9.0 05/20/18 05:30 WBC 6.9 RBC 3.77 Hgb 12.0 Hct 34.7 L MCV 92 MCH 31.9 MCHC 34.7 RDW 13.8 Plt Count 251 Carbonic Acid HCO3/H2CO3 Ratio ABG pH ABG pCO2 ABG pO2 ABG HCO3 ABG O2 Saturation ABG Base Excess FiO2 Sodium Potassium Chloride Carbon Dioxide Anion Gap BUN Creatinine Est GFR ( Amer) Est GFR (Non-Af Amer) Glucose Calcium Impressions: Chest X-Ray 05/17/18 13:29 IMPRESSION: Chronic changes. No acute findings. Chest/Abdomen CTA 05/17/18 14:07 IMPRESSION: 1 No evidence of pulmonary emboli. Centrilobular emphysema. 2.7 x 2.4 cm spiculated mass right upper lobe consistent carcinoma. Status post left thoracotomy. Fibrotic scarring and traction bronchiectasis left upper lobe and superior segment left lower lobe consistent post radiation change. 2. Bilateral adrenal masses right greater than left. Persistent hypodensities within the liver too small to characterize. Cholelithiasis. Assessment & Plan - Diagnosis (1) Acute respiratory failure with hypoxia Is this a current diagnosis for this admission?: Yes Plan: Improving gradually with current treatments. (2) Lung cancer Qualifiers: Laterality: right Lung location: upper lobe of lung Qualified Code(s): C34.11 - Malignant neoplasm of upper lobe, right bronchus or lung Is this a current diagnosis for this admission?: Yes Plan: All treatment currently on hold. (3) Hyponatremia Is this a current diagnosis for this admission?: Yes Plan: Continues to worsen. She is not currently on any IV fluids. Consider free water restriction and using Na rich fluids only. - Plan Summary Plan Summary: I will be available over the holiday weekend if needed. Please feel free to call me if needed. Will continue to follow.
[2018-05-20] MEDS: LORATADINE 10 MG TABLET PO SCH (10:48)
[2018-05-20] MEDS: GUAIFENESIN 600 MG TABLET.SA PO SCH ×2 (10:49→21:47)
[2018-05-20] MEDS: ASPIRIN 81 MG TABLET, ENT COATED PO SCH (10:49)
[2018-05-20] MEDS: LOSARTAN POTASSIUM 50 MG TABLET PO SCH (10:49)
[2018-05-20] MEDS: ROFLUMILAST 500 MCG TABLET PO SCH (10:49)
[2018-05-20] MEDS: ENOXAPARIN SODIUM INJ 40 MG/0.4 ML DISP.SYRIN SUBCUT SCH (10:50)
[2018-05-20] MEDS: MULTIVITAMIN TABLET PO SCH (10:50)
[2018-05-20] MEDS: AMLODIPINE BESYLATE 5 MG TABLET PO SCH (10:50)
[2018-05-20] MEDS: FLUTICASONE NASAL SPRAY 50 MCG/SPRY 120 SPRAY/16 GM NASL SCH (10:50)
[2018-05-20] MEDS: CALCIUM CARBONATE 250 MG/VITAMIN D3 125 UNIT TABLET PO SCH (10:50)
[2018-05-20 11:08] LABS: APPEARANCE,URINE CLEAR; BILIRUBIN,URINE NEGATIVE (NEGATIVE); COLOR,URINE YELLOW; GLUCOSE, URINE NEGATIVE (NEGATIVE); KETONES,URINE NEGATIVE (NEGATIVE); LEUKOCYTE ESTERASE,URINE NEGATIVE (NEGATIVE); NITRITE,URINE NEGATIVE (NEGATIVE); PROTEIN,URINE NEGATIVE (NEGATIVE); UROBILINOGEN,URINE NEGATIVE mg/dL (<2.0)
[2018-05-20 11:54] LABS: URINE SODIUM 32 mmol/L (30-90)
[2018-05-20 11:57] LABS: OSMOLALITY,URINE 297 mOsm/kg (300-900)
[2018-05-20] MEDS: MAG HYDROX/AL HYDROX/SIMETH SUSP 30 ML UDCUP PO PRN (12:37)
[2018-05-20 13:20] LABS: TROPONIN I 0.037 ng/mL
[2018-05-20] MEDS: FUROSEMIDE 20 MG TABLET PO SCH (14:41)
[2018-05-20] MEDS ORDERED: DILTIAZEM HCL INJ 25 MG/5 ML VIAL IV ONE (15:30)
--- NOTE | 2018-05-20 15:47 | EKG REPORT ---
SEVERITY:- DEFECTIVE ECG - SINUS TACHYCARDIA INFERIOR INFARCT, OLD LEADS V2 AND V3 INTERCHANGED.REPEAT EKG. : Confirmed by: Mary Carmen Dorantes MD 20-May-2018 15:46:56
[2018-05-20] MEDS ORDERED: NORMAL SALINE 1000 ML 1,000 ML IV PRN (16:55)
--- NOTE | 2018-05-20 17:04 | PDOC PROGRESS REPORT ---
Subjective Progress Note for:: 05/20/18 Subjective:: The patient is a 77-year-old female with severe COPD, metastatic lung cancer status post radiation chemotherapy currently on Tarceva, hypertension, arthritis , depression, and tobacco abuse with continuous use who was admitted on 2017 for acute respiratory failure secondary to COPD exacerbation in the setting of lung cancer. The patient was seen on morning rounds. She was found sitting up to the edge of bed on room air eating her breakfast. She tells me that her breathing is less labored today while at rest, but continues to have significant dyspnea with minimal activity. She did attempt to use BiPAP again yesterday evening but did not manage to wear the device for more than 5-10 minutes due to nasal congestion/claustrophobia. Overall, she is feeling improved. Her primary complaint at present is heartburn/reflux. Patient denies fever, chills, chest pain, palpitations, orthopnea, abdominal pain, nausea and vomiting. She has no questions or concerns at this time. Nursing reports that the patient continues to have severe anxiety that responds minimally to IV Ativan. Patient has continued to decline IV Versed; attempted to explain the difference between these medications to the patient, she was unreceptive at this time. Nursing also reports concern about progressively increasing tachycardia; currently in the 120s. Heart rate does not appear to improve with rest. The patient denies chest discomfort; initially declines to have any additional lab work or EKGs done. Reason For Visit: COPD EXACERBATION Physical Exam Vital Signs: Temp Pulse Resp BP Pulse Ox 97.6 F 132 H 24 H 135/55 H 95 05/20/18 11:02 05/20/18 14:00 05/20/18 13:51 05/20/18 11:02 05/20/18 13:51 Intake & Output 05/19/18 05/20/18 05/21/18 06:59 06:59 06:59 Intake Total 1550 562 300 Output Total 400 Balance 1550 562 -100 Weight 59.8 kg 62.1 kg General appearance: PRESENT: no acute distress, well-developed, well-nourished Head exam: PRESENT: atraumatic, normocephalic Eye exam: PRESENT: conjunctiva pink, EOMI, PERRLA. ABSENT: scleral icterus Ear exam: PRESENT: normal external ear exam Mouth exam: PRESENT: moist, tongue midline Neck exam: ABSENT: carotid bruit, JVD, lymphadenopathy, thyromegaly Respiratory exam: PRESENT: decreased breath sounds - Bibasilar, prolonged expiratory phas, symmetrical, tachypnea, wheezes - Expiratory wheezing throughout. ABSENT: rales, rhonchi Cardiovascular exam: PRESENT: RRR, +S1, +S2, tachycardia. ABSENT: diastolic murmur, rubs, systolic murmur Pulses: PRESENT: normal dorsalis pedis pul Vascular exam: PRESENT: normal capillary refill GI/Abdominal exam: PRESENT: normal bowel sounds, soft. ABSENT: distended, guarding, mass, organolmegaly, rebound, tenderness Rectal exam: PRESENT: deferred Extremities exam: PRESENT: full ROM. ABSENT: calf tenderness, clubbing, pedal edema Neurological exam: PRESENT: alert, awake, oriented to person, oriented to place , oriented to time, oriented to situation, CN II-XII grossly intact. ABSENT: motor sensory deficit Psychiatric exam: PRESENT: appropriate affect, normal mood. ABSENT: homicidal ideation, suicidal ideation Skin exam: PRESENT: dry, intact, warm. ABSENT: cyanosis, rash Results Laboratory Results: 05/20/18 05:30 05/20/18 05:30 05/20/18 05/20/18 05/20/18 05:30 05:30 10:40 WBC 6.9 RBC 3.77 Hgb 12.0 Hct 34.7 L MCV 92 MCH 31.9 MCHC 34.7 RDW 13.8 Plt Count 251 Sodium 128.1 L Potassium 4.7 Chloride 88 L Carbon Dioxide 30 Anion Gap 10 BUN 12 Creatinine 0.56 Est GFR ( Amer) > 60 Est GFR (Non-Af Amer) > 60 Glucose 150 H Calcium 9.0 Urine Color Urine Appearance Urine pH Ur Specific [place] Urine Protein Urine Glucose (UA) Urine Ketones Urine Blood Urine Nitrite Ur Leukocyte Esterase Urine Osmolality 297 L 05/20/18 10:40 WBC RBC Hgb Hct MCV MCH MCHC RDW Plt Count Sodium Potassium Chloride Carbon Dioxide Anion Gap BUN Creatinine Est GFR ( Amer) Est GFR (Non-Af Amer) Glucose Calcium Urine Color YELLOW Urine Appearance CLEAR Urine pH 6.0 Ur Specific [place] 1.010 Urine Protein NEGATIVE Urine Glucose (UA) NEGATIVE Urine Ketones NEGATIVE Urine Blood NEGATIVE Urine Nitrite NEGATIVE Ur Leukocyte Esterase NEGATIVE Urine Osmolality 05/19/18 18:17 Sputum Gram Stain - Final 05/19/18 18:17 Sputum Sputum Culture - Final 05/20/18 12:13 Troponin I 0.037 NT-Pro-B Natriuret Pep 3100 H Impressions: Chest X-Ray 05/17/18 13:29 IMPRESSION: Chronic changes. No acute findings. Chest/Abdomen CTA 05/17/18 14:07 IMPRESSION: 1 No evidence of pulmonary emboli. Centrilobular emphysema. 2.7 x 2.4 cm spiculated mass right upper lobe consistent carcinoma. Status post left thoracotomy. Fibrotic scarring and traction bronchiectasis left upper lobe and superior segment left lower lobe consistent post radiation change. 2. Bilateral adrenal masses right greater than left. Persistent hypodensities within the liver too small to characterize. Cholelithiasis. Assessment & Plan - Diagnosis (1) Acute respiratory failure with hypoxia Is this a current diagnosis for this admission?: Yes Plan: Secondary to COPD exacerbation in the setting of lung cancer. Somewhat improved. Pt is not tolerating BiPAP; supplemental oxygen continues at 2-4 lpm via nasal cannula. Patient is now able to speak full sentences and appears comfortable at rest, however, continues to have significant dyspnea with minimal exertion. The patient is admitted to [facility] on continuous cardiac telemetry. She is provided supplemental oxygen and BiPAP as needed to maintain oxygen saturations greater than 89%. Remaining plan as outlined below. (2) COPD exacerbation Is this a current diagnosis for this admission?: Yes Plan: Slight improvement today. The patient continues to be tachypneic, tachycardic, with expiratory wheezing, and accessory muscle use after ambulating; improved comfort while at rest. CTA of the chest is negative for PE but does reveal emphysema, spiculated mass to the right upper lobe consistent with carcinoma, postradiation changes to the left upper lobe, bilateral adrenal masses, multiple hypodensities within the liver. repeat ABG yesterday is reassurin.45/41.5/82.2/28.1 on 3 lpm via NC. The patient has been admitted to [facility] on continuous cardiac telemetry. She is provided supplemental oxygen as needed to maintain oxygen saturations greater than 89%. The patient is encouraged to attempt BiPAP use; per nursing she continues to refuse to use BiPAP. Patient agrees that she has tolerated only 5-10 minutes at a time despite anxiety medications being available. The patient was empirically placed on Levaquin for coverage of bronchitis. Sputum culture has been ordered but at this time the patient does not have a productive cough. She is placed on scheduled and as needed nebulizer treatments. Will adjust scheduled medication from DuoNeb to Atrovent and Xopenex combination due to persistent tachycardia. Pulmonology was consulted; appreciate Dr. Brown's assistance. He has placed her on twice daily Pulmicort, Daliresp, and Solu-Medrol every 6 hours. Continue Mucinex twice daily. Incentive spirometry and flutter valve to bedside. Will ask physical therapy to evaluate patient; recommends home health PT at discharge. Discharge planning and Palliative care consultations are placed. (3) Lung cancer Qualifiers: Laterality: right Lung location: upper lobe of lung Qualified Code(s): C34.11 - Malignant neoplasm of upper lobe, right bronchus or lung Is this a current diagnosis for this admission?: Yes Plan: The patient is established with Dr. Davidson; currently on Tarceva. Oncology has been consulted; appreciate their evaluation recommendations. (4) Essential hypertension Is this a current diagnosis for this admission?: Yes Plan: Blood pressures are acceptable for age; will continue her home medication regiment. (5) Tobacco abuse Is this a current diagnosis for this admission?: Yes Plan: The patient continues to smoke multiple packs daily. She acknowledges that this is likely contributing to her repeat admissions and progressively worsening COPD. Despite this, she appears to be pre-contemplative with regard to smoking cessation. Nicotine replacement therapies (patch and gum) are offered; declined by patient. (6) Anxiety Is this a current diagnosis for this admission?: Yes Plan: Patient admits to history of depression and anxiety; not on maintenance medications. Continue scheduled Buspar twice daily. Ativan 1 mg p.o. every 6 hours as needed. (7) Hyponatremia Is this a current diagnosis for this admission?: Yes Plan: Pt with history of hyponatremia; baseline 130. Has been as low as 119.9 in the past. Possibly related to Lung CA w/ adrenal masses. Currently 128.. Urine Osmo 297, Urine Na 32. Regular diet. Will administer 1 L of normal saline to ensure that sodium intake is greater than 150 M EQ's over 24-hour period and reevaluate urine osmolality and sodium tomorrow. Will check TSH with am labs. Free water restriction to 1.5 L daily. Strict I&O's, daily weights. (8) Tachycardia Is this a current diagnosis for this admission?: Yes Plan: The patient has persistent tachycardia despite rest, adequate oxygenation, and anxiety medications. CTA of the chest was negative for pulmonary embolus. EKG demonstrated sinus tachycardia with a rate of 124 and an old inferior infarct. No current ST segment changes. Patient was provided diltiazem 15 mg IV x1. 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 Troponin was indeterminate at 0.034; will continue to trend. ProBNP elevated to 3100. Will check TSH with a.m. labs. - Time Time Spent with patient: 25-34 minutes Medications reviewed and adjusted accordingly: Yes Anticipated discharge: Home with Homehealth
[2018-05-20] MEDS: LORAZEPAM 1 MG TABLET PO PRN (17:19)
[2018-05-20] MEDS: METHYLPREDNISOLONE INJ 40 MG/1 ML SDV IV SCH ×2 (17:19→23:28)
[2018-05-20] MEDS: LEVOFLOXACIN 750 MG TABLET PO SCH (17:19)
[2018-05-20] MEDS: LEVALBUTEROL HCL NEB 1.25 MG/3 ML AMPUL NEB PRN (20:39)
[2018-05-21] MEDS: IPRATROPIUM BROMIDE 0.02% NEB 0.5 MG/2.5 ML AMPUL NEB SCH ×3 (00:04→16:01)
[2018-05-21] MEDS: LEVALBUTEROL HCL NEB 1.25 MG/3 ML AMPUL NEB SCH ×3 (00:05→16:02)
[2018-05-21] MEDS: MAG HYDROX/AL HYDROX/SIMETH SUSP 30 ML UDCUP PO PRN ×3 (01:27→20:09)
[2018-05-21] MEDS: ACETAMINOPHEN 325 MG TABLET PO PRN ×3 (03:52→22:33)
[2018-05-21] MEDS: METHYLPREDNISOLONE INJ 40 MG/1 ML SDV IV SCH ×4 (05:56→23:44)
[2018-05-21] MEDS: HYDRALAZINE HCL 25 MG TABLET PO SCH ×3 (05:57→22:29)
[2018-05-21 06:28] LABS: ANION GAP 9 (5-19); BLOOD UREA NITROGEN 17 mg/dL (7-20); CARBON DIOXIDE 30 mmol/L (22-30); CHLORIDE 89 mmol/L (98-107); GLUCOSE 131 mg/dL (75-110); SODIUM 128.2 mmol/L (137-145)
[2018-05-21] MEDS: BUDESONIDE NEB 0.5 MG/2 ML AMPUL NEB SCH ×2 (08:24→20:07)
[2018-05-21] MEDS: BUSPIRONE HCL 10 MG TABLET PO SCH ×2 (08:39→22:29)
[2018-05-21] MEDS: SODIUM CHLORIDE NASAL SPRAY 44 ML NASL SCH ×4 (08:40→22:29)
[2018-05-21] MEDS: AMLODIPINE BESYLATE 5 MG TABLET PO SCH (09:08)
[2018-05-21] MEDS: LORAZEPAM 1 MG TABLET PO PRN (09:09)
[2018-05-21] MEDS: GUAIFENESIN 600 MG TABLET.SA PO SCH ×2 (09:09→22:29)
[2018-05-21] MEDS: LORATADINE 10 MG TABLET PO SCH (09:09)
[2018-05-21] MEDS: ASPIRIN 81 MG TABLET, ENT COATED PO SCH (09:09)
[2018-05-21] MEDS: CALCIUM CARBONATE 250 MG/VITAMIN D3 125 UNIT TABLET PO SCH (09:09)
[2018-05-21] MEDS: MULTIVITAMIN TABLET PO SCH (09:09)
[2018-05-21] MEDS: ENOXAPARIN SODIUM INJ 40 MG/0.4 ML DISP.SYRIN SUBCUT SCH (09:09)
[2018-05-21] MEDS: LOSARTAN POTASSIUM 50 MG TABLET PO SCH (09:09)
[2018-05-21] MEDS: FUROSEMIDE 20 MG TABLET PO SCH (09:09)
[2018-05-21] MEDS: ROFLUMILAST 500 MCG TABLET PO SCH (09:21)
[2018-05-21] MEDS: FLUTICASONE NASAL SPRAY 50 MCG/SPRY 120 SPRAY/16 GM NASL SCH (09:22)
--- NOTE | 2018-05-21 09:38 | EKG REPORT ---
SEVERITY:- ABNORMAL ECG - SINUS TACHYCARDIA WITH IRREGULAR RATE [id number] PROBABLE INFERIOR INFARCT, OLD : Confirmed by: Mary Carmen Dorantes MD 21-May-2018 09:38:13
[2018-05-21 12:00] LABS: URINE SODIUM 15 mmol/L (30-90)
[2018-05-21 12:20] LABS: OSMOLALITY,URINE 339 mOsm/kg (300-900)
[2018-05-21] MEDS ORDERED: KETOROLAC TROMETHAMINE INJ/PF 30 MG/1 ML SDV IV ONE (12:22)
--- NOTE | 2018-05-21 12:50 | PDOC PROGRESS REPORT ---
Subjective Progress Note for:: 05/21/18 Subjective:: The patient is a 77-year-old female with severe COPD, metastatic lung cancer status post radiation chemotherapy currently on Tarceva, hypertension, arthritis , depression, and tobacco abuse with continuous use who was admitted on 2017 for acute respiratory failure secondary to COPD exacerbation in the setting of lung cancer. The patient was seen on morning rounds with her present. She was found resting in bed comfortably on room air. She reports that she continues to have episodes of severe dyspnea; most often occurring after slight activity. She is just returned from the restroom and is feeling very short of breath. She reports that she is now developed a productive cough; states that she feels "like things are starting to break up." She complains of right lower back/hip pain that she attributes to sleeping in the hospital bed. She also reports persistent reflux, although, it does improve following Maalox. Patient denies fever, chills, chest pain, palpitations, orthopnea, abdominal pain, nausea and vomiting. She has no questions or concerns at this time. Nursing reports continued sinus tachycardia. With rest, patient's heart rate maintains 115-120, but briefly elevates to the 140s with minimal activity. Patient again attempted BiPAP last night; more than mask for approximately 30 minutes. Reason For Visit: COPD EXACERBATION Physical Exam Vital Signs: Temp Pulse Resp BP Pulse Ox 98.3 F 122 H 24 H 128/44 H 100 05/21/18 11:07 05/21/18 11:07 05/21/18 11:07 05/21/18 11:07 05/21/18 11:07 Intake & Output 05/20/18 05/21/18 05/22/18 06:59 06:59 06:59 Intake Total 562 675 237 Output Total 700 Balance 562 -25 237 Weight 62.1 kg 62.5 kg General appearance: PRESENT: no acute distress, well-developed, well-nourished Head exam: PRESENT: atraumatic, normocephalic Eye exam: PRESENT: conjunctiva pink, EOMI, PERRLA. ABSENT: scleral icterus Ear exam: PRESENT: normal external ear exam Mouth exam: PRESENT: moist, tongue midline Neck exam: ABSENT: carotid bruit, JVD, lymphadenopathy, thyromegaly Respiratory exam: PRESENT: prolonged expiratory phas, rhonchi, symmetrical, tachypnea, wheezes - expiratory wheezing. ABSENT: rales Cardiovascular exam: PRESENT: RRR, +S1, +S2, tachycardia. ABSENT: diastolic murmur, rubs, systolic murmur Pulses: PRESENT: normal dorsalis pedis pul Vascular exam: PRESENT: normal capillary refill GI/Abdominal exam: PRESENT: normal bowel sounds, soft. ABSENT: distended, guarding, mass, organolmegaly, rebound, tenderness Rectal exam: PRESENT: deferred Extremities exam: PRESENT: full ROM. ABSENT: calf tenderness, clubbing, pedal edema Neurological exam: PRESENT: alert, awake, oriented to person, oriented to place , oriented to time, oriented to situation, CN II-XII grossly intact. ABSENT: motor sensory deficit Psychiatric exam: PRESENT: anxious, appropriate affect, normal mood. ABSENT: homicidal ideation, suicidal ideation Skin exam: PRESENT: dry, intact, warm. ABSENT: cyanosis, rash Results Laboratory Results: 05/20/18 05:30 05/21/18 05:40 05/21/18 05/21/18 05:40 05:40 Sodium 128.2 L Potassium 5.0 Chloride 89 L Carbon Dioxide 30 Anion Gap 9 BUN 17 Creatinine 0.59 Est GFR ( Amer) > 60 Est GFR (Non-Af Amer) > 60 Glucose 131 H Calcium 9.0 TSH 0.31 L 05/19/18 18:17 Sputum Gram Stain - Final 05/19/18 18:17 Sputum Sputum Culture - Final 05/20/18 05/20/18 05/21/18 12:13 17:50 00:15 Troponin I 0.037 0.041 0.042 NT-Pro-B Natriuret Pep 3100 H 05/21/18 09:29 Troponin I 0.035 NT-Pro-B Natriuret Pep Impressions: Chest X-Ray 05/17/18 13:29 IMPRESSION: Chronic changes. No acute findings. Chest/Abdomen CTA 05/17/18 14:07 IMPRESSION: 1 No evidence of pulmonary emboli. Centrilobular emphysema. 2.7 x 2.4 cm spiculated mass right upper lobe consistent carcinoma. Status post left thoracotomy. Fibrotic scarring and traction bronchiectasis left upper lobe and superior segment left lower lobe consistent post radiation change. 2. Bilateral adrenal masses right greater than left. Persistent hypodensities within the liver too small to characterize. Cholelithiasis. Assessment & Plan - Diagnosis (1) Acute respiratory failure with hypoxia Is this a current diagnosis for this admission?: Yes Plan: Minimally improved. Secondary to COPD exacerbation in the setting of lung cancer. Pt is not tolerating BiPAP; supplemental oxygen continues at 2-4 lpm via nasal cannula. Patient is now able to speak full sentences and appears comfortable at rest, however, continues to have significant dyspnea and tachypnea with minimal exertion. Sustained Sinus Tach in the 120s. The patient is admitted to [facility] on continuous cardiac telemetry. She is provided supplemental oxygen and BiPAP as needed to maintain oxygen saturations greater than 89%. Remaining plan as outlined below. (2) COPD exacerbation Is this a current diagnosis for this admission?: Yes Plan: The patient continues to be tachypneic, tachycardic, with expiratory wheezing. Now speaking full sentences, improved comfort while at rest, maintaining saturations in the high 90s. CTA of the chest is negative for PE but does reveal emphysema, spiculated mass to the right upper lobe consistent with carcinoma, postradiation changes to the left upper lobe, bilateral adrenal masses, multiple hypodensities within the liver. repeat ABG reassurin.45/41.5/82.2/28.1 on 3 lpm via NC. Sputum culture pending. The patient has been admitted to [facility] on continuous cardiac telemetry. She is provided supplemental oxygen as needed to maintain oxygen saturations greater than 89%. The patient is encouraged to attempt BiPAP use; per nursing she continues to refuse to use BiPAP. Did tolerate 30 minutes last night. The patient was empirically placed on Levaquin for coverage of bronchitis; will adjust as sputum culture results. Continue scheduled and as needed nebulizer treatments. Pulmonology was consulted; appreciate Dr. Brown's assistance. He has placed her on twice daily Pulmicort, Daliresp, and Solu-Medrol every 6 hours. Continue Mucinex twice daily. Incentive spirometry and flutter valve to bedside. Will ask physical therapy to evaluate patient; recommends home health PT at discharge. Discharge planning and Palliative care consultations are placed. Incentive spirometer and flutter valve to bedside. (3) Lung cancer Qualifiers: Laterality: right Lung location: upper lobe of lung Qualified Code(s): C34.11 - Malignant neoplasm of upper lobe, right bronchus or lung Is this a current diagnosis for this admission?: Yes Plan: The patient is established with Dr. Davidson; currently on Tarceva. Oncology has been consulted; appreciate their evaluation recommendations. (4) Essential hypertension Is this a current diagnosis for this admission?: Yes Plan: Blood pressures are acceptable for age; will continue her home medication regiment. (5) Tobacco abuse Is this a current diagnosis for this admission?: Yes Plan: The patient continues to smoke multiple packs daily. She acknowledges that this is likely contributing to her repeat admissions and progressively worsening COPD. Despite this, she appears to be pre-contemplative with regard to smoking cessation. Nicotine replacement therapies (patch and gum) are offered; declined by patient. (6) Anxiety Is this a current diagnosis for this admission?: Yes Plan: Patient admits to history of depression and anxiety; not on maintenance medications. Continue scheduled Buspar twice daily. Ativan 1 mg p.o. every 6 hours as needed. (7) Hyponatremia Is this a current diagnosis for this admission?: Yes Plan: Hypovolemic hyponatremia. Pt with history of hyponatremia; baseline 130. Has been as low as 119.9 in the past. Possibly related to Lung CA w/ adrenal masses. Currently 128.. Urine Osmo 297, Urine Na 32. Repeat Urine Osmo 339, Urine 15 (following IVF). TSH low; 0.31. T3 and Free T4 pending. Resume gentle IVF. Hold lasix. Strict I&O's, daily weights. Regular diet. Daily chemistries. (8) Tachycardia Is this a current diagnosis for this admission?: Yes Plan: Multifactorial secondary to acute/chronic respiratory failure and dehydration. The patient has persistent tachycardia despite rest, adequate oxygenation ( maintaining oxygen saturations >95%), and anxiety medications. CTA of the chest was negative for pulmonary embolus. EKG demonstrated sinus tachycardia with a rate of 124 and an old inferior infarct. No current ST segment changes. Patient was provided diltiazem 15 mg IV x1. 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 Troponin was indeterminate x4, stable and trending down. Pro BNP 3100 TSH low, T3 and T4 pending. Will begin gentle IVF. Continue to monitor on continuous cardiac telemetry. - Time Time Spent with patient: 15-24 minutes Medications reviewed and adjusted accordingly: Yes Anticipated discharge: Home with Homehealth
[2018-05-21 13:28] LABS: FREE T4 (FREE THYROXINE) 1.56 ng/dL (0.78-2.19)
[2018-05-21] MEDS: NORMAL SALINE 1000 ML 1,000 ML IV PRN (13:28)
[2018-05-21 13:29] LABS: FREE T3 2.9 pg/mL (2.77-5.27)
[2018-05-21] MEDS: LEVOFLOXACIN 750 MG TABLET PO SCH (17:20)
[2018-05-21] MEDS: FAMOTIDINE 20 MG TABLET PO SCH (22:29)
[2018-05-22] MEDS: LEVALBUTEROL HCL NEB 1.25 MG/3 ML AMPUL NEB SCH ×4 (00:09→23:56)
[2018-05-22] MEDS: IPRATROPIUM BROMIDE 0.02% NEB 0.5 MG/2.5 ML AMPUL NEB SCH ×4 (00:09→23:56)
[2018-05-22] MEDS: NORMAL SALINE 1000 ML 1,000 ML IV PRN (02:35)
[2018-05-22] MEDS: HYDRALAZINE HCL 25 MG TABLET PO SCH ×3 (06:09→21:48)
[2018-05-22] MEDS: METHYLPREDNISOLONE INJ 40 MG/1 ML SDV IV SCH ×3 (06:09→17:05)
[2018-05-22 06:48] LABS: ANION GAP 9 (5-19); BLOOD UREA NITROGEN 21 mg/dL (7-20); CALCIUM 7.9 mg/dL (8.4-10.2); CARBON DIOXIDE 28 mmol/L (22-30); CHLORIDE 89 mmol/L (98-107); GLUCOSE 118 mg/dL (75-110); POTASSIUM 5.1 mmol/L (3.6-5.0); SODIUM 125.5 mmol/L (137-145)
[2018-05-22] MEDS ORDERED: DEXTROSE 5%-1/2 NORMAL SALINE 1,000 ML IV PRN (07:29)
[2018-05-22] MEDS: BUDESONIDE NEB 0.5 MG/2 ML AMPUL NEB SCH (07:41)
[2018-05-22] MEDS: ACETAMINOPHEN 325 MG TABLET PO PRN ×2 (08:07→16:18)
[2018-05-22] MEDS: BUSPIRONE HCL 10 MG TABLET PO SCH ×2 (08:08→21:48)
[2018-05-22] MEDS: SODIUM CHLORIDE NASAL SPRAY 44 ML NASL SCH ×4 (08:11→21:48)
[2018-05-22] MEDS: ROFLUMILAST 500 MCG TABLET PO SCH (09:38)
[2018-05-22] MEDS: CALCIUM CARBONATE 250 MG/VITAMIN D3 125 UNIT TABLET PO SCH (09:38)
[2018-05-22] MEDS: GUAIFENESIN 600 MG TABLET.SA PO SCH ×2 (09:38→21:45)
[2018-05-22] MEDS: ASPIRIN 81 MG TABLET, ENT COATED PO SCH (09:38)
[2018-05-22] MEDS: AMLODIPINE BESYLATE 5 MG TABLET PO SCH (09:38)
[2018-05-22] MEDS: LOSARTAN POTASSIUM 50 MG TABLET PO SCH ×2 (09:38→11:18)
[2018-05-22] MEDS: FAMOTIDINE 20 MG TABLET PO SCH ×2 (09:38→21:45)
[2018-05-22] MEDS: MULTIVITAMIN TABLET PO SCH (09:38)
[2018-05-22] MEDS: LORATADINE 10 MG TABLET PO SCH (09:38)
[2018-05-22] MEDS: ENOXAPARIN SODIUM INJ 40 MG/0.4 ML DISP.SYRIN SUBCUT SCH (09:39)
[2018-05-22] MEDS: FLUTICASONE NASAL SPRAY 50 MCG/SPRY 120 SPRAY/16 GM NASL SCH (09:39)
[2018-05-22] MEDS ORDERED: METOCLOPRAMIDE HCL ORAL SOLN 10 MG/10 ML UDCUP PO ONE (11:00)
[2018-05-22] MEDS ORDERED: MAG HYDROX/AL HYDROX/SIMETH SUSP 30 ML UDCUP PO ONE (11:00)
[2018-05-22] MEDS ORDERED: LIDOCAINE 2% VISCOUS SOLN 20 ML UDCUP PO ONE (11:00)
[2018-05-22] MEDS: FLUCONAZOLE 100 MG TABLET PO SCH (11:26)
[2018-05-22] MEDS: CARVEDILOL 3.125 MG TABLET PO SCH ×2 (11:26→21:47)
[2018-05-22] MEDS: SODIUM CHLORIDE 1 GM TABLET PO SCH (11:26)
[2018-05-22] MEDS: NYSTATIN 500000 UNIT/5 ML UDCUP PO SCH ×4 (11:30→21:48)
[2018-05-22] MEDS ORDERED: LIDOCAINE 2% VISCOUS SOLN 20 ML UDCUP PO PRN (12:05)
--- NOTE | 2018-05-22 12:06 | PDOC PROGRESS REPORT ---
Subjective Progress Note for:: 05/22/18 Subjective:: The patient is a 77-year-old female with severe COPD, metastatic lung cancer status post radiation chemotherapy currently on Tarceva, hypertension, arthritis , depression, and tobacco abuse with continuous use who was admitted on 2017 for acute respiratory failure secondary to COPD exacerbation in the setting of lung cancer. The patient was seen on morning rounds with her present. She was found sitting up to the edge of the bed eating her breakfast. She is speaking full sentences, however, remains tachypneic with slight increase in work of breathing. The patient reports that she continues to have a productive cough. She is frustrated by her lack of notable improvement in breathing. Her primary complaint today is sore throat and reflux symptoms. Patient denies fever, chills, chest pain, palpitations, orthopnea, abdominal pain, nausea and vomiting. Reason For Visit: COPD EXACERBATION Physical Exam Vital Signs: Temp Pulse Resp BP Pulse Ox 97.6 F 120 H 30 H 111/64 100 05/22/18 08:01 05/22/18 08:01 05/22/18 08:01 05/22/18 08:01 05/22/18 08:01 Intake & Output 05/21/18 05/22/18 05/23/18 06:59 06:59 06:59 Intake Total 675 1825 Output Total 700 300 Balance -25 1525 Weight 62.5 kg 65.9 kg General appearance: PRESENT: no acute distress, well-developed, well-nourished Head exam: PRESENT: atraumatic, normocephalic Eye exam: PRESENT: conjunctiva pink, EOMI, PERRLA. ABSENT: scleral icterus Ear exam: PRESENT: normal external ear exam Mouth exam: PRESENT: moist, tongue midline Neck exam: ABSENT: carotid bruit, JVD, lymphadenopathy, thyromegaly Respiratory exam: PRESENT: prolonged expiratory phas, rhonchi, symmetrical, tachypnea, wheezes. ABSENT: rales Cardiovascular exam: PRESENT: RRR, +S1, +S2, tachycardia. ABSENT: diastolic murmur, rubs, systolic murmur Pulses: PRESENT: normal dorsalis pedis pul Vascular exam: PRESENT: normal capillary refill GI/Abdominal exam: PRESENT: normal bowel sounds, soft. ABSENT: distended, guarding, mass, organolmegaly, rebound, tenderness Rectal exam: PRESENT: deferred Extremities exam: PRESENT: full ROM. ABSENT: calf tenderness, clubbing, pedal edema Neurological exam: PRESENT: alert, awake, oriented to person, oriented to place , oriented to time, oriented to situation, CN II-XII grossly intact. ABSENT: motor sensory deficit Psychiatric exam: PRESENT: anxious, appropriate affect. ABSENT: homicidal ideation, suicidal ideation Skin exam: PRESENT: dry, intact, warm. ABSENT: cyanosis, rash Results Laboratory Results: 05/20/18 05:30 05/22/18 06:05 05/21/18 05/21/18 05/22/18 05:40 11:25 06:05 Sodium 125.5 L Potassium 5.1 H Chloride 89 L Carbon Dioxide 28 Anion Gap 9 BUN 21 H Creatinine 0.58 Est GFR ( Amer) > 60 Est GFR (Non-Af Amer) > 60 Glucose 118 H Calcium 7.9 L Free T4 1.56 Free T3 pg/mL 2.90 Urine Osmolality 339 05/20/18 05/20/18 05/21/18 12:13 17:50 00:15 Troponin I 0.037 0.041 0.042 NT-Pro-B Natriuret Pep 3100 H 05/21/18 09:29 Troponin I 0.035 NT-Pro-B Natriuret Pep Impressions: Chest X-Ray 05/17/18 13:29 IMPRESSION: Chronic changes. No acute findings. Chest/Abdomen CTA 05/17/18 14:07 IMPRESSION: 1 No evidence of pulmonary emboli. Centrilobular emphysema. 2.7 x 2.4 cm spiculated mass right upper lobe consistent carcinoma. Status post left thoracotomy. Fibrotic scarring and traction bronchiectasis left upper lobe and superior segment left lower lobe consistent post radiation change. 2. Bilateral adrenal masses right greater than left. Persistent hypodensities within the liver too small to characterize. Cholelithiasis. Assessment & Plan - Diagnosis (1) Acute respiratory failure with hypoxia Is this a current diagnosis for this admission?: Yes Plan: Unchanged. Secondary to COPD exacerbation in the setting of lung cancer. Now maintaining oxygen saturations on room air while at rest; she is able to speak full sentences, however, remains tachypneic and continues to have significant dyspnea with minimal exertion. Sustained Sinus Tach in the 120s. The patient is admitted to [facility] on continuous cardiac telemetry. She is provided supplemental oxygen as needed to maintain oxygen saturations greater than 89%. Remaining plan as outlined below. (2) COPD exacerbation Is this a current diagnosis for this admission?: Yes Plan: The patient continues to be tachypneic, tachycardic, with expiratory wheezing. Now speaking full sentences, improved comfort while at rest, maintaining saturations in the high 90s on room air. CTA of the chest is negative for PE but does reveal emphysema, spiculated mass to the right upper lobe consistent with carcinoma, postradiation changes to the left upper lobe, bilateral adrenal masses, multiple hypodensities within the liver. repeat ABG reassurin.45/41.5/82.2/28.1 on 3 lpm via NC. Sputum culture growing gram-negative rods. The patient has been admitted to [facility] on continuous cardiac telemetry. She is provided supplemental oxygen as needed to maintain oxygen saturations greater than 89%. She received 5 days of p.o. Levaquin for coverage of bronchitis. Continue scheduled and as needed nebulizer treatments. Gradual Solu-Medrol weaning. Pulmicort on hold secondary to continued IV glucocorticoids and development of thrush. Continue Daliresp. Continue Mucinex twice daily. Incentive spirometry and flutter valve to bedside. Pulmonology was consulted; appreciate Dr. Brown's assistance. Will ask physical therapy to evaluate patient; recommends home health PT at discharge. Discharge planning and Palliative care consultations are placed. Incentive spirometer and flutter valve to bedside. (3) Lung cancer Qualifiers: Laterality: right Lung location: upper lobe of lung Qualified Code(s): C34.11 - Malignant neoplasm of upper lobe, right bronchus or lung Is this a current diagnosis for this admission?: Yes Plan: The patient is established with Dr. Davidson; currently on Tarceva. Oncology has been consulted; appreciate their evaluation recommendations. (4) Essential hypertension Is this a current diagnosis for this admission?: Yes Plan: Blood pressures are acceptable for age. Continue amlodipine 5 mg daily and hydralazine 25 mg every 8 hour. I reduce losartan to 50 mg daily. Begin carvedilol 3.125 mg twice daily. (5) Tobacco abuse Is this a current diagnosis for this admission?: Yes Plan: The patient continues to smoke multiple packs daily. She acknowledges that this is likely contributing to her repeat admissions and progressively worsening COPD. Despite this, she appears to be pre-contemplative with regard to smoking cessation. Nicotine replacement therapies (patch and gum) are offered; declined by patient. (6) Anxiety Is this a current diagnosis for this admission?: Yes Plan: Patient admits to history of depression and anxiety; not on maintenance medications. Continue scheduled Buspar twice daily. Ativan 1 mg p.o. every 6 hours as needed. (7) Hyponatremia Is this a current diagnosis for this admission?: Yes Plan: Laboratory evaluation this admission demonstrated hypovolemic hyponatremia. 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 Pt with history of hyponatremia; baseline 130. Has been as low as 119.9 in the past. Possibly related to Lung CA w/ adrenal masses. Currently 125.5. Urine Osmo 297, Urine Na 32. Repeat Urine Osmo 339, Urine 15 (following IVF). TSH low; 0.31. T3 and Free T4 normal. Hold IV fluids as I am concerned about the patient developing fluid volume overload; proBNP is elevated to 3100 and weight trending up. Continue to hold lasix. Strict I&O's, daily weights. Regular diet. Sodium tablet 1 g daily. Repeat BMP this afternoon. Daily chemistries. (8) Tachycardia Is this a current diagnosis for this admission?: Yes Plan: Multifactorial secondary to acute/chronic respiratory failure and dehydration. The patient has persistent tachycardia despite rest, adequate oxygenation ( maintaining oxygen saturations >95%), and anxiety medications. CTA of the chest was negative for pulmonary embolus. EKG demonstrated sinus tachycardia with a rate of 124 and an old inferior infarct. No current ST segment changes. Patient was provided diltiazem 15 mg IV x1. 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 Troponin was indeterminate x4, stable and trending down. Pro BNP 3100 TSH low, T3 and T4 normal. Start carvedilol 3.125 mg twice daily Continue to monitor on continuous cardiac telemetry. (9) Thrush Is this a current diagnosis for this admission?: Yes Plan: Hold Pulmicort. Solu-Medrol reduced. Diflucan 100 mg x1. Nystatin swish and swallow every 6 hours. Viscous lidocaine every 4 hours as needed. - Time Time Spent with patient: 15-24 minutes Medications reviewed and adjusted accordingly: Yes Anticipated discharge: Home with Homehealth
[2018-05-22 12:35] LABS: ANION GAP 9 (5-19); BLOOD UREA NITROGEN 20 mg/dL (7-20); CALCIUM 8.1 mg/dL (8.4-10.2); CARBON DIOXIDE 27 mmol/L (22-30); CHLORIDE 89 mmol/L (98-107); GLUCOSE 163 mg/dL (75-110); POTASSIUM 4.8 mmol/L (3.6-5.0); SODIUM 125.3 mmol/L (137-145)
[2018-05-22] MEDS: LORAZEPAM 1 MG TABLET PO PRN (21:50)
[2018-05-23] MEDS: METHYLPREDNISOLONE INJ 40 MG/1 ML SDV IV SCH ×2 (00:42→06:35)
[2018-05-23] MEDS: HYDRALAZINE HCL 25 MG TABLET PO SCH ×3 (06:35→22:44)
[2018-05-23 07:08] LABS: ANION GAP 7 (5-19); BLOOD UREA NITROGEN 18 mg/dL (7-20); CALCIUM 7.5 mg/dL (8.4-10.2); CARBON DIOXIDE 30 mmol/L (22-30); CHLORIDE 91 mmol/L (98-107); GLUCOSE 122 mg/dL (75-110); SODIUM 127.5 mmol/L (137-145)
[2018-05-23] MEDS: LEVALBUTEROL HCL NEB 1.25 MG/3 ML AMPUL NEB SCH ×2 (07:29→20:05)
[2018-05-23] MEDS: IPRATROPIUM BROMIDE 0.02% NEB 0.5 MG/2.5 ML AMPUL NEB SCH ×2 (07:29→20:05)
[2018-05-23] MEDS: NYSTATIN 500000 UNIT/5 ML UDCUP PO SCH ×4 (10:15→22:44)
[2018-05-23] MEDS: SODIUM CHLORIDE NASAL SPRAY 44 ML NASL SCH ×4 (10:15→22:44)
[2018-05-23] MEDS: LOSARTAN POTASSIUM 50 MG TABLET PO SCH (10:15)
[2018-05-23] MEDS: MULTIVITAMIN TABLET PO SCH (10:16)
[2018-05-23] MEDS: FAMOTIDINE 20 MG TABLET PO SCH ×2 (10:16→22:44)
[2018-05-23] MEDS: AMLODIPINE BESYLATE 5 MG TABLET PO SCH (10:16)
[2018-05-23] MEDS: BUSPIRONE HCL 10 MG TABLET PO SCH ×2 (10:16→22:44)
[2018-05-23] MEDS: LORAZEPAM 1 MG TABLET PO PRN (10:16)
[2018-05-23] MEDS: LORATADINE 10 MG TABLET PO SCH (10:16)
[2018-05-23] MEDS: CARVEDILOL 3.125 MG TABLET PO SCH ×2 (10:17→22:44)
[2018-05-23] MEDS: CALCIUM CARBONATE 250 MG/VITAMIN D3 125 UNIT TABLET PO SCH (10:17)
[2018-05-23] MEDS: GUAIFENESIN 600 MG TABLET.SA PO SCH ×2 (10:17→22:43)
[2018-05-23] MEDS: ENOXAPARIN SODIUM INJ 40 MG/0.4 ML DISP.SYRIN SUBCUT SCH (10:17)
[2018-05-23] MEDS: FLUCONAZOLE 100 MG TABLET PO SCH (10:17)
[2018-05-23] MEDS: ROFLUMILAST 500 MCG TABLET PO SCH (10:24)
[2018-05-23] MEDS: SODIUM CHLORIDE 1 GM TABLET PO SCH (10:24)
[2018-05-23] MEDS: ACETAMINOPHEN 325 MG TABLET PO PRN (10:25)
[2018-05-23] MEDS: ASPIRIN 81 MG TABLET, ENT COATED PO SCH (10:26)
[2018-05-23] MEDS: FLUTICASONE NASAL SPRAY 50 MCG/SPRY 120 SPRAY/16 GM NASL SCH (10:27)
--- NOTE | 2018-05-23 11:42 | PDOC PROGRESS REPORT ---
Subjective Progress Note for:: 05/23/18 Subjective:: The patient is a 77-year-old female with severe COPD, metastatic lung cancer status post radiation chemotherapy currently on Tarceva, hypertension, arthritis , depression, and tobacco abuse with continuous use who was admitted on 2017 for acute respiratory failure secondary to COPD exacerbation in the setting of lung cancer. The patient was seen on morning rounds. She was found sitting up to the edge of the bed eating her breakfast on supplemental oxygen via NC. She is speaking full sentences and does not appear to be tachypneic or to have labored breathing. She does report that she is feeling a little bit better today; her mouth pain and sore throat have improved. She continues to have a productive cough. Patient denies fever, chills, chest pain, palpitations, orthopnea, abdominal pain, nausea and vomiting. No other concerns per patient. No concerns per nursing. Reason For Visit: COPD EXACERBATION Physical Exam Vital Signs: Temp Pulse Resp BP Pulse Ox 97.7 F 109 H 24 H 118/61 100 05/23/18 07:42 05/23/18 07:42 05/23/18 07:42 05/23/18 07:42 05/23/18 07:42 Intake & Output 05/22/18 05/23/18 05/24/18 06:59 06:59 06:59 Intake Total 1825 750 Output Total 300 2 Balance 1525 748 Weight 65.9 kg 64.7 kg General appearance: PRESENT: no acute distress, cooperative, well-developed, well-nourished Head exam: PRESENT: atraumatic, normocephalic Eye exam: PRESENT: conjunctiva pink, EOMI, PERRLA. ABSENT: scleral icterus Ear exam: PRESENT: normal external ear exam Mouth exam: PRESENT: moist, tongue midline Neck exam: ABSENT: carotid bruit, JVD, lymphadenopathy, thyromegaly Respiratory exam: PRESENT: decreased breath sounds - Bibasilar, prolonged expiratory phas, rhonchi, symmetrical, unlabored, wheezes - Throughout; unchanged from yesterday, other - Supplemental oxygen via nasal cannula. ABSENT : rales Cardiovascular exam: PRESENT: RRR, +S1, +S2, tachycardia. ABSENT: diastolic murmur, rubs, systolic murmur Pulses: PRESENT: normal dorsalis pedis pul Vascular exam: PRESENT: normal capillary refill GI/Abdominal exam: PRESENT: normal bowel sounds, soft. ABSENT: distended, guarding, mass, organolmegaly, rebound, tenderness Rectal exam: PRESENT: deferred Extremities exam: PRESENT: full ROM. ABSENT: calf tenderness, clubbing, pedal edema Neurological exam: PRESENT: alert, awake, oriented to person, oriented to place , oriented to time, oriented to situation, CN II-XII grossly intact. ABSENT: motor sensory deficit Psychiatric exam: PRESENT: appropriate affect, normal mood. ABSENT: homicidal ideation, suicidal ideation Skin exam: PRESENT: dry, intact, warm. ABSENT: cyanosis, rash Results Laboratory Results: 05/20/18 05:30 05/23/18 06:35 05/22/18 05/23/18 12:00 06:35 Sodium 125.3 L 127.5 L Potassium 4.8 5.0 Chloride 89 L 91 L Carbon Dioxide 27 30 Anion Gap 9 7 BUN 20 18 Creatinine 0.57 0.54 Est GFR ( Amer) > 60 > 60 Est GFR (Non-Af Amer) > 60 > 60 Glucose 163 H 122 H Calcium 8.1 L 7.5 L 05/20/18 17:55 Sputum Gram Stain - Final 05/20/18 17:55 Sputum Sputum Culture - Final Pseudomonas Aeruginosa Normal Annette 05/20/18 05/20/18 05/21/18 12:13 17:50 00:15 Troponin I 0.037 0.041 0.042 NT-Pro-B Natriuret Pep 3100 H 05/21/18 05/23/18 09:29 06:35 Troponin I 0.035 NT-Pro-B Natriuret Pep 1680 H Impressions: Chest X-Ray 05/17/18 13:29 IMPRESSION: Chronic changes. No acute findings. Chest/Abdomen CTA 05/17/18 14:07 IMPRESSION: 1 No evidence of pulmonary emboli. Centrilobular emphysema. 2.7 x 2.4 cm spiculated mass right upper lobe consistent carcinoma. Status post left thoracotomy. Fibrotic scarring and traction bronchiectasis left upper lobe and superior segment left lower lobe consistent post radiation change. 2. Bilateral adrenal masses right greater than left. Persistent hypodensities within the liver too small to characterize. Cholelithiasis. Assessment & Plan - Diagnosis (1) Acute respiratory failure with hypoxia Is this a current diagnosis for this admission?: Yes Plan: Slight improvement again today. Secondary to COPD exacerbation in the setting of lung cancer. Now maintaining oxygen saturations on room air while at rest; she is able to speak full sentences, tachypnea and tachycardia have improved. Continues to have worsening dyspnea with minimal exertion. The patient is admitted to [facility] on continuous cardiac telemetry. She is provided supplemental oxygen as needed to maintain oxygen saturations 90- 94%. Nursing is asked to wean as able. Will obtain ambulatory saturations for oxygen qualification. Remaining plan as outlined below. (2) COPD exacerbation Is this a current diagnosis for this admission?: Yes Plan: Improved. CTA of the chest is negative for PE but does reveal emphysema, spiculated mass to the right upper lobe consistent with carcinoma, postradiation changes to the left upper lobe, bilateral adrenal masses, multiple hypodensities within the liver. repeat ABG reassurin.45/41.5/82.2/28.1 on 3 lpm via NC. Sputum culture growing gram-negative rods. The patient has been admitted to [facility] on continuous cardiac telemetry. She is provided supplemental oxygen as needed to maintain oxygen saturations 90- 94%. She received 5 days of p.o. Levaquin for coverage of bronchitis. Continue scheduled and as needed nebulizer treatments. Transition to p.o prednisone today. Pulmicort on hold secondary to continued IV glucocorticoids and development of thrush. Continue Daliresp. Continue Mucinex twice daily. Pulmonology was consulted; appreciate Dr. Brown's assistance. Will ask physical therapy to evaluate patient; recommends home health PT at discharge. Discharge planning and Palliative care consultations are placed. Incentive spirometer and flutter valve to bedside. (3) Lung cancer Qualifiers: Laterality: right Lung location: upper lobe of lung Qualified Code(s): C34.11 - Malignant neoplasm of upper lobe, right bronchus or lung Is this a current diagnosis for this admission?: Yes Plan: The patient is established with Dr. Davidson; currently on Tarceva. Oncology has been consulted; appreciate their evaluation recommendations. (4) Essential hypertension Is this a current diagnosis for this admission?: Yes Plan: Blood pressures are acceptable for age. Continue amlodipine 5 mg daily and hydralazine 25 mg every 8 hour. Continue losartan to 50 mg daily. Have started carvedilol 3.125 mg twice daily. (5) Tobacco abuse Is this a current diagnosis for this admission?: Yes Plan: The patient continues to smoke multiple packs daily. She acknowledges that this is likely contributing to her repeat admissions and progressively worsening COPD. Despite this, she appears to be pre-contemplative with regard to smoking cessation. Nicotine replacement therapies (patch and gum) are offered; declined by patient. (6) Anxiety Is this a current diagnosis for this admission?: Yes Plan: Patient admits to history of depression and anxiety; not on maintenance medications. Continue scheduled Buspar twice daily. Ativan 1 mg p.o. every 6 hours as needed. (7) Hyponatremia Is this a current diagnosis for this admission?: Yes Plan: Improving; Na 132.5--> 125.3--> 127.5 Laboratory evaluation this admission demonstrated hypovolemic hyponatremia. 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 Pt with history of hyponatremia; baseline 130. Has been as low as 119.9 in the past. Possibly related to Lung CA w/ adrenal masses. Urine Osmo 297, Urine Na 32. Repeat Urine Osmo 339, Urine 15 (following IVF). TSH low; 0.31. T3 and Free T4 normal. Hold IV fluids as I am concerned about the patient developing fluid volume overload; proBNP is elevated to 3100 and weight trending up. Continue to hold lasix. Strict I&O's, daily weights. Regular diet. Sodium tablet 1 g daily. Daily chemistries. (8) Tachycardia Is this a current diagnosis for this admission?: Yes Plan: Improved; now 90-110 Multifactorial secondary to acute/chronic respiratory failure and dehydration. The patient has persistent tachycardia despite rest, adequate oxygenation ( maintaining oxygen saturations >95%), and anxiety medications. CTA of the chest was negative for pulmonary embolus. EKG demonstrated sinus tachycardia with a rate of 124 and an old inferior infarct. No current ST segment changes. Patient was provided diltiazem 15 mg IV x1. 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 Troponin was indeterminate x4, stable and trending down. Pro BNP 3100 TSH low, T3 and T4 normal. Continue carvedilol 3.125 mg twice daily Continue to monitor on continuous cardiac telemetry. (9) Thrush Is this a current diagnosis for this admission?: Yes Plan: Hold Pulmicort. Solu-Medrol reduced. Diflucan 100 mg x1 yesterday. Nystatin swish and swallow every 6 hours. Viscous lidocaine every 4 hours as needed. - Time Time Spent with patient: 15-24 minutes Medications reviewed and adjusted accordingly: Yes Anticipated discharge: Home with Homehealth Within: within 48 hours
--- NOTE | 2018-05-23 13:40 | PDOC CONSULTATION ---
Consultation Consult Date: 05/18/18 Attending physician:: MELANIE SMITH Consult reason:: non-small cell lung cancer/ advanced emphysema acute exacerbation History of Present Illness Admission Date/PCP: 05/17/18 17:09 ELIZ BACA MD History of Present Illness: NISA JC is a 77 year old female,presentingcough,increasing dyspnea no hemoptysis has had multiple admission for COPD exacerrbatioons nand she also lung cancer as well as a nodule in her right lung and adrenal gland appears to be stable she continues to smoke respiratory failure O2 dependent Past Medical History Cardiac Medical History: Reports: Hypertension Denies: Coronary Artery Disease, Myocardial Infarction, Pulmonary Embolism Pulmonary Medical History: Reports: Chronic Obstructive Pulmonary Disease (COPD) Denies: Asthma, Bronchitis, Intubation, Pneumonia, Respiratory Failure, Sleep Apnea, Tuberculosis Neurological Medical History: Denies: Seizures - SYNCOPE LAST YEAR EPISODE D/T LOW SODIUM Endocrine Medical History: Denies: Gestational Diabetes, Hyperthyroidism, Hypothyroidism Malignancy Medical History: Reports: Lung Cancer - Originally stage III lung cancer status post chemoradiation, with recurrenc Denies: Leukemia GI Medical History: Denies: Hepatitis, Hiatal Hernia Musculoskeltal Medical History: Reports: Arthritis Denies: Fibromyalgia Psychiatric Medical History: Reports: Depression Denies: Dementia Hematology: Denies: Anemia, Hemophilia, Sickle Cell Disease Infectious Medical History: Denies: HIV Past Surgical History Past Surgical History: Reports: Appendectomy - 1977, Hysterectomy, Tonsillectomy - age 17, Tubal Ligation, Other - Lung biopsy Denies: Amputation, Section, Cholecystectomy, Coronary Artery Bypass Graft, Gastric Bypass Surgery, Herniorrhaphy, Mastectomy, Pacemaker Social History Information Source: Patient, Relative, [facility] Records Lives with: Spouse/Significant other Smoking Status: Current Every Day Smoker Cigarettes Packs Per Day: 2 Number of Years Smokin Passive smoke exposure as: Both Frequency of Alcohol Use: None Hx Recreational Drug Use: No Drugs: None Hx Prescription Drug Abuse: No Do you have pets?: Yes Have you had any respiratory illnesses as a child?: No Have you been exposed to any sick contacts recently?: No Have you had any recent respiratory illnesses?: No Have you travelled outside of [place] in the past 12 months?: No - Advance Directive Resuscitation Status: Do Not Resuscitate Family History Family History: Hypertension, Malignancy Parental Family History Reviewed: Yes Children Family History Reviewed: Yes Sibling(s) Family History Reviewed.: Yes Medication/Allergy Home Medications: Acetaminophen [Tylenol 325 mg Tablet] 650 mg PO Q8HP PRN 04/13/18 Albuterol Sulfate [Proair HFA Inhalation Aerosol 8.5 gm MDI] 1 puff IH Q6HP PRN 04/13/18 Ca Citrate/Mgox/Vit D3/B6/Min [Citracal Plus Tablet] 1 tab PO DAILY 04/13/18 Candesartan Cilexetil [Atacand 32 mg Tablet] 32 mg PO DAILY 04/13/18 Docusate Sodium [Colace 100 mg Capsule] 100 mg PO DAILYP PRN 04/13/18 Erlotinib HCl [Tarceva 150 mg Tablet] 150 mg PO DAILY 04/13/18 Fluticasone/Salmeterol [Advair 250-50 Diskus 14 Dose/Diskus] 1 puff IH Q12 04/13 Guaifenesin [Mucinex] 600 mg PO BID 04/13/18 Loratadine [Claritin 10 mg Tablet] 10 mg PO DAILY 04/13/18 Multivitamin [Daily Multiple Vitamin] 1 tab PO DAILY 04/13/18 Aspirin [Ecotrin] 81 mg PO DAILY 05/17/18 Doxycycline Hyclate 100 mg PO BID MDD filled 05/12 for 7 day supply 05/17/18 Prednisone 10 mg PO ASDIR MDD FILLED 05/12 FOR 12 DAY SUPPLY 05/17/18 Amlodipine Besylate [Norvasc 10 mg Tablet] 10 mg PO DAILY 05/18/18 Hydralazine HCl [Apresoline 25 mg Tablet] 25 mg PO Q8 05/18/18 Meloxicam [Mobic] 7.5 mg PO DAILYP PRN 05/18/18 Allergies/Adverse Reactions: latex [Latex] Allergy (Severe, Verified 01/30/18 13:26) rash hydrocodone [Hydrocodone] Allergy (Unknown, Verified 01/30/18 13:26) morphine [Morphine] Allergy (Unknown, Verified 01/30/18 13:26) amoxicillin trihydrate [From Augmentin] Adverse Reaction (Unknown, Verified 09/14 13:26) Dizziness Potassium Clavulanate * [From Augmentin] Adverse Reaction (Unknown, Verified 09/14 13:26) Dizziness olmesartan medoxomil [From May] Adverse Reaction (Verified 01/30/18 13:26) tremor Review of Systems Constitutional: PRESENT: fatigue. ABSENT: chills, weakness Eyes: ABSENT: visual disturbances Ears: ABSENT: hearing changes Nose, Mouth, and Throat: ABSENT: mouth pain Cardiovascular: PRESENT: dyspnea on exertion. ABSENT: orthropnea, palpitations Respiratory: PRESENT: cough, dyspnea. ABSENT: hemoptysis Gastrointestinal: PRESENT: nausea. ABSENT: coffee ground emesis, hematemesis, hematochezia, melena, vomiting Genitourinary: ABSENT: hematuria, nocturia Integumentary: ABSENT: pruritus, rash Neurological: ABSENT: abnormal gait, abnormal movements, focal weakness, memory loss Psychiatric: ABSENT: hallucinations, homidical ideation Endocrine: ABSENT: cold intolerance, heat intolerance, polydipsia, polyuria Hematologic/Lymphatic: ABSENT: easy bleeding Allergic/Immunologic: PRESENT: seasonal rhinorrhea Physical Exam Vital Signs: Temp Pulse Resp BP Pulse Ox 98.0 F 106 H 18 119/48 L 99 05/19/18 08:25 05/19/18 08:34 05/19/18 08:34 05/19/18 08:25 05/19/18 08:34 Intake & Output 05/18/18 05/19/18 05/20/18 06:59 06:59 06:59 Intake Total 1550 Balance 1550 Weight 58.6 kg 59.8 kg General appearance: PRESENT: cooperative, disheveled, mild distress, thin Head exam: PRESENT: atraumatic, normocephalic Eye exam: PRESENT: conjunctiva pale. ABSENT: nystagmus, periorbital swelling, scleral icterus Mouth exam: PRESENT: dry mucosa, neck supple, tongue midline Teeth exam: PRESENT: poor dentation Neck exam: PRESENT: tracheostomy. ABSENT: carotid bruit, JVD, lymphadenopathy, thyromegaly, tracheal deviation Respiratory exam: PRESENT: decreased breath sounds, prolonged expiratory phas, rales, rhonchi, tachypnea, wheezes. ABSENT: retraction, stridor Cardiovascular exam: PRESENT: RRR, +S1, +S2, tachycardia Pulses: PRESENT: normal radial pulses GI/Abdominal exam: PRESENT: soft Gentrourinary exam: ABSENT: indwelling catheter Extremities exam: PRESENT: pedal edema. ABSENT: calf tenderness, clubbing, joint swelling Musculoskeletal exam: ABSENT: deformity, dislocation Neurological exam: PRESENT: awake Psychiatric exam: PRESENT: flat affect Skin exam: PRESENT: dry, warm Results Laboratory Results: 05/19/18 05:46 05/19/18 05:46 05/18/18 05/19/18 05/19/18 12:08 05:46 05:46 WBC 11.2 H RBC 3.55 L Hgb 11.3 L Hct 32.7 L MCV 92 MCH 32.0 MCHC 34.7 RDW 13.6 Plt Count 236 Carbonic Acid 1.15 HCO3/H2CO3 Ratio 22:1 ABG pH 7.44 ABG pCO2 38.2 ABG pO2 56.6 L ABG HCO3 25.4 H ABG O2 Saturation 90.6 L ABG Base Excess 1.3 FiO2 3L Sodium 128.3 L Potassium 4.0 Chloride 91 L Carbon Dioxide 30 Anion Gap 7 BUN 15 Creatinine 0.58 Est GFR ( Amer) > 60 Est GFR (Non-Af Amer) > 60 Glucose 82 Calcium 8.4 Impressions: Chest X-Ray 05/17/18 13:29 IMPRESSION: Chronic changes. No acute findings. Chest/Abdomen CTA 05/17/18 14:07 IMPRESSION: 1 No evidence of pulmonary emboli. Centrilobular emphysema. 2.7 x 2.4 cm spiculated mass right upper lobe consistent carcinoma. Status post left thoracotomy. Fibrotic scarring and traction bronchiectasis left upper lobe and superior segment left lower lobe consistent post radiation change. 2. Bilateral adrenal masses right greater than left. Persistent hypodensities within the liver too small to characterize. Cholelithiasis. Assessment & Plan - Diagnosis (1) Anxiety Is this a current diagnosis for this admission?: Yes Plan: tv versed as tolerated (2) COPD exacerbation Is this a current diagnosis for this admission?: Yes Plan: Generic Name Dose Route Start Last Admin Trade Name Freq PRN Reason Stop Dose Admin Levalbuterol HCl 1.25 mg 05/23/18 20:00 Xopenex Neb 1.25 Mg/3 Ml Ampul NEB 06/22/18 19:59 RTQ12 ROBY Fluticasone/Salmeterol 2 inh 05/18/18 10:00 05/19/18 09:32 Advair 250-50 Diskus 14 Dose/Diskus IH 06/17/18 09:59 1 puff DAILY ROBY Albuterol 1 puff 05/19/18 10:09 Proair Hfa Inhalation Aerosol 8.5 Gm Mdi IH 06/18/18 10:08 Q6HP PRN SHORTNESS OF BREATH Roflumilast 500 mcg 05/24/18 10:00 Daliresp 500 Mcg Tablet PO 06/23/18 09:59 DAILY ROBY Ipratropium [place] 0.5 mg 05/23/18 20:00 Atrovent 0.02% Neb 0.5 Mg/2.5 Ml Ampul NEB 06/22/18 19:59 RTQ12 ROBY Budesonide 0.5 mg 05/19/18 11:00 05/22/18 07:41 Pulmicort Neb 0.5 Mg/2 Ml Ampul NEB 06/18/18 10:59 0.5 mg RTQ12 ROBY Prednisone 40 mg 05/23/18 18:00 Deltasone 20 Mg Tablet PO 06/22/18 17:59 BID ROBY Levalbuterol HCl 1.25 mg 05/19/18 10:42 05/20/18 20:39 Xopenex Neb 1.25 Mg/3 Ml Ampul NEB 06/18/18 10:41 1.25 mg RTQ4HP PRN SOB Fluticasone Propionate 1 spray 05/18/18 10:00 05/23/18 10:27 Flonase Nasal Wylie 50 Mcg/Wylie 16 Gm NASL 06/17/18 09:59 1 sprays DAILY ROBY Guaifenesin 600 mg 05/18/18 10:00 05/23/18 10:17 Mucinex Sr 600 Mg Tablet.Sa PO 06/17/18 09:59 600 mg Q12 ROBY (3) Lung cancer Qualifiers: Laterality: right Lung location: upper lobe of lung Qualified Code(s): C34.11 - Malignant neoplasm of upper lobe, right bronchus or lung Is this a current diagnosis for this admission?: Yes Plan: followed closely by Oncology (4) Tobacco abuse Is this a current diagnosis for this admission?: Yes Plan: when stable consider chantix
--- NOTE | 2018-05-23 14:12 | PDOC PROGRESS REPORT ---
Subjective Progress Note for:: 05/23/18 Subjective:: Patient states that she has been sleeping better. She believes the nasal congestion is starting to break up. No new complaints. Reason For Visit: COPD EXACERBATION Physical Exam Vital Signs: Temp Pulse Resp BP Pulse Ox 98.5 F 94 24 H 112/48 L 97 05/23/18 11:26 05/23/18 11:26 05/23/18 11:26 05/23/18 11:26 05/23/18 11:26 Intake & Output 05/22/18 05/23/18 05/24/18 06:59 06:59 06:59 Intake Total 1825 750 513 Output Total 300 2 Balance 1525 748 513 Weight 65.9 kg 64.7 kg General appearance: PRESENT: mild distress Exam: Sitting up on side of bed eating lunch. Daughter at bedside. Head exam: PRESENT: normocephalic Respiratory exam: PRESENT: wheezes Cardiovascular exam: PRESENT: other - Obscured Neurological exam: PRESENT: alert, awake Psychiatric exam: PRESENT: appropriate affect Skin exam: PRESENT: normal color Results Laboratory Results: 05/20/18 05:30 05/23/18 06:35 05/23/18 06:35 Sodium 127.5 L Potassium 5.0 Chloride 91 L Carbon Dioxide 30 Anion Gap 7 BUN 18 Creatinine 0.54 Est GFR ( Amer) > 60 Est GFR (Non-Af Amer) > 60 Glucose 122 H Calcium 7.5 L 05/20/18 17:55 Sputum Gram Stain - Final 05/20/18 17:55 Sputum Sputum Culture - Final Pseudomonas Aeruginosa Normal Annette 05/20/18 05/20/18 05/21/18 12:13 17:50 00:15 Troponin I 0.037 0.041 0.042 NT-Pro-B Natriuret Pep 3100 H 05/21/18 05/23/18 09:29 06:35 Troponin I 0.035 NT-Pro-B Natriuret Pep 1680 H Impressions: Chest X-Ray 05/17/18 13:29 IMPRESSION: Chronic changes. No acute findings. Chest/Abdomen CTA 05/17/18 14:07 IMPRESSION: 1 No evidence of pulmonary emboli. Centrilobular emphysema. 2.7 x 2.4 cm spiculated mass right upper lobe consistent carcinoma. Status post left thoracotomy. Fibrotic scarring and traction bronchiectasis left upper lobe and superior segment left lower lobe consistent post radiation change. 2. Bilateral adrenal masses right greater than left. Persistent hypodensities within the liver too small to characterize. Cholelithiasis. Assessment & Plan - Diagnosis (1) Acute respiratory failure with hypoxia Is this a current diagnosis for this admission?: Yes Plan: Improving (2) Lung cancer Qualifiers: Laterality: right Lung location: upper lobe of lung Qualified Code(s): C34.11 - Malignant neoplasm of upper lobe, right bronchus or lung Is this a current diagnosis for this admission?: Yes Plan: All treatment on hold (3) Hyponatremia Is this a current diagnosis for this admission?: Yes Plan: Continue current treatment.
[2018-05-23] MEDS: PREDNISONE 20 MG TABLET PO SCH (17:16)
[2018-05-23] MEDS ORDERED: CEFUROXIME 250 MG TABLET PO SCH (18:00)
[2018-05-24] MEDS: HYDRALAZINE HCL 25 MG TABLET PO SCH ×3 (06:30→21:06)
[2018-05-24 07:27] LABS: ANION GAP 8 (5-19); BLOOD UREA NITROGEN 20 mg/dL (7-20); CALCIUM 7.8 mg/dL (8.4-10.2); CARBON DIOXIDE 31 mmol/L (22-30); CHLORIDE 91 mmol/L (98-107); GLUCOSE 96 mg/dL (75-110); POTASSIUM 4.6 mmol/L (3.6-5.0); SODIUM 129.7 mmol/L (137-145)
[2018-05-24] MEDS: IPRATROPIUM BROMIDE 0.02% NEB 0.5 MG/2.5 ML AMPUL NEB SCH (07:49)
[2018-05-24] MEDS: LEVALBUTEROL HCL NEB 1.25 MG/3 ML AMPUL NEB SCH (07:49)
[2018-05-24] MEDS: SODIUM CHLORIDE NASAL SPRAY 44 ML NASL SCH ×4 (09:38→21:07)
[2018-05-24] MEDS: NYSTATIN 500000 UNIT/5 ML UDCUP PO SCH ×4 (09:42→21:07)
[2018-05-24] MEDS: FAMOTIDINE 20 MG TABLET PO SCH ×2 (09:42→21:06)
[2018-05-24] MEDS: FLUTICASONE NASAL SPRAY 50 MCG/SPRY 120 SPRAY/16 GM NASL SCH (09:43)
[2018-05-24] MEDS: CARVEDILOL 3.125 MG TABLET PO SCH ×2 (09:44→21:06)
[2018-05-24] MEDS: CALCIUM CARBONATE 250 MG/VITAMIN D3 125 UNIT TABLET PO SCH (09:44)
[2018-05-24] MEDS: BUSPIRONE HCL 10 MG TABLET PO SCH ×2 (09:44→21:06)
[2018-05-24] MEDS: ASPIRIN 81 MG TABLET, ENT COATED PO SCH (09:45)
[2018-05-24] MEDS: MULTIVITAMIN TABLET PO SCH (09:45)
[2018-05-24] MEDS: PREDNISONE 20 MG TABLET PO SCH ×2 (09:45→17:48)
[2018-05-24] MEDS: LORATADINE 10 MG TABLET PO SCH (09:45)
[2018-05-24] MEDS: AMLODIPINE BESYLATE 5 MG TABLET PO SCH (09:45)
[2018-05-24] MEDS: GUAIFENESIN 600 MG TABLET.SA PO SCH ×2 (09:45→21:06)
[2018-05-24] MEDS: FLUCONAZOLE 100 MG TABLET PO SCH (09:45)
[2018-05-24] MEDS: ROFLUMILAST 500 MCG TABLET PO SCH (09:46)
[2018-05-24] MEDS: SODIUM CHLORIDE 1 GM TABLET PO SCH (09:46)
[2018-05-24] MEDS: LOSARTAN POTASSIUM 50 MG TABLET PO SCH (09:50)
[2018-05-24] MEDS: ENOXAPARIN SODIUM INJ 40 MG/0.4 ML DISP.SYRIN SUBCUT SCH (09:51)
[2018-05-24] MEDS: ACETAMINOPHEN 325 MG TABLET PO PRN (10:00)
[2018-05-24] MEDS ORDERED: ALPRAZOLAM 0.25 MG TABLET PO PRN (10:08)
[2018-05-24] MEDS ORDERED: METHOCARBAMOL 750 MG TABLET PO PRN (10:10)
--- NOTE | 2018-05-24 12:26 | PDOC PROGRESS REPORT ---
Subjective Progress Note for:: 05/24/18 Subjective:: The patient is a 77-year-old female with severe COPD, metastatic lung cancer status post radiation chemotherapy currently on Tarceva, hypertension, arthritis , depression, and tobacco abuse with continuous use who was admitted on 2017 for acute respiratory failure secondary to COPD exacerbation in the setting of lung cancer. The patient was seen on morning rounds with her and nursing present. She was found sitting up to the edge of the bed after ambulating in the hallway on room air. She is speaking full sentences and does not appear to be tachypneic or to have labored breathing. She does report that she is feeling a little bit better today; but is concerned about being discharged too soon. "I don't want to just end up here again like last time." We discussed the nature of COPD, especially with her underlying Lung CA and continued smoking of 1-3 packs daily. She reports that most recently she has only been smoking 1 ppd. She is encouraged not to resume smoking on discharge as she has been tobacco free x1 week now. She reports her mouth pain and sore throat have continued to improve; now eating without difficulty. She continues to have a productive cough. We also discussed option for discharge to rehab as the patient is concerned about ability to care for herself. States she will discuss with her daughters and notify nursing of her decision today. Patient denies fever, chills, chest pain, palpitations, orthopnea, abdominal pain, nausea and vomiting. No other concerns per patient. No concerns per nursing. Reason For Visit: COPD EXACERBATION Physical Exam Vital Signs: Temp Pulse Resp BP Pulse Ox 97.7 F 83 16 115/55 L 94 05/24/18 08:00 05/24/18 11:17 05/24/18 11:17 05/24/18 08:00 05/24/18 11:17 Intake & Output 05/23/18 05/24/18 05/25/18 06:59 06:59 06:59 Intake Total 750 1603 Output Total 2 0 Balance 748 1603 Weight 64.7 kg 63.9 kg General appearance: PRESENT: no acute distress, thin, well-developed, well- nourished Head exam: PRESENT: atraumatic, normocephalic Eye exam: PRESENT: conjunctiva pink, EOMI, PERRLA. ABSENT: scleral icterus Ear exam: PRESENT: normal external ear exam Mouth exam: PRESENT: moist, tongue midline Neck exam: ABSENT: carotid bruit, JVD, lymphadenopathy, thyromegaly Respiratory exam: PRESENT: prolonged expiratory phas, rhonchi, symmetrical, unlabored, wheezes - Throughout; slight improvement from yesterday.. ABSENT: rales Cardiovascular exam: PRESENT: RRR, tachycardia. ABSENT: diastolic murmur, rubs , systolic murmur Pulses: PRESENT: normal dorsalis pedis pul Vascular exam: PRESENT: normal capillary refill GI/Abdominal exam: PRESENT: normal bowel sounds, soft. ABSENT: distended, guarding, mass, organolmegaly, rebound, tenderness Rectal exam: PRESENT: deferred Extremities exam: PRESENT: full ROM. ABSENT: calf tenderness, clubbing, pedal edema Neurological exam: PRESENT: alert, awake, oriented to person, oriented to place , oriented to time, oriented to situation, CN II-XII grossly intact. ABSENT: motor sensory deficit Psychiatric exam: PRESENT: anxious, appropriate affect, normal mood. ABSENT: homicidal ideation, suicidal ideation Skin exam: PRESENT: dry, intact, warm. ABSENT: cyanosis, rash Results Laboratory Results: 05/20/18 05:30 05/24/18 06:30 05/24/18 06:30 Sodium 129.7 L Potassium 4.6 Chloride 91 L Carbon Dioxide 31 H Anion Gap 8 BUN 20 Creatinine 0.53 Est GFR ( Amer) > 60 Est GFR (Non-Af Amer) > 60 Glucose 96 Calcium 7.8 L 05/20/18 17:55 Sputum Gram Stain - Final 05/20/18 17:55 Sputum Sputum Culture - Final Pseudomonas Aeruginosa Normal Annette 05/20/18 05/20/18 05/21/18 12:13 17:50 00:15 Troponin I 0.037 0.041 0.042 NT-Pro-B Natriuret Pep 3100 H 05/21/18 05/23/18 09:29 06:35 Troponin I 0.035 NT-Pro-B Natriuret Pep 1680 H Impressions: Chest X-Ray 05/17/18 13:29 IMPRESSION: Chronic changes. No acute findings. Chest/Abdomen CTA 05/17/18 14:07 IMPRESSION: 1 No evidence of pulmonary emboli. Centrilobular emphysema. 2.7 x 2.4 cm spiculated mass right upper lobe consistent carcinoma. Status post left thoracotomy. Fibrotic scarring and traction bronchiectasis left upper lobe and superior segment left lower lobe consistent post radiation change. 2. Bilateral adrenal masses right greater than left. Persistent hypodensities within the liver too small to characterize. Cholelithiasis. Assessment & Plan - Diagnosis (1) Acute respiratory failure with hypoxia Is this a current diagnosis for this admission?: Yes Plan: Continues to gradually improve. Secondary to COPD exacerbation in the setting of lung cancer. Now maintaining oxygen saturations on room air while at rest; she is able to speak full sentences, tachypnea and tachycardia have improved. Continues to have worsening dyspnea with minimal exertion. The patient is admitted to [facility] on continuous cardiac telemetry. She is provided supplemental oxygen as needed to maintain oxygen saturations 90- 94%; now maintaining oxygen saturations while ambulatory on room air. Does not qualify for home O2. Remaining plan as outlined below. (2) COPD exacerbation Is this a current diagnosis for this admission?: Yes Plan: Continues to improve. CTA of the chest is negative for PE but does reveal emphysema, spiculated mass to the right upper lobe consistent with carcinoma, postradiation changes to the left upper lobe, bilateral adrenal masses, multiple hypodensities within the liver. repeat ABG reassurin.45/41.5/82.2/28.1 on 3 lpm via NC. Sputum culture grew Pseudomonas aeruginosa The patient has been admitted to [facility] on continuous cardiac telemetry. She is provided supplemental oxygen as needed to maintain oxygen saturations 90- 94%; has been successfully weaned to room air. She received 5 days of p.o. Levaquin for coverage of bronchitis. Cultures positive for pseudomonas that is Levaquin resistant. Will place on ceftin twice daily x10 days. Continue as needed nebulizer treatments. Continue p.o prednisone today. Pulmicort on hold secondary to continued IV glucocorticoids and development of thrush. Resume Advair; strict compliance with oral rinsing. Continue Daliresp. Continue Mucinex twice daily. Pulmonology was consulted; appreciate Dr. Brown's assistance. Will ask physical therapy to evaluate patient; recommends home health PT at discharge. Discharge planning and Palliative care consultations are placed. Incentive spirometer and flutter valve to bedside. (3) Lung cancer Qualifiers: Laterality: right Lung location: upper lobe of lung Qualified Code(s): C34.11 - Malignant neoplasm of upper lobe, right bronchus or lung Is this a current diagnosis for this admission?: Yes Plan: The patient is established with Dr. Davidson; currently on Tarceva. Oncology has been consulted; appreciate their evaluation recommendations. (4) Essential hypertension Is this a current diagnosis for this admission?: Yes Plan: Blood pressures are acceptable for age. Continue amlodipine 5 mg daily and hydralazine 25 mg every 8 hour. Continue losartan to 50 mg daily. Continue carvedilol 3.125 mg twice daily. (5) Tobacco abuse Is this a current diagnosis for this admission?: Yes Plan: The patient continues to smoke multiple packs daily. She acknowledges that this is likely contributing to her repeat admissions and progressively worsening COPD. Despite this, she appears to be pre-contemplative with regard to smoking cessation. Nicotine replacement therapies (patch and gum) are offered; declined by patient. Additional detailed smoking cessation counseling provided today. (6) Anxiety Is this a current diagnosis for this admission?: Yes Plan: Patient admits to history of depression and anxiety; not on maintenance medications. Continue scheduled Buspar twice daily. Xanax 0.25 mg as needed. (7) Hyponatremia Is this a current diagnosis for this admission?: Yes Plan: Improving; Na 132.5--> 125.3--> 127.5--> 129.7 Laboratory evaluation this admission demonstrated hypovolemic hyponatremia. 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 Pt with history of hyponatremia; baseline 130. Has been as low as 119.9 in the past. Possibly related to Lung CA w/ adrenal masses. Urine Osmo 297, Urine Na 32. Repeat Urine Osmo 339, Urine 15 (following IVF). TSH low; 0.31. T3 and Free T4 normal. Hold IV fluids as I am concerned about the patient developing fluid volume overload; proBNP is elevated to 3100 and weight trending up. Slight edema on exam today; will resume low dose lasix. Strict I&O's, daily weights. Regular diet. Sodium tablet 1 g daily. Daily chemistries. (8) Tachycardia Is this a current diagnosis for this admission?: Yes Plan: Improved; now 80-110 Multifactorial secondary to acute/chronic respiratory failure and dehydration. The patient has persistent tachycardia despite rest, adequate oxygenation ( maintaining oxygen saturations >95%), and anxiety medications. CTA of the chest was negative for pulmonary embolus. EKG demonstrated sinus tachycardia with a rate of 124 and an old inferior infarct. No current ST segment changes. Patient was provided diltiazem 15 mg IV x1. 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 Troponin was indeterminate x4, stable and trending down. Pro BNP 3100 TSH low, T3 and T4 normal. Continue carvedilol 3.125 mg twice daily Continue to monitor on continuous cardiac telemetry. (9) Thrush Is this a current diagnosis for this admission?: Yes Plan: Much improved. Hold Pulmicort. Have resumed Advair; educated on oral rinsing. Now on prednisone; will continue weaning. Diflucan 100 mg x1 yesterday. Nystatin swish and swallow every 6 hours. Viscous lidocaine every 4 hours as needed. (10) Debility Is this a current diagnosis for this admission?: Yes Plan: Physical therapy evaluations completed; recommended continued physical therapy at discharge. Patient is concerned about ability to care for self; have recommended SNF for short term rehab. Discharge planning is consulted. - Time Time Spent with patient: 25-34 minutes Smoking Cessation Education: 3 to 10 minutes Medications reviewed and adjusted accordingly: Yes Anticipated discharge: SNF Within: within 24 hours
[2018-05-24] MEDS: FUROSEMIDE 20 MG TABLET PO SCH (14:36)
--- NOTE | 2018-05-24 14:37 | PDOC PROGRESS REPORT ---
Subjective Progress Note for:: 05/24/18 Subjective:: Patient believes her breathing is better today. No new problems voiced. Reason For Visit: COPD EXACERBATION Physical Exam Vital Signs: Temp Pulse Resp BP Pulse Ox 98.1 F 85 24 H 103/64 97 05/24/18 11:55 05/24/18 11:55 05/24/18 11:55 05/24/18 11:55 05/24/18 11:55 Intake & Output 05/23/18 05/24/18 05/25/18 06:59 06:59 06:59 Intake Total 750 1603 237 Output Total 2 0 Balance 748 1603 237 Weight 64.7 kg 63.9 kg General appearance: PRESENT: well-developed, well-nourished Head exam: PRESENT: normocephalic Respiratory exam: PRESENT: other - Mild respiratory distress, but sitting up in chair eating without any oxygen on. Extremities exam: ABSENT: pedal edema Neurological exam: PRESENT: alert, awake Psychiatric exam: PRESENT: appropriate affect Skin exam: PRESENT: normal color Results Laboratory Results: 05/20/18 05:30 05/24/18 06:30 05/24/18 06:30 Sodium 129.7 L Potassium 4.6 Chloride 91 L Carbon Dioxide 31 H Anion Gap 8 BUN 20 Creatinine 0.53 Est GFR ( Amer) > 60 Est GFR (Non-Af Amer) > 60 Glucose 96 Calcium 7.8 L 05/20/18 17:55 Sputum Gram Stain - Final 05/20/18 17:55 Sputum Sputum Culture - Final Pseudomonas Aeruginosa Normal Annette 05/20/18 05/20/18 05/21/18 12:13 17:50 00:15 Troponin I 0.037 0.041 0.042 NT-Pro-B Natriuret Pep 3100 H 05/21/18 05/23/18 09:29 06:35 Troponin I 0.035 NT-Pro-B Natriuret Pep 1680 H Impressions: Chest X-Ray 05/17/18 13:29 IMPRESSION: Chronic changes. No acute findings. Chest/Abdomen CTA 05/17/18 14:07 IMPRESSION: 1 No evidence of pulmonary emboli. Centrilobular emphysema. 2.7 x 2.4 cm spiculated mass right upper lobe consistent carcinoma. Status post left thoracotomy. Fibrotic scarring and traction bronchiectasis left upper lobe and superior segment left lower lobe consistent post radiation change. 2. Bilateral adrenal masses right greater than left. Persistent hypodensities within the liver too small to characterize. Cholelithiasis. Assessment & Plan - Diagnosis (1) Acute respiratory failure with hypoxia Is this a current diagnosis for this admission?: Yes Plan: Overall improving. (2) Lung cancer Qualifiers: Laterality: right Lung location: upper lobe of lung Qualified Code(s): C34.11 - Malignant neoplasm of upper lobe, right bronchus or lung Is this a current diagnosis for this admission?: Yes Plan: Tarceva currently on hold. (3) Hyponatremia Is this a current diagnosis for this admission?: Yes Plan: improving. Continue current therapy. - Plan Summary Plan Summary: Dr. Davidson to return tomorrow. Please call me with any concerns. Patient is concerned with her mobility on discharge. I have encouraged her to walk in [place] today.
[2018-05-24] MEDS: CEFUROXIME 250 MG TABLET PO SCH (17:47)
[2018-05-25] MEDS: LEVALBUTEROL HCL NEB 1.25 MG/3 ML AMPUL NEB PRN ×2 (00:01→12:12)
[2018-05-25] MEDS: HYDRALAZINE HCL 25 MG TABLET PO SCH ×2 (05:00→15:03)
--- NOTE | 2018-05-25 08:21 | PDOC PROGRESS REPORT ---
Subjective Progress Note for:: 05/25/18 Subjective:: Pt tearful this am, really does not want to go to rehab/NH, was able to ambulate webb x 2 w/ walker yesterday Reason For Visit: COPD EXACERBATION Physical Exam Vital Signs: Temp Pulse Resp BP Pulse Ox 98.3 F 87 16 135/101 H 91 L 05/25/18 03:32 05/25/18 07:00 05/25/18 00:00 05/25/18 03:32 05/25/18 03:32 Intake & Output 05/24/18 05/25/18 05/26/18 06:59 06:59 06:59 Intake Total 1603 1210 Output Total 0 Balance 1603 1210 Weight 63.9 kg 63.2 kg General appearance: PRESENT: no acute distress, well-developed, well-nourished Head exam: PRESENT: atraumatic, normocephalic Eye exam: PRESENT: conjunctiva pink, EOMI, PERRLA. ABSENT: scleral icterus Ear exam: PRESENT: normal external ear exam Mouth exam: PRESENT: moist, tongue midline Neck exam: ABSENT: carotid bruit, JVD, lymphadenopathy, thyromegaly Respiratory exam: PRESENT: clear to auscultation clarice. ABSENT: rales, rhonchi, wheezes Cardiovascular exam: PRESENT: RRR. ABSENT: diastolic murmur, rubs, systolic murmur Pulses: PRESENT: normal dorsalis pedis pul Vascular exam: PRESENT: normal capillary refill GI/Abdominal exam: PRESENT: normal bowel sounds, soft. ABSENT: distended, guarding, mass, organolmegaly, rebound, tenderness Rectal exam: PRESENT: deferred Extremities exam: PRESENT: full ROM. ABSENT: calf tenderness, clubbing, pedal edema Neurological exam: PRESENT: alert, awake, oriented to person, oriented to place , oriented to time, oriented to situation, CN II-XII grossly intact. ABSENT: motor sensory deficit Psychiatric exam: PRESENT: appropriate affect, normal mood. ABSENT: homicidal ideation, suicidal ideation Skin exam: PRESENT: dry, intact, warm. ABSENT: cyanosis, rash Results Laboratory Results: 05/20/18 05:30 05/24/18 06:30 05/20/18 05/20/18 05/21/18 12:13 17:50 00:15 Troponin I 0.037 0.041 0.042 NT-Pro-B Natriuret Pep 3100 H 05/21/18 05/23/18 09:29 06:35 Troponin I 0.035 NT-Pro-B Natriuret Pep 1680 H Impressions: Chest X-Ray 05/17/18 13:29 IMPRESSION: Chronic changes. No acute findings. Chest/Abdomen CTA 05/17/18 14:07 IMPRESSION: 1 No evidence of pulmonary emboli. Centrilobular emphysema. 2.7 x 2.4 cm spiculated mass right upper lobe consistent carcinoma. Status post left thoracotomy. Fibrotic scarring and traction bronchiectasis left upper lobe and superior segment left lower lobe consistent post radiation change. 2. Bilateral adrenal masses right greater than left. Persistent hypodensities within the liver too small to characterize. Cholelithiasis. Assessment & Plan - Diagnosis (1) Lung cancer Qualifiers: Laterality: right Lung location: upper lobe of lung Qualified Code(s): C34.11 - Malignant neoplasm of upper lobe, right bronchus or lung Is this a current diagnosis for this admission?: Yes Plan: Stable, hold tarceva until d/c (2) COPD exacerbation Is this a current diagnosis for this admission?: Yes Plan: improved (3) Physical deconditioning Is this a current diagnosis for this admission?: Yes Plan: From hospitalization but feel that she can go home w/ home PT/home health. will dw hospitalist team
[2018-05-25] MEDS: CARVEDILOL 3.125 MG TABLET PO SCH (09:39)
[2018-05-25] MEDS: PREDNISONE 20 MG TABLET PO SCH (09:40)
[2018-05-25] MEDS: BUSPIRONE HCL 10 MG TABLET PO SCH (09:40)
[2018-05-25] MEDS: FAMOTIDINE 20 MG TABLET PO SCH (09:41)
[2018-05-25] MEDS: FLUTICASONE NASAL SPRAY 50 MCG/SPRY 120 SPRAY/16 GM NASL SCH (09:41)
[2018-05-25] MEDS: AMLODIPINE BESYLATE 5 MG TABLET PO SCH (09:41)
[2018-05-25] MEDS: NYSTATIN 500000 UNIT/5 ML UDCUP PO SCH (09:42)
[2018-05-25] MEDS: SODIUM CHLORIDE NASAL SPRAY 44 ML NASL SCH ×2 (09:42→15:02)
[2018-05-25] MEDS: FUROSEMIDE 20 MG TABLET PO SCH (09:42)
[2018-05-25] MEDS: ASPIRIN 81 MG TABLET, ENT COATED PO SCH (09:42)
[2018-05-25] MEDS: GUAIFENESIN 600 MG TABLET.SA PO SCH (09:43)
[2018-05-25] MEDS: MULTIVITAMIN TABLET PO SCH (09:43)
[2018-05-25] MEDS: FLUTICASONE/SALMETEROL DISKUS 250-50 MCG/DOSE IH SCH (09:44)
[2018-05-25] MEDS: LOSARTAN POTASSIUM 50 MG TABLET PO SCH (09:44)
[2018-05-25] MEDS: LORATADINE 10 MG TABLET PO SCH (09:44)
[2018-05-25] MEDS: CEFUROXIME 250 MG TABLET PO SCH (09:45)
[2018-05-25] MEDS: SODIUM CHLORIDE 1 GM TABLET PO SCH (09:46)
[2018-05-25] MEDS: ROFLUMILAST 500 MCG TABLET PO SCH (09:46)
[2018-05-25] MEDS: CALCIUM CARBONATE 250 MG/VITAMIN D3 125 UNIT TABLET PO SCH (09:46)
[2018-05-25] MEDS: ENOXAPARIN SODIUM INJ 40 MG/0.4 ML DISP.SYRIN SUBCUT SCH (09:46)
--- NOTE | 2018-05-25 11:12 | PDOC PROGRESS REPORT ---
Subjective Progress Note for:: 05/25/18 Subjective:: Much better today Reason For Visit: COPD EXACERBATION Physical Exam Vital Signs: Temp Pulse Resp BP Pulse Ox 98.3 F 87 16 135/101 H 91 L 05/25/18 03:32 05/25/18 07:00 05/25/18 00:00 05/25/18 03:32 05/25/18 03:32 Intake & Output 05/24/18 05/25/18 05/26/18 06:59 06:59 06:59 Intake Total 1603 1210 Output Total 0 Balance 1603 1210 Weight 63.9 kg 63.2 kg General appearance: PRESENT: no acute distress, cooperative, disheveled, thin Head exam: PRESENT: atraumatic, normocephalic Eye exam: PRESENT: conjunctiva pale, EOMI Mouth exam: PRESENT: dry mucosa, neck supple, tongue midline Teeth exam: PRESENT: poor dentation Neck exam: ABSENT: carotid bruit, JVD, lymphadenopathy, thyromegaly, tracheal deviation Respiratory exam: PRESENT: decreased breath sounds, prolonged expiratory phas, rhonchi, symmetrical, unlabored, wheezes. ABSENT: retraction, stridor, tachypnea Cardiovascular exam: PRESENT: RRR, +S1, +S2 Pulses: PRESENT: normal radial pulses GI/Abdominal exam: PRESENT: soft. ABSENT: tenderness Extremities exam: ABSENT: calf tenderness, clubbing, pedal edema Musculoskeletal exam: ABSENT: deformity, dislocation Neurological exam: PRESENT: alert, awake Psychiatric exam: PRESENT: anxious Skin exam: PRESENT: dry, warm Results Laboratory Results: 05/20/18 05:30 05/24/18 06:30 05/20/18 05/20/18 05/21/18 12:13 17:50 00:15 Troponin I 0.037 0.041 0.042 NT-Pro-B Natriuret Pep 3100 H 05/21/18 05/23/18 09:29 06:35 Troponin I 0.035 NT-Pro-B Natriuret Pep 1680 H Impressions: Chest X-Ray 05/17/18 13:29 IMPRESSION: Chronic changes. No acute findings. Chest/Abdomen CTA 05/17/18 14:07 IMPRESSION: 1 No evidence of pulmonary emboli. Centrilobular emphysema. 2.7 x 2.4 cm spiculated mass right upper lobe consistent carcinoma. Status post left thoracotomy. Fibrotic scarring and traction bronchiectasis left upper lobe and superior segment left lower lobe consistent post radiation change. 2. Bilateral adrenal masses right greater than left. Persistent hypodensities within the liver too small to characterize. Cholelithiasis. Assessment & Plan - Diagnosis (1) Anxiety Is this a current diagnosis for this admission?: Yes Plan: Much less agitated today (2) COPD exacerbation Is this a current diagnosis for this admission?: Yes Plan: improved (3) Lung cancer Qualifiers: Laterality: right Lung location: upper lobe of lung Qualified Code(s): C34.11 - Malignant neoplasm of upper lobe, right bronchus or lung Is this a current diagnosis for this admission?: Yes Plan: followed closely by Oncology (4) Tobacco abuse Is this a current diagnosis for this admission?: Yes Plan: Patient declines Chantix tried nicotine patches very concerned that she was smoking again strongly suggested to her to get Nicorette gum sitting she has no dental prosthesis
--- NOTE | 2018-05-25 11:15 | PDOC PROGRESS REPORT ---
Subjective Progress Note for:: 05/19/18 Subjective:: unchanged, very dyspneic and agitated Reason For Visit: COPD EXACERBATION Physical Exam Vital Signs: Temp Pulse Resp BP Pulse Ox 98.0 F 106 H 18 119/48 L 99 05/19/18 08:25 05/19/18 08:34 05/19/18 08:34 05/19/18 08:25 05/19/18 08:34 Intake & Output 05/18/18 05/19/18 05/20/18 06:59 06:59 06:59 Intake Total 1550 Balance 1550 Weight 58.6 kg 59.8 kg General appearance: PRESENT: cooperative, disheveled, mild distress, thin Head exam: PRESENT: atraumatic, normocephalic Eye exam: PRESENT: conjunctiva pale, EOMI. ABSENT: nystagmus, periorbital swelling, scleral icterus Mouth exam: PRESENT: dry mucosa, neck supple, tongue midline Neck exam: ABSENT: carotid bruit, JVD, lymphadenopathy, thyromegaly, tracheal deviation, tracheostomy Respiratory exam: PRESENT: decreased breath sounds, prolonged expiratory phas, rhonchi, symmetrical, tachypnea, wheezes. ABSENT: retraction, stridor, unlabored Cardiovascular exam: PRESENT: RRR, +S1, +S2, tachycardia Pulses: PRESENT: normal radial pulses GI/Abdominal exam: PRESENT: soft. ABSENT: tenderness Extremities exam: ABSENT: calf tenderness, clubbing, joint swelling Musculoskeletal exam: ABSENT: deformity, dislocation Neurological exam: PRESENT: awake Psychiatric exam: PRESENT: agitated Skin exam: PRESENT: dry, warm Results Laboratory Results: 05/19/18 05:46 05/19/18 05:46 05/18/18 05/19/18 05/19/18 12:08 05:46 05:46 WBC 11.2 H RBC 3.55 L Hgb 11.3 L Hct 32.7 L MCV 92 MCH 32.0 MCHC 34.7 RDW 13.6 Plt Count 236 Carbonic Acid 1.15 HCO3/H2CO3 Ratio 22:1 ABG pH 7.44 ABG pCO2 38.2 ABG pO2 56.6 L ABG HCO3 25.4 H ABG O2 Saturation 90.6 L ABG Base Excess 1.3 FiO2 3L Sodium 128.3 L Potassium 4.0 Chloride 91 L Carbon Dioxide 30 Anion Gap 7 BUN 15 Creatinine 0.58 Est GFR ( Amer) > 60 Est GFR (Non-Af Amer) > 60 Glucose 82 Calcium 8.4 Impressions: Chest X-Ray 05/17/18 13:29 IMPRESSION: Chronic changes. No acute findings. Chest/Abdomen CTA 05/17/18 14:07 IMPRESSION: 1 No evidence of pulmonary emboli. Centrilobular emphysema. 2.7 x 2.4 cm spiculated mass right upper lobe consistent carcinoma. Status post left thoracotomy. Fibrotic scarring and traction bronchiectasis left upper lobe and superior segment left lower lobe consistent post radiation change. 2. Bilateral adrenal masses right greater than left. Persistent hypodensities within the liver too small to characterize. Cholelithiasis. Assessment & Plan - Diagnosis (1) Anxiety Is this a current diagnosis for this admission?: Yes Plan: Remains agitated today benzo diazepam's as tolerated (2) COPD exacerbation Is this a current diagnosis for this admission?: Yes (3) Lung cancer Qualifiers: Laterality: right Lung location: upper lobe of lung Qualified Code(s): C34.11 - Malignant neoplasm of upper lobe, right bronchus or lung Is this a current diagnosis for this admission?: Yes Plan: followed closely by Oncology (4) Tobacco abuse Is this a current diagnosis for this admission?: Yes Plan: Stop smoking
--- NOTE | 2018-05-25 11:18 | PDOC PROGRESS REPORT ---
Subjective Progress Note for:: 05/20/18 Subjective:: unchanged, very dyspneic and agitated Reason For Visit: COPD EXACERBATION Physical Exam Vital Signs: Temp Pulse Resp BP Pulse Ox 98.2 F 110 H 18 138/58 H 91 L 05/20/18 03:53 05/20/18 07:57 05/20/18 07:57 05/20/18 03:53 05/20/18 07:57 Intake & Output 05/19/18 05/20/18 05/21/18 06:59 06:59 06:59 Intake Total 1550 562 Balance 1550 562 Weight 59.8 kg 62.1 kg General appearance: PRESENT: cooperative, disheveled, mild distress, thin, well- developed, well-nourished Head exam: PRESENT: atraumatic, normocephalic Eye exam: PRESENT: conjunctiva pale, EOMI Mouth exam: PRESENT: dry mucosa, neck supple, tongue midline Neck exam: ABSENT: carotid bruit, JVD, lymphadenopathy, thyromegaly, tracheal deviation, tracheostomy Respiratory exam: PRESENT: decreased breath sounds, prolonged expiratory phas, rales, rhonchi, symmetrical, wheezes. ABSENT: retraction, stridor, tachypnea Cardiovascular exam: PRESENT: RRR, +S1, +S2 Pulses: PRESENT: normal radial pulses GI/Abdominal exam: PRESENT: soft. ABSENT: tenderness Extremities exam: ABSENT: calf tenderness, clubbing, joint swelling, pedal edema Musculoskeletal exam: ABSENT: deformity, dislocation Neurological exam: PRESENT: awake Psychiatric exam: PRESENT: anxious Skin exam: PRESENT: dry, warm Results Laboratory Results: 05/20/18 05:30 05/20/18 05:30 05/19/18 05/19/18 05/20/18 12:45 13:43 05:30 WBC RBC Hgb Hct MCV MCH MCHC RDW Plt Count Carbonic Acid Cancelled 1.25 HCO3/H2CO3 Ratio Cancelled 22:1 ABG pH Cancelled 7.45 ABG pCO2 Cancelled 41.5 ABG pO2 Cancelled 82.2 ABG HCO3 Cancelled 28.1 H ABG O2 Saturation Cancelled 96.5 ABG Base Excess Cancelled 3.7 FiO2 Cancelled 3L Sodium 128.1 L Potassium 4.7 Chloride 88 L Carbon Dioxide 30 Anion Gap 10 BUN 12 Creatinine 0.56 Est GFR ( Amer) > 60 Est GFR (Non-Af Amer) > 60 Glucose 150 H Calcium 9.0 05/20/18 05:30 WBC 6.9 RBC 3.77 Hgb 12.0 Hct 34.7 L MCV 92 MCH 31.9 MCHC 34.7 RDW 13.8 Plt Count 251 Carbonic Acid HCO3/H2CO3 Ratio ABG pH ABG pCO2 ABG pO2 ABG HCO3 ABG O2 Saturation ABG Base Excess FiO2 Sodium Potassium Chloride Carbon Dioxide Anion Gap BUN Creatinine Est GFR ( Amer) Est GFR (Non-Af Amer) Glucose Calcium Impressions: Chest X-Ray 05/17/18 13:29 IMPRESSION: Chronic changes. No acute findings. Chest/Abdomen CTA 05/17/18 14:07 IMPRESSION: 1 No evidence of pulmonary emboli. Centrilobular emphysema. 2.7 x 2.4 cm spiculated mass right upper lobe consistent carcinoma. Status post left thoracotomy. Fibrotic scarring and traction bronchiectasis left upper lobe and superior segment left lower lobe consistent post radiation change. 2. Bilateral adrenal masses right greater than left. Persistent hypodensities within the liver too small to characterize. Cholelithiasis. Assessment & Plan - Diagnosis (1) Anxiety Is this a current diagnosis for this admission?: Yes Plan: Remains agitated today benzo diazepam's as tolerated (2) Lung cancer Qualifiers: Laterality: right Lung location: upper lobe of lung Qualified Code(s): C34.11 - Malignant neoplasm of upper lobe, right bronchus or lung Is this a current diagnosis for this admission?: Yes Plan: followed closely by Oncology (3) Tobacco abuse Is this a current diagnosis for this admission?: Yes Plan: Stop smoking
[2018-05-25 15:15] VITALS: BP 117/61
--- NOTE | 2018-05-26 11:35 | PDOC DISCHARGE SUMMARY ---
General - Admit/Disc Date/PCP Admission Date/Primary Care Provider: 05/17/18 17:09 ELIZ BACA MD Discharge Date: 05/25/18 - Discharge Diagnosis (1) Acute respiratory failure with hypoxia Is this a current diagnosis for this admission?: Yes Summary: Resolved. Secondary to COPD exacerbation in the setting of lung cancer. Now maintaining oxygen saturations while ambulatory on room air while at rest; she is able to speak full sentences, tachypnea and tachycardia are much improved. (2) COPD exacerbation Is this a current diagnosis for this admission?: Yes Summary: Continues to improve. CTA of the chest is negative for PE but does reveal emphysema, spiculated mass to the right upper lobe consistent with carcinoma, postradiation changes to the left upper lobe, bilateral adrenal masses, multiple hypodensities within the liver. repeat ABG reassurin.45/41.5/82.2/28.1 on 3 lpm via NC. Sputum culture grew Pseudomonas aeruginosa The patient was admitted to [facility] on continuous cardiac telemetry. She is provided supplemental oxygen as needed to maintain oxygen saturations 90- 94 and has been successfully weaned to room air. She now maintains oxygen saturations while ambulating on room air. Multiple attempts to use BiPAP for symptom relief were made; she was unable to tolerate the device due to anxiety. She received 5 days of p.o. Levaquin for coverage of bronchitis, however, cultures grew Levaquin resistant pseudomonas. She was placed on ceftin twice daily and provided a prescription to complete a 10 day course. She is instructed to resume her Advair and is provided prescriptions for a steroid taper, nebulizer treatments, Daliresp, and Mucinex. At time of discharge, the patient was in stable condition, denied dyspnea at rest, maintaining oxygen saturations while ambulatory. She is discharged to home with Home Health nursing and physical therapy. She is instructed to follow up with her PCP within 1 week, Dr. Davidson as scheduled, and with Dr. Brown within 2-4 weeks. She is instructed to return to the emergency department as needed for any concerning symptoms. (3) Lung cancer Is this a current diagnosis for this admission?: Yes Summary: The patient is established with Dr. Davidson; currently on Tarceva. Patient is to follow up as scheduled next week. (4) Essential hypertension Is this a current diagnosis for this admission?: Yes Summary: Blood pressures are acceptable for age. She is to continue amlodipine 5 mg daily and hydralazine 25 mg every 8 hour. She was provided prescriptions for losartan to 50 mg daily and carvedilol 3.125 mg twice daily. (5) Tobacco abuse Is this a current diagnosis for this admission?: Yes Summary: The patient continues to smoke multiple packs daily. She acknowledges that this is likely contributing to her repeat admissions and progressively worsening COPD. Despite this, she appears to be pre-contemplative with regard to smoking cessation. Nicotine replacement therapies (patch and gum) are offered; declined by patient. (6) Anxiety Is this a current diagnosis for this admission?: Yes Summary: Patient admits to history of depression and anxiety; not on maintenance medications. She was provided prescriptions for scheduled Buspar twice daily and Xanax 0.25 mg as needed. She is encouraged to discuss her anxiety with her PCP and Oncologist; she may benefit from an SSRI/SNRI. (7) Hyponatremia Is this a current diagnosis for this admission?: Yes Summary: Improving; Na 132.5--> 125.3--> 127.5--> 129.7 Laboratory evaluation this admission demonstrated hypovolemic hyponatremia. 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 Pt with history of hyponatremia; baseline 130. Has been as low as 119.9 in the past. Possibly related to Lung CA w/ adrenal masses. Urine Osmo 297, Urine Na 32. Repeat Urine Osmo 339, Urine 15 (following IVF). TSH low; 0.31. T3 and Free T4 normal. She is provided a prescription for Sodium chloride 1 gm tablet. She is advised to eat a regular diet and restrict free water intake. She is encouraged to decrease her coffee intake. Recommend repeat BMP in 1 week. (8) Tachycardia Is this a current diagnosis for this admission?: Yes Summary: Improved; now 80-110 Multifactorial secondary to acute/chronic respiratory failure and dehydration. The patient has persistent tachycardia despite rest, adequate oxygenation ( maintaining oxygen saturations >95%), and anxiety medications. CTA of the chest was negative for pulmonary embolus. EKG demonstrated sinus tachycardia with a rate of 124 and an old inferior infarct. No current ST segment changes. Patient was provided diltiazem 15 mg IV x1. 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 Troponin was indeterminate x4, stable and trending down. Pro BNP 3100 TSH low, T3 and T4 normal. (9) Thrush Is this a current diagnosis for this admission?: Yes Summary: Much improved. Have resumed Advair; educated on oral rinsing. High dose steroids have been weaned to prednisone; she is discharged on a tapered course. She was provided Diflucan 100 mg daily x 3 days and started on Nystatin swishes. (10) Debility Is this a current diagnosis for this admission?: Yes Summary: Patient is being discharged to home with home health nursing and physical therapy. - Additional Information Resuscitation Status: Do Not Resuscitate Discharge Diet: Cardiac Discharge Activity: Activity As Tolerated, Balance Activity w/Rest Prescriptions: Alprazolam [Xanax 0.25 mg Tablet] 0.25 mg PO Q6HP PRN #8 tablet PRN Reason: Buspirone HCl [Buspar 10 mg Tablet] 10 mg PO ASDIR PRN #45 tablet PRN Reason: Carvedilol [Coreg 3.125 mg Tablet] 3.125 mg PO Q12 #60 tablet Cefuroxime Axetil [Ceftin 250 mg Tablet] 250 mg PO BID #18 tablet Losartan Potassium [Cozaar 50 mg Tablet] 50 mg PO DAILY #30 tablet Nystatin [Mycostatin 500,000 Unit/5 ml Susp Udcup] 500,000 unit PO QID #40 udc Prednisone [Deltasone 20 mg Tablet] 20 mg PO ASDIR PRN #20 tablet PRN Reason: Roflumilast [Daliresp 500 Mcg Tablet] 500 mcg PO DAILY #30 tablet Sodium Chloride [Sodium Chloride 1 gm Tablet] 1 gm PO DAILY #30 tablet Home Medications: Acetaminophen [Tylenol 325 mg Tablet] 650 mg PO Q8HP PRN 04/13/18 Albuterol Sulfate [Proair HFA Inhalation Aerosol 8.5 gm MDI] 1 puff IH Q6HP PRN 04/13/18 Ca Citrate/Mgox/Vit D3/B6/Min [Citracal Plus Tablet] 1 tab PO DAILY 04/13/18 Candesartan Cilexetil [Atacand 32 mg Tablet] 32 mg PO DAILY 04/13/18 Docusate Sodium [Colace 100 mg Capsule] 100 mg PO DAILYP PRN 04/13/18 Erlotinib HCl [Tarceva 150 mg Tablet] 150 mg PO DAILY 04/13/18 Fluticasone/Salmeterol [Advair 250-50 Diskus 14 Dose/Diskus] 1 puff IH Q12 04/13 Guaifenesin [Mucinex] 600 mg PO BID 04/13/18 Loratadine [Claritin 10 mg Tablet] 10 mg PO DAILY 04/13/18 Multivitamin [Daily Multiple Vitamin] 1 tab PO DAILY 04/13/18 Aspirin [Ecotrin] 81 mg PO DAILY 05/17/18 Hydralazine HCl [Apresoline 25 mg Tablet] 25 mg PO Q8 05/18/18 Alprazolam [Xanax 0.25 mg Tablet] 0.25 mg PO Q6HP PRN #8 tablet 05/25/18 Amlodipine Besylate [Norvasc 5 mg Tablet] 5 mg PO DAILY tablet 05/25/18 Buspirone HCl [Buspar 10 mg Tablet] 10 mg PO ASDIR PRN #45 tablet 05/25/18 Buspirone HCl [Buspar 10 mg Tablet] 10 mg PO QHS tablet 05/25/18 Carvedilol [Coreg 3.125 mg Tablet] 3.125 mg PO Q12 #60 tablet 05/25/18 Cefuroxime Axetil [Ceftin 250 mg Tablet] 250 mg PO BID #18 tablet 05/25/18 Fluticasone Propionate [Flonase Nasal Morrison 50 Mcg/Morrison 16 gm] 1 spray NASL DAILY spray.pump 05/25/18 Hydralazine HCl [Apresoline 25 mg Tablet] 25 mg PO Q8 tablet 05/25/18 Losartan Potassium [Cozaar 50 mg Tablet] 50 mg PO DAILY #30 tablet 05/25/18 Nystatin [Mycostatin 500,000 Unit/5 ml Susp Udcup] 500,000 unit PO QID #40 udc 05/25/18 Prednisone [Deltasone 20 mg Tablet] 20 mg PO ASDIR PRN #20 tablet 05/25/18 Roflumilast [Daliresp 500 Mcg Tablet] 500 mcg PO DAILY #30 tablet 05/25/18 Sodium Chloride [Sodium Chloride 1 gm Tablet] 1 gm PO DAILY #30 tablet 05/25/18 History of Present Illness History of Present Illness: Per H&P by Dr. Sterling: NISA JC is a 77 year old female who has severe COPD and metastatic lung cancer status post radiation and chemotherapy and currently on Tarceva. Patient is current everyday smoker. Patient presents to the emergency room due to acute on chronic onset of severe progressive shortness of breath started about a week ago. This was associated with cough with blood-tinged sputum and wheezing. She saw her primary care physician about 4 or 5 days ago and was prescribed oral steroids and antibiotics, I believe it was doxycycline. She continued to worsen and presented to the emergency room for evaluation. She is tachypneic and using accessory muscles. She is also tachycardic. She is getting ready to receive BiPAP treatment. She was here in this hospital last month for syncope and workup shows more than 70% stenosis on the left carotid artery. Physical Exam Vital Signs: Temp Pulse Resp BP Pulse Ox 98.5 F 97 16 117/61 92 05/25/18 15:14 05/25/18 15:14 05/25/18 15:14 05/25/18 15:14 05/25/18 15:14 Intake & Output 05/25/18 05/26/18 05/27/18 06:59 06:59 06:59 Intake Total 1210 591 Balance 1210 591 Weight 63.2 kg General appearance: PRESENT: no acute distress, cooperative, well-developed, well-nourished Head exam: PRESENT: atraumatic, normocephalic Eye exam: PRESENT: conjunctiva pink, EOMI, PERRLA. ABSENT: scleral icterus Ear exam: PRESENT: normal external ear exam Mouth exam: PRESENT: moist, tongue midline Neck exam: ABSENT: carotid bruit, JVD, lymphadenopathy, thyromegaly Respiratory exam: PRESENT: prolonged expiratory phas, rhonchi, unlabored, wheezes. ABSENT: rales, tachypnea Cardiovascular exam: PRESENT: RRR, +S1, +S2. ABSENT: diastolic murmur, rubs, systolic murmur Pulses: PRESENT: normal dorsalis pedis pul Vascular exam: PRESENT: normal capillary refill GI/Abdominal exam: PRESENT: normal bowel sounds, soft. ABSENT: distended, guarding, mass, organolmegaly, rebound, tenderness Rectal exam: PRESENT: deferred Extremities exam: PRESENT: full ROM. ABSENT: calf tenderness, clubbing, pedal edema Neurological exam: PRESENT: alert, awake, oriented to person, oriented to place , oriented to time, oriented to situation, CN II-XII grossly intact. ABSENT: motor sensory deficit Psychiatric exam: PRESENT: anxious, appropriate affect, normal mood. ABSENT: homicidal ideation, suicidal ideation Skin exam: PRESENT: dry, intact, warm. ABSENT: cyanosis, rash Results Laboratory Results: 05/20/18 05:30 05/24/18 06:30 05/20/18 05/20/18 05/21/18 12:13 17:50 00:15 Troponin I 0.037 0.041 0.042 NT-Pro-B Natriuret Pep 3100 H 05/21/18 05/23/18 09:29 06:35 Troponin I 0.035 NT-Pro-B Natriuret Pep 1680 H Impressions: Chest X-Ray 05/17/18 13:29 IMPRESSION: Chronic changes. No acute findings. Chest/Abdomen CTA 05/17/18 14:07 IMPRESSION: 1 No evidence of pulmonary emboli. Centrilobular emphysema. 2.7 x 2.4 cm spiculated mass right upper lobe consistent carcinoma. Status post left thoracotomy. Fibrotic scarring and traction bronchiectasis left upper lobe and superior segment left lower lobe consistent post radiation change. 2. Bilateral adrenal masses right greater than left. Persistent hypodensities within the liver too small to characterize. Cholelithiasis. Qualifiers - * PATIENT BEING DISCHARGED WITH ANY OF THE FOLLOWING DIAGNOSIS: No Plan Discharge Plan: Discharge to home with home health nursing and physical therapy. Follow up with primary care provider within 1 week. Follow up with Dr. Davidson as scheduled. Re-establish with Dr. Brown within 2-4 weeks. STOP smoking. Return to the Emergency Department as needed for concerning symptoms. Time Spent: Less than 30 Minutes
== END 2018-05-25 16:49 | disposition home health service (06) | DRG 189 ==
LOC: ER 13:25 → EH 17:09 → 3W 19:34
PROVIDERS: ADMIT Emergency Medicine; ATTEND Emergency Medicine
DX: J96.01 Acute respiratory failure with hypoxia (principal); J44.1 Chronic obstructive pulmonary disease with (acute) exacerbation; C34.11 Malignant neoplasm of upper lobe, right bronchus or lung; C79.9 Secondary malignant neoplasm of unspecified site; E87.1 Hypo-osmolality and hyponatremia; B37.0 Candidal stomatitis; Z66 Do not resuscitate; I10 Essential (primary) hypertension; I65.22 Occlusion and stenosis of left carotid artery; F41.9 Anxiety disorder, unspecified; F17.210 Nicotine dependence, cigarettes, uncomplicated; Z79.82 Long term (current) use of aspirin; Z79.51 Long term (current) use of inhaled steroids; Z79.52 Long term (current) use of systemic steroids; Z79.899 Other long term (current) drug therapy
CPT/HCPCS: 36415; 36600; 71045; 71275; 80048; 80053; 81001; 82550; 82553; 82803; 83605; 83880; 83935; 84300; 84439; 84443; 84481; 84484; 85025; 85027; 87070; 87077; 87186; 87205; 93005; 93010; 94640; 94660; 94667; 94799; 96365; 99291; 99406; G8978-GP; G8979-GP; J1642; J1650; J1885; J2060; J2920; J2930; J3475; J3490; J7030; J7120; J7512; J7620

== ENCOUNTER 2018-05-26 13:20 | Inpatient (IN) | payer MEDICARE ==
[2018-05-26 13:55] LABS: HEMATOCRIT 39.6 % (36.0-47.0); HEMOGLOBIN 13.6 g/dL (12.0-15.5); MEAN CORPUSCULAR HEMOGLOBIN 31.5 pg (27.0-33.4); MEAN CORPUSCULAR HGB CONC 34.4 g/dL (32.0-36.0); MEAN CORPUSCULAR VOLUME 92 fl (80-97); PLATELET COUNT 285 10^3/uL (150-450); RED BLOOD COUNT 4.32 10^6/uL (3.72-5.28); RED CELL DISTRIBUTION WIDTH 13.2 % (11.5-14.0); WHITE BLOOD COUNT 16.1 10^3/uL (4.0-10.5)
[2018-05-26 14:12] LABS: ALANINE AMINOTRANSFERASE 61 U/L (9-52); ALBUMIN 3.8 g/dL (3.5-5.0); ALKALINE PHOSPHATASE 64 U/L (38-126); ANION GAP 13 (5-19); ASPARTATE AMINO TRANSFERASE 52 U/L (14-36); BILIRUBIN,DIRECT 0.2 mg/dL (0.0-0.4); BILIRUBIN,TOTAL 0.8 mg/dL (0.2-1.3); BLOOD UREA NITROGEN 21 mg/dL (7-20); CALCIUM 9.2 mg/dL (8.4-10.2); CARBON DIOXIDE 31 mmol/L (22-30); CHLORIDE 83 mmol/L (98-107); CREATINE KINASE 47 U/L (30-135); GLUCOSE 130 mg/dL (75-110); POTASSIUM 4.4 mmol/L (3.6-5.0); SODIUM 127.3 mmol/L (137-145); TOTAL PROTEIN 6.2 g/dL (6.3-8.2)
--- NOTE | 2018-05-26 14:22 | RADIOLOGY REPORT (SQ) ---
EXAM DESCRIPTION: CHEST SINGLE VIEW COMPLETED DATE/TIME: 05/26/2018 1:52 pm REASON FOR STUDY: bed 11 db COMPARISON: 05/17/2018 CT 04/12/2018 EXAM PARAMETERS: NUMBER OF VIEWS: One view. TECHNIQUE: Single frontal radiographic view of the chest acquired. RADIATION DOSE: NA LIMITATIONS: None. FINDINGS: LUNGS AND PLEURA: Scarring in the left apex with elevation the left hilum. 2 cm right upp er lobe pulmonary mass. MEDIASTINUM AND HILAR STRUCTURES: No masses. Contour normal. HEART AND VASCULAR STRUCTURES: Heart normal in size. Normal vasculature. BONES: No acute findings. HARDWARE: None in the chest. OTHER: No other significant finding. IMPRESSION: Pulmonary mass that was present on the CT of April 12. No acute infiltrates. TECHNICAL DOCUMENTATION: JOB ID: [id number] [employer]- All Rights Reserved Reading location - IP/workstation name: [email or web address]
[2018-05-26] MEDS ORDERED: IPRATROPIUM/ALBUTEROL 0.5-2.5 MG/3 ML AMPUL NEB ONE (14:23)
[2018-05-26] MEDS ORDERED: METHYLPREDNISOLONE INJ 125 MG/2 ML SDV IV ONE (14:23)
[2018-05-26] MEDS ORDERED: ALBUTEROL SULFATE 0.083% NEB 2.5 MG/3 ML AMPUL NEB ONE (14:23)
[2018-05-26 14:25] LABS: ABSOLUTE LYMPHOCYTES# (MANUAL) 0.2 10^3/uL (0.5-4.7); ABSOLUTE MONOCYTES # (MANUAL) 0.6 10^3/uL (0.1-1.4); ABSOLUTE NEUTROPHILS# (MANUAL) 15.3 10^3/uL (1.7-8.2); BASOPHILS % (MANUAL) 0 % (0-2); EOSINOPHILS % (MANUAL) 0 % (0-6); HYPOCHROMASIA SLIGHT; LYMPHOCYTES % (MANUAL) 1 % (13-45); MONOCYTES % (MANUAL) 4 % (3-13); POLYCHROMASIA SLIGHT; SEGMENTED NEUTROPHILS % (MAN) 95 % (42-78); TOTAL CELLS COUNTED 100; TOXIC GRANULATION SLIGHT
[2018-05-26] MEDS ORDERED: NORMAL SALINE 1000 ML 1,000 ML IV ONE (14:25)
[2018-05-26 14:26] LABS: PLATELET COMMENT ADEQUATE
--- NOTE | 2018-05-26 14:29 | ER Document Report ---
ED Respiratory Problem - General Chief Complaint: Respiratory Distress Stated Complaint: RESPIRATORY DISTRESS Time Seen by Provider: 05/26/18 14:15 Mode of Arrival: Stretcher Information source: Patient TRAVEL OUTSIDE OF THE [place] IN LAST 30 DAYS: No - HPI Patient complains to provider of: COPD, Cough, Short of breath Onset: Yesterday Duration: Worse/persistent Quality of pain: No pain Context: Hx COPD, Smoker Short of Breath: Severe Chest pain/discomfort: Tightness Cough: Productive Sputum amount: Small Sputum color: Yellow Sputum consistency: Mucoid At home treatment: Bronchodilators, Inhaled steroids, Oral steroids EMS treatments: Bronchodilators Associated symptoms: Congestion, Cough, Short of breath, Wheezing Similar symptoms previously: Yes Recently seen / treated by doctor: Yes Notes: Patient is a 77-year-old female with a history of COPD as well as lung cancer, presenting to the emergency room today via EMS for respiratory distress, she was recently admitted to this facility and discharged yesterday, she states she did not feel ready for discharge and was short of breath at time of her discharge, she also reports that she was given prescriptions for nebulizer treatments but does not own a nebulizer, therefore she has been using her steroid and albuterol inhalers at home as well as taking other prescribed medications such as prednisone and antibiotics but her symptoms worsened today prompting her to call EMS, she is not currently on oxygen at home either, EMS reports that she was hypoxic in the 85-89% on room air, with diffuse wheezing and tachypnea, patient reports a cough productive of yellowish sputum, chest tightness and shortness of breath, denies any fevers, no chest pain, last cigarette was 9 days ago - Related Data Allergies/Adverse Reactions: latex [Latex] Allergy (Severe, Verified 05/26/18 22:02) rash hydrocodone [Hydrocodone] Allergy (Unknown, Verified 05/26/18 22:02) morphine [Morphine] Allergy (Unknown, Verified 05/26/18 22:02) amoxicillin trihydrate [From Augmentin] Adverse Reaction (Unknown, Verified 22:02) Dizziness Potassium Clavulanate * [From Augmentin] Adverse Reaction (Unknown, Verified 22:02) Dizziness olmesartan medoxomil [From May] Adverse Reaction (Verified 05/26/18 22:02) tremor Past Medical History - General Information source: Patient - Social History Smoking Status: Current Every Day Smoker Family History: Hypertension, Malignancy Patient has suicidal ideation: No Patient has homicidal ideation: No - Past Medical History Cardiac Medical History: Reports: Hx Hypertension Denies: Hx Coronary Artery Disease, Hx Heart Attack, Hx Pulmonary Embolism Pulmonary Medical History: Reports: Hx COPD Denies: Hx Asthma, Hx Bronchitis, Hx Pneumonia, Hx Intubation, Hx Respiratory Failure, Hx Sleep Apnea, Hx Tuberculosis Neurological Medical History: Denies: Hx Cerebrovascular Accident, Hx Seizures - SYNCOPE LAST YEAR EPISODE D/T LOW SODIUM Endocrine Medical History: Denies: Hx Hyperthyroidism, Hx Hypothyroidism Renal/ Medical History: Denies: Hx Peritoneal Dialysis Malignancy Medical History: Reports: Hx Lung Cancer - Originally stage III lung cancer status post chemoradiation, with recurrenc. Denies: Hx Leukemia GI Medical History: Denies: Hx Hepatitis, Hx Hiatal Hernia, Hx Ulcer Musculoskeletal Medical History: Reports Hx Arthritis, Denies Hx Fibromyalgia, Denies Hx Multiple Sclerosis, Denies Hx Muscular Dystrophy Psychiatric Medical History: Reports: Hx Depression Denies: Hx Dementia Traumatic Medical History: Denies: Hx Fractures Infectious Medical History: Denies: Hx Hepatitis, Hx HIV Past Surgical History: Reports: Hx Appendectomy - 1977, Hx Hysterectomy, Hx Tonsillectomy - age 17, Hx Tubal Ligation, Other - Lung biopsy. Denies: Hx Bowel Surgery, Hx Section, Hx Cholecystectomy, Hx Coronary Artery Bypass Graft, Hx Gastric Bypass Surgery, Hx Herniorrhaphy, Hx Mastectomy, Hx Open Heart Surgery, Hx Pacemaker - Immunizations Hx Diphtheria, Pertussis, Tetanus Vaccination: No Hx Pneumococcal Vaccination: 04/08/08 Review of Systems - Review of Systems Constitutional: No symptoms reported EENT: No symptoms reported Cardiovascular: No symptoms reported Respiratory: See HPI Gastrointestinal: No symptoms reported Genitourinary: No symptoms reported Female Genitourinary: No symptoms reported Musculoskeletal: No symptoms reported Skin: No symptoms reported Hematologic/Lymphatic: No symptoms reported Neurological/Psychological: No symptoms reported -: Yes All other systems reviewed and negative Physical Exam - Vital signs Vitals: Pulse Ox 96 05/26/18 13:40 Interpretation: Normal - General General appearance: Alert In distress: Moderate - HEENT Head: Normocephalic, Atraumatic Eyes: Normal Pupils: PERRL - Respiratory Respiratory status: Labored, Retractions, Tachypnea Chest status: Nontender Breath sounds: Productive cough, Wheezing Chest palpation: Normal - Cardiovascular Rhythm: Regular, Tachycardia Heart sounds: Normal auscultation Murmur: No - Abdominal Inspection: Normal Distension: No distension Bowel sounds: Normal Tenderness: Nontender Organomegaly: No organomegaly - Back Back: Normal, Nontender - Extremities General upper extremity: Normal inspection, Nontender, Normal color, Normal ROM , Normal temperature General lower extremity: Normal inspection, Nontender, Normal color, Normal ROM , Normal temperature, Normal weight bearing. No: Ralph's sign - Neurological Neuro grossly intact: Yes Cognition: Normal Orientation: AAOx4 Mame Coma Scale Eye Opening: Spontaneous Mame Coma Scale Verbal: Oriented Mame Coma Scale Motor: Obeys Commands [place] Coma Scale Total: 15 Speech: Normal Motor strength normal: LUE, RUE, LLE, RLE Sensory: Normal - Psychological Associated symptoms: Normal affect, Normal mood - Skin Skin Temperature: Warm Skin Moisture: Dry Skin Color: Normal Course - Re-evaluation Re-evalutation: 05/26/18 16:24 Patient does report slight improvement in her symptoms, however continues to wheeze bilaterally, requires oxygen at this point in time to keep O2 above 90%, symptoms consistent with COPD exacerbation, she will be admitted to the hospital service, was discussed with Dr. Morales who accepts for admission - Vital Signs Vital signs: Temp Pulse Resp BP Pulse Ox 97.6 F 108 H 22 H 130/49 H 99 05/26/18 21:13 05/26/18 21:13 05/26/18 21:13 05/26/18 21:13 05/26/18 21:13 - Laboratory Result Diagrams: 05/26/18 12:55 05/26/18 12:55 Laboratory results interpreted by me: 05/26/18 05/26/18 12:55 12:55 WBC 16.1 H Seg Neuts % (Manual) 95 H Lymphocytes % (Manual) 1 L Abs Neuts (Manual) 15.3 H Abs Lymphs (Manual) 0.2 L Sodium 127.3 L Chloride 83 L Carbon Dioxide 31 H BUN 21 H Creatinine 0.50 L Glucose 130 H AST 52 H ALT 61 H Total Protein 6.2 L - Diagnostic Test Radiology reviewed: Image reviewed, Reports reviewed - EKG Interpretation by Me EKG shows normal: Sinus rhythm Rate: Tachycardia When compared to previous EKG there are: No significant change Critical Care Note - Critical Care Note Total time excluding time spent on procedures (mins): 45 Comments: Patient with persistent COPD exacerbation, requiring multiple breathing treatments, oxygen to maintain saturations above 90%, and admission to hospitalist service for further evaluation Discharge - Discharge Clinical Impression: COPD exacerbation Condition: Fair Disposition: ADMITTED INPATIENT Admitting Provider: Hospitalist Unit Admitted: Telemetry
[2018-05-26 14:30] LABS: CREATINE KINASE MB 2.32 ng/mL (<4.55); TROPONIN I 0.021 ng/mL
[2018-05-26 15:30] LABS: APPEARANCE,URINE SLIGHTLY-CLOUDY; BILIRUBIN,URINE NEGATIVE (NEGATIVE); COLOR,URINE YELLOW; GLUCOSE, URINE NEGATIVE (NEGATIVE); KETONES,URINE NEGATIVE (NEGATIVE); LEUKOCYTE ESTERASE,URINE NEGATIVE (NEGATIVE); NITRITE,URINE NEGATIVE (NEGATIVE); PROTEIN,URINE NEGATIVE (NEGATIVE); URINE SPECIFIC GRAVITY 1.013; UROBILINOGEN,URINE NEGATIVE mg/dL (<2.0)
[2018-05-26] MEDS ORDERED: MAG HYDROX/AL HYDROX/SIMETH SUSP 30 ML UDCUP PO PRN (17:11)
[2018-05-26] MEDS ORDERED: IPRATROPIUM/ALBUTEROL 0.5-2.5 MG/3 ML AMPUL NEB PRN (17:11)
[2018-05-26] MEDS ORDERED: ONDANSETRON 4 MG TAB.RAPDIS PO PRN (17:11)
--- NOTE | 2018-05-26 18:55 | PDOC H&P ---
History of Present Illness Admission Date/PCP: 05/26/18 16:41 ELIZ BACA MD Patient complains of: Difficulty breathing and shortness of breath History of Present Illness: NISA JC is a 77 year old female This patient was just discharged from the hospital on May 25 after a prolonged admission for acute respiratory failure and COPD exacerbation in the setting of underlying lung cancer. She returns today with progressive worsening of her breathing and she was found to be in COPD with exacerbation. Patient had a CT scan of the lungs done during this last admission which showed a spiculated mass consistent with carcinoma. She had been receiving Tarceva and she is post radiation. She was also found to have bilateral adrenal masses , multiple hypodensities within the liver. She was treated with 5 days of Levaquin for bronchitis however her cultures grew Levaquin resistant Pseudomonas Patient apparently continues to be an active smoker smoking multiple packs of cigarettes daily despite admonitions to the contrary. She declined smoking cessation therapy or further at the time of discharge. Patient also has severe anxiety which seems to be a compounding respiratory distress. Past Medical History Cardiac Medical History: Reports: Hypertension Denies: Coronary Artery Disease, Myocardial Infarction, Pulmonary Embolism Pulmonary Medical History: Reports: Chronic Obstructive Pulmonary Disease (COPD) Denies: Asthma, Bronchitis, Intubation, Pneumonia, Respiratory Failure, Sleep Apnea, Tuberculosis Neurological Medical History: Denies: Seizures - SYNCOPE LAST YEAR EPISODE D/T LOW SODIUM Endocrine Medical History: Denies: Hyperthyroidism, Hypothyroidism Malignancy Medical History: Reports: Lung Cancer - Originally stage III lung cancer status post chemoradiation, with recurrenc Denies: Leukemia GI Medical History: Denies: Hepatitis, Hiatal Hernia Musculoskeltal Medical History: Reports: Arthritis Denies: Fibromyalgia Psychiatric Medical History: Reports: Depression Denies: Dementia Hematology: Denies: Anemia, Hemophilia, Sickle Cell Disease Infectious Medical History: Denies: HIV Past Surgical History Past Surgical History: Reports: Appendectomy - 1977, Hysterectomy, Tonsillectomy - age 17, Tubal Ligation, Other - Lung biopsy Denies: Amputation, Section, Cholecystectomy, Coronary Artery Bypass Graft, Gastric Bypass Surgery, Herniorrhaphy, Mastectomy, Pacemaker Social History Smoking Status: Current Every Day Smoker Frequency of Alcohol Use: None Hx Recreational Drug Use: No Drugs: None Hx Prescription Drug Abuse: No - Advance Directive Resuscitation Status: Full Code - This was discussed with patient and she said that she does not know and is now willing to make any further decisions at this time so she was made full code Family History Family History: Hypertension, Malignancy Parental Family History Reviewed: No Children Family History Reviewed: Unknown Sibling(s) Family History Reviewed.: Unknown Medication/Allergy Home Medications: Acetaminophen [Tylenol 325 mg Tablet] 650 mg PO Q8HP PRN 04/13/18 Albuterol Sulfate [Proair HFA Inhalation Aerosol 8.5 gm MDI] 1 puff IH Q6HP PRN 04/13/18 Ca Citrate/Mgox/Vit D3/B6/Min [Citracal Plus Tablet] 1 tab PO DAILY 04/13/18 Candesartan Cilexetil [Atacand 32 mg Tablet] 32 mg PO DAILY 04/13/18 Docusate Sodium [Colace 100 mg Capsule] 100 mg PO DAILYP PRN 04/13/18 Erlotinib HCl [Tarceva 150 mg Tablet] 150 mg PO DAILY 04/13/18 Fluticasone/Salmeterol [Advair 250-50 Diskus 14 Dose/Diskus] 1 puff IH Q12 04/13 Guaifenesin [Mucinex] 600 mg PO BID 04/13/18 Loratadine [Claritin 10 mg Tablet] 10 mg PO DAILYP PRN 04/13/18 Multivitamin [Daily Multiple Vitamin] 1 tab PO DAILY 04/13/18 Aspirin [Ecotrin] 81 mg PO DAILY 05/17/18 Hydralazine HCl [Apresoline 25 mg Tablet] 25 mg PO Q8 05/18/18 Alprazolam [Xanax 0.25 mg Tablet] 0.25 mg PO Q6HP PRN #8 tablet 05/25/18 Amlodipine Besylate [Norvasc 5 mg Tablet] 5 mg PO DAILY tablet 05/25/18 Buspirone HCl [Buspar 10 mg Tablet] 10 mg PO QHS tablet 05/25/18 Carvedilol [Coreg 3.125 mg Tablet] 3.125 mg PO Q12 #60 tablet 05/25/18 Losartan Potassium [Cozaar 50 mg Tablet] 50 mg PO DAILY #30 tablet 05/25/18 Nystatin [Mycostatin 500,000 Unit/5 ml Susp Udcup] 500,000 unit PO QID #40 udc 05/25/18 Roflumilast [Daliresp 500 Mcg Tablet] 500 mcg PO DAILY #30 tablet 05/25/18 Sodium Chloride [Sodium Chloride 1 gm Tablet] 1 gm PO DAILY #30 tablet 05/25/18 Buspirone HCl [Buspar 10 mg Tablet] 5 mg PO QAM 05/26/18 Fluticasone Propionate [Flonase Nasal [place] 50 Mcg/[place] 16 gm] 1 spray NASL DAILYP PRN 05/26/18 Allergies/Adverse Reactions: latex [Latex] Allergy (Severe, Verified 05/26/18 18:12) rash hydrocodone [Hydrocodone] Allergy (Unknown, Verified 05/26/18 18:12) morphine [Morphine] Allergy (Unknown, Verified 05/26/18 18:12) amoxicillin trihydrate [From Augmentin] Adverse Reaction (Unknown, Verified 18:12) Dizziness Potassium Clavulanate * [From Augmentin] Adverse Reaction (Unknown, Verified 18:12) Dizziness olmesartan medoxomil [From May] Adverse Reaction (Verified 05/26/18 18:12) tremor Review of Systems ROS unobtainable: Other - Due to respiratory status Respiratory: PRESENT: dyspnea Genitourinary: ABSENT: dysuria, hematuria Musculoskeletal: ABSENT: joint swelling Physical Exam Vital Signs: Temp Pulse Resp BP Pulse Ox 97.7 F 28 H 124/44 L 94 05/26/18 13:53 05/26/18 18:01 05/26/18 18:01 05/26/18 18:01 General appearance: PRESENT: mild distress, thin Head exam: PRESENT: atraumatic Eye exam: PRESENT: conjunctiva pink, EOMI, PERRLA. ABSENT: scleral icterus Respiratory exam: PRESENT: accessory muscle use, rhonchi, tachypnea, wheezes Cardiovascular exam: PRESENT: +S1, +S2, tachycardia Extremities exam: PRESENT: full ROM. ABSENT: calf tenderness, clubbing, pedal edema Neurological exam: PRESENT: alert, awake Psychiatric exam: PRESENT: anxious Results Laboratory Results: 05/26/18 12:55 05/26/18 12:55 MCV 92 fl (80-97) 05/26/18 12:55 MCH 31.5 pg (27.0-33.4) 05/26/18 12:55 MCHC 34.4 g/dL (32.0-36.0) 05/26/18 12:55 RDW 13.2 % (11.5-14.0) 05/26/18 12:55 Seg Neutrophils % Not Reportable 05/26/18 12:55 Lymphocytes % Not Reportable 05/26/18 12:55 Monocytes % Not Reportable 05/26/18 12:55 Eosinophils % Not Reportable 05/26/18 12:55 Basophils % Not Reportable 05/26/18 12:55 Absolute Neutrophils Not Reportable 05/26/18 12:55 Absolute Lymphocytes Not Reportable 05/26/18 12:55 Absolute Monocytes Not Reportable 05/26/18 12:55 Absolute Eosinophils Not Reportable 05/26/18 12:55 Absolute Basophils Not Reportable 05/26/18 12:55 Chloride 83 mmol/L (98-107) L 05/26/18 12:55 Carbon Dioxide 31 mmol/L (22-30) H 05/26/18 12:55 Anion Gap 13 (5-19) 05/26/18 12:55 Est GFR ( Amer) > 60 (>60) 05/26/18 12:55 Est GFR (Non-Af Amer) > 60 (>60) 05/26/18 12:55 Glucose 130 mg/dL (75-110) H 05/26/18 12:55 Calcium 9.2 mg/dL (8.4-10.2) 05/26/18 12:55 Total Bilirubin 0.8 mg/dL (0.2-1.3) 05/26/18 12:55 AST 52 U/L (14-36) H 05/26/18 12:55 ALT 61 U/L (9-52) H 05/26/18 12:55 Alkaline Phosphatase 64 U/L (38-126) 05/26/18 12:55 Total Protein 6.2 g/dL (6.3-8.2) L 05/26/18 12:55 Albumin 3.8 g/dL (3.5-5.0) 05/26/18 12:55 Urine Color YELLOW 05/26/18 15:15 Urine Appearance SLIGHTLY-CLOUDY 05/26/18 15:15 Urine pH 7.0 (5.0-9.0) 05/26/18 15:15 Ur Specific [place] 1.013 05/26/18 15:15 Urine Protein NEGATIVE mg/dL (NEGATIVE) 05/26/18 15:15 Urine Glucose (UA) NEGATIVE mg/dL (NEGATIVE) 05/26/18 15:15 Urine Ketones NEGATIVE mg/dL (NEGATIVE) 05/26/18 15:15 Urine Blood NEGATIVE (NEGATIVE) 05/26/18 15:15 Urine Nitrite NEGATIVE (NEGATIVE) 05/26/18 15:15 Ur Leukocyte Esterase NEGATIVE (NEGATIVE) 05/26/18 15:15 Urine WBC (Auto) 1 /HPF 05/26/18 15:15 Urine RBC (Auto) 1 /HPF 05/26/18 15:15 05/26/18 05/26/18 12:55 12:55 Creatine Kinase 47 CK-MB (CK-2) 2.32 Troponin I 0.021 Impressions: Chest X-Ray 05/26/18 13:22 IMPRESSION: Pulmonary mass that was present on the CT of April 12. No acute infiltrates. Assessment & Plan - Diagnosis (1) COPD exacerbation Is this a current diagnosis for this admission?: Yes Plan: Patient will be placed on intravenous steroids as well as bronchodilators (2) Acute and chronic respiratory failure with hypoxia Is this a current diagnosis for this admission?: Yes Plan: Patient states she is unable to use BiPAP as she is unable to tolerate it. We will continue with oxygen as necessary (3) Anxiety Is this a current diagnosis for this admission?: Yes Plan: Alprazolam as needed (4) Full code status Is this a current diagnosis for this admission?: Yes (5) History of lung cancer Is this a current diagnosis for this admission?: Yes Plan: Patient now has a spiculated mass on CT. Follow-up with Dr. Galvez as outpatient (6) Hypertension Qualifiers: Is this a current diagnosis for this admission?: Yes (7) Hyponatremia Is this a current diagnosis for this admission?: Yes Plan: This is likely related to her malignancy (8) Tobacco dependence Is this a current diagnosis for this admission?: Yes Plan: Continue to encourage smoking cessation - Time Time Spent: 50 to 70 Minutes Medications reviewed and adjusted accordingly: Yes Anticipated discharge: Home Within: within 72 hours - Inpatient Certification Based on my medical assessment, after consideration of the patient's comorbidities, presenting symptoms, or acuity I expect that the services needed warrant INPATIENT care.: Yes Medical Necessity: Need For Continuous Telemetry Monitoring, Risk of Complication if Not Cared For in Hospital
[2018-05-26] MEDS: METHYLPREDNISOLONE INJ 40 MG/1 ML SDV IV SCH ×2 (19:18→23:48)
[2018-05-26] MEDS: ALPRAZOLAM 0.25 MG TABLET PO PRN (19:19)
[2018-05-26] MEDS: FLUTICASONE NASAL SPRAY 50 MCG/SPRY 120 SPRAY/16 GM NASL PRN (20:17)
[2018-05-26] MEDS: ALBUTEROL SULFATE 0.083% NEB 2.5 MG/3 ML AMPUL NEB SCH (20:17)
[2018-05-26] MEDS: FLUTICASONE/SALMETEROL DISKUS 250-50 MCG/DOSE IH SCH (22:44)
[2018-05-26] MEDS: HYDRALAZINE HCL 25 MG TABLET PO SCH (22:45)
[2018-05-26] MEDS: BUSPIRONE HCL 10 MG TABLET PO SCH (22:45)
[2018-05-26] MEDS: NYSTATIN 500000 UNIT/5 ML UDCUP PO SCH (22:45)
[2018-05-26] MEDS: CARVEDILOL 3.125 MG TABLET PO SCH (22:45)
[2018-05-27] MEDS: ALBUTEROL SULFATE 0.083% NEB 2.5 MG/3 ML AMPUL NEB SCH ×4 (02:06→20:32)
[2018-05-27 05:07] LABS: HEMATOCRIT 31.2 % (36.0-47.0); MEAN CORPUSCULAR HEMOGLOBIN 32.1 pg (27.0-33.4); MEAN CORPUSCULAR HGB CONC 35.2 g/dL (32.0-36.0); MEAN CORPUSCULAR VOLUME 91 fl (80-97); PLATELET COUNT 198 10^3/uL (150-450); RED BLOOD COUNT 3.42 10^6/uL (3.72-5.28); RED CELL DISTRIBUTION WIDTH 13.1 % (11.5-14.0); WHITE BLOOD COUNT 6.8 10^3/uL (4.0-10.5)
[2018-05-27 05:23] LABS: ANION GAP 10 (5-19); BLOOD UREA NITROGEN 20 mg/dL (7-20); CALCIUM 8.3 mg/dL (8.4-10.2); CARBON DIOXIDE 30 mmol/L (22-30); CHLORIDE 88 mmol/L (98-107); GLUCOSE 135 mg/dL (75-110); POTASSIUM 4.5 mmol/L (3.6-5.0); SODIUM 128.2 mmol/L (137-145)
[2018-05-27] MEDS: METHYLPREDNISOLONE INJ 40 MG/1 ML SDV IV SCH ×3 (05:26→19:09)
[2018-05-27] MEDS: HYDRALAZINE HCL 25 MG TABLET PO SCH ×3 (05:26→21:21)
--- NOTE | 2018-05-27 07:40 | EKG REPORT ---
SEVERITY:- ABNORMAL ECG - SINUS TACHYCARDIA INFERIOR INFARCT, OLD CONSIDER ANTERIOR INFARCT LATERAL LEADS ARE ALSO INVOLVED : Confirmed by: Mathew Grove MD 27-May-2018 07:40:17
--- NOTE | 2018-05-27 08:59 | PDOC PROGRESS REPORT ---
Subjective Progress Note for:: 05/27/18 Subjective:: Patient is breathing much comfortably today. In fact she has been up to the bathroom and ambulated since she feels a lot better Reason For Visit: OBSTRUCTIVE CHRONIC BRONCHITIS WITH EXACERBATION Physical Exam Vital Signs: Temp Pulse Resp BP Pulse Ox 98.3 F 94 20 122/53 L 97 05/27/18 07:40 05/27/18 07:40 05/27/18 07:40 05/27/18 07:40 05/27/18 07:40 Intake & Output 05/26/18 05/27/18 05/28/18 06:59 06:59 06:59 Intake Total 118 Output Total 0 Balance 118 Weight 63.1 kg General appearance: PRESENT: no acute distress Head exam: PRESENT: atraumatic, normocephalic Eye exam: PRESENT: conjunctiva pink, EOMI, PERRLA. ABSENT: scleral icterus Ear exam: PRESENT: normal external ear exam Mouth exam: PRESENT: moist, tongue midline Neck exam: ABSENT: carotid bruit, JVD, lymphadenopathy, thyromegaly Respiratory exam: PRESENT: rhonchi, unlabored, wheezes. ABSENT: rales Cardiovascular exam: PRESENT: RRR. ABSENT: diastolic murmur, rubs, systolic murmur Pulses: PRESENT: normal dorsalis pedis pul Vascular exam: PRESENT: normal capillary refill GI/Abdominal exam: PRESENT: normal bowel sounds, soft. ABSENT: distended, guarding, mass, organolmegaly, rebound, tenderness Rectal exam: PRESENT: deferred Extremities exam: PRESENT: full ROM. ABSENT: calf tenderness, clubbing, pedal edema Neurological exam: PRESENT: alert, awake, oriented to person, oriented to place , oriented to time, oriented to situation, CN II-XII grossly intact. ABSENT: motor sensory deficit Psychiatric exam: PRESENT: appropriate affect, normal mood. ABSENT: homicidal ideation, suicidal ideation Skin exam: PRESENT: dry, intact, warm. ABSENT: cyanosis, rash Results Laboratory Results: 05/27/18 04:14 05/27/18 04:14 05/27/18 05/27/18 04:14 04:14 WBC 6.8 RBC 3.42 L Hgb 11.0 L D Hct 31.2 L MCV 91 MCH 32.1 MCHC 35.2 RDW 13.1 Plt Count 198 Sodium 128.2 L Potassium 4.5 Chloride 88 L Carbon Dioxide 30 Anion Gap 10 BUN 20 Creatinine 0.48 L Est GFR ( Amer) > 60 Est GFR (Non-Af Amer) > 60 Glucose 135 H Calcium 8.3 L Magnesium 2.2 Impressions: Chest X-Ray 05/26/18 13:22 IMPRESSION: Pulmonary mass that was present on the CT of April 12. No acute infiltrates. Assessment & Plan - Diagnosis (1) COPD exacerbation Is this a current diagnosis for this admission?: Yes Plan: We will continue with the steroids at the current dose as well as bronchodilators (2) Acute and chronic respiratory failure with hypoxia Is this a current diagnosis for this admission?: Yes (3) Anxiety Is this a current diagnosis for this admission?: Yes Plan: Continue alprazolam (4) Full code status Is this a current diagnosis for this admission?: Yes (5) History of lung cancer Is this a current diagnosis for this admission?: Yes Plan: Follow-up with oncology as outpatient (6) Hypertension Qualifiers: Is this a current diagnosis for this admission?: Yes (7) Hyponatremia Is this a current diagnosis for this admission?: Yes Plan: Likely related to underlying malignancy (8) Tobacco dependence Is this a current diagnosis for this admission?: Yes - Time Time Spent with patient: 25-34 minutes Medications reviewed and adjusted accordingly: Yes Anticipated discharge: Home Within: within 48 hours - Inpatient Certification Based on my medical assessment, after consideration of the patient's comorbidities, presenting symptoms, or acuity I expect that the services needed warrant INPATIENT care.: Yes
[2018-05-27] MEDS ORDERED: ERLOTINIB HCL 150 MG PO SCH (10:00)
[2018-05-27] MEDS ORDERED: CA CITRATE PO SCH (10:00)
[2018-05-27] MEDS ORDERED: [UNRECOGNIZED DRUG - OTHER] PO SCH (10:00)
[2018-05-27] MEDS ORDERED: MGOX PO SCH (10:00)
[2018-05-27] MEDS ORDERED: (PENDING PHARMACY ID) (Candesartan Cilexetil [Atacand 32 Mg Tablet] 32 MG) PO SCH (10:00)
[2018-05-27] MEDS ORDERED: VIT D3 PO SCH (10:00)
[2018-05-27] MEDS ORDERED: LOSARTAN POTASSIUM 50 MG TABLET PO SCH (10:00)
[2018-05-27] MEDS ORDERED: B6 PO SCH (10:00)
[2018-05-27] MEDS: LOSARTAN POTASSIUM 50 MG TABLET PO SCH (10:40)
[2018-05-27] MEDS: BUSPIRONE HCL 10 MG TABLET PO SCH ×2 (10:41→21:21)
[2018-05-27] MEDS: ASPIRIN 81 MG TABLET, ENT COATED PO SCH (10:42)
[2018-05-27] MEDS: CARVEDILOL 3.125 MG TABLET PO SCH ×2 (10:42→21:21)
[2018-05-27] MEDS: MULTIVITAMIN TABLET PO SCH (10:42)
[2018-05-27] MEDS: AMLODIPINE BESYLATE 5 MG TABLET PO SCH (10:43)
[2018-05-27] MEDS: LORATADINE 10 MG TABLET PO SCH (10:43)
[2018-05-27] MEDS: GUAIFENESIN 600 MG TABLET.SA PO SCH ×2 (10:44→19:09)
[2018-05-27] MEDS: SODIUM CHLORIDE 1 GM TABLET PO SCH (10:45)
[2018-05-27] MEDS: ROFLUMILAST 500 MCG TABLET PO SCH (10:46)
[2018-05-27] MEDS: FLUTICASONE NASAL SPRAY 50 MCG/SPRY 120 SPRAY/16 GM NASL PRN (10:46)
[2018-05-27] MEDS: DOCUSATE SODIUM 100 MG CAPSULE PO SCH (10:48)
[2018-05-27] MEDS: FLUTICASONE/SALMETEROL DISKUS 250-50 MCG/DOSE IH SCH ×2 (10:49→21:22)
[2018-05-27] MEDS: ENOXAPARIN SODIUM INJ 40 MG/0.4 ML DISP.SYRIN SUBCUT SCH (10:49)
[2018-05-27] MEDS: NYSTATIN 500000 UNIT/5 ML UDCUP PO SCH ×4 (10:57→21:22)
[2018-05-27] MEDS: ALPRAZOLAM 0.25 MG TABLET PO PRN ×2 (11:04→21:21)
[2018-05-28] MEDS: METHYLPREDNISOLONE INJ 40 MG/1 ML SDV IV SCH ×4 (00:25→18:15)
[2018-05-28] MEDS: ALBUTEROL SULFATE 0.083% NEB 2.5 MG/3 ML AMPUL NEB SCH ×4 (02:25→20:05)
[2018-05-28] MEDS: ACETAMINOPHEN 325 MG TABLET PO PRN ×2 (03:54→23:09)
[2018-05-28] MEDS: HYDRALAZINE HCL 25 MG TABLET PO SCH ×3 (06:26→21:30)
[2018-05-28] MEDS: BUSPIRONE HCL 10 MG TABLET PO SCH ×2 (08:45→21:30)
--- NOTE | 2018-05-28 10:11 | Physician Advisory Note ---
Physician Advisor ProgressNote .: [facility] I have reviewed the medical record for this patient. Physician Advisor Statement: Supporting evidence for dx of Ac Resp Failure: Per ED note, pt in w/labored breathing & O2 sats as low as 85% on RA. CK
[2018-05-28] MEDS: MULTIVITAMIN TABLET PO SCH (10:20)
[2018-05-28] MEDS: GUAIFENESIN 600 MG TABLET.SA PO SCH ×2 (10:20→18:14)
[2018-05-28] MEDS: FLUTICASONE/SALMETEROL DISKUS 250-50 MCG/DOSE IH SCH ×2 (10:20→21:30)
[2018-05-28] MEDS: SODIUM CHLORIDE 1 GM TABLET PO SCH (10:20)
[2018-05-28] MEDS: ROFLUMILAST 500 MCG TABLET PO SCH (10:20)
[2018-05-28] MEDS: AMLODIPINE BESYLATE 5 MG TABLET PO SCH (10:20)
[2018-05-28] MEDS: LOSARTAN POTASSIUM 50 MG TABLET PO SCH (10:20)
[2018-05-28] MEDS: ASPIRIN 81 MG TABLET, ENT COATED PO SCH (10:21)
[2018-05-28] MEDS: NYSTATIN 500000 UNIT/5 ML UDCUP PO SCH ×4 (10:21→21:31)
[2018-05-28] MEDS: LORATADINE 10 MG TABLET PO SCH (10:21)
[2018-05-28] MEDS: CARVEDILOL 3.125 MG TABLET PO SCH ×2 (10:21→21:31)
[2018-05-28] MEDS: DOCUSATE SODIUM 100 MG CAPSULE PO SCH (10:21)
[2018-05-28] MEDS: ENOXAPARIN SODIUM INJ 40 MG/0.4 ML DISP.SYRIN SUBCUT SCH (10:22)
[2018-05-28] MEDS: TARCEVA PO SCH (12:12)
--- NOTE | 2018-05-28 13:13 | PDOC PROGRESS REPORT ---
Subjective Progress Note for:: 05/28/18 Subjective:: Patient is resting and breathing better. She is on 40mg q6 of Solumedrol. Reason For Visit: ACUTE RESPIRATORY FAILURE, COPD EXACERBATION Physical Exam Vital Signs: Temp Pulse Resp BP Pulse Ox 97.6 F 83 24 H 117/56 L 100 05/28/18 11:03 05/28/18 11:03 05/28/18 11:03 05/28/18 11:03 05/28/18 11:03 Intake & Output 05/27/18 05/28/18 05/29/18 06:59 06:59 06:59 Intake Total 118 2393 591 Output Total 0 200 Balance 118 2193 591 Weight 63.1 kg 63.6 kg General appearance: PRESENT: no acute distress, other - comfortable, elderly and frail Head exam: PRESENT: atraumatic, normocephalic Eye exam: PRESENT: conjunctiva pink, EOMI, PERRLA. ABSENT: scleral icterus Ear exam: PRESENT: normal external ear exam Mouth exam: PRESENT: moist, tongue midline Neck exam: ABSENT: carotid bruit, JVD, lymphadenopathy, thyromegaly Respiratory exam: PRESENT: rhonchi, wheezes Cardiovascular exam: PRESENT: RRR. ABSENT: diastolic murmur, rubs, systolic murmur Pulses: PRESENT: normal dorsalis pedis pul Vascular exam: PRESENT: normal capillary refill GI/Abdominal exam: PRESENT: normal bowel sounds, soft. ABSENT: distended, guarding, mass, organolmegaly, rebound, tenderness Rectal exam: PRESENT: deferred Extremities exam: PRESENT: full ROM. ABSENT: calf tenderness, clubbing, pedal edema Neurological exam: PRESENT: alert, awake, oriented to person, oriented to place , oriented to time, oriented to situation, CN II-XII grossly intact. ABSENT: motor sensory deficit Psychiatric exam: PRESENT: anxious, appropriate affect, normal mood. ABSENT: homicidal ideation, suicidal ideation Skin exam: PRESENT: dry, intact, warm. ABSENT: cyanosis, rash Results Laboratory Results: 05/27/18 04:14 05/27/18 04:14 Impressions: Chest X-Ray 05/26/18 13:22 IMPRESSION: Pulmonary mass that was present on the CT of April 12. No acute infiltrates. Assessment & Plan - Diagnosis (1) COPD exacerbation Is this a current diagnosis for this admission?: Yes Plan: We will continue with the steroids at tapered dose as well as bronchodilators (2) Acute and chronic respiratory failure with hypoxia Is this a current diagnosis for this admission?: Yes Plan: Ambulate and check if she needs home O2. 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
[2018-05-29] MEDS: METHYLPREDNISOLONE INJ 40 MG/1 ML SDV IV SCH ×3 (01:50→23:54)
[2018-05-29] MEDS: ALPRAZOLAM 0.25 MG TABLET PO PRN ×2 (02:06→22:37)
[2018-05-29] MEDS: ALBUTEROL SULFATE 0.083% NEB 2.5 MG/3 ML AMPUL NEB SCH ×4 (02:07→20:00)
[2018-05-29] MEDS: HYDRALAZINE HCL 25 MG TABLET PO SCH ×3 (05:43→21:11)
[2018-05-29] MEDS: BUSPIRONE HCL 10 MG TABLET PO SCH ×2 (08:29→21:09)
[2018-05-29] MEDS: SODIUM CHLORIDE 1 GM TABLET PO SCH (10:15)
[2018-05-29] MEDS: MULTIVITAMIN TABLET PO SCH (10:16)
[2018-05-29] MEDS: AMLODIPINE BESYLATE 5 MG TABLET PO SCH (10:17)
[2018-05-29] MEDS: ASPIRIN 81 MG TABLET, ENT COATED PO SCH (10:18)
[2018-05-29] MEDS: CARVEDILOL 3.125 MG TABLET PO SCH ×2 (10:18→21:11)
[2018-05-29] MEDS: ROFLUMILAST 500 MCG TABLET PO SCH (10:19)
[2018-05-29] MEDS: DOCUSATE SODIUM 100 MG CAPSULE PO SCH (10:19)
[2018-05-29] MEDS: GUAIFENESIN 600 MG TABLET.SA PO SCH ×2 (10:20→17:13)
[2018-05-29] MEDS: LOSARTAN POTASSIUM 50 MG TABLET PO SCH (10:20)
[2018-05-29] MEDS: LORATADINE 10 MG TABLET PO SCH (10:20)
[2018-05-29] MEDS: ENOXAPARIN SODIUM INJ 40 MG/0.4 ML DISP.SYRIN SUBCUT SCH (10:23)
[2018-05-29] MEDS: NYSTATIN 500000 UNIT/5 ML UDCUP PO SCH ×4 (10:23→21:11)
[2018-05-29] MEDS: FLUTICASONE/SALMETEROL DISKUS 250-50 MCG/DOSE IH SCH ×2 (10:26→21:09)
--- NOTE | 2018-05-29 12:02 | PDOC PROGRESS REPORT ---
Subjective Progress Note for:: 05/29/18 Subjective:: Patient was admitted with COPD exacerbation. She had been gradually improving however she is still on Solu-Medrol 40 mg every 8 hours today. Given her history of severe bronchospasm I have opted to decrease the dose to twice a day today and give another day of bronchodilators and hospital management. Patient will need home health as well as oxygen and this can be set up if she is discharged over the weekend. Patient is very anxious partly because she was discharged earlier on this week and had to be readmitted within 48 hours so she is very tentative about going home Reason For Visit: ACUTE RESPIRATORY FAILURE, COPD EXACERBATION Physical Exam Vital Signs: Temp Pulse Resp BP Pulse Ox 97.8 F 86 14 124/53 L 100 05/29/18 02:55 05/29/18 07:45 05/29/18 07:45 05/29/18 02:55 05/29/18 07:45 Intake & Output 05/28/18 05/29/18 05/30/18 06:59 06:59 06:59 Intake Total 2393 1565 Output Total 200 500 Balance 2193 1065 Weight 63.6 kg 63.7 kg General appearance: PRESENT: no acute distress, well-developed, well-nourished Head exam: PRESENT: atraumatic, normocephalic Eye exam: PRESENT: conjunctiva pink, EOMI, PERRLA. ABSENT: scleral icterus Ear exam: PRESENT: normal external ear exam Mouth exam: PRESENT: moist, tongue midline Neck exam: ABSENT: carotid bruit, JVD, lymphadenopathy, thyromegaly Respiratory exam: PRESENT: rhonchi, wheezes - Bilateral, scattered. ABSENT: rales Cardiovascular exam: PRESENT: RRR. ABSENT: diastolic murmur, rubs, systolic murmur Pulses: PRESENT: normal dorsalis pedis pul Vascular exam: PRESENT: normal capillary refill GI/Abdominal exam: PRESENT: normal bowel sounds, soft. ABSENT: distended, guarding, mass, organolmegaly, rebound, tenderness Rectal exam: PRESENT: deferred Extremities exam: PRESENT: full ROM. ABSENT: calf tenderness, clubbing, pedal edema Neurological exam: PRESENT: alert, awake, oriented to person, oriented to place , oriented to time, oriented to situation, CN II-XII grossly intact. ABSENT: motor sensory deficit Psychiatric exam: PRESENT: appropriate affect, normal mood. ABSENT: homicidal ideation, suicidal ideation Skin exam: PRESENT: dry, intact, warm. ABSENT: cyanosis, rash Results Laboratory Results: 05/27/18 04:14 05/27/18 04:14 Impressions: Chest X-Ray 05/26/18 13:22 IMPRESSION: Pulmonary mass that was present on the CT of April 12. No acute infiltrates. Assessment & Plan - Diagnosis (1) COPD exacerbation Is this a current diagnosis for this admission?: Yes (2) Acute and chronic respiratory failure with hypoxia Is this a current diagnosis for this admission?: Yes Plan: She was hypoxemic at 85% and tachypneic at 30R/minute on admission-this has since improved however patient remains hypoxemic with room air saturation of about 85%. She will need home oxygen at discharge. 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
[2018-05-29] MEDS: TARCEVA PO SCH (12:18)
[2018-05-29] MEDS: FLUTICASONE NASAL SPRAY 50 MCG/SPRY 120 SPRAY/16 GM NASL PRN (19:28)
[2018-05-29] MEDS: ACETAMINOPHEN 325 MG TABLET PO PRN (21:15)
[2018-05-30] MEDS: ALBUTEROL SULFATE 0.083% NEB 2.5 MG/3 ML AMPUL NEB SCH ×2 (02:14→07:59)
[2018-05-30] MEDS: ACETAMINOPHEN 325 MG TABLET PO PRN (04:08)
[2018-05-30] MEDS: HYDRALAZINE HCL 25 MG TABLET PO SCH ×2 (05:34→15:05)
[2018-05-30] MEDS: FLUTICASONE NASAL SPRAY 50 MCG/SPRY 120 SPRAY/16 GM NASL PRN ×2 (05:34→09:57)
[2018-05-30 05:59] LABS: HEMATOCRIT 32.5 % (36.0-47.0); HEMOGLOBIN 11.2 g/dL (12.0-15.5); MEAN CORPUSCULAR HEMOGLOBIN 31.8 pg (27.0-33.4); MEAN CORPUSCULAR HGB CONC 34.4 g/dL (32.0-36.0); MEAN CORPUSCULAR VOLUME 93 fl (80-97); PLATELET COUNT 212 10^3/uL (150-450); RED BLOOD COUNT 3.52 10^6/uL (3.72-5.28); RED CELL DISTRIBUTION WIDTH 13.5 % (11.5-14.0); WHITE BLOOD COUNT 10.9 10^3/uL (4.0-10.5)
[2018-05-30 06:38] LABS: ABSOLUTE LYMPHOCYTES# (MANUAL) 0.3 10^3/uL (0.5-4.7); ABSOLUTE MONOCYTES # (MANUAL) 0.3 10^3/uL (0.1-1.4); ABSOLUTE NEUTROPHILS# (MANUAL) 10.2 10^3/uL (1.7-8.2); BASOPHILS % (MANUAL) 0 % (0-2); EOSINOPHILS % (MANUAL) 0 % (0-6); LYMPHOCYTES % (MANUAL) 3 % (13-45); MONOCYTES % (MANUAL) 3 % (3-13); SEGMENTED NEUTROPHILS % (MAN) 94 % (42-78); TOTAL CELLS COUNTED 100
[2018-05-30 06:39] LABS: PLATELET COMMENT ADEQUATE; RBC MORPHOLOGY COMMENT NORMO-CYTIC/CHROMIC
[2018-05-30 07:01] LABS: ANION GAP 9 (5-19); BLOOD UREA NITROGEN 25 mg/dL (7-20); CALCIUM 8.1 mg/dL (8.4-10.2); CARBON DIOXIDE 30 mmol/L (22-30); CHLORIDE 91 mmol/L (98-107); GLUCOSE 133 mg/dL (75-110); POTASSIUM 4.5 mmol/L (3.6-5.0); SODIUM 130.4 mmol/L (137-145)
[2018-05-30] MEDS: BUSPIRONE HCL 10 MG TABLET PO SCH (08:32)
[2018-05-30] MEDS: FLUTICASONE/SALMETEROL DISKUS 250-50 MCG/DOSE IH SCH (09:55)
[2018-05-30] MEDS: CARVEDILOL 3.125 MG TABLET PO SCH (09:56)
[2018-05-30] MEDS: AMLODIPINE BESYLATE 5 MG TABLET PO SCH (09:56)
[2018-05-30] MEDS: ASPIRIN 81 MG TABLET, ENT COATED PO SCH (09:56)
[2018-05-30] MEDS: MULTIVITAMIN TABLET PO SCH (09:56)
[2018-05-30] MEDS: LOSARTAN POTASSIUM 50 MG TABLET PO SCH (09:56)
[2018-05-30] MEDS: LORATADINE 10 MG TABLET PO SCH (09:57)
[2018-05-30] MEDS: GUAIFENESIN 600 MG TABLET.SA PO SCH ×2 (09:57→18:50)
[2018-05-30] MEDS: DOCUSATE SODIUM 100 MG CAPSULE PO SCH (09:57)
[2018-05-30] MEDS: TARCEVA PO SCH (09:58)
[2018-05-30] MEDS: NYSTATIN 500000 UNIT/5 ML UDCUP PO SCH ×3 (09:58→18:50)
[2018-05-30] MEDS: SODIUM CHLORIDE 1 GM TABLET PO SCH (09:59)
[2018-05-30] MEDS: ENOXAPARIN SODIUM INJ 40 MG/0.4 ML DISP.SYRIN SUBCUT SCH (10:00)
[2018-05-30] MEDS: METHYLPREDNISOLONE INJ 40 MG/1 ML SDV IV SCH (10:00)
[2018-05-30] MEDS: ROFLUMILAST 500 MCG TABLET PO SCH (10:00)
[2018-05-30] MEDS ORDERED: ALBUTEROL SULFATE 0.083% NEB 2.5 MG/3 ML AMPUL NEB PRN ×2 (11:07→14:00)
--- NOTE | 2018-05-30 12:10 | PDOC PROGRESS REPORT ---
Subjective Progress Note for:: 05/30/18 Subjective:: The patient is resting in her chair. She is complaining of some discomfort in her legs. She has been having serous draining from several areas on her legs and the buttocks. She also was just recently hospitalized. She wants to be stable when she discharges to avoid acute readmission. She still has a productive cough as well. Reason For Visit: ACUTE RESPIRATORY FAILURE, COPD EXACERBATION Physical Exam Vital Signs: Temp Pulse Resp BP Pulse Ox 98.3 F 89 20 136/41 H 97 05/30/18 07:17 05/30/18 07:59 05/30/18 07:59 05/30/18 07:17 05/30/18 07:59 Intake & Output 05/29/18 05/30/18 05/31/18 06:59 06:59 06:59 Intake Total 1565 1175 Output Total 500 450 Balance 1065 725 Weight 63.7 kg 63.4 kg General appearance: PRESENT: no acute distress, cooperative, well-developed. ABSENT: disheveled Head exam: PRESENT: atraumatic, normocephalic Eye exam: PRESENT: conjunctiva pink, EOMI. ABSENT: scleral icterus Ear exam: PRESENT: normal external ear exam Mouth exam: PRESENT: moist, other - No white patches on her tongue today. Respiratory exam: PRESENT: symmetrical, wheezes - Expiratory wheezes bilaterally.. ABSENT: crackles, rales, retraction, rhonchi Cardiovascular exam: PRESENT: +S1, +S2, other - Occasional irregular beats. GI/Abdominal exam: PRESENT: normal bowel sounds, soft. ABSENT: distended, tenderness Extremities exam: PRESENT: pedal edema - Bilaterally left greater than right with compression stockings in place Musculoskeletal exam: PRESENT: normal inspection Neurological exam: PRESENT: alert, awake, oriented to person, oriented to place , oriented to situation, CN II-XII grossly intact Psychiatric exam: PRESENT: anxious, appropriate affect Focused psych exam: ABSENT: restlessness Skin exam: PRESENT: dry, warm. ABSENT: petechiae, rash Results Laboratory Results: 05/30/18 05:40 05/30/18 05:40 05/30/18 05/30/18 05:40 05:40 WBC 10.9 H RBC 3.52 L Hgb 11.2 L Hct 32.5 L MCV 93 MCH 31.8 MCHC 34.4 RDW 13.5 Plt Count 212 Seg Neutrophils % Not Reportable Lymphocytes % Not Reportable Monocytes % Not Reportable Eosinophils % Not Reportable Basophils % Not Reportable Absolute Neutrophils Not Reportable Absolute Lymphocytes Not Reportable Absolute Monocytes Not Reportable Absolute Eosinophils Not Reportable Absolute Basophils Not Reportable Sodium 130.4 L Potassium 4.5 Chloride 91 L Carbon Dioxide 30 Anion Gap 9 BUN 25 H Creatinine 0.57 Est GFR ( Amer) > 60 Est GFR (Non-Af Amer) > 60 Glucose 133 H Calcium 8.1 L Impressions: Chest X-Ray 05/26/18 13:22 IMPRESSION: Pulmonary mass that was present on the CT of April 12. No acute infiltrates. Assessment & Plan - Diagnosis (1) Acute and chronic respiratory failure with hypoxia Is this a current diagnosis for this admission?: Yes Plan: I have changed the patient's nebulizers somewhat. We will place her on scheduled duo nebs and I have added Pulmicort. She reports that the nebulizer therapy does help mobilize secretions. She will continue her current dose of Advair 250/50 twice daily. I also look to decrease her steroid therapy again. I will likely do this after she has had a day of Pulmicort treatments. (2) COPD exacerbation Is this a current diagnosis for this admission?: Yes Plan: Changes in medications as noted above. She does have a follow-up appointment with her latexer in June. I will likely asked that this be moved up. She had a follow-up scheduled for Dr. Eddy her primary care physician on Friday. She should be able to keep that appointment. She will continue her Advair as well as the nebulizer therapies noted above. She is also on Daliresp 500 mg daily. (3) Thrush Is this a current diagnosis for this admission?: Yes Plan: Complete nystatin therapy as ordered. Her tongue has no white patches today. (4) Anxiety Is this a current diagnosis for this admission?: Yes Plan: She is on BuSpar 10 mg twice daily with as needed alprazolam. She states that anxiety is what drives her to want a cigarette. She might do well with chronic SSRI therapy. (5) Essential hypertension Is this a current diagnosis for this admission?: Yes Plan: Continue carvedilol, hydralazine, losartan and amlodipine. Systolic blood pressures have been slightly high but this could be due to steroid therapy. 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 It is up to 130 today. We will continue her fluid restriction. This is likely a result of her lung cancer. (7) Tobacco dependence Is this a current diagnosis for this admission?: Yes Plan: With a long discussion about her smoking. She does understand that smoking will likely cause more frequent readmissions. Her prognosis is poor overall and her COPD will never improve. The addition of an SSRI might help with the anxiety and subsequently reduce the desire to smoke. She states that her physicians have told her not to use Chantix. (8) Advanced care planning/counseling discussion Is this a current diagnosis for this admission?: Yes Plan: See separate note. I did order a palliative care consult. - Time Time Spent with patient: 35 or more minutes Smoking Cessation Education: 3 to 10 minutes Medications reviewed and adjusted accordingly: Yes Anticipated discharge: Home with Homehealth
--- NOTE | 2018-05-30 12:13 | Progress Note ---
Provider Note Provider Note: Advance care planning discussion: I had a long discussion with the patient and her (greater than 20 minutes) regarding advance care planning. We discussed the chronic and progressive nature of her disease. I reviewed the difference between full code, DO NOT RESUSCITATE and comfort measures only. I explained her that in my opinion it was very unlikely that she would not likely be successfully extubated after intubation and mechanical ventilation. I did express that in my opinion DO NOT RESUSCITATE status would be most appropriate for her. I did ask case management to provide some advance care planning forms for the patient so that she can initiate this effort. She states that her children refused to talk about such things. Her current was present at the bedside. They do understand the difficulty of the decision but I also tried to point out the downside for patient with her level of disease regarding full resuscitation efforts.
[2018-05-30] MEDS: IPRATROPIUM/ALBUTEROL 0.5-2.5 MG/3 ML AMPUL NEB SCH ×2 (13:47→20:47)
[2018-05-30] MEDS: ALPRAZOLAM 0.25 MG TABLET PO PRN (19:16)
[2018-05-30] MEDS: BUDESONIDE NEB 0.5 MG/2 ML AMPUL NEB SCH (20:47)
[2018-05-31] MEDS: METHYLPREDNISOLONE INJ 40 MG/1 ML SDV IV SCH ×2 (00:25→09:52)
[2018-05-31] MEDS: NYSTATIN 500000 UNIT/5 ML UDCUP PO SCH ×5 (00:25→21:24)
[2018-05-31] MEDS: FLUTICASONE/SALMETEROL DISKUS 250-50 MCG/DOSE IH SCH ×3 (00:25→21:23)
[2018-05-31] MEDS: BUSPIRONE HCL 10 MG TABLET PO SCH ×3 (00:26→21:23)
[2018-05-31] MEDS: HYDRALAZINE HCL 25 MG TABLET PO SCH ×4 (00:28→21:23)
[2018-05-31] MEDS: CARVEDILOL 3.125 MG TABLET PO SCH ×3 (00:29→21:22)
[2018-05-31] MEDS: IPRATROPIUM/ALBUTEROL 0.5-2.5 MG/3 ML AMPUL NEB SCH ×4 (02:07→19:32)
[2018-05-31] MEDS: ACETAMINOPHEN 325 MG TABLET PO PRN ×2 (02:14→12:03)
[2018-05-31] MEDS: BUDESONIDE NEB 0.5 MG/2 ML AMPUL NEB SCH ×2 (08:10→19:32)
[2018-05-31] MEDS ORDERED: FUROSEMIDE INJ/PF 20 MG/2 ML SDV IV ONE (08:52)
--- NOTE | 2018-05-31 09:09 | PDOC PROGRESS REPORT ---
Subjective Progress Note for:: 05/31/18 Subjective:: 05/30/2018-the patient is resting in her chair. She is complaining of some discomfort in her legs. She has been having serous draining from several areas on her legs and the buttocks. She also was just recently hospitalized. She wants to be stable when she discharges to avoid acute readmission. She still has a productive cough as well. 05/31/2018-the patient still feels somewhat short of breath. She has not been walking much. She still has edema bilateral lower extremities. Reason For Visit: ACUTE RESPIRATORY FAILURE, COPD EXACERBATION Physical Exam Vital Signs: Temp Pulse Resp BP Pulse Ox 97.9 F 101 H 20 129/49 H 99 05/31/18 03:55 05/31/18 07:00 05/31/18 03:55 05/31/18 03:55 05/31/18 03:55 Intake & Output 05/30/18 05/31/18 06/01/18 06:59 06:59 06:59 Intake Total 1175 1757 Output Total 450 502 Balance 725 1255 Weight 63.4 kg 63 kg General appearance: PRESENT: no acute distress, cooperative, well-developed Head exam: PRESENT: atraumatic, normocephalic Eye exam: PRESENT: conjunctiva pale. ABSENT: scleral icterus Ear exam: PRESENT: normal external ear exam Mouth exam: PRESENT: moist, tongue midline Neck exam: ABSENT: lymphadenopathy Respiratory exam: PRESENT: rales - Right face, symmetrical, unlabored. ABSENT: wheezes Cardiovascular exam: PRESENT: RRR, +S1, +S2, systolic murmur - 2/6 GI/Abdominal exam: PRESENT: normal bowel sounds, soft. ABSENT: distended, guarding, tenderness Extremities exam: PRESENT: pedal edema, +1 edema Neurological exam: PRESENT: alert, awake, oriented to person, oriented to place , oriented to situation, CN II-XII grossly intact Psychiatric exam: PRESENT: anxious Results Laboratory Results: 05/30/18 05:40 05/30/18 05:40 Impressions: Chest X-Ray 05/26/18 13:22 IMPRESSION: Pulmonary mass that was present on the CT of April 12. No acute infiltrates. Assessment & Plan - Diagnosis (1) Acute and chronic respiratory failure with hypoxia Is this a current diagnosis for this admission?: Yes Plan: 05/30/2018-I have changed the patient's nebulizers somewhat. We will place her on scheduled duo nebs and I have added Pulmicort. She reports that the nebulizer therapy does help mobilize secretions. She will continue her current dose of Advair 250/50 twice daily. I also look to decrease her steroid therapy again. I will likely do this after she has had a day of Pulmicort treatments. May 31, 2018-the patient is now on scheduled nebulizer treatments. They seem to be helping. She will likely need a nebulizer regimen at home. I have asked respiratory to obtain ambulatory pulse oximetry to check for stability for possible discharge. (2) COPD exacerbation Is this a current diagnosis for this admission?: Yes Plan: 05/30/2018-changes in medications as noted above. She does have a follow-up appointment with her service station cashier in June. I will likely asked that this be moved up. She had a follow-up scheduled for Dr. Eddy her primary care physician on Friday. She should be able to keep that appointment. She will continue her Advair as well as the nebulizer therapies noted above. She is also on Daliresp 500 mg daily. May 31, 2018-patient seems to be doing slightly better on her scheduled nebulizer treatments. I will likely continue the same at home. If she is on scheduled nebulizer treatments at home then the Advair might be redundant. I will continue to reduce the methylprednisolone. (3) Thrush Is this a current diagnosis for this admission?: Yes Plan: 05/30/2018-complete nystatin therapy as ordered. Her tongue has no white patches today. May 31, 2018-because of the ongoing Pulmicort and Advair I will continue the nystatin therapy for now. (4) Anxiety Is this a current diagnosis for this admission?: Yes Plan: 05/30/2018-she is on BuSpar 10 mg twice daily with as needed alprazolam. She states that anxiety is what drives her to want a cigarette. She might do well with chronic SSRI therapy. May 31, 2018-she is still very anxious. I am not sure if this is underlying anxiety related to her nicotine dependence or fear of going home because of her recent quick turnaround for readmission. Continue current medication regimen. (5) Essential hypertension Is this a current diagnosis for this admission?: Yes Plan: 05/30/2018-continue carvedilol, hydralazine, losartan and amlodipine. Systolic blood pressures have been slightly high but this could be due to steroid therapy. Some second 2017-blood pressure has been stable. I am going to give 1 dose of IV Lasix for her edema and monitor her blood pressure. 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 It is up to 130 today. We will continue her fluid restriction. This is likely a result of her lung cancer. May 31, 2018-sodium has been improving. Labs pending for today. (7) Tobacco dependence Is this a current diagnosis for this admission?: Yes Plan: 05/30/2018-with a long discussion about her smoking. She does understand that smoking will likely cause more frequent readmissions. Her prognosis is poor overall and her COPD will never improve. The addition of an SSRI might help with the anxiety and subsequently reduce the desire to smoke. She states that her physicians have told her not to use Chantix. May 31, 2018-the patient is working towards cessation. See discussion above. (8) Advanced care planning/counseling discussion Is this a current diagnosis for this admission?: Yes Plan: 05/30/2018-see separate note. I did order a palliative care consult. May 31, 2018-after consideration regarding our discussion the patient in fact changed her CODE STATUS to DO NOT RESUSCITATE. (9) Edema Qualifiers: Edema type: unspecified Qualified Code(s): R60.9 - Edema, unspecified Is this a current diagnosis for this admission?: Yes Plan: May 31, 2018-the patient is not currently on diuretic therapy. I am going to give her a dose of intravenous Lasix and monitor her output. She has had a positive fluid balance since admission and would like to reverse this. - Time Time Spent with patient: 25-34 minutes Medications reviewed and adjusted accordingly: Yes Anticipated discharge: Home
[2018-05-31] MEDS: ASPIRIN 81 MG TABLET, ENT COATED PO SCH (09:52)
[2018-05-31] MEDS: AMLODIPINE BESYLATE 5 MG TABLET PO SCH (09:52)
[2018-05-31] MEDS: LOSARTAN POTASSIUM 50 MG TABLET PO SCH (09:52)
[2018-05-31] MEDS: GUAIFENESIN 600 MG TABLET.SA PO SCH ×2 (09:52→17:38)
[2018-05-31] MEDS: LORATADINE 10 MG TABLET PO SCH (09:52)
[2018-05-31] MEDS: MULTIVITAMIN TABLET PO SCH (09:52)
[2018-05-31] MEDS: DOCUSATE SODIUM 100 MG CAPSULE PO SCH (09:52)
[2018-05-31] MEDS: ENOXAPARIN SODIUM INJ 40 MG/0.4 ML DISP.SYRIN SUBCUT SCH (09:53)
[2018-05-31] MEDS: ROFLUMILAST 500 MCG TABLET PO SCH (09:53)
[2018-05-31] MEDS: SODIUM CHLORIDE 1 GM TABLET PO SCH (09:53)
[2018-05-31] MEDS: FLUTICASONE NASAL SPRAY 50 MCG/SPRY 120 SPRAY/16 GM NASL PRN (09:54)
[2018-05-31 11:13] LABS: HEMATOCRIT 34.6 % (36.0-47.0); HEMOGLOBIN 11.6 g/dL (12.0-15.5); MEAN CORPUSCULAR HEMOGLOBIN 31.3 pg (27.0-33.4); MEAN CORPUSCULAR HGB CONC 33.7 g/dL (32.0-36.0); MEAN CORPUSCULAR VOLUME 93 fl (80-97); PLATELET COUNT 226 10^3/uL (150-450); RED BLOOD COUNT 3.71 10^6/uL (3.72-5.28); RED CELL DISTRIBUTION WIDTH 13.6 % (11.5-14.0); WHITE BLOOD COUNT 12.1 10^3/uL (4.0-10.5)
[2018-05-31 11:30] LABS: ANION GAP 10 (5-19); BLOOD UREA NITROGEN 18 mg/dL (7-20); CALCIUM 8.3 mg/dL (8.4-10.2); CARBON DIOXIDE 30 mmol/L (22-30); CHLORIDE 89 mmol/L (98-107); GLUCOSE 101 mg/dL (75-110); POTASSIUM 4.1 mmol/L (3.6-5.0); SODIUM 129.3 mmol/L (137-145)
[2018-05-31] MEDS: ALPRAZOLAM 0.25 MG TABLET PO PRN ×2 (12:02→23:22)
[2018-05-31] MEDS: TARCEVA PO SCH (12:02)
[2018-06-01] MEDS: IPRATROPIUM/ALBUTEROL 0.5-2.5 MG/3 ML AMPUL NEB SCH ×3 (02:20→14:00)
[2018-06-01 04:49] LABS: HEMATOCRIT 29.7 % (36.0-47.0); HEMOGLOBIN 10.3 g/dL (12.0-15.5); MEAN CORPUSCULAR HEMOGLOBIN 31.8 pg (27.0-33.4); MEAN CORPUSCULAR HGB CONC 34.5 g/dL (32.0-36.0); MEAN CORPUSCULAR VOLUME 92 fl (80-97); PLATELET COUNT 172 10^3/uL (150-450); RED BLOOD COUNT 3.23 10^6/uL (3.72-5.28); RED CELL DISTRIBUTION WIDTH 13.6 % (11.5-14.0); WHITE BLOOD COUNT 11.8 10^3/uL (4.0-10.5)
[2018-06-01 05:57] LABS: ANION GAP 7 (5-19); BLOOD UREA NITROGEN 22 mg/dL (7-20); CARBON DIOXIDE 31 mmol/L (22-30); CHLORIDE 93 mmol/L (98-107); GLUCOSE 78 mg/dL (75-110); POTASSIUM 3.8 mmol/L (3.6-5.0)
[2018-06-01] MEDS: HYDRALAZINE HCL 25 MG TABLET PO SCH ×2 (06:52→15:11)
[2018-06-01] MEDS ORDERED: ALPRAZOLAM 0.5 MG TABLET PO PRN (07:28)
[2018-06-01] MEDS ORDERED: ONDANSETRON 4 MG TAB.RAPDIS PO PRN (08:00)
[2018-06-01] MEDS: BUDESONIDE NEB 0.5 MG/2 ML AMPUL NEB SCH (08:02)
[2018-06-01] MEDS: BUSPIRONE HCL 10 MG TABLET PO SCH (08:38)
[2018-06-01] MEDS ORDERED: GUAIFENESIN 600 MG TABLET.SA PO SCH (10:00)
[2018-06-01] MEDS: ASPIRIN 81 MG TABLET, ENT COATED PO SCH (10:55)
[2018-06-01] MEDS: DOCUSATE SODIUM 100 MG CAPSULE PO SCH (10:56)
[2018-06-01] MEDS: AMLODIPINE BESYLATE 5 MG TABLET PO SCH (10:56)
[2018-06-01] MEDS: LOSARTAN POTASSIUM 50 MG TABLET PO SCH (10:56)
[2018-06-01] MEDS: ROFLUMILAST 500 MCG TABLET PO SCH (10:57)
[2018-06-01] MEDS: LORATADINE 10 MG TABLET PO SCH (10:57)
[2018-06-01] MEDS: SODIUM CHLORIDE 1 GM TABLET PO SCH (10:57)
[2018-06-01] MEDS: MULTIVITAMIN TABLET PO SCH (10:57)
[2018-06-01] MEDS: CARVEDILOL 3.125 MG TABLET PO SCH (10:57)
[2018-06-01] MEDS: NYSTATIN 500000 UNIT/5 ML UDCUP PO SCH ×2 (10:58→15:11)
[2018-06-01] MEDS: ENOXAPARIN SODIUM INJ 40 MG/0.4 ML DISP.SYRIN SUBCUT SCH (10:58)
[2018-06-01] MEDS: FLUTICASONE/SALMETEROL DISKUS 250-50 MCG/DOSE IH SCH (10:58)
[2018-06-01] MEDS: TARCEVA PO SCH (10:59)
[2018-06-01] MEDS: METHYLPREDNISOLONE INJ 40 MG/1 ML SDV IV SCH (10:59)
[2018-06-01 13:17] VITALS: BP 121/40
--- NOTE | 2018-06-01 21:21 | PDOC DISCHARGE SUMMARY ---
General - Admit/Disc Date/PCP Admission Date/Primary Care Provider: 05/26/18 16:41 ELIZ BACA MD Discharge Date: 06/01/18 - Discharge Diagnosis (1) Acute and chronic respiratory failure with hypoxia Is this a current diagnosis for this admission?: Yes Summary: The patient has made significant gains. In fact walking oximetry revealed no need for home oxygen as her pulse ox did not drop below 90%. A significant issue is her comprehension of her medication regimen and compliance. She is on multiple medications and it seems clear that her readmission could have been related to noncompliance with the medication regimen at discharge. Pharmacy did in fact come to the floor to review her proposed medication regimen and go through all of her medications to point out which ones are not appropriate to take. She was also given a prescription for nebulizer machine for use at home. (2) COPD exacerbation Is this a current diagnosis for this admission?: Yes Summary: As above. (3) Thrush Is this a current diagnosis for this admission?: Yes Summary: The patient was on nystatin therapy. She needs to rinse her mouth thoroughly after inhaler use to avoid recurrence. (4) Anxiety Is this a current diagnosis for this admission?: Yes Summary: This is a significant issue for this patient. She is on BuSpar and benzodiazepine therapy. She might benefit from long-term SSRI therapy. I defer to her primary care physician. (5) Essential hypertension Is this a current diagnosis for this admission?: Yes Summary: Her blood pressure was reasonably controlled during her admission. Continue her outpatient cardiac medication regimen. 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 She was on a sodium chloride tablet prior to admission. I have continued this therapy at this time. Follow-up with primary care physician. (7) Edema Is this a current diagnosis for this admission?: Yes Summary: This is somewhat of a dilemma. To treat her hyponatremia she was on sodium chloride tablets. I do not believe fluid restriction would be a treatment that this patient could easily follow. We did discuss Luis Enrique stockings and leg elevation. (8) Tobacco dependence Is this a current diagnosis for this admission?: Yes Summary: We had several discussions during her admission about ongoing tobacco use. Anxiety is probably the biggest stimulus for her. As noted above consider SSRI therapy such as bupropion which have been used to help with smoking cessation in the past. Her physician suggested that she not use Chantix. (9) Advanced care planning/counseling discussion Is this a current diagnosis for this admission?: Yes Summary: After lengthy discussion over the weekend the patient in fact has changed her CODE STATUS to. Her family was present for additional meetings with case management when this was reviewed and finalized. - Additional Information Resuscitation Status: Do Not Resuscitate Discharge Diet: Regular Discharge Activity: Activity As Tolerated Prescriptions: Ipratropium/Albuterol Sulfate [Duoneb 3 ml Ampul] 3 ml NEB RTQ6HP PRN 30 Days # 120 vial.neb PRN Reason: Home Medications: Acetaminophen [Tylenol 325 mg Tablet] 650 mg PO Q8HP PRN 04/13/18 Albuterol Sulfate [Proair HFA Inhalation Aerosol 8.5 gm MDI] 1 puff IH Q6HP PRN 04/13/18 Ca Citrate/Mgox/Vit D3/B6/Min [Citracal Plus Tablet] 1 tab PO DAILY 04/13/18 Docusate Sodium [Colace 100 mg Capsule] 100 mg PO DAILYP PRN 04/13/18 Erlotinib HCl [Tarceva 150 mg Tablet] 150 mg PO DAILY 04/13/18 Fluticasone/Salmeterol [Advair 250-50 Diskus 14 Dose/Diskus] 1 puff IH Q12 04/13 Guaifenesin [Mucinex] 600 mg PO BID 04/13/18 Loratadine [Claritin 10 mg Tablet] 10 mg PO DAILYP PRN 04/13/18 Multivitamin [Daily Multiple Vitamin] 1 tab PO DAILY 04/13/18 Aspirin [Ecotrin] 81 mg PO DAILY 05/17/18 Hydralazine HCl [Apresoline 25 mg Tablet] 25 mg PO Q8 05/18/18 Alprazolam [Xanax 0.25 mg Tablet] 0.25 mg PO Q6HP PRN #8 tablet 05/25/18 Amlodipine Besylate [Norvasc 5 mg Tablet] 5 mg PO DAILY tablet 05/25/18 Buspirone HCl [Buspar 10 mg Tablet] 10 mg PO QHS tablet 05/25/18 Carvedilol [Coreg 3.125 mg Tablet] 3.125 mg PO Q12 #60 tablet 05/25/18 Losartan Potassium [Cozaar 50 mg Tablet] 50 mg PO DAILY #30 tablet 05/25/18 Nystatin [Mycostatin 500,000 Unit/5 ml Susp Udcup] 500,000 unit PO QID #40 udc 05/25/18 Roflumilast [Daliresp 500 Mcg Tablet] 500 mcg PO DAILY #30 tablet 05/25/18 Sodium Chloride [Sodium Chloride 1 gm Tablet] 1 gm PO DAILY #30 tablet 05/25/18 Buspirone HCl [Buspar 10 mg Tablet] 5 mg PO QAM 05/26/18 Fluticasone Propionate [Flonase Nasal Hanson 50 Mcg/Hanson 16 gm] 1 spray NASL DAILYP PRN 05/26/18 Ipratropium/Albuterol Sulfate [Duoneb 3 ml Ampul] 3 ml NEB RTQ6HP PRN 30 Days # 120 vial.neb 06/01/18 History of Present Illness Patient complains of: Shortness of breath History of Present Illness: NISA JC is a 77 year old female who was discharged on May 26 and returned within 24 hours. She was being treated for an exacerbation of her severe COPD. She has a long history of multiple illnesses. She does admit that when she was initially discharged she was unable to appreciate and follow the outpatient medication regimen. This and extremely heightened anxiety led to return to the emergency department. With aggressive medication and respiratory therapy treatment the patient is now able to ambulate in the hallway without oxygen and not experience hypoxia. Hospital Course Hospital Course: The patient's hospital course was without significant complication. She was placed on aggressive nebulizer regimen as well as steroids. Her recovery was slow but steady. She is able to ambulate in hallway without oxygen while maintaining an oxygen saturation of 90% or greater today. With this significant improvement she was able to be discharged. As a precaution, considering her recent readmission, pharmacy did review all the medications with the patient to avoid complications from polypharmacy. Physical Exam Vital Signs: Temp Pulse Resp BP Pulse Ox 97.5 F 80 16 121/40 L 96 06/01/18 15:16 06/01/18 15:16 06/01/18 15:16 06/01/18 15:16 06/01/18 15:16 Pulse Oximeter Ambulatory Start: 05/31/18 08: 53 Freq: Status: Complete Document 05/31/18 14:25 HCR (Rec: 05/31/18 15:08 HCR [id number]) Exercise Oximetry Treatment Ambulating SpO2 Charge Now Yes Oxygen Delivery Method Room Air FIO2 (% Oxygen) 21 Recovery O2 Saturation by Pulse Oximetry 94 Pulse Rate 95 Respiratory Rate 21 Exercise O2 Saturation by Pulse Oximetry 92 Pulse Rate 96 Respiratory Rate 22 Resting O2 Saturation by Pulse Oximetry 94 Pulse Rate 91 Respiratory Rate 20 Oximetry Exercise Interval (min) 10 Ambulation Distance (ft) 120 Exercise Tolerance Fair Other pt became sob during walk, used walker for exercise Intake & Output 05/31/18 06/01/18 06/02/18 06:59 06:59 06:59 Intake Total 1757 1217 475 Output Total 502 2100 600 Balance 1255 -053 125 Weight 63 kg 62.2 kg General appearance: PRESENT: no acute distress, cooperative, well-developed Head exam: PRESENT: atraumatic, normocephalic Neck exam: ABSENT: carotid bruit, JVD, lymphadenopathy Respiratory exam: PRESENT: clear to auscultation clarice, symmetrical, unlabored. ABSENT: rales, rhonchi, wheezes Cardiovascular exam: PRESENT: RRR, +S1, +S2 GI/Abdominal exam: PRESENT: normal bowel sounds, soft. ABSENT: distended, guarding, tenderness Extremities exam: PRESENT: pedal edema Musculoskeletal exam: PRESENT: ambulatory Neurological exam: PRESENT: alert, awake, oriented to person, oriented to place , oriented to time, oriented to situation, CN II-XII grossly intact Psychiatric exam: PRESENT: anxious. ABSENT: agitated Results Laboratory Results: 06/01/18 04:30 06/01/18 04:30 06/01/18 06/01/18 04:30 04:30 WBC 11.8 H RBC 3.23 L Hgb 10.3 L Hct 29.7 L MCV 92 MCH 31.8 MCHC 34.5 RDW 13.6 Plt Count 172 Sodium 131.0 L Potassium 3.8 Chloride 93 L Carbon Dioxide 31 H Anion Gap 7 BUN 22 H Creatinine 0.59 Est GFR ( Amer) > 60 Est GFR (Non-Af Amer) > 60 Glucose 78 Calcium 8.0 L Magnesium 2.2 Impressions: Chest X-Ray 05/26/18 13:22 IMPRESSION: Pulmonary mass that was present on the CT of April 12. No acute infiltrates. Qualifiers - * PATIENT BEING DISCHARGED WITH ANY OF THE FOLLOWING DIAGNOSIS: No Plan Discharge Plan: As outlined above. Patient will follow up with her sorted physicians after discharge. Time Spent: Greater than 30 Minutes
== END 2018-06-01 16:55 | disposition home health service (06) | DRG 189 ==
LOC: ER 13:20 → EH 16:41 → 3N 21:06
PROVIDERS: ADMIT Emergency Medicine; ATTEND Emergency Medicine
DX: J96.21 Acute and chronic respiratory failure with hypoxia (principal); J44.1 Chronic obstructive pulmonary disease with (acute) exacerbation; C34.90 Malignant neoplasm of unspecified part of unspecified bronchus or lung; E22.2 Syndrome of inappropriate secretion of antidiuretic hormone; B37.9 Candidiasis, unspecified; I10 Essential (primary) hypertension; F41.9 Anxiety disorder, unspecified; F17.210 Nicotine dependence, cigarettes, uncomplicated; Z79.82 Long term (current) use of aspirin; Z79.51 Long term (current) use of inhaled steroids; Z79.52 Long term (current) use of systemic steroids; Z79.899 Other long term (current) drug therapy; Z71.89 Other specified counseling
CPT/HCPCS: 36415; 71045; 80048; 80053; 81001; 82550; 82553; 83735; 84484; 85025; 85027; 93005; 93010; 94640; 94761; 99291; J1642; J1650; J1940; J2920; J3490; J7620

== ENCOUNTER 2018-06-14 14:41 | Inpatient (IN) | payer MEDICARE ==
[2018-06-14] MEDS ORDERED: NORMAL SALINE 500 ML IV ONE (15:00)
[2018-06-14 15:21] LABS: ABSOLUTE MONOCYTES (AUTO) 0.8 10^3/uL (0.1-1.4); ABSOLUTE NEUT (AUTO) 3.2 10^3/uL (1.7-8.2); BASOPHILS % (AUTO) 0.4 % (0-2); EOSINOPHILS % (AUTO) 0.7 % (0-6); HEMATOCRIT 32.1 % (36.0-47.0); HEMOGLOBIN 11.2 g/dL (12.0-15.5); LYMPHOCYTES % (AUTO) 20.1 % (13-45); MEAN CORPUSCULAR HEMOGLOBIN 31.6 pg (27.0-33.4); MEAN CORPUSCULAR VOLUME 90 fl (80-97); MONOCYTES % (AUTO) 15.6 % (3-13); PLATELET COUNT 205 10^3/uL (150-450); RED BLOOD COUNT 3.56 10^6/uL (3.72-5.28); RED CELL DISTRIBUTION WIDTH 13.5 % (11.5-14.0); SEGMENTED NEUTROPHILS % (AUTO) 63.2 % (42-78); TOTAL CELLS COUNTED % (AUTO) 100 %; WHITE BLOOD COUNT 5.1 10^3/uL (4.0-10.5)
[2018-06-14 15:36] LABS: ALANINE AMINOTRANSFERASE 37 U/L (9-52); ALBUMIN 3.3 g/dL (3.5-5.0); ALKALINE PHOSPHATASE 74 U/L (38-126); ANION GAP 7 (5-19); ASPARTATE AMINO TRANSFERASE 26 U/L (14-36); BILIRUBIN,DIRECT 0.2 mg/dL (0.0-0.4); BILIRUBIN,TOTAL 0.7 mg/dL (0.2-1.3); BLOOD UREA NITROGEN 12 mg/dL (7-20); CALCIUM 8.5 mg/dL (8.4-10.2); CARBON DIOXIDE 29 mmol/L (22-30); CHLORIDE 83 mmol/L (98-107); CREATINE KINASE 35 U/L (30-135); GLUCOSE 87 mg/dL (75-110); LIPASE 58.1 U/L (23-300); POTASSIUM 3.7 mmol/L (3.6-5.0); TOTAL PROTEIN 5.5 g/dL (6.3-8.2)
[2018-06-14 15:44] LABS: SODIUM 118.9 mmol/L (137-145)
--- NOTE | 2018-06-14 15:52 | RADIOLOGY REPORT (SQ) ---
EXAM DESCRIPTION: CHEST 2 VIEWS COMPLETED DATE/TIME: 06/14/2018 3:38 pm REASON FOR STUDY: weakness COMPARISON: Chest x-ray 05/27/2018. CT chest 05/17/2018. EXAM PARAMETERS: NUMBER OF VIEWS: two views TECHNIQUE: Digital Frontal and Lateral radiographic views of the chest acquired. RADIATION DOSE: NA LIMITATIONS: none FINDINGS: LUNGS AND PLEURA: There are bilateral emphysematous changes. Airspace opacity at the righ t upper lobe, probably corresponding to known mass. No new consolidation, pleural effusion or pneumo thorax. MEDIASTINUM AND HILAR STRUCTURES: Chronic changes at the left perihilar region. HEART AND VASCULAR STRUCTURES: Heart normal size. No evidence for failure. BONES: No acute findings. HARDWARE: Right-sided Port-A-Cath with the tip at the atriocaval junction. IMPRESSION: Emphysema. Known mass at the right upper lobe. No new consolidation or pleural effusio n. TECHNICAL DOCUMENTATION: JOB ID: [id number] [employer]- All Rights Reserved Reading location - IP/workstation name: [email or web address]
[2018-06-14] MEDS ORDERED: NORMAL SALINE 1000 ML 1,000 ML IV ONE (15:55)
[2018-06-14 16:17] LABS: APPEARANCE,URINE CLEAR; BILIRUBIN,URINE NEGATIVE (NEGATIVE); COLOR,URINE STRAW; GLUCOSE, URINE NEGATIVE (NEGATIVE); KETONES,URINE TRACE mg/dL (NEGATIVE); LEUKOCYTE ESTERASE,URINE NEGATIVE (NEGATIVE); NITRITE,URINE NEGATIVE (NEGATIVE); PROTEIN,URINE NEGATIVE (NEGATIVE); URINE SPECIFIC GRAVITY 1.006; UROBILINOGEN,URINE NEGATIVE mg/dL (<2.0)
[2018-06-14] MEDS ORDERED: MAGNESIUM OXIDE 400 MG TABLET PO ONE (17:39)
--- NOTE | 2018-06-14 17:51 | ER Document Report ---
ED General - General Chief Complaint: General Weakness Stated Complaint: GENERAL WEAKNESS Time Seen by Provider: 06/14/18 14:50 TRAVEL OUTSIDE OF THE [place] IN LAST 30 DAYS: No - HPI Patient complains to provider of: Generalized weakness Notes: Patient coming in for complaint of generalized weakness ongoing for the last 48 hours. Patient states today she was unable to stand up by herself patient is concerned about her sodium. Patient has a history of Siadh. Low lung cancer. Patient states she is currently on oral chemotherapy. Patient denies any fever chills nausea vomiting diarrhea patient states she has had normal diet no sick contacts otherwise resting comfortably upon my evaluation. Patient is concerned she may have a sinus infection states she is having stuffy nose Sinus congestion states this is been ongoing for the last 24 hours - Related Data Allergies/Adverse Reactions: latex [Latex] Allergy (Severe, Verified 06/14/18 15:04) rash hydrocodone [Hydrocodone] Allergy (Unknown, Verified 06/14/18 15:04) morphine [Morphine] Allergy (Unknown, Verified 06/14/18 15:04) amlodipine Allergy (Verified 06/14/18 15:04) celecoxib [From Celebrex] Allergy (Verified 06/14/18 15:04) colesevelam Allergy (Verified 06/14/18 15:04) tramadol Allergy (Verified 06/14/18 15:04) amoxicillin trihydrate [From Augmentin] Adverse Reaction (Unknown, Verified 15:04) Dizziness Potassium Clavulanate * [From Augmentin] Adverse Reaction (Unknown, Verified 15:04) Dizziness acetaminophen Adverse Reaction (Verified 06/14/18 15:04) dextrose Adverse Reaction (Verified 06/14/18 15:04) ezetimibe Adverse Reaction (Verified 06/14/18 15:04) meloxicam Adverse Reaction (Verified 06/14/18 15:04) olmesartan medoxomil [From May] Adverse Reaction (Verified 06/14/18 15:04) tremor Penicillins Adverse Reaction (Verified 06/14/18 15:04) Past Medical History - Social History Smoking Status: Former Smoker Frequency of alcohol use: None Drug Abuse: None Family History: Hypertension, Malignancy Patient has suicidal ideation: No Patient has homicidal ideation: No - Past Medical History Cardiac Medical History: Reports: Hx Hypertension Denies: Hx Coronary Artery Disease, Hx Heart Attack, Hx Pulmonary Embolism Pulmonary Medical History: Reports: Hx COPD Denies: Hx Asthma, Hx Bronchitis, Hx Pneumonia, Hx Intubation, Hx Respiratory Failure, Hx Sleep Apnea, Hx Tuberculosis Neurological Medical History: Denies: Hx Cerebrovascular Accident, Hx Seizures - SYNCOPE LAST YEAR EPISODE D/T LOW SODIUM Endocrine Medical History: Denies: Hx Hyperthyroidism, Hx Hypothyroidism Renal/ Medical History: Denies: Hx Peritoneal Dialysis Malignancy Medical History: Reports: Hx Lung Cancer - Originally stage III lung cancer status post chemoradiation, with recurrenc. Denies: Hx Leukemia GI Medical History: Denies: Hx Hepatitis, Hx Hiatal Hernia, Hx Ulcer Musculoskeletal Medical History: Reports Hx Arthritis, Denies Hx Fibromyalgia, Denies Hx Multiple Sclerosis, Denies Hx Muscular Dystrophy Psychiatric Medical History: Reports: Hx Depression Denies: Hx Dementia Traumatic Medical History: Denies: Hx Fractures Infectious Medical History: Denies: Hx Hepatitis, Hx HIV Past Surgical History: Reports: Hx Appendectomy - 1977, Hx Hysterectomy, Hx Tonsillectomy - age 17, Hx Tubal Ligation, Other - Lung biopsy. Denies: Hx Bowel Surgery, Hx Section, Hx Cholecystectomy, Hx Coronary Artery Bypass Graft, Hx Gastric Bypass Surgery, Hx Herniorrhaphy, Hx Mastectomy, Hx Open Heart Surgery, Hx Pacemaker - Immunizations Hx Diphtheria, Pertussis, Tetanus Vaccination: No Hx Pneumococcal Vaccination: 04/08/08 Review of Systems - Review of Systems Constitutional: Weakness EENT: No symptoms reported Cardiovascular: No symptoms reported Respiratory: No symptoms reported Gastrointestinal: No symptoms reported Genitourinary: No symptoms reported Female Genitourinary: No symptoms reported Musculoskeletal: No symptoms reported Skin: No symptoms reported Hematologic/Lymphatic: No symptoms reported Neurological/Psychological: No symptoms reported Physical Exam - Vital signs Vitals: Pulse Ox 96 06/14/18 14:45 Course - Vital Signs Vital signs: Temp Pulse Resp BP Pulse Ox 98.0 F 18 148/78 H 93 06/14/18 14:57 06/14/18 19:00 06/14/18 19:00 06/14/18 19:00 - Laboratory Result Diagrams: 06/14/18 14:52 06/14/18 19:59 Laboratory results interpreted by me: 06/14/18 06/14/18 06/14/18 14:52 14:52 15:45 RBC 3.56 L Hgb 11.2 L Hct 32.1 L Monocytes % 15.6 H Sodium 118.9 L* Chloride 83 L Creatinine 0.44 L Magnesium 1.4 L Total Protein 5.5 L Albumin 3.3 L Urine Ketones TRACE H Discharge - Discharge Clinical Impression: Weakness, Hyponatremia, History of lung cancer, SIADH (syndrome of inappropriate ADH production), Hypomagnesemia, Hypokalemia Hypertension Qualifiers: Hypertension type: unspecified Qualified Code(s): I10 - Essential (primary) hypertension Condition: Good Disposition: ADMITTED INPATIENT Admitting Provider: [facility] Unit Admitted: Telemetry
[2018-06-14] MEDS ORDERED: ALBUTEROL SULFATE HFA (90 MCG/PUFF) 200 PUFF/8.5 GM MDI IH PRN (18:00)
--- NOTE | 2018-06-14 18:16 | PDOC H&P ---
History of Present Illness Admission Date/PCP: 06/14/18 17:57 ELIZ BACA MD History of Present Illness: NISA JC is a 78 year old female with a history of lung cancer and emphysema who is still smoking who initially said she came to the hospital because she was short of breath, but an evaluation here saw that her SPO2 was in the upper 90s on room air and that she was breathing comfortably, and her chest x-ray showed no new findings. Investigation did, however, turn up a low sodium of 118. She has had problems with a low sodium before and typically runs in the upper 120s to around 130. She was sent home from this hospital a couple weeks ago that hyponatremia was a problem then. She was told to restrict her fluids and take salt tablets. She was taken one salt tablet a day but she was not restricting her fluids. Past Medical History Cardiac Medical History: Reports: Hypertension Denies: Coronary Artery Disease, Myocardial Infarction, Pulmonary Embolism Pulmonary Medical History: Reports: Chronic Obstructive Pulmonary Disease (COPD) Denies: Asthma, Bronchitis, Intubation, Pneumonia, Respiratory Failure, Sleep Apnea, Tuberculosis Neurological Medical History: Denies: Seizures - SYNCOPE LAST YEAR EPISODE D/T LOW SODIUM Endocrine Medical History: Denies: Hyperthyroidism, Hypothyroidism Malignancy Medical History: Reports: Lung Cancer - Originally stage III lung cancer status post chemoradiation, with recurrenc Denies: Leukemia GI Medical History: Denies: Hepatitis, Hiatal Hernia Musculoskeltal Medical History: Reports: Arthritis Denies: Fibromyalgia Psychiatric Medical History: Reports: Depression Denies: Dementia Hematology: Denies: Anemia, Hemophilia, Sickle Cell Disease Infectious Medical History: Denies: HIV Past Surgical History Past Surgical History: Reports: Appendectomy - 1977, Hysterectomy, Tonsillectomy - age 17, Tubal Ligation, Other - Lung biopsy Denies: Amputation, Section, Cholecystectomy, Coronary Artery Bypass Graft, Gastric Bypass Surgery, Herniorrhaphy, Mastectomy, Pacemaker Social History Smoking Status: Former Smoker Frequency of Alcohol Use: None Hx Recreational Drug Use: No Drugs: None Hx Prescription Drug Abuse: No Family History Family History: Hypertension, Malignancy Parental Family History Reviewed: Yes - Noncontributory Children Family History Reviewed: Yes - Noncontributory Sibling(s) Family History Reviewed.: Yes - Noncontributory Medication/Allergy Home Medications: Acetaminophen [Tylenol 325 mg Tablet] 650 mg PO Q8HP PRN 04/13/18 Albuterol Sulfate [Proair HFA Inhalation Aerosol 8.5 gm MDI] 1 puff IH Q6HP PRN 04/13/18 Docusate Sodium [Colace 100 mg Capsule] 100 mg PO DAILYP PRN 04/13/18 Aspirin [Ecotrin] 81 mg PO DAILY 05/17/18 Hydralazine HCl [Apresoline 25 mg Tablet] 25 mg PO Q8 05/18/18 Amlodipine Besylate [Norvasc 5 mg Tablet] 5 mg PO DAILY tablet 05/25/18 Buspirone HCl [Buspar 10 mg Tablet] 10 mg PO QHS tablet 05/25/18 Buspirone HCl [Buspar 10 mg Tablet] 5 mg PO QAM 05/26/18 Fluticasone Propionate [Flonase Nasal [place] 50 Mcg/[place] 16 gm] 1 spray NASL DAILYP PRN 05/26/18 Ipratropium/Albuterol Sulfate [Duoneb 3 ml Ampul] 3 ml NEB RTQ6HP PRN 30 Days # 120 vial.neb 06/01/18 Bupropion HCl [Wellbutrin 100 mg Tablet] 100 mg PO Q12 06/14/18 Candesartan Cilexetil [Atacand 32 mg Tablet] 1 tab PO DAILY 06/14/18 Citalopram Hydrobromide [Celexa 10 mg Tablet] 10 mg PO DAILY 06/14/18 Erlotinib HCl [Tarceva 150 Mg Tablet] 150 mg PO DAILY 06/14/18 Guaifenesin [Mucinex] 600 mg PO BID 06/14/18 Meloxicam [Mobic] 7.5 mg PO DAILY PRN 06/14/18 Allergies/Adverse Reactions: latex [Latex] Allergy (Severe, Verified 06/14/18 15:04) rash hydrocodone [Hydrocodone] Allergy (Unknown, Verified 06/14/18 15:04) morphine [Morphine] Allergy (Unknown, Verified 06/14/18 15:04) amlodipine Allergy (Verified 06/14/18 15:04) celecoxib [From Celebrex] Allergy (Verified 06/14/18 15:04) colesevelam Allergy (Verified 06/14/18 15:04) tramadol Allergy (Verified 06/14/18 15:04) amoxicillin trihydrate [From Augmentin] Adverse Reaction (Unknown, Verified 15:04) Dizziness Potassium Clavulanate * [From Augmentin] Adverse Reaction (Unknown, Verified 15:04) Dizziness acetaminophen Adverse Reaction (Verified 06/14/18 15:04) dextrose Adverse Reaction (Verified 06/14/18 15:04) ezetimibe Adverse Reaction (Verified 06/14/18 15:04) meloxicam Adverse Reaction (Verified 06/14/18 15:04) olmesartan medoxomil [From May] Adverse Reaction (Verified 06/14/18 15:04) tremor Penicillins Adverse Reaction (Verified 06/14/18 15:04) Review of Systems All systems: reviewed and no additional remarkable complaints except as stated - 10 point review of systems was conducted with the patient was negative except as noted above Physical Exam Vital Signs: Temp Pulse Resp BP Pulse Ox 98.0 F 19 162/59 H 98 06/14/18 14:57 06/14/18 17:01 06/14/18 17:00 06/14/18 17:01 General appearance: PRESENT: no acute distress, cooperative, disheveled, hard of hearing, other - She had a generally grayish discoloration Head exam: PRESENT: atraumatic, normocephalic Eye exam: PRESENT: EOMI, PERRLA. ABSENT: conjunctival injection, nystagmus, scleral icterus Mouth exam: PRESENT: moist, neck supple Throat exam: ABSENT: post pharyngeal erythema Neck exam: PRESENT: full ROM. ABSENT: carotid bruit, JVD, lymphadenopathy, meningismus, tenderness, thyromegaly Respiratory exam: PRESENT: clear to auscultation clarice, symmetrical, unlabored. ABSENT: accessory muscle use, chest wall tenderness, crackles, prolonged expiratory phas, rhonchi, tachypnea, wheezes Cardiovascular exam: PRESENT: RRR, +S1, +S2. ABSENT: diastolic murmur, systolic murmur Vascular exam: PRESENT: normal capillary refill GI/Abdominal exam: PRESENT: normal bowel sounds, soft. ABSENT: distended, guarding, rebound, tenderness Extremities exam: PRESENT: clubbing. ABSENT: pedal edema Musculoskeletal exam: PRESENT: normal inspection. ABSENT: deformity Neurological exam: PRESENT: alert, awake, oriented to person, oriented to place , oriented to time, oriented to situation, CN II-XII grossly intact. ABSENT: motor sensory deficit Psychiatric exam: PRESENT: flat affect Skin exam: ABSENT: dry, warm Results Impressions: Chest X-Ray 06/14/18 15:00 IMPRESSION: Emphysema. Known mass at the right upper lobe. No new consolidation or pleural effusion. Assessment & Plan - Diagnosis (1) Hyponatremia Is this a current diagnosis for this admission?: Yes Plan: Ongoing issue for her. She has never been able to have a biopsy that proved exactly what type of lung cancer she has, and hyponatremia is typically associated with small cell lung cancer, but she is being treated with Tarceva which is usually for non-small cell lung cancer. Whatever the case this is been ongoing issue for her for a couple of years. She has responded to fluid restriction and salt tablets in the past. Because we do not know how long her sodium is been this low, we are going to cautiously hydrate her with normal saline and check a metabolic panel every 4 hours to make sure her sodium does not correct too quickly. We are also holding her Celexa, BuSpar, and Wellbutrin in case these are playing a role. - Time Time Spent: 50 to 70 Minutes - Inpatient Certification Based on my medical assessment, after consideration of the patient's comorbidities, presenting symptoms, or acuity I expect that the services needed warrant INPATIENT care.: Yes I certify that my determination is in accordance with my understanding of Medicare's requirements for reasonable and necessary INPATIENT services [42 CFR 412.3e].: Yes Medical Necessity: Significant Comorbidiites Make Outpatient Treatment Too Risky , Need For IV Fluids
[2018-06-14] MEDS: ACETAMINOPHEN 325 MG TABLET PO PRN (20:25)
[2018-06-14 20:28] LABS: ANION GAP 6 (5-19); BLOOD UREA NITROGEN 10 mg/dL (7-20); CALCIUM 7.9 mg/dL (8.4-10.2); CARBON DIOXIDE 27 mmol/L (22-30); CHLORIDE 86 mmol/L (98-107); GLUCOSE 119 mg/dL (75-110); POTASSIUM 3.2 mmol/L (3.6-5.0)
[2018-06-14 20:35] LABS: SODIUM 118.5 mmol/L (137-145)
[2018-06-14] MEDS: HYDRALAZINE HCL 25 MG TABLET PO SCH (21:42)
[2018-06-15] MEDS ORDERED: CLONAZEPAM 1 MG TABLET PO ONE (01:00)
[2018-06-15 01:07] LABS: ANION GAP 7 (5-19); BLOOD UREA NITROGEN 9 mg/dL (7-20); CALCIUM 7.7 mg/dL (8.4-10.2); CARBON DIOXIDE 25 mmol/L (22-30); CHLORIDE 88 mmol/L (98-107); GLUCOSE 92 mg/dL (75-110); POTASSIUM 3.4 mmol/L (3.6-5.0)
[2018-06-15 01:28] LABS: SODIUM 120.2 mmol/L (137-145)
[2018-06-15] MEDS: HYDRALAZINE HCL 25 MG TABLET PO SCH ×3 (05:07→22:44)
[2018-06-15] MEDS: ACETAMINOPHEN 325 MG TABLET PO PRN (05:10)
[2018-06-15 05:43] LABS: ANION GAP 6 (5-19); BLOOD UREA NITROGEN 8 mg/dL (7-20); CALCIUM 7.6 mg/dL (8.4-10.2); CARBON DIOXIDE 27 mmol/L (22-30); CHLORIDE 88 mmol/L (98-107); GLUCOSE 79 mg/dL (75-110); POTASSIUM 3.2 mmol/L (3.6-5.0)
[2018-06-15 06:04] LABS: SODIUM 121.3 mmol/L (137-145)
[2018-06-15 09:26] LABS: BLOOD UREA NITROGEN 7 mg/dL (7-20); CALCIUM 7.8 mg/dL (8.4-10.2); GLUCOSE 89 mg/dL (75-110); POTASSIUM 3.3 mmol/L (3.6-5.0)
[2018-06-15 09:39] LABS: ANION GAP 6 (5-19); CARBON DIOXIDE 27 mmol/L (22-30); CHLORIDE 88 mmol/L (98-107)
[2018-06-15 09:45] LABS: SODIUM 120.8 mmol/L (137-145)
[2018-06-15] MEDS ORDERED: ERLOTINIB HCL 150 MG PO SCH (10:00)
[2018-06-15] MEDS: GUAIFENESIN 600 MG TABLET.SA PO SCH ×2 (10:07→17:44)
[2018-06-15] MEDS: AMLODIPINE BESYLATE 5 MG TABLET PO SCH (10:07)
[2018-06-15] MEDS: LOSARTAN POTASSIUM 50 MG TABLET PO SCH (10:07)
[2018-06-15] MEDS: MAGNESIUM OXIDE 400 MG TABLET PO SCH ×2 (10:08→17:45)
[2018-06-15] MEDS: ASPIRIN 81 MG TABLET, ENT COATED PO SCH (10:08)
[2018-06-15] MEDS: ENOXAPARIN SODIUM INJ 40 MG/0.4 ML DISP.SYRIN SUBCUT SCH (10:08)
[2018-06-15] MEDS: TARCEVA PO SCH (11:35)
[2018-06-15 14:12] LABS: BLOOD UREA NITROGEN 10 mg/dL (7-20); CALCIUM 8.1 mg/dL (8.4-10.2); CARBON DIOXIDE 27 mmol/L (22-30); CHLORIDE 86 mmol/L (98-107); GLUCOSE 95 mg/dL (75-110); POTASSIUM 3.6 mmol/L (3.6-5.0)
[2018-06-15 14:14] LABS: ANION GAP 6 (5-19)
[2018-06-15 14:23] LABS: SODIUM 118.7 mmol/L (137-145)
[2018-06-15 17:40] LABS: ANION GAP 7 (5-19); BLOOD UREA NITROGEN 13 mg/dL (7-20); CALCIUM 8.2 mg/dL (8.4-10.2); CARBON DIOXIDE 25 mmol/L (22-30); CHLORIDE 86 mmol/L (98-107); GLUCOSE 94 mg/dL (75-110); POTASSIUM 3.5 mmol/L (3.6-5.0)
--- NOTE | 2018-06-15 18:11 | PDOC PROGRESS REPORT ---
Subjective Progress Note for:: 06/15/18 Subjective:: No adverse events overnight. No new complaints. Somehow her fluids did not get continued overnight. She had some trouble grasping the concept of some of her medications potentially being culpable in her hyponatremia. Reason For Visit: CHRONIC OBSTRUCTIVE PULMONARY DISEASE,HISTORY OF Physical Exam Vital Signs: Temp Pulse Resp BP Pulse Ox 97.9 F 85 18 129/50 H 96 06/15/18 16:08 06/15/18 16:08 06/15/18 16:08 06/15/18 16:08 06/15/18 16:08 Intake & Output 06/14/18 06/15/18 06/16/18 06:59 06:59 06:59 Intake Total 1110 300 Balance 1110 300 Weight 56.7 kg General appearance: PRESENT: no acute distress, cooperative, disheveled, hard of hearing, other - She had a generally grayish discoloration Respiratory exam: PRESENT: clear to auscultation clarice, symmetrical, unlabored. ABSENT: accessory muscle use, chest wall tenderness, crackles, prolonged expiratory phas, rhonchi, tachypnea, wheezes Cardiovascular exam: PRESENT: RRR, +S1, +S2. ABSENT: diastolic murmur, systolic murmur Vascular exam: PRESENT: normal capillary refill GI/Abdominal exam: PRESENT: normal bowel sounds, soft. ABSENT: distended, guarding, rebound, tenderness Extremities exam: PRESENT: clubbing. ABSENT: pedal edema Musculoskeletal exam: PRESENT: normal inspection. ABSENT: deformity Neurological exam: PRESENT: alert, awake, oriented to person, oriented to place , oriented to time Psychiatric exam: PRESENT: flat affect Skin exam: ABSENT: dry, warm Results Laboratory Results: 06/15/18 17:00 06/14/18 06/15/18 06/15/18 19:59 00:43 04:04 Sodium 118.5 L* 120.2 L* 121.3 L Potassium 3.2 L 3.4 L 3.2 L Chloride 86 L 88 L 88 L Carbon Dioxide 27 25 27 Anion Gap 6 7 6 BUN 10 9 8 Creatinine 0.38 L 0.40 L 0.40 L Est GFR ( Amer) > 60 > 60 > 60 Est GFR (Non-Af Amer) > 60 > 60 > 60 Glucose 119 H 92 79 Calcium 7.9 L 7.7 L 7.6 L 06/15/18 06/15/18 06/15/18 08:37 13:00 17:00 Sodium 120.8 L* 118.7 L* 118.0 L* Potassium 3.3 L 3.6 3.5 L Chloride 88 L 86 L 86 L Carbon Dioxide 27 27 25 Anion Gap 6 6 7 BUN 7 10 13 Creatinine 0.40 L 0.41 L 0.47 L Est GFR ( Amer) > 60 > 60 > 60 Est GFR (Non-Af Amer) > 60 > 60 > 60 Glucose 89 95 94 Calcium 7.8 L 8.1 L 8.2 L Impressions: Chest X-Ray 06/14/18 15:00 IMPRESSION: Emphysema. Known mass at the right upper lobe. No new consolidation or pleural effusion. Assessment & Plan - Diagnosis (1) Hyponatremia Is this a current diagnosis for this admission?: Yes Plan: After we put her on some normal saline yesterday, her sodium trended up to 121. Somehow her fluids Discontinued and her sodium trended back down. We restarted her fluids and have restricted her oral fluid intake and have stopped her Celexa and Wellbutrin. We will continue to follow the trend her sodium levels. - Time Time Spent with patient: 15-24 minutes
[2018-06-15 20:25] LABS: ANION GAP 7 (5-19); BLOOD UREA NITROGEN 16 mg/dL (7-20); CALCIUM 8.2 mg/dL (8.4-10.2); CARBON DIOXIDE 26 mmol/L (22-30); CHLORIDE 87 mmol/L (98-107); GLUCOSE 124 mg/dL (75-110); POTASSIUM 3.7 mmol/L (3.6-5.0)
[2018-06-15 20:42] LABS: SODIUM 120.4 mmol/L (137-145)
[2018-06-15] MEDS: IPRATROPIUM/ALBUTEROL 0.5-2.5 MG/3 ML AMPUL NEB PRN (21:43)
[2018-06-15] MEDS ORDERED: BISACODYL 10 MG SUPP.RECT PR ONE (22:00)
[2018-06-16] MEDS: ACETAMINOPHEN 325 MG TABLET PO PRN (00:41)
[2018-06-16 00:49] LABS: ANION GAP 8 (5-19); BLOOD UREA NITROGEN 11 mg/dL (7-20); CALCIUM 8.1 mg/dL (8.4-10.2); CARBON DIOXIDE 23 mmol/L (22-30); CHLORIDE 88 mmol/L (98-107); GLUCOSE 101 mg/dL (75-110); POTASSIUM 3.5 mmol/L (3.6-5.0)
[2018-06-16 00:53] LABS: SODIUM 119.3 mmol/L (137-145)
[2018-06-16] MEDS ORDERED: SODIUM BICARBONATE 650 MG TABLET PO ONE (01:50)
[2018-06-16 04:55] LABS: ANION GAP 5 (5-19); BLOOD UREA NITROGEN 9 mg/dL (7-20); CALCIUM 7.7 mg/dL (8.4-10.2); GLUCOSE 85 mg/dL (75-110); POTASSIUM 3.3 mmol/L (3.6-5.0)
[2018-06-16 05:00] LABS: CARBON DIOXIDE 27 mmol/L (22-30); CHLORIDE 90 mmol/L (98-107); SODIUM 121.9 mmol/L (137-145)
[2018-06-16] MEDS: HYDRALAZINE HCL 25 MG TABLET PO SCH ×3 (05:26→23:11)
[2018-06-16] MEDS ORDERED: SODIUM BICARBONATE 650 MG TABLET PO SCH (09:00)
[2018-06-16 09:16] LABS: BLOOD UREA NITROGEN 7 mg/dL (7-20); CALCIUM 8.1 mg/dL (8.4-10.2); CARBON DIOXIDE 27 mmol/L (22-30); CHLORIDE 87 mmol/L (98-107); GLUCOSE 111 mg/dL (75-110); POTASSIUM 3.4 mmol/L (3.6-5.0)
[2018-06-16 09:44] LABS: ANION GAP 6 (5-19)
[2018-06-16 09:56] LABS: SODIUM 120.1 mmol/L (137-145)
[2018-06-16] MEDS: LOSARTAN POTASSIUM 50 MG TABLET PO SCH (10:42)
[2018-06-16] MEDS: ASPIRIN 81 MG TABLET, ENT COATED PO SCH (10:42)
[2018-06-16] MEDS: GUAIFENESIN 600 MG TABLET.SA PO SCH ×2 (10:42→17:30)
[2018-06-16] MEDS: MAGNESIUM OXIDE 400 MG TABLET PO SCH ×2 (10:42→17:30)
[2018-06-16] MEDS: AMLODIPINE BESYLATE 5 MG TABLET PO SCH (10:42)
[2018-06-16] MEDS: ENOXAPARIN SODIUM INJ 40 MG/0.4 ML DISP.SYRIN SUBCUT SCH (10:43)
[2018-06-16] MEDS: TARCEVA PO SCH (10:43)
[2018-06-16 12:08] LABS: ANION GAP 6 (5-19); BLOOD UREA NITROGEN 9 mg/dL (7-20); CALCIUM 8.4 mg/dL (8.4-10.2); CARBON DIOXIDE 27 mmol/L (22-30); CHLORIDE 87 mmol/L (98-107); GLUCOSE 101 mg/dL (75-110); POTASSIUM 3.8 mmol/L (3.6-5.0)
[2018-06-16 12:49] LABS: SODIUM 120.2 mmol/L (137-145)
[2018-06-16] MEDS: NORMAL SALINE 1000 ML 1,000 ML IV PRN (13:39)
[2018-06-16 16:38] LABS: ANION GAP 5 (5-19); BLOOD UREA NITROGEN 10 mg/dL (7-20); CALCIUM 8.2 mg/dL (8.4-10.2); CARBON DIOXIDE 28 mmol/L (22-30); CHLORIDE 88 mmol/L (98-107); GLUCOSE 100 mg/dL (75-110); POTASSIUM 3.4 mmol/L (3.6-5.0); SODIUM 121.3 mmol/L (137-145)
--- NOTE | 2018-06-16 19:21 | PDOC PROGRESS REPORT ---
Subjective Progress Note for:: 06/16/18 Subjective:: No adverse events overnight. She keeps asking me for something for anxiety and I reminded that she is already on something for anxiety. This is the second morning in a row that have come into the room and her IV fluids have been turned off the previous night. Reason For Visit: CHRONIC OBSTRUCTIVE PULMONARY DISEASE,HISTORY OF Physical Exam Vital Signs: Temp Pulse Resp BP Pulse Ox 97.8 F 91 14 123/88 H 97 06/16/18 15:49 06/16/18 16:33 06/16/18 16:33 06/16/18 15:49 06/16/18 16:33 Intake & Output 06/15/18 06/16/18 06/17/18 06:59 06:59 06:59 Intake Total 1110 1137 480 Output Total 300 Balance 1110 1137 180 Weight 56.7 kg 56.7 kg General appearance: PRESENT: no acute distress, cooperative, disheveled, hard of hearing, other - She had a generally grayish discoloration Respiratory exam: PRESENT: clear to auscultation clarice, symmetrical, unlabored. ABSENT: accessory muscle use, chest wall tenderness, crackles, prolonged expiratory phas, rhonchi, tachypnea, wheezes Cardiovascular exam: PRESENT: RRR, +S1, +S2. ABSENT: diastolic murmur, systolic murmur Vascular exam: PRESENT: normal capillary refill GI/Abdominal exam: PRESENT: normal bowel sounds, soft. ABSENT: distended, guarding, rebound, tenderness Extremities exam: PRESENT: clubbing. ABSENT: pedal edema Musculoskeletal exam: PRESENT: normal inspection. ABSENT: deformity Neurological exam: PRESENT: alert, awake, oriented to person, oriented to place , oriented to time Psychiatric exam: PRESENT: flat affect Skin exam: ABSENT: dry, warm Results Laboratory Results: 06/16/18 16:10 06/15/18 06/16/18 06/16/18 20:04 00:19 04:05 Sodium 120.4 L* 119.3 L* 121.9 L Potassium 3.7 3.5 L 3.3 L Chloride 87 L 88 L 90 L Carbon Dioxide 26 23 27 Anion Gap 7 8 5 BUN 16 11 9 Creatinine 0.44 L 0.36 L 0.35 L Est GFR ( Amer) > 60 > 60 > 60 Est GFR (Non-Af Amer) > 60 > 60 > 60 Glucose 124 H 101 85 Calcium 8.2 L 8.1 L 7.7 L 06/16/18 06/16/18 06/16/18 08:36 11:30 16:10 Sodium 120.1 L* 120.2 L* 121.3 L Potassium 3.4 L 3.8 3.4 L Chloride 87 L 87 L 88 L Carbon Dioxide 27 27 28 Anion Gap 6 6 5 BUN 7 9 10 Creatinine 0.34 L 0.39 L 0.55 Est GFR ( Amer) > 60 > 60 > 60 Est GFR (Non-Af Amer) > 60 > 60 > 60 Glucose 111 H 101 100 Calcium 8.1 L 8.4 8.2 L Impressions: Chest X-Ray 06/14/18 15:00 IMPRESSION: Emphysema. Known mass at the right upper lobe. No new consolidation or pleural effusion. Assessment & Plan - Diagnosis (1) Hyponatremia Is this a current diagnosis for this admission?: Yes Plan: Twice now overnight her IV fluids have been stopped and she is been put on oral sodium bicarbonate. She has not responded well to this therapy. Every time I put her back on IV fluids her sodium tends to trend up. Therefore whenever the trend of her sodium overnight I would like for her to stay on IV fluids so that we can see how she will respond over a prolonged period of time. We restarted her fluids and have restricted her oral fluid intake and have stopped her Celexa and Wellbutrin. We will continue to follow the trend of her sodium levels. - Time Time Spent with patient: 15-24 minutes
[2018-06-16 20:49] LABS: ANION GAP 8 (5-19); BLOOD UREA NITROGEN 12 mg/dL (7-20); CALCIUM 8.4 mg/dL (8.4-10.2); CARBON DIOXIDE 28 mmol/L (22-30); CHLORIDE 87 mmol/L (98-107); GLUCOSE 146 mg/dL (75-110); POTASSIUM 3.5 mmol/L (3.6-5.0); SODIUM 122.6 mmol/L (137-145)
[2018-06-17] MEDS: NORMAL SALINE 1000 ML 1,000 ML IV PRN ×2 (03:36→18:27)
[2018-06-17] MEDS: HYDRALAZINE HCL 25 MG TABLET PO SCH ×3 (06:40→22:29)
[2018-06-17] MEDS: LOSARTAN POTASSIUM 50 MG TABLET PO SCH (10:44)
[2018-06-17] MEDS: ENOXAPARIN SODIUM INJ 40 MG/0.4 ML DISP.SYRIN SUBCUT SCH (10:45)
[2018-06-17] MEDS: ASPIRIN 81 MG TABLET, ENT COATED PO SCH (10:45)
[2018-06-17] MEDS: GUAIFENESIN 600 MG TABLET.SA PO SCH ×2 (10:45→18:05)
[2018-06-17] MEDS: AMLODIPINE BESYLATE 5 MG TABLET PO SCH (10:45)
[2018-06-17] MEDS: MAGNESIUM OXIDE 400 MG TABLET PO SCH ×2 (10:45→18:05)
[2018-06-17] MEDS: TARCEVA PO SCH (10:46)
[2018-06-17] MEDS: ACETAMINOPHEN 325 MG TABLET PO PRN (10:55)
[2018-06-17] MEDS: IPRATROPIUM/ALBUTEROL 0.5-2.5 MG/3 ML AMPUL NEB PRN (11:01)
[2018-06-17] MEDS ORDERED: ALPRAZOLAM 0.5 MG TABLET PO PRN (17:56)
[2018-06-17] MEDS: LORATADINE 10 MG TABLET PO SCH (18:27)
--- NOTE | 2018-06-17 22:17 | PDOC PROGRESS REPORT ---
Subjective Progress Note for:: 06/17/18 Subjective:: Very anxious today. Still reports hemoptysis. Frustrated with her low sodium level. Reason For Visit: CHRONIC OBSTRUCTIVE PULMONARY DISEASE,HISTORY OF Physical Exam Vital Signs: Temp Pulse Resp BP Pulse Ox 97.7 F 88 18 141/50 H 99 06/17/18 20:00 06/17/18 20:00 06/17/18 20:00 06/17/18 20:00 06/17/18 20:00 Intake & Output 06/16/18 06/17/18 06/18/18 06:59 06:59 06:59 Intake Total 1137 1954 1360 Output Total 300 Balance 1137 1654 1360 Weight 56.7 kg 56.7 kg General appearance: PRESENT: no acute distress, cooperative, well-developed Eye exam: PRESENT: conjunctiva pink. ABSENT: scleral icterus Respiratory exam: PRESENT: symmetrical, wheezes - Occasional expiratory wheeze. ABSENT: rales, rhonchi Cardiovascular exam: PRESENT: RRR, +S1, +S2 GI/Abdominal exam: PRESENT: normal bowel sounds, soft. ABSENT: tenderness Extremities exam: ABSENT: pedal edema Musculoskeletal exam: PRESENT: normal inspection Neurological exam: PRESENT: alert, awake, oriented to person, oriented to place, oriented to time, oriented to situation, CN II-XII grossly intact Psychiatric exam: PRESENT: anxious Skin exam: PRESENT: dry, skin tears, warm, other - Very thin skin. Multiple skin tears. Large ecchymotic areas. Results Laboratory Results: 06/14/18 14:52 06/16/18 20:16 06/14/18 06/14/18 14:52 14:52 Creatine Kinase 35 CK-MB (CK-2) 1.84 Impressions: Chest X-Ray 06/14/18 15:00 IMPRESSION: Emphysema. Known mass at the right upper lobe. No new consolidation or pleural effusion. Assessment & Plan - Diagnosis (1) Hyponatremia Is this a current diagnosis for this admission?: Yes Plan: The patient's serum sodium has only been going up slowly. I am going to discontinue her IV fluids and institute fluid restriction as well as start sodium chloride tablets. On her previous admission it was a slow course getting her serum sodium close to the normal range. (2) SIADH (syndrome of inappropriate ADH production) Is this a current diagnosis for this admission?: Yes Plan: The plan is noted above. It is possible that the SIADH is secondary to her pulmonary mass. (3) Hemoptysis Is this a current diagnosis for this admission?: Yes Plan: This is likely related to the pulmonary mass. I did send a sputum culture. There is no obvious infiltrate on x-ray. Continue to monitor. - Time Time Spent with patient: 15-24 minutes Anticipated discharge: Home - Plan Summary Plan Summary: As outlined above Of note, when the patient was hospitalized most recently we in fact had a long discussion and she chose her CODE STATUS to be DO NOT RESUSCITATE. She has a completed pink most form with her. I reviewed the form. In accordance with her previous discussions with me and her documentation I have changed her CODE STATUS to DO NOT RESUSCITATE.
[2018-06-18] MEDS: ACETAMINOPHEN 325 MG TABLET PO PRN (00:19)
[2018-06-18 05:30] LABS: BLOOD UREA NITROGEN 7 mg/dL (7-20); CALCIUM 7.9 mg/dL (8.4-10.2); GLUCOSE 87 mg/dL (75-110); POTASSIUM 3.1 mmol/L (3.6-5.0)
[2018-06-18] MEDS: HYDRALAZINE HCL 25 MG TABLET PO SCH (05:31)
[2018-06-18 05:36] LABS: CARBON DIOXIDE 29 mmol/L (22-30); CHLORIDE 98 mmol/L (98-107); SODIUM 129.3 mmol/L (137-145)
[2018-06-18 05:38] LABS: ANION GAP 2 (5-19)
[2018-06-18] MEDS ORDERED: POTASSIUM CHLORIDE 10 MEQ CAPSULE.ER PO ONE (08:00)
[2018-06-18] MEDS: MAGNESIUM OXIDE 400 MG TABLET PO SCH (09:06)
[2018-06-18] MEDS: LOSARTAN POTASSIUM 50 MG TABLET PO SCH (09:06)
[2018-06-18] MEDS: LORATADINE 10 MG TABLET PO SCH (09:06)
[2018-06-18] MEDS: ENOXAPARIN SODIUM INJ 40 MG/0.4 ML DISP.SYRIN SUBCUT SCH (09:06)
[2018-06-18] MEDS: ASPIRIN 81 MG TABLET, ENT COATED PO SCH (09:06)
[2018-06-18] MEDS: AMLODIPINE BESYLATE 5 MG TABLET PO SCH (09:07)
[2018-06-18] MEDS: GUAIFENESIN 600 MG TABLET.SA PO SCH (09:07)
[2018-06-18] MEDS ORDERED: SODIUM CHLORIDE 1 GM TABLET PO SCH (10:00)
[2018-06-18] MEDS: TARCEVA PO SCH (12:47)
[2018-06-18 12:51] VITALS: BP 108/54
--- NOTE | 2018-06-18 13:55 | PDOC DISCHARGE SUMMARY ---
General - Admit/Disc Date/PCP Admission Date/Primary Care Provider: 06/14/18 17:57 ELIZ BACA MD Discharge Date: 06/18/18 - Discharge Diagnosis (1) Hyponatremia Is this a current diagnosis for this admission?: Yes Summary: With the addition of salt tablets the patient's serum sodium is up to 129. Her primary care physician Dr. Eddy is following the electrolytes as well. He is aware of the hyponatremia. It is most likely due to her lung cancer. The patient will continue on a 1.5 L fluid restriction and 1 sodium chloride tablet. I have asked home health to draw a basic metabolic panel with magnesium level in 1 week and forward those results to Dr. Eddy. (2) SIADH (syndrome of inappropriate ADH production) Is this a current diagnosis for this admission?: Yes (3) Hemoptysis Is this a current diagnosis for this admission?: Yes Summary: Chronic from the lung malignancy. (4) Hypomagnesemia Is this a current diagnosis for this admission?: Yes Summary: Continue magnesium oxide. Laboratory studies will be checked in 1 week. Follow-up with Dr. Eddy. (5) Hypokalemia Is this a current diagnosis for this admission?: Yes Summary: Her hypokalemia is mild. In lieu of an additional medication I encouraged her to have a banana or orange juice daily. Blood work - Additional Information Resuscitation Status: Do Not Resuscitate Discharge Diet: Regular Discharge Activity: Activity As Tolerated, Balance Activity w/Rest Prescriptions: Losartan Potassium [Cozaar 50 mg Tablet] 100 mg PO DAILY #30 tablet Magnesium Oxide [Mag-Ox 400 mg Tablet] 400 mg PO BID #60 tablet Home Medications: Albuterol Sulfate [Proair HFA Inhalation Aerosol 8.5 gm MDI] 1 puff IH Q6HP PRN 04/13/18 Docusate Sodium [Colace 100 mg Capsule] 100 mg PO DAILYP PRN 04/13/18 Aspirin [Ecotrin] 81 mg PO DAILY 05/17/18 Amlodipine Besylate [Norvasc 5 mg Tablet] 5 mg PO DAILY tablet 05/25/18 Fluticasone Propionate [Flonase Nasal [place] 50 Mcg/[place] 16 gm] 1 spray NASL DAILYP PRN 05/26/18 Ipratropium/Albuterol Sulfate [Duoneb 3 ml Ampul] 3 ml NEB RTQ6HP PRN 30 Days #120 vial.neb 06/01/18 Citalopram Hydrobromide [Celexa 10 mg Tablet] 10 mg PO DAILY 06/14/18 Erlotinib HCl [Tarceva 150 mg Tablet] 150 mg PO Q6AM MDD EMPTY STOMACH 06/14/18 Guaifenesin [Mucinex] 600 mg PO BIDP PRN 06/14/18 Calcium Citrate/Vitamin D3 [Citracal + D Maximum Caplet] 1 tab PO DAILY 06/15/18 Carvedilol [Coreg 12.5 mg Tablet] 12.5 mg PO Q12 06/15/18 Fluticasone/Umeclidin/Vilanter [Trelegy 100-62.5-25 Mcg Ellipta 14 Dose/Dpi] 1 puff IH DAILY 06/15/18 Hydralazine HCl [Apresoline 25 mg Tablet] 25 mg PO Q8 06/15/18 Loratadine [Claritin 10 mg Tablet] 10 mg PO DAILYP PRN 06/15/18 Multivit-Min/Iron/Folic/Lutein [Centrum Silver Women Tablet] 1 each PO DAILY 06/15/18 Sodium Chloride [Sodium Chloride 1 gm Tablet] 1 gm PO DAILY 06/15/18 Zolpidem Tartrate [Ambien 5 mg Tablet] 5 mg PO HSP PRN 06/15/18 Guaifenesin [Mucinex Sr 600 mg Tablet.sa] 600 mg PO BID tablet.sa 06/18/18 Hydralazine HCl [Apresoline 25 mg Tablet] 25 mg PO Q8 tablet 06/18/18 Losartan Potassium [Cozaar 50 mg Tablet] 100 mg PO DAILY #30 tablet 06/18/18 Magnesium Oxide [Mag-Ox 400 mg Tablet] 400 mg PO BID #60 tablet 06/18/18 Sodium Chloride [Sodium Chloride 1 gm Tablet] 1 gm PO BID tablet 06/18/18 History of Present Illness Patient complains of: Shortness of breath History of Present Illness: NISA JC is a 78 year old female known to this provider. She was just hospi talized several weeks ago. During that time she had hyponatremia and an exacerbation of her COPD. Her oxygenation was excellent and she was found to be hyponatremic. Her serum sodium was 118. Hospital Course Hospital Course: The patient was admitted and put on fluid restriction as well as normal saline. The sodium was not increasing at any significant rate and so I discontinue the saline and maintain the fluid restriction but added a sodium chloride tablet. This was effective the last time she was in the hospital. Her sodium is up to 129 today. We are going to discharge her to home and she is going to maintain the one salt tablet with 1.5 L fluid restriction. Her COPD has been under excellent control during this hospitalization. Physical Exam Vital Signs: Temp Pulse Resp BP Pulse Ox 98.1 F 88 16 141/50 H 96 06/18/18 12:14 06/18/18 12:14 06/18/18 12:14 06/18/18 12:14 06/18/18 12:14 Intake & Output 06/17/18 06/18/18 06/19/18 06:59 06:59 06:59 Intake Total 1954 2837 Output Total 300 Balance 1654 2837 Weight 56.7 kg 56.7 kg General appearance: PRESENT: no acute distress, cooperative, well-developed - Frail-appearing Respiratory exam: PRESENT: clear to auscultation clarcie, symmetrical, unlabored. ABSENT: accessory muscle use, rales, rhonchi, wheezes Cardiovascular exam: PRESENT: RRR, +S1, +S2 GI/Abdominal exam: PRESENT: normal bowel sounds, soft. ABSENT: tenderness Neurological exam: PRESENT: alert, awake, oriented to person, oriented to place, oriented to time, oriented to situation, CN II-XII grossly intact Psychiatric exam: PRESENT: anxious - This is her baseline Focused psych exam: ABSENT: restlessness Results Laboratory Results: 06/14/18 14:52 06/18/18 04:02 06/18/18 04:02 Sodium 129.3 L Potassium 3.1 L Chloride 98 Carbon Dioxide 29 Anion Gap 2 L BUN 7 Creatinine 0.39 L Est GFR ( Amer) > 60 Est GFR (Non-Af Amer) > 60 Glucose 87 Calcium 7.9 L 06/14/18 06/14/18 14:52 14:52 Creatine Kinase 35 CK-MB (CK-2) 1.84 Impressions: Chest X-Ray 06/14/18 15:00 IMPRESSION: Emphysema. Known mass at the right upper lobe. No new consolidation or pleural effusion. Qualifiers - * PATIENT BEING DISCHARGED WITH ANY OF THE FOLLOWING DIAGNOSIS: No Plan Discharge Plan: As we are only monitoring her electrolytes the patient will be discharged home. She will remain on a 1.5 L fluid restriction as well as sodium chloride 1 g tablet daily. She will also be on magnesium oxide and bananas or orange juice for potassium supplementation. Home health will be continuing therapy with her and I have asked them to draw a basic metabolic panel and magnesium level and forward the results to her primary care Dr. Eddy in 1 week. Time Spent: Greater than 30 Minutes
[2018-06-19] MEDS ORDERED: POTASSIUM CHLORIDE 10 MEQ CAPSULE.ER PO SCH (10:00)
== END 2018-06-18 13:59 | disposition home health service (06) | DRG 644 ==
LOC: ER 14:41 → EH 17:57 → 4N 19:31
PROVIDERS: ADMIT Internal Medicine; ATTEND Internal Medicine
DX: E22.2 Syndrome of inappropriate secretion of antidiuretic hormone (principal); C34.90 Malignant neoplasm of unspecified part of unspecified bronchus or lung; R04.2 Hemoptysis; I10 Essential (primary) hypertension; J44.9 Chronic obstructive pulmonary disease, unspecified; E87.6 Hypokalemia; F17.210 Nicotine dependence, cigarettes, uncomplicated; E83.42 Hypomagnesemia; F41.9 Anxiety disorder, unspecified; M19.90 Unspecified osteoarthritis, unspecified site; Z66 Do not resuscitate; F32.9 Major depressive disorder, single episode, unspecified; Z92.3 Personal history of irradiation; Z90.49 Acquired absence of other specified parts of digestive tract; Z88.0 Allergy status to penicillin; Z88.8 Allergy status to other drugs, medicaments and biological substances; Z88.4 Allergy status to anesthetic agent; Z91.040 Latex allergy status; Z79.899 Other long term (current) drug therapy; Z79.51 Long term (current) use of inhaled steroids; Z79.52 Long term (current) use of systemic steroids
CPT/HCPCS: 36415; 71046; 80048; 80053; 81001; 82550; 82553; 83690; 83735; 85025; 87070; 87077; 87186; 87205; 94640; 96360; 96361; 99291; J1650; J3490; J7030; J7040; J7620

== ENCOUNTER → 2018-08-27 | Outpatient (CLI) | payer MEDICARE ==
--- NOTE | 2018-08-27 16:45 | RADIOLOGY REPORT (SQ) ---
EXAM DESCRIPTION: CT CHEST WITH COMPLETED DATE/TIME: 08/27/2018 3:56 pm REASON FOR STUDY: C34.12 MALIGNANT NEOPLASM OF UPPER LOBE, LEFT BRONCHUS OR LUNG C34.12 MALIGNANT N EOPLASM OF UPPER LOBE, LEFT BRONCHUS OR FE COMPARISON: 05/17/2018 TECHNIQUE: CT scan of the chest performed using helical scanning technique with dynamic intravenous contrast injection. Images reviewed with lung, soft tissue and bone windows. Reconstructed coronal and sagittal MPR and MIP images reviewed. All images stored on PACS. All CT scanners at this facility use dose modulation, iterative reconstruction, and/or weight based d osing when appropriate to reduce radiation dose to as low as reasonably achievable (ALARA). [facility]: Dose Right [facility]: CareDose [facility]: Dose Right [facility]: Teradose 4D [facility]: [employer] CONTRAST TYPE AND DOSE: 67 mL Omnipaque 350- low osmolar. RENAL FUNCTION: Creatinine 0.7 RADIATION DOSE: . LIMITATIONS: None. FINDINGS: LUNGS AND PLEURA: Centrilobular emphysema. Spiculated right upper lobe mass measures 29 x 24 mm. There is increased fullness of the mass. There is stable opacification in the left upper lo be and lower lobe. This may represent scarring. May represent radiation change. Reduced volume on the left compared to the right. HILAR AND MEDIASTINAL STRUCTURES: No identified masses or abnormal nodes. HEART AND VASCULAR STRUCTURES: No aneurysm or dissection. No central pulmonary emboli. No pericardi al effusion. HARDWARE: None in the chest. UPPER ABDOMEN: See separate report of the CT of the abdomen. THYROID AND OTHER SOFT TISSUES: No masses. No adenopathy. BONES: No significant finding. OTHER: No other significant finding. IMPRESSION: Surgical and likely radiation changes on the left. Stable. Right upper lobe lung mass is larger and shows increased bulk compared to the earlier study. TECHNICAL DOCUMENTATION: JOB ID: [id number] Quality ID # [id number]: Final reports with documentation of one or more dose reduction techniques (e.g., Au tomated exposure control, adjustment of the mA and/or kV according to patient size, use of iterative reconstruction technique) 2010 [email or web address]- All Rights Reserved Reading location - IP/workstation name: [email or web address]
--- NOTE | 2018-08-27 17:08 | RADIOLOGY REPORT (SQ) ---
EXAM DESCRIPTION: CT ABD/PELVIS WITH IV ONLY COMPLETED DATE/TIME: 08/27/2018 3:55 pm REASON FOR STUDY: C34.12 C34.12 MALIGNANT NEOPLASM OF UPPER LOBE, LEFT BRONCHUS OR FE COMPARISON: 01/05/2018 TECHNIQUE: CT scan of the abdomen and pelvis performed using helical scanning technique with dynamic intravenous contrast injection. No oral contrast. Images reviewed with lung, soft tissue, and bone windows. Reconstructed coronal and sagittal MPR images reviewed. Delayed images for evaluation of the urinary system also acquired. All images stored on PACS. All CT scanners at this facility use dose modulation, iterative reconstruction, and/or weight based d osing when appropriate to reduce radiation dose to as low as reasonably achievable (ALARA). [facility]: Dose Right [facility]: CareDose [facility]: Dose Right [facility]: Teradose 4D [facility]: [facility] CONTRAST TYPE AND DOSE: contrast/concentration: Isovue 350.00 mg/ml; Total Contrast Delivered: 67.0 ml; Total Saline Delivered: 65.0 ml RENAL FUNCTION: Creatinine 0.7 RADIATION DOSE: CT Rad equipment meets quality standard of care and radiation dose reduction techniq ues were employed. CTDIvol: 4.4 - 5.0 mGy. DLP: 626 mGy-cm.. LIMITATIONS: None. FINDINGS: LOWER CHEST: See separate report of the CT of the chest. LIVER: There are multiple very small low-density lesions in the liver. Likely cyst. Too small to ch aracterize. Stable. SPLEEN: Normal size. No focal lesions. PANCREAS: No masses. No significant calcifications. No adjacent inflammation or peripancreatic fluid collections. Pancreatic duct not dilated. GALLBLADDER: Some tiny gallstones are present. ADRENAL GLANDS: Bilateral adrenal masses are larger. The 1 on right measures 25.9 mm compared to 18. 4 mm on the prior study at a similar level. RIGHT KIDNEY AND URETER: No solid masses. No significant calcifications. No hydronephrosis or hyd roureter. LEFT KIDNEY AND URETER: No solid masses. No significant calcifications. No hydronephrosis or hydr oureter. AORTA AND VESSELS: No aneurysm. No dissection. Renal arteries, SMA, celiac without stenosis. RETROPERITONEUM: No retroperitoneal adenopathy, hemorrhage or masses. BOWEL AND PERITONEAL CAVITY: Sigmoid diverticulosis. No associated inflammation. No bowel mass is s een. APPENDIX: Surgically absent. PELVIS: No mass. No free fluid. Normal bladder. ABDOMINAL WALL: No masses. No hernias. BONES: Scoliosis and degenerative disc changes. No osseous lesions. OTHER: No other significant finding. IMPRESSION: Bilateral adrenal masses show an increase in size. Cholelithiasis. Diverticulosis coli . TECHNICAL DOCUMENTATION: JOB ID: [id number] Quality ID # [id number]: Final reports with documentation of one or more dose reduction techniques (e.g., Au tomated exposure control, adjustment of the mA and/or kV according to patient size, use of iterative reconstruction technique) 2010 [employer]- All Rights Reserved Reading location - IP/workstation name: [email or web address]
== END ==
LOC: RAD 15:12
PROVIDERS: ATTEND Physician Assistant Medical
DX: C34.12 Malignant neoplasm of upper lobe, left bronchus or lung (principal); K80.80 Other cholelithiasis without obstruction; E27.8 Other specified disorders of adrenal gland
CPT/HCPCS: 71260; 74177; 82565

== ENCOUNTER → 2018-09-08 | Outpatient (CLI) | payer MEDICARE ==
--- NOTE | 2018-09-09 09:13 | RADIOLOGY REPORT (SQ) ---
EXAM DESCRIPTION: PET CT SKULL/THIGH COMPLETED DATE/TIME: 09/08/2018 9:48 pm REASON FOR STUDY: C34.12 MALIGNANT NEOPLASM OF UPPER LOBE, LEFT BRONCHUS OR LUNG C34.12 MALIGNANT N EOPLASM OF UPPER LOBE, LEFT BRONCHUS OR FE COMPARISON: 06/03/2017 and 03/09/2017. RADIONUCLIDE AND DOSE: 10 mCi F18 FDG The route of agent administration: Intravenous FASTING BLOOD SUGAR: 102 mg/dl CONTRAST TYPE AND DOSE: No CT contrast given. TECHNIQUE: Blood glucose level was verified. Above dose of FDG was injected intravenously. 2-D seg mented attenuation correction images were obtained from the base of the skull to the midthighs. Nonc ontrast CT images were obtained for attenuation correction and fusion with emission images. CT image s were performed without oral or intravenous contrast and are not sensitive for parenchymal lesions. A series of overlapping emission PET images were obtained. Images reviewed and manipulated at [facility] work station by the radiologist. Images stored on PACS. LIMITATIONS: None. FINDINGS: HEAD AND NECK: No areas of abnormal metabolic activity in the soft tissues of the head and neck. CHEST: Surgical changes in the left lung with perihilar scarring. Calcified granulomas. The spicul ated mass in the right upper lobe has increased in size. Current measurements are 2.5 cm with prior measurement 1.5 cm. Mean SUV 4.1. Prior value 5.51. There is a new focal area of increased activit y in the right hilum with mean SUV 3.5. On CT images this overlaps with the right pulmonary artery a nd difficult to visualize a discrete lymph node. ABDOMEN AND PELVIS: The right adrenal mass has increased in size. Current measurement 3.0 cm with pr ior measurement 1.5 cm. Mean SUV 5.41 with prior value 5.35. There is a new mass adjacent to the ad renal lesion and located anterior to the right renal vein. This new mass measures 1.5 x 2 cm. Mean SUV 6.04. There is a new mass in the left adrenal gland which measures 1.8 x 2.0 cm. Mean SUV 4.93. Expected physiologic activity is present in the genitourinary system and bowel. PROXIMAL LOWER EXTREMITIES: No areas of abnormal metabolic activity in the soft tissues of the lower extremities. BONES: No abnormal metabolic activity in the visualized skeleton. 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 Gallstones. Vascular port. No additional significant findings on the noncontrast CT images. OTHER: Background blood pool activity mean SUV 1.66. Background liver activity mean SUV 2.01. No ot her significant findings. IMPRESSION: 1. THE PREVIOUSLY SEEN SPICULATED MASS IN THE RIGHT UPPER LOBE HAS INCREASED IN SIZE CONSISTENT WITH PROGRESSION OF DISEASE. THERE IS ALSO A NEW FOCAL AREA OF INCREASED ACTIVITY IN THE RIGHT HILUM WITH MEAN SUV 3.5. THIS PROBABLY REPRESENTS A METASTATIC HILAR LYMPH NODE ALTHOUGH DIFFICULT TO VISUALIZ E ON THE NONCONTRAST CT IMAGES. 2. THE RIGHT ADRENAL MASS HAS INCREASED IN SIZE CONSISTENT WITH PROGRESSION OF DISEASE. THERE IS A N EW MASS ANTERIOR TO THE RIGHT RENAL VEIN WHICH LIKELY REPRESENTS NEW ADENOPATHY. THERE IS ALSO A NEW MASS IN THE LEFT ADRENAL GLAND CONSISTENT WITH A NEW METASTASIS. TECHNICAL DOCUMENTATION: JOB ID: [id number] [employer]- All Rights Reserved Reading location - IP/workstation name: [email or web address]
== END ==
LOC: RAD 17:45
PROVIDERS: ATTEND Internal Medicine
DX: C34.12 Malignant neoplasm of upper lobe, left bronchus or lung (principal); C79.71 Secondary malignant neoplasm of right adrenal gland
CPT/HCPCS: 78815; A9552

== ENCOUNTER → 2018-12-11 | Outpatient (CLI) | payer MEDICARE ==
--- NOTE | 2018-12-11 15:19 | RADIOLOGY REPORT (SQ) ---
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 RENAL FUNCTION: BUN 20, creatinine 0.6 COMPARISON: None. TECHNIQUE: CT scan of the chest performed using helical scanning technique with dynamic intravenous contrast injection. Images reviewed with lung, soft tissue and bone windows. Reconstructed coronal a nd sagittal MPR images reviewed. All images stored on PACS. All CT scanners at this facility use dose modulation, iterative reconstruction, and/or weight based d osing when appropriate to reduce radiation dose to as low as reasonably achievable (ALARA). [facility]: Dose Right [facility]: CareDose [facility]: Dose Right [facility]: Teradose 4D [facility]: [employer] RADIATION DOSE: CT Rad equipment meets quality standard of care and radiation dose reduction techniq ues were employed. CTDIvol: 4.5 - 5.4 mGy. DLP: 660 mGy-cm. . LIMITATIONS: None. FINDINGS: AXILLAE: No adenopathy. CHEST WALL: No masses. No subcutaneous air. LUNGS: Spiculated mass in the periphery of the right upper lobe is slightly smaller in size. It is m easured 2.8 x 2.3 cm on today's study compared to 2.8 x 2.4 cm on prior study. Bandlike scarring in the left upper lobe is again noted. There are bilateral emphysematous changes. There is slightly le ss pleural thickening and pleural reaction noted in the left base on today's study. Calcified granul terra in the right medial base is unchanged. PLEURA: As described. THYROID: No masses or significant asymmetry. HILAR AND MEDIASTINAL STRUCTURES: No identified masses or abnormal nodes. AORTA AND GREAT VESSELS: No aneurysm. No dissection. PULMONARY ARTERIES: No identified pulmonary emboli. Study not optimized for the pulmonary arteries. HEART: No pericardial effusion. HARDWARE AND LIFELINES: Fapkie-P-Elrf is in place. BONES: No significant finding. OTHER: No other significant finding. IMPRESSION: Spiculated mass in the periphery of the right upper lobe is slightly smaller in size. P ostsurgical changes on the left are grossly stable. COMPARISON: None. RADIATION DOSE: CT Rad equipment meets quality standard of care and radiation dose reduction techniq ues were employed. CTDIvol: 4.5 - 5.4 mGy. DLP: 660 mGy-cm. mGy. TECHNIQUE: CT scan of the abdomen and pelvis performed with intravenous and oral contrast using mike ben scanning technique with dynamic intravenous contrast injection. Images reviewed with lung, soft tissue and bone windows. Reconstructed coronal and sagittal MPR images reviewed. Delayed images for evaluation of the urinary system also acquired and evaluated. All images stored on PACS. All CT scanners at this facility use dose modulation, iterative reconstruction, and/or weight based d osing when appropriate to reduce radiation dose to as low as reasonably achievable (ALARA). [facility]: Dose Right [facility]: [facility]: Dose Right [facility]: Teradose 4D [facility]: [employer] FINDINGS: LIVER: Multiple small hypoattenuating lesions along the dome of liver most likely cysts. These are stable in appearance. SPLEEN: Normal size. No focal lesions. PANCREAS: No masses. No significant calcifications. No adjacent inflammation or peripancreatic flui d collections. Pancreatic duct not dilated. GALLBLADDER: No identified stones by CT criteria. No inflammatory changes to suggest cholecystitis. ADRENAL GLANDS: There are bilateral adrenal masses. The right is measured 5.6 x 2.7 cm. It has not significantly changed from prior study. The left adrenal lesion measures 1.9 cm. It is slightly sma ller in size. RIGHT KIDNEY AND URETER: No solid masses. No significant calcifications. No hydronephrosis or hyd roureter. LEFT KIDNEY AND URETER: No solid masses. No significant calcifications. No hydronephrosis or hydr oureter. AORTA AND VESSELS: No aneurysm. No dissection. Renal arteries, SMA, celiac without stenosis. RETROPERITONEUM: Stable upper retroperitoneal/retrocrural adenopathy. LARGE AND SMALL BOWEL: Scattered diverticuli. No obstruction. No inflammatory changes. APPENDIX: Surgically absent. ABDOMINAL WALL: No hernia or masses. PERITONEAL CAVITY: No free air. No free fluid. No peritoneal implants or masses. PELVIS: No mass or free fluid. Normal bladder. BONES: No significant or acute findings. OTHER: No other significant finding. IMPRESSION: Grossly stable bilateral adrenal lesions. The left adrenal lesion is slightly smaller i n size. The right is stable. Stable retrocrural lymph node best demonstrated on image 12 series 3 measured at 1.8 cm. TECHNICAL DOCUMENTATION: JOB ID: [id number] Quality ID # [id number]: Final reports with documentation of one or more dose reduction techniques (e.g., Au tomated exposure control, adjustment of the mA and/or kV according to patient size, use of iterative reconstruction technique) 2010 [employer]- All Rights Reserved Reading location - IP/workstation name: [email or web address]
--- NOTE | 2018-12-11 15:19 | RADIOLOGY REPORT (SQ) ---
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 RENAL FUNCTION: BUN 20, creatinine 0.6 COMPARISON: None. TECHNIQUE: CT scan of the chest performed using helical scanning technique with dynamic intravenous contrast injection. Images reviewed with lung, soft tissue and bone windows. Reconstructed coronal a nd sagittal MPR images reviewed. All images stored on PACS. All CT scanners at this facility use dose modulation, iterative reconstruction, and/or weight based d osing when appropriate to reduce radiation dose to as low as reasonably achievable (ALARA). [facility]: Dose Right [facility]: CareDose [facility]: Dose Right [facility]: Teradose 4D [facility]: [employer] RADIATION DOSE: CT Rad equipment meets quality standard of care and radiation dose reduction techniq ues were employed. CTDIvol: 4.5 - 5.4 mGy. DLP: 660 mGy-cm. . LIMITATIONS: None. FINDINGS: AXILLAE: No adenopathy. CHEST WALL: No masses. No subcutaneous air. LUNGS: Spiculated mass in the periphery of the right upper lobe is slightly smaller in size. It is m easured 2.8 x 2.3 cm on today's study compared to 2.8 x 2.4 cm on prior study. Bandlike scarring in the left upper lobe is again noted. There are bilateral emphysematous changes. There is slightly le ss pleural thickening and pleural reaction noted in the left base on today's study. Calcified granul terra in the right medial base is unchanged. PLEURA: As described. THYROID: No masses or significant asymmetry. HILAR AND MEDIASTINAL STRUCTURES: No identified masses or abnormal nodes. AORTA AND GREAT VESSELS: No aneurysm. No dissection. PULMONARY ARTERIES: No identified pulmonary emboli. Study not optimized for the pulmonary arteries. HEART: No pericardial effusion. HARDWARE AND LIFELINES: Sqmzkh-A-Znon is in place. BONES: No significant finding. OTHER: No other significant finding. IMPRESSION: Spiculated mass in the periphery of the right upper lobe is slightly smaller in size. P ostsurgical changes on the left are grossly stable. COMPARISON: None. RADIATION DOSE: CT Rad equipment meets quality standard of care and radiation dose reduction techniq ues were employed. CTDIvol: 4.5 - 5.4 mGy. DLP: 660 mGy-cm. mGy. TECHNIQUE: CT scan of the abdomen and pelvis performed with intravenous and oral contrast using mike ben scanning technique with dynamic intravenous contrast injection. Images reviewed with lung, soft tissue and bone windows. Reconstructed coronal and sagittal MPR images reviewed. Delayed images for evaluation of the urinary system also acquired and evaluated. All images stored on PACS. All CT scanners at this facility use dose modulation, iterative reconstruction, and/or weight based d osing when appropriate to reduce radiation dose to as low as reasonably achievable (ALARA). [facility]: Dose Right [facility]: [facility]Care [facility]: Dose Right [facility]: Teradose 4D [facility]: [employer] FINDINGS: LIVER: Multiple small hypoattenuating lesions along the dome of liver most likely cysts. These are stable in appearance. SPLEEN: Normal size. No focal lesions. PANCREAS: No masses. No significant calcifications. No adjacent inflammation or peripancreatic flui d collections. Pancreatic duct not dilated. GALLBLADDER: No identified stones by CT criteria. No inflammatory changes to suggest cholecystitis. ADRENAL GLANDS: There are bilateral adrenal masses. The right is measured 5.6 x 2.7 cm. It has not significantly changed from prior study. The left adrenal lesion measures 1.9 cm. It is slightly sma ller in size. RIGHT KIDNEY AND URETER: No solid masses. No significant calcifications. No hydronephrosis or hyd roureter. LEFT KIDNEY AND URETER: No solid masses. No significant calcifications. No hydronephrosis or hydr oureter. AORTA AND VESSELS: No aneurysm. No dissection. Renal arteries, SMA, celiac without stenosis. RETROPERITONEUM: Stable upper retroperitoneal/retrocrural adenopathy. LARGE AND SMALL BOWEL: Scattered diverticuli. No obstruction. No inflammatory changes. APPENDIX: Surgically absent. ABDOMINAL WALL: No hernia or masses. PERITONEAL CAVITY: No free air. No free fluid. No peritoneal implants or masses. PELVIS: No mass or free fluid. Normal bladder. BONES: No significant or acute findings. OTHER: No other significant finding. IMPRESSION: Grossly stable bilateral adrenal lesions. The left adrenal lesion is slightly smaller i n size. The right is stable. Stable retrocrural lymph node best demonstrated on image 12 series 3 measured at 1.8 cm. TECHNICAL DOCUMENTATION: JOB ID: [id number] Quality ID # [id number]: Final reports with documentation of one or more dose reduction techniques (e.g., Au tomated exposure control, adjustment of the mA and/or kV according to patient size, use of iterative reconstruction technique) 2010 [employer]- All Rights Reserved Reading location - IP/workstation name: [facility]
== END ==
LOC: RAD 14:13
PROVIDERS: ATTEND Internal Medicine
DX: C34.12 Malignant neoplasm of upper lobe, left bronchus or lung (principal); E27.9 Disorder of adrenal gland, unspecified
CPT/HCPCS: 71260; 74177

== ENCOUNTER → 2019-03-09 | Outpatient (CLI) | payer MEDICARE ==
--- NOTE | 2019-03-09 14:29 | RADIOLOGY REPORT (SQ) ---
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 TECHNIQUE: CT scan of the chest performed using helical scanning technique with dynamic intravenous contrast injection. Images reviewed with lung, soft tissue and bone windows. Reconstructed coronal a nd sagittal MPR images reviewed. All images stored on PACS. All CT scanners at this facility use dose modulation, iterative reconstruction, and/or weight based d osing when appropriate to reduce radiation dose to as low as reasonably achievable (ALARA). [facility]: Dose Right [facility]: CareDose [facility]: Dose Right [facility]: Teradose 4D [facility]: [employer] RADIATION DOSE: CT Rad equipment meets quality standard of care and radiation dose reduction techniq ues were employed. CTDIvol: 5.1 - 5.4 mGy. DLP: 691 mGy-cm. . LIMITATIONS: None. FINDINGS: AXILLAE: No adenopathy. CHEST WALL: No masses. No subcutaneous air. LUNGS: Spiculated mass in the right upper lobe is stable in size. Bilateral emphysematous changes ar e stable. Stable calcified granuloma in the right medial base. Scarring in the left upper lobe is g rossly unchanged. On image 69 of series 6 there is a small left lower lobe subpleural opacity this i s ground-glass in appearance and could represent focal atelectasis. Developing nodule cannot be excl uded. PLEURA: No effusions. No calcifications. THYROID: Small left-sided thyroid nodule is grossly unchanged. HILAR AND MEDIASTINAL STRUCTURES: No identified masses or abnormal nodes. AORTA AND GREAT VESSELS: No aneurysm. No dissection. PULMONARY ARTERIES: No identified pulmonary emboli. Study not optimized for the pulmonary arteries. HEART: No pericardial effusion. HARDWARE AND LIFELINES: Wkwbxx-O-Wkyl is in place on the right. BONES: No significant finding. OTHER: No other significant finding. IMPRESSION: Grossly stable chest as described. Small subpleural ground-glass opacity is noted on to day's study best demonstrated on series 6, image 69. This is nonspecific but does warrant follow-up. COMPARISON: None. RADIATION DOSE: CT Rad equipment meets quality standard of care and radiation dose reduction technCliniCast ues were employed. CTDIvol: 5.1 - 5.4 mGy. DLP: 691 mGy-cm. mGy. TECHNIQUE: CT scan of the abdomen and pelvis performed with intravenous and oral contrast using mike ben scanning technique with dynamic intravenous contrast injection. Images reviewed with lung, soft tissue and bone windows. Reconstructed coronal and sagittal MPR images reviewed. Delayed images for evaluation of the urinary system also acquired and evaluated. All images stored on PACS. All CT scanners at this facility use dose modulation, iterative reconstruction, and/or weight based d osing when appropriate to reduce radiation dose to as low as reasonably achievable (ALARA). [facility]: Dose Right [facility]: [facility]Care [facility]: Dose Right [facility]: Teradose 4D [facility]: [employer] FINDINGS: LIVER: Small hepatic cyst in the dome of liver are again noted and unchanged. SPLEEN: Normal size. No focal lesions. PANCREAS: No masses. No significant calcifications. No adjacent inflammation or peripancreatic flui d collections. Pancreatic duct not dilated. GALLBLADDER: Layering gallstones. The common bile duct remains prominent in the pancreatic head. ADRENAL GLANDS: Bilateral adrenal masses are again noted. The right adrenal lesion measures 3.9 cm i n size decreased from prior exam. Largest diameter on the left is 1.8 cm not significantly changed. RIGHT KIDNEY AND URETER: No solid masses. No significant calcifications. No hydronephrosis or hyd roureter. LEFT KIDNEY AND URETER: No solid masses. No significant calcifications. No hydronephrosis or hydr oureter. AORTA AND VESSELS: No aneurysm. No dissection. Renal arteries, SMA, celiac without stenosis. RETROPERITONEUM: No retroperitoneal adenopathy, hemorrhage or masses. LARGE AND SMALL BOWEL: No dilatation. No masses. No wall thickening. APPENDIX: Surgically absent. ABDOMINAL WALL: No hernia or masses. PERITONEAL CAVITY: No free air. No free fluid. No peritoneal implants or masses. PELVIS: No mass or free fluid. Normal bladder. BONES: There are degenerative changes in the lumbar spine stable in appearance. OTHER: No other significant finding. IMPRESSION: The right adrenal mass is slightly smaller in size. Left adrenal lesion is unchanged. No new findings. TECHNICAL DOCUMENTATION: JOB ID: [id number] Quality ID # [id number]: Final reports with documentation of one or more dose reduction techniques (e.g., Au tomated exposure control, adjustment of the mA and/or kV according to patient size, use of iterative reconstruction technique) 2010 [employer]- All Rights Reserved Reading location - IP/workstation name: [email or web address]
--- NOTE | 2019-03-09 14:29 | RADIOLOGY REPORT (SQ) ---
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 TECHNIQUE: CT scan of the chest performed using helical scanning technique with dynamic intravenous contrast injection. Images reviewed with lung, soft tissue and bone windows. Reconstructed coronal a nd sagittal MPR images reviewed. All images stored on PACS. All CT scanners at this facility use dose modulation, iterative reconstruction, and/or weight based d osing when appropriate to reduce radiation dose to as low as reasonably achievable (ALARA). [facility]: Dose Right [facility]: CareDose [facility]: Dose Right [facility]: Teradose 4D [facility]: [employer] RADIATION DOSE: CT Rad equipment meets quality standard of care and radiation dose reduction techniq ues were employed. CTDIvol: 5.1 - 5.4 mGy. DLP: 691 mGy-cm. . LIMITATIONS: None. FINDINGS: AXILLAE: No adenopathy. CHEST WALL: No masses. No subcutaneous air. LUNGS: Spiculated mass in the right upper lobe is stable in size. Bilateral emphysematous changes ar e stable. Stable calcified granuloma in the right medial base. Scarring in the left upper lobe is g rossly unchanged. On image 69 of series 6 there is a small left lower lobe subpleural opacity this i s ground-glass in appearance and could represent focal atelectasis. Developing nodule cannot be excl uded. PLEURA: No effusions. No calcifications. THYROID: Small left-sided thyroid nodule is grossly unchanged. HILAR AND MEDIASTINAL STRUCTURES: No identified masses or abnormal nodes. AORTA AND GREAT VESSELS: No aneurysm. No dissection. PULMONARY ARTERIES: No identified pulmonary emboli. Study not optimized for the pulmonary arteries. HEART: No pericardial effusion. HARDWARE AND LIFELINES: Xcjrqi-W-Skas is in place on the right. BONES: No significant finding. OTHER: No other significant finding. IMPRESSION: Grossly stable chest as described. Small subpleural ground-glass opacity is noted on to day's study best demonstrated on series 6, image 69. This is nonspecific but does warrant follow-up. COMPARISON: None. RADIATION DOSE: CT Rad equipment meets quality standard of care and radiation dose reduction [email or web address] ues were employed. CTDIvol: 5.1 - 5.4 mGy. DLP: 691 mGy-cm. mGy. TECHNIQUE: CT scan of the abdomen and pelvis performed with intravenous and oral contrast using mike ben scanning technique with dynamic intravenous contrast injection. Images reviewed with lung, soft tissue and bone windows. Reconstructed coronal and sagittal MPR images reviewed. Delayed images for evaluation of the urinary system also acquired and evaluated. All images stored on PACS. All CT scanners at this facility use dose modulation, iterative reconstruction, and/or weight based d osing when appropriate to reduce radiation dose to as low as reasonably achievable (ALARA). [facility]: Dose Right [facility]: [facility]Care [facility]: Dose Right [facility]: Teradose 4D [facility]: [employer] FINDINGS: LIVER: Small hepatic cyst in the dome of liver are again noted and unchanged. SPLEEN: Normal size. No focal lesions. PANCREAS: No masses. No significant calcifications. No adjacent inflammation or peripancreatic flui d collections. Pancreatic duct not dilated. GALLBLADDER: Layering gallstones. The common bile duct remains prominent in the pancreatic head. ADRENAL GLANDS: Bilateral adrenal masses are again noted. The right adrenal lesion measures 3.9 cm i n size decreased from prior exam. Largest diameter on the left is 1.8 cm not significantly changed. RIGHT KIDNEY AND URETER: No solid masses. No significant calcifications. No hydronephrosis or hyd roureter. LEFT KIDNEY AND URETER: No solid masses. No significant calcifications. No hydronephrosis or hydr oureter. AORTA AND VESSELS: No aneurysm. No dissection. Renal arteries, SMA, celiac without stenosis. RETROPERITONEUM: No retroperitoneal adenopathy, hemorrhage or masses. LARGE AND SMALL BOWEL: No dilatation. No masses. No wall thickening. APPENDIX: Surgically absent. ABDOMINAL WALL: No hernia or masses. PERITONEAL CAVITY: No free air. No free fluid. No peritoneal implants or masses. PELVIS: No mass or free fluid. Normal bladder. BONES: There are degenerative changes in the lumbar spine stable in appearance. OTHER: No other significant finding. IMPRESSION: The right adrenal mass is slightly smaller in size. Left adrenal lesion is unchanged. No new findings. TECHNICAL DOCUMENTATION: JOB ID: [id number] Quality ID # 436: Final reports with documentation of one or more dose reduction techniques (e.g., Au tomated exposure control, adjustment of the mA and/or kV according to patient size, use of iterative reconstruction technique) 2010 [employer]- All Rights Reserved Reading location - IP/workstation name: [email or web address]
== END ==
LOC: RAD 13:15
PROVIDERS: ATTEND Internal Medicine
DX: C34.12 Malignant neoplasm of upper lobe, left bronchus or lung (principal); E27.8 Other specified disorders of adrenal gland
CPT/HCPCS: 71260; 74177; 82565

== ENCOUNTER → 2019-06-01 | Outpatient (CLI) | payer MEDICARE ==
--- NOTE | 2019-06-01 14:07 | RADIOLOGY REPORT (SQ) ---
EXAM DESCRIPTION: CT CHEST WITH; CT ABD/PELVIS WITH IV ONLY COMPLETED DATE/TIME: 06/01/2019 1:29 pm REASON FOR STUDY: (C34.12)MALIGNANT NEOPLASM OF UPPER LOBE, LEFT BRONCHUS OR LUNG C34.12 MALIGNANT NEOPLASM OF UPPER LOBE, LEFT BRONCHUS OR FE CONTRAST TYPE AND DOSE: contrast/concentration: Isovue 350.00 mg/ml; Total Contrast Delivered: 69.0 ml; Total Saline Delivered: 65.0 ml RENAL FUNCTION: BUN 22, creatinine 0.8 COMPARISON: None. TECHNIQUE: CT scan of the chest performed using helical scanning technique with dynamic intravenous contrast injection. Images reviewed with lung, soft tissue and bone windows. Reconstructed coronal a nd sagittal MPR images reviewed. All images stored on PACS. All CT scanners at this facility use dose modulation, iterative reconstruction, and/or weight based d osing when appropriate to reduce radiation dose to as low as reasonably achievable (ALARA). [facility]: Dose Right [facility]: CareDose [facility]: Dose Right [facility]: Teradose 4D [facility]: [facility] RADIATION DOSE: CT Rad equipment meets quality standard of care and radiation dose reduction techniq ues were employed. CTDIvol: 4.8 - 6.6 mGy. DLP: 781 mGy-cm. . LIMITATIONS: None. FINDINGS: AXILLAE: No adenopathy. CHEST WALL: No masses. No subcutaneous air. LUNGS: Spiculated mass in the right upper lobe is slightly changed in configuration but is grossly un changed in size. There is a new ground-glass opacity in the right middle lobe best demonstrated on s eries 6, image 76. Sub pleural thickening on the left are slightly increased with a focal subpleural nodule now demonstrated on series 6, image 53. This is well demarcated and most likely represents s car. Scarring in the left upper lobe is unchanged. PLEURA: No effusions. No calcifications. THYROID: No masses or significant asymmetry. HILAR AND MEDIASTINAL STRUCTURES: No identified masses or abnormal nodes. AORTA AND GREAT VESSELS: No aneurysm. No dissection. PULMONARY ARTERIES: No identified pulmonary emboli. Study not optimized for the pulmonary arteries. HEART: No pericardial effusion. HARDWARE AND LIFELINES: Mdaohe-L-Rubb remains in place. BONES: Left-sided rib fractures are unchanged. OTHER: No other significant finding. IMPRESSION: Grossly stable CT of the chest. The spiculated mass in the right upper lobe is slightly different in configuration but there has been no significant change in size. There is a new ground- glass opacity in the right middle lobe which is nonspecific but could represent developing pulmonary nodule. This is best demonstrated on series 6 image 76. It measures 6.9 mm. COMPARISON: None. RADIATION DOSE: CT Rad equipment meets quality standard of care and radiation dose reduction techniq ues were employed. CTDIvol: 4.8 - 6.6 mGy. DLP: 781 mGy-cm. mGy. TECHNIQUE: CT scan of the abdomen and pelvis performed with intravenous and oral contrast using mike ben scanning technique with dynamic intravenous contrast injection. Images reviewed with lung, soft tissue and bone windows. Reconstructed coronal and sagittal MPR images reviewed. Delayed images for evaluation of the urinary system also acquired and evaluated. All images stored on PACS. All CT scanners at this facility use dose modulation, iterative reconstruction, and/or weight based d osing when appropriate to reduce radiation dose to as low as reasonably achievable (ALARA). [facility]: Dose Right [facility]: [facility]: Dose Right [facility]: Teradose 4D [facility]: [employer] FINDINGS: LIVER: Stable in appearance with multiple small hepatic cysts. SPLEEN: Normal size. No focal lesions. PANCREAS: No masses. No significant calcifications. No adjacent inflammation or peripancreatic flui d collections. Pancreatic duct not dilated. GALLBLADDER: Gallstones. No surrounding inflammation. ADRENAL GLANDS: Grossly stable in appearance no appreciable change in size. RIGHT KIDNEY AND URETER: No solid masses. No significant calcifications. No hydronephrosis or hyd roureter. LEFT KIDNEY AND URETER: No solid masses. No significant calcifications. No hydronephrosis or hydr oureter. AORTA AND VESSELS: No aneurysm. No dissection. Renal arteries, SMA, celiac without stenosis. RETROPERITONEUM: No retroperitoneal adenopathy, hemorrhage or masses. LARGE AND SMALL BOWEL: No dilatation. No masses. No wall thickening. APPENDIX: Normal. ABDOMINAL WALL: No hernia or masses. PERITONEAL CAVITY: No free air. No free fluid. No peritoneal implants or masses. PELVIS: No mass or free fluid. Normal bladder. BONES: Stable scoliosis with concavity toward the left. OTHER: No other significant finding. IMPRESSION: Stable bilateral adrenal lesions. No new findings in the abdomen or pelvis. TECHNICAL DOCUMENTATION: JOB ID: [id number] Quality ID # 436: Final reports with documentation of one or more dose reduction techniques (e.g., Au tomated exposure control, adjustment of the mA and/or kV according to patient size, use of iterative reconstruction technique) 2010 [employer]- All Rights Reserved Reading location - IP/workstation name: [email or web address]
--- NOTE | 2019-06-01 14:07 | RADIOLOGY REPORT (SQ) ---
EXAM DESCRIPTION: CT CHEST WITH; CT ABD/PELVIS WITH IV ONLY COMPLETED DATE/TIME: 06/01/2019 1:29 pm REASON FOR STUDY: (C34.12)MALIGNANT NEOPLASM OF UPPER LOBE, LEFT BRONCHUS OR LUNG C34.12 MALIGNANT NEOPLASM OF UPPER LOBE, LEFT BRONCHUS OR FE CONTRAST TYPE AND DOSE: contrast/concentration: Isovue 350.00 mg/ml; Total Contrast Delivered: 69.0 ml; Total Saline Delivered: 65.0 ml RENAL FUNCTION: BUN 22, creatinine 0.8 COMPARISON: None. TECHNIQUE: CT scan of the chest performed using helical scanning technique with dynamic intravenous contrast injection. Images reviewed with lung, soft tissue and bone windows. Reconstructed coronal a nd sagittal MPR images reviewed. All images stored on PACS. All CT scanners at this facility use dose modulation, iterative reconstruction, and/or weight based d osing when appropriate to reduce radiation dose to as low as reasonably achievable (ALARA). [facility]: Dose Right [facility]: CareDose [facility]: Dose Right [facility]: Teradose 4D [facility]: Smart [employer] RADIATION DOSE: CT Rad equipment meets quality standard of care and radiation dose reduction techniq ues were employed. CTDIvol: 4.8 - 6.6 mGy. DLP: 781 mGy-cm. . LIMITATIONS: None. FINDINGS: AXILLAE: No adenopathy. CHEST WALL: No masses. No subcutaneous air. LUNGS: Spiculated mass in the right upper lobe is slightly changed in configuration but is grossly un changed in size. There is a new ground-glass opacity in the right middle lobe best demonstrated on s eries 6, image 76. Sub pleural thickening on the left are slightly increased with a focal subpleural nodule now demonstrated on series 6, image 53. This is well demarcated and most likely represents s car. Scarring in the left upper lobe is unchanged. PLEURA: No effusions. No calcifications. THYROID: No masses or significant asymmetry. HILAR AND MEDIASTINAL STRUCTURES: No identified masses or abnormal nodes. AORTA AND GREAT VESSELS: No aneurysm. No dissection. PULMONARY ARTERIES: No identified pulmonary emboli. Study not optimized for the pulmonary arteries. HEART: No pericardial effusion. HARDWARE AND LIFELINES: [id number]-Csln remains in place. BONES: Left-sided rib fractures are unchanged. OTHER: No other significant finding. IMPRESSION: Grossly stable CT of the chest. The spiculated mass in the right upper lobe is slightly different in configuration but there has been no significant change in size. There is a new ground- glass opacity in the right middle lobe which is nonspecific but could represent developing pulmonary nodule. This is best demonstrated on series 6 image 76. It measures 6.9 mm. COMPARISON: None. RADIATION DOSE: CT Rad equipment meets quality standard of care and radiation dose reduction techniq ues were employed. CTDIvol: 4.8 - 6.6 mGy. DLP: 781 mGy-cm. mGy. TECHNIQUE: CT scan of the abdomen and pelvis performed with intravenous and oral contrast using mike ben scanning technique with dynamic intravenous contrast injection. Images reviewed with lung, soft tissue and bone windows. Reconstructed coronal and sagittal MPR images reviewed. Delayed images for evaluation of the urinary system also acquired and evaluated. All images stored on PACS. All CT scanners at this facility use dose modulation, iterative reconstruction, and/or weight based d osing when appropriate to reduce radiation dose to as low as reasonably achievable (ALARA). [facility]: Dose Right [facility]: SureCare [facility]: Dose Right [facility]: Teradose 4D [facility]: [employer] FINDINGS: LIVER: Stable in appearance with multiple small hepatic cysts. SPLEEN: Normal size. No focal lesions. PANCREAS: No masses. No significant calcifications. No adjacent inflammation or peripancreatic flui d collections. Pancreatic duct not dilated. GALLBLADDER: Gallstones. No surrounding inflammation. ADRENAL GLANDS: Grossly stable in appearance no appreciable change in size. RIGHT KIDNEY AND URETER: No solid masses. No significant calcifications. No hydronephrosis or hyd roureter. LEFT KIDNEY AND URETER: No solid masses. No significant calcifications. No hydronephrosis or hydr oureter. AORTA AND VESSELS: No aneurysm. No dissection. Renal arteries, SMA, celiac without stenosis. RETROPERITONEUM: No retroperitoneal adenopathy, hemorrhage or masses. LARGE AND SMALL BOWEL: No dilatation. No masses. No wall thickening. APPENDIX: Normal. ABDOMINAL WALL: No hernia or masses. PERITONEAL CAVITY: No free air. No free fluid. No peritoneal implants or masses. PELVIS: No mass or free fluid. Normal bladder. BONES: Stable scoliosis with concavity toward the left. OTHER: No other significant finding. IMPRESSION: Stable bilateral adrenal lesions. No new findings in the abdomen or pelvis. TECHNICAL DOCUMENTATION: JOB ID: [id number] Quality ID # 436: Final reports with documentation of one or more dose reduction techniques (e.g., Au tomated exposure control, adjustment of the mA and/or kV according to patient size, use of iterative reconstruction technique) 2010 [employer]- All Rights Reserved Reading location - IP/workstation name: [facility]
== END ==
LOC: RAD 13:01
PROVIDERS: ATTEND Physician Assistant Medical
DX: C34.12 Malignant neoplasm of upper lobe, left bronchus or lung (principal); E27.8 Other specified disorders of adrenal gland; K80.80 Other cholelithiasis without obstruction
CPT/HCPCS: 71260; 74177

== ENCOUNTER → 2019-08-30 | Outpatient (CLI) | payer MEDICARE ==
--- NOTE | 2019-08-30 16:45 | RADIOLOGY REPORT (SQ) ---
EXAM DESCRIPTION: CT CHEST WITH; CT ABD/PELVIS WITH IV ONLY COMPLETED DATE/TIME: 08/30/2019 3:25 pm REASON FOR STUDY: C34.12 MALIGNANT NEOPLASM OF UPPER LOBE, LEFT BRONCHUS OR LUNG C34.12 MALIGNANT N EOPLASM OF UPPER LOBE, LEFT BRONCHUS OR FE CONTRAST TYPE AND DOSE: contrast/concentration: Isovue 350.00 mg/ml; Total Contrast Delivered: 65.0 ml; Total Saline Delivered: 72.0 ml RENAL FUNCTION: Not recorded here. Refer to the technologist's notes. COMPARISON: 06/01/2019 TECHNIQUE: CT scan of the chest performed using helical scanning technique with dynamic intravenous contrast injection. Images reviewed with lung, soft tissue and bone windows. Reconstructed coronal a nd sagittal MPR images reviewed. All images stored on PACS. All CT scanners at this facility use dose modulation, iterative reconstruction, and/or weight based d osing when appropriate to reduce radiation dose to as low as reasonably achievable (ALARA). [facility]: Dose Right [facility]: CareDose [facility]: Dose Right [facility]: Teradose 4D [facility]: [employer] RADIATION DOSE: CT Rad equipment meets quality standard of care and radiation dose reduction techniq ues were employed. CTDIvol: 4.6 - 6.5 mGy. DLP: 760 mGy-cm. . LIMITATIONS: None. FINDINGS: AXILLAE: No adenopathy. CHEST WALL: No masses. No subcutaneous air. LUNGS: Spiculated right upper lobe pulmonary nodule measures 24.1 x 22.7 mm on the current study. Th is compares with 28.2 x 23.3 mm on the prior study. There is an 8 mm perifissural nodule on the righ t on image 69. There is calcified granuloma in the posterior costophrenic sulcus on the right. 6.6 mm sub pleural nodule on the left on image 80. There is an 8.2 x 22.2 mm somewhat irregular pleural plaque on the left on image 58. There is considerable opacification in the left upper lobe. There i s reduced volume in the left lung generally. There is an 8.4 mm ground-glass nodule in the left uppe r lobe on image 32. PLEURA: No effusions. No calcifications. THYROID: No masses or significant asymmetry. HILAR AND MEDIASTINAL STRUCTURES: No identified masses or abnormal nodes. AORTA AND GREAT VESSELS: No aneurysm. No dissection. PULMONARY ARTERIES: No identified pulmonary emboli. Study not optimized for the pulmonary arteries. HEART: No pericardial effusion. HARDWARE AND LIFELINES: None. BONES: No significant finding. OTHER: No other significant finding. IMPRESSION: The right upper lobe pulmonary nodule is slightly smaller than on the prior study. Ther e is considerable airspace disease in the left upper lobe with reduced volume in the left lung genera lly suggesting atelectasis. An area pleural opacification on the left is slightly more prominent. N o other significant interval change. COMPARISON: None. RADIATION DOSE: CT Rad equipment meets quality standard of care and radiation dose reduction techniq ues were employed. CTDIvol: 4.6 - 6.5 mGy. DLP: 760 mGy-cm. mGy. TECHNIQUE: CT scan of the abdomen and pelvis performed with intravenous and oral contrast using mike ben scanning technique with dynamic intravenous contrast injection. Images reviewed with lung, soft tissue and bone windows. Reconstructed coronal and sagittal MPR images reviewed. Delayed images for evaluation of the urinary system also acquired and evaluated. All images stored on PACS. All CT scanners at this facility use dose modulation, iterative reconstruction, and/or weight based d osing when appropriate to reduce radiation dose to as low as reasonably achievable (ALARA). [facility]: Dose Right [facility]: SureCare [facility]: Dose Right [facility]: Teradose 4D [facility]: Cardiac Insight FINDINGS: LIVER: Multiple tiny hepatic cysts. No change. SPLEEN: Normal size. No focal lesions. PANCREAS: No masses. No significant calcifications. No adjacent inflammation or peripancreatic flui d collections. Pancreatic duct not dilated. GALLBLADDER: There appear to be some tiny gallstones. ADRENAL GLANDS: There is a 20 x 12 mm enhancing right adrenal nodule that is larger. The left adrena l is stable. RIGHT KIDNEY AND URETER: No solid masses. No significant calcifications. No hydronephrosis or hyd roureter. LEFT KIDNEY AND URETER: No solid masses. No significant calcifications. No hydronephrosis or hydr oureter. AORTA AND VESSELS: No aneurysm. No dissection. Renal arteries, SMA, celiac without stenosis. RETROPERITONEUM: No retroperitoneal adenopathy, hemorrhage or masses. LARGE AND SMALL BOWEL: No dilatation. No masses. No wall thickening. APPENDIX: Not identified. ABDOMINAL WALL: No hernia or masses. PERITONEAL CAVITY: No free air. No free fluid. No peritoneal implants or masses. PELVIS: No mass or free fluid. Normal bladder. BONES: Significant dextroscoliosis. Associated lumbar degenerative changes. OTHER: No other significant finding. IMPRESSION: Bilateral adrenal lesions. There is a change in the appearance of the right adrenal gla nd with an enlarging enhancing nodule. Concerning for metastatic disease. Consider PET-CT. No othe r significant finding in the abdomen or pelvis. TECHNICAL DOCUMENTATION: JOB ID: [id number] Quality ID # 436: Final reports with documentation of one or more dose reduction techniques (e.g., Au tomated exposure control, adjustment of the mA and/or kV according to patient size, use of iterative reconstruction technique) 2010 [employer]- All Rights Reserved Reading location - IP/workstation name: [email or web address]
== END ==
LOC: RAD 14:33
PROVIDERS: ATTEND Internal Medicine
DX: C34.12 Malignant neoplasm of upper lobe, left bronchus or lung (principal); E27.8 Other specified disorders of adrenal gland
CPT/HCPCS: 71260; 74177

== ENCOUNTER → 2019-11-19 | Outpatient (CLI) | payer MEDICARE ==
--- NOTE | 2019-11-19 14:16 | RADIOLOGY REPORT (SQ) ---
EXAM DESCRIPTION: CT CHEST WITH; CT ABD/PELVIS WITH IV ONLY IMAGES COMPLETED DATE/TIME: 11/19/2019 1:55 pm REASON FOR STUDY: (C34.12)MALIGNANT NEOPLASM OF UPPER LOBE, LEFT BRONCHUS OR LUNG C34.12 MALIGNANT NEOPLASM OF UPPER LOBE, LEFT BRONCHUS OR FE CONTRAST TYPE AND DOSE: contrast/concentration: Isovue 350.00 mg/ml; Total Contrast Delivered: 66.0 ml; Total Saline Delivered: 65.0 ml RENAL FUNCTION: Creatinine 0.8 COMPARISON: None. TECHNIQUE: CT scan of the chest performed using helical scanning technique with dynamic intravenous contrast injection. Images reviewed with lung, soft tissue and bone windows. Reconstructed coronal a nd sagittal MPR images reviewed. All images stored on PACS. All CT scanners at this facility use dose modulation, iterative reconstruction, and/or weight based d osing when appropriate to reduce radiation dose to as low as reasonably achievable (ALARA). [facility]: Dose Right [facility]: CareDose [facility]: Dose Right [facility]: Teradose 4D [facility]: Smart [employer] RADIATION DOSE: CT Rad equipment meets quality standard of care and radiation dose reduction techniq ues were employed. CTDIvol: 4.4 - 4.8 mGy. DLP: 626 mGy-cm. . LIMITATIONS: None. FINDINGS: AXILLAE: No adenopathy. CHEST WALL: No masses. No subcutaneous air. LUNGS: Spiculated right upper lobe mass is stable in appearance. Extensive postsurgical changes in t he left upper low with consolidation and/or atelectasis which is grossly stable. There has been a sl ight increase in the amount of fluid surrounding the left upper lobe collapse. Small nodules in the periphery of the right upper lobe best demonstrated on series 6, image 31 are stable in appearance. Scarring in the medial aspect of the superior segment of the right lower lobe which appears as ground -glass opacity is unchanged. Left basilar pleural thickening is stable as well. PLEURA: No effusions. No calcifications. THYROID: No masses or significant asymmetry. HILAR AND MEDIASTINAL STRUCTURES: No identified masses or abnormal nodes. AORTA AND GREAT VESSELS: No aneurysm. No dissection. PULMONARY ARTERIES: No identified pulmonary emboli. Study not optimized for the pulmonary arteries. HEART: No pericardial effusion. HARDWARE AND LIFELINES: Xvtryp-Z-Poeg is in place. BONES: Left-sided rib fractures which are healed presumably related to prior thoracotomy. OTHER: No other significant finding. IMPRESSION: Stable CT of the chest. Right upper lobe spiculated mass is unchanged in size or config uration. Smaller nodules on the right are stable as well. Dense airspace disease in the left upper lobe most likely representing atelectasis is unchanged. COMPARISON: None. RADIATION DOSE: CT Rad equipment meets quality standard of care and radiation dose reduction techniq ues were employed. CTDIvol: 4.4 - 4.8 mGy. DLP: 626 mGy-cm. mGy. TECHNIQUE: CT scan of the abdomen and pelvis performed with intravenous and oral contrast using mike ben scanning technique with dynamic intravenous contrast injection. Images reviewed with lung, soft tissue and bone windows. Reconstructed coronal and sagittal MPR images reviewed. Delayed images for evaluation of the urinary system also acquired and evaluated. All images stored on PACS. All CT scanners at this facility use dose modulation, iterative reconstruction, and/or weight based d osing when appropriate to reduce radiation dose to as low as reasonably achievable (ALARA). [facility]: Dose Right [facility]: SureCare [facility]: Dose Right [facility]: Teradose 4D [facility]: [email or web address] FINDINGS: LIVER: Numerous small hypoattenuating lesions most marked in the left lobe of liver are st able and most likely small cyst. These are too small to accurately characterize. SPLEEN: Single small splenic lesion unchanged most likely cyst or hemangioma. PANCREAS: No masses. No significant calcifications. No adjacent inflammation or peripancreatic flui d collections. Pancreatic duct not dilated. GALLBLADDER: Gallstones. No surrounding inflammation. ADRENAL GLANDS: No significant masses or asymmetry. RIGHT KIDNEY AND URETER: No solid masses. No significant calcifications. No hydronephrosis or hyd roureter. LEFT KIDNEY AND URETER: No solid masses. No significant calcifications. No hydronephrosis or hydr oureter. AORTA AND VESSELS: Atherosclerotic change. No aneurysmal dilatation. RETROPERITONEUM: No retroperitoneal adenopathy, hemorrhage or masses. LARGE AND SMALL BOWEL: Scattered diverticuli. No acute diverticulitis. APPENDIX: Not visualized. ABDOMINAL WALL: No hernia or masses. PERITONEAL CAVITY: No free air. No free fluid. No peritoneal implants or masses. PELVIS: No mass or free fluid. Normal bladder. BONES: Degenerative changes in the lumbar spine no evidence of metastatic disease. OTHER: No other significant finding. IMPRESSION: No evidence of metastatic disease in the abdomen or pelvis. TECHNICAL DOCUMENTATION: JOB ID: [id number] Quality ID # 436: Final reports with documentation of one or more dose reduction techniques (e.g., Au tomated exposure control, adjustment of the mA and/or kV according to patient size, use of iterative reconstruction technique) 2010 [employer]- All Rights Reserved Reading location - IP/workstation name: [facility]
--- NOTE | 2019-11-19 14:16 | RADIOLOGY REPORT (SQ) ---
EXAM DESCRIPTION: CT CHEST WITH; CT ABD/PELVIS WITH IV ONLY IMAGES COMPLETED DATE/TIME: 11/19/2019 1:55 pm REASON FOR STUDY: (C34.12)MALIGNANT NEOPLASM OF UPPER LOBE, LEFT BRONCHUS OR LUNG C34.12 MALIGNANT NEOPLASM OF UPPER LOBE, LEFT BRONCHUS OR FE CONTRAST TYPE AND DOSE: contrast/concentration: Isovue 350.00 mg/ml; Total Contrast Delivered: 66.0 ml; Total Saline Delivered: 65.0 ml RENAL FUNCTION: Creatinine 0.8 COMPARISON: None. TECHNIQUE: CT scan of the chest performed using helical scanning technique with dynamic intravenous contrast injection. Images reviewed with lung, soft tissue and bone windows. Reconstructed coronal a nd sagittal MPR images reviewed. All images stored on PACS. All CT scanners at this facility use dose modulation, iterative reconstruction, and/or weight based d osing when appropriate to reduce radiation dose to as low as reasonably achievable (ALARA). [facility]: Dose Right [facility]: CareDose [facility]: Dose Right [facility]: Teradose 4D [facility]: Smart [employer] RADIATION DOSE: CT Rad equipment meets quality standard of care and radiation dose reduction techniq ues were employed. CTDIvol: 4.4 - 4.8 mGy. DLP: 626 mGy-cm. . LIMITATIONS: None. FINDINGS: AXILLAE: No adenopathy. CHEST WALL: No masses. No subcutaneous air. LUNGS: Spiculated right upper lobe mass is stable in appearance. Extensive postsurgical changes in t he left upper low with consolidation and/or atelectasis which is grossly stable. There has been a sl ight increase in the amount of fluid surrounding the left upper lobe collapse. Small nodules in the periphery of the right upper lobe best demonstrated on series 6, image 31 are stable in appearance. Scarring in the medial aspect of the superior segment of the right lower lobe which appears as ground -glass opacity is unchanged. Left basilar pleural thickening is stable as well. PLEURA: No effusions. No calcifications. THYROID: No masses or significant asymmetry. HILAR AND MEDIASTINAL STRUCTURES: No identified masses or abnormal nodes. AORTA AND GREAT VESSELS: No aneurysm. No dissection. PULMONARY ARTERIES: No identified pulmonary emboli. Study not optimized for the pulmonary arteries. HEART: No pericardial effusion. HARDWARE AND LIFELINES: Vsaufl-J-Hich is in place. BONES: Left-sided rib fractures which are healed presumably related to prior thoracotomy. OTHER: No other significant finding. IMPRESSION: Stable CT of the chest. Right upper lobe spiculated mass is unchanged in size or config uration. Smaller nodules on the right are stable as well. Dense airspace disease in the left upper lobe most likely representing atelectasis is unchanged. COMPARISON: None. RADIATION DOSE: CT Rad equipment meets quality standard of care and radiation dose reduction techniq ues were employed. CTDIvol: 4.4 - 4.8 mGy. DLP: 626 mGy-cm. mGy. TECHNIQUE: CT scan of the abdomen and pelvis performed with intravenous and oral contrast using mike ben scanning technique with dynamic intravenous contrast injection. Images reviewed with lung, soft tissue and bone windows. Reconstructed coronal and sagittal MPR images reviewed. Delayed images for evaluation of the urinary system also acquired and evaluated. All images stored on PACS. All CT scanners at this facility use dose modulation, iterative reconstruction, and/or weight based d osing when appropriate to reduce radiation dose to as low as reasonably achievable (ALARA). [facility]: Dose Right [facility]: [facility]Care [facility]: Dose Right [facility]: Teradose 4D [facility]: [employer] FINDINGS: LIVER: Numerous small hypoattenuating lesions most marked in the left lobe of liver are st able and most likely small cyst. These are too small to accurately characterize. SPLEEN: Single small splenic lesion unchanged most likely cyst or hemangioma. PANCREAS: No masses. No significant calcifications. No adjacent inflammation or peripancreatic flui d collections. Pancreatic duct not dilated. GALLBLADDER: Gallstones. No surrounding inflammation. ADRENAL GLANDS: No significant masses or asymmetry. RIGHT KIDNEY AND URETER: No solid masses. No significant calcifications. No hydronephrosis or hyd roureter. LEFT KIDNEY AND URETER: No solid masses. No significant calcifications. No hydronephrosis or hydr oureter. AORTA AND VESSELS: Atherosclerotic change. No aneurysmal dilatation. RETROPERITONEUM: No retroperitoneal adenopathy, hemorrhage or masses. LARGE AND SMALL BOWEL: Scattered diverticuli. No acute diverticulitis. APPENDIX: Not visualized. ABDOMINAL WALL: No hernia or masses. PERITONEAL CAVITY: No free air. No free fluid. No peritoneal implants or masses. PELVIS: No mass or free fluid. Normal bladder. BONES: Degenerative changes in the lumbar spine no evidence of metastatic disease. OTHER: No other significant finding. IMPRESSION: No evidence of metastatic disease in the abdomen or pelvis. TECHNICAL DOCUMENTATION: JOB ID: [id number] Quality ID # 436: Final reports with documentation of one or more dose reduction techniques (e.g., Au tomated exposure control, adjustment of the mA and/or kV according to patient size, use of iterative reconstruction technique) 2010 [employer]- All Rights Reserved Reading location - IP/workstation name: [email or web address]
== END ==
LOC: RAD 12:54
PROVIDERS: ATTEND Physician Assistant Medical
DX: C34.12 Malignant neoplasm of upper lobe, left bronchus or lung (principal)
CPT/HCPCS: 71260; 74177; 82565

== ENCOUNTER → 2020-02-25 | Outpatient (CLI) | payer MEDICARE ==
--- NOTE | 2020-02-25 12:40 | RADIOLOGY REPORT (SQ) ---
EXAM DESCRIPTION: CT CHEST WITH IMAGES COMPLETED DATE/TIME: 02/25/2020 10:39 am REASON FOR STUDY: (C34.12)MALIGNANT NEOPLASM OF UPPER LOBE, LEFT BRONCHUS OR LUNG C34.12 MALIGNANT NEOPLASM OF UPPER LOBE, LEFT BRONCHUS OR FE COMPARISON: CT of the chest with contrast from 11/19/2019. TECHNIQUE: CT scan of the chest performed using helical scanning technique with dynamic intravenous contrast injection. Images reviewed with lung, soft tissue and bone windows. Reconstructed coronal and sagittal MPR and MIP images reviewed. All images stored on PACS. All CT scanners at this facility use dose modulation, iterative reconstruction, and/or weight based d osing when appropriate to reduce radiation dose to as low as reasonably achievable (ALARA). [facility]: Dose Right [facility]: CareDose [facility]: Dose Right [facility]: Teradose 4D [facility]: [employer] CONTRAST TYPE AND DOSE: Contrast/concentration: Isovue 350.00 mmol/ml; Total Contrast Delivered: 80. 0 ml; Total Saline Delivered: 40.0 ml RENAL FUNCTION: Creatinine 0.8 milligrams/deciliter. LIMITATIONS: None. FINDINGS: LUNGS AND PLEURA: The trachea and main bronchi are patent. There is re- demonstration of moderate to severe upper lobe predominant centrilobular emphysema and of left upper lobe collapse I h ave associated with ipsilateral shift of the mediastinal structure ; the amount of fluid around the c ollapsed left upper lobe is stable. The spiculated nodule in the right upper lobe (image 24 of serie s 6) and the other nodular opacities scattered throughout the right lung (refer to images 33, 32 54, 65, and 74) are unchanged. The calcified nodule in the right lower lobe (image 99 of series 6), the reticular opacities in the apical segment of the right upper lobe and in the superior segment of the right lower lobe, and the pleural thickening in the posterior aspect of the left hemithorax are uncha nged. There is no acute consolidation, ground-glass opacification or new/enlarging pulmonary nodule. HILAR AND MEDIASTINAL STRUCTURES: No adenopathy or mass. HEART AND VASCULAR STRUCTURES: Atherosclerotic calcification of the thoracic aorta, mitral annulus an d coronary arteries. There is no thoracic aortic aneurysm/dissection, cardiomegaly or pericardial ef fusion. HARDWARE: The tip of the right IJ single-lumen port terminates within the SVC. UPPER ABDOMEN: Refer to the separate report of the CT of the abdomen. THYROID AND OTHER SOFT TISSUES: No adenopathy or mass. 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 There is no acute fractur e or osseous lesion. OTHER: No other finding. IMPRESSION: Stable CT of the chest. TECHNICAL DOCUMENTATION: JOB ID: [id number] Quality ID # 436: Final reports with documentation of one or more dose reduction techniques (e.g., Au tomated exposure control, adjustment of the mA and/or kV according to patient size, use of iterative reconstruction technique) 2010 [employer]- All Rights Reserved Reading location - IP/workstation name: [facility]
--- NOTE | 2020-02-25 13:25 | RADIOLOGY REPORT (SQ) ---
EXAM DESCRIPTION: CT ABD/PELVIS WITH IV ONLY IMAGES COMPLETED DATE/TIME: 02/25/2020 10:39 am REASON FOR STUDY: (C34.12)MALIGNANT NEOPLASM OF UPPER LOBE, LEFT BRONCHUS OR LUNG C34.12 MALIGNANT NEOPLASM OF UPPER LOBE, LEFT BRONCHUS OR FE COMPARISON: CT of the abdomen and pelvis with contrast from 11/19/2019. TECHNIQUE: CT scan of the abdomen and pelvis performed using helical scanning technique with dynamic intravenous contrast injection. No oral contrast. Images reviewed with lung, soft tissue, and bone windows. Reconstructed coronal and sagittal MPR images reviewed. Delayed images for evaluation of the urinary system also acquired. All images stored on PACS. All CT scanners at this facility use dose modulation, iterative reconstruction, and/or weight based d osing when appropriate to reduce radiation dose to as low as reasonably achievable (ALARA). [facility]: Dose Right [facility]: CareDose [facility]: Dose Right [facility]: Teradose 4D [facility]: [employer] CONTRAST TYPE AND DOSE: 80 mL Omnipaque 350- low osmolar. RENAL FUNCTION: GFR > 60. RADIATION DOSE: CT Rad equipment meets quality standard of care and radiation dose reduction techniq ues were employed. CTDIvol: 4.8 - 6.5 mGy. DLP: 733 mGy-cm. LIMITATIONS: None. FINDINGS: LOWER CHEST: Refer to the separate report of the CT of the chest. LIVER: The morphology of the liver is noncirrhotic. The innumerable punctate hypodense lesions in th e hepatic dome and throughout the left hepatic lobe are unchanged and are considered too small to gil racterize. The portal veins are patent. SPLEEN: The 10 mm hypodense splenic lesion (image 13 of series 3) is unchanged. There is a 9 mm acce ssory splenule anterior to the spleen. There is no splenomegaly. PANCREAS: No acute gross abnormality of the pancreas GALLBLADDER: The layering hyperdense material within the gallbladder could represent calculi or sludg e. There is no pericholecystic inflammation or biliary ductal dilatation. ADRENAL GLANDS: The diffuse nodular enlargement of the adrenal glands is unchanged. RIGHT KIDNEY AND URETER: The subcentimeter hypodense lesion in the lateral cortex of the kidney (imag e 18 of series 3) is unchanged in size and is considered too small to characterize. There is no daniel d mass, hydronephrosis, nephrolithiasis, hydroureter ureterolithiasis. LEFT KIDNEY AND URETER: Stable subcentimeter cortical-based hypodense lesion that are considered too small to characterize. There is no hydronephrosis, nephrolithiasis, hydronephrosis, hydroureter or u reterolithiasis. AORTA AND VESSELS: Atherosclerotic calcification of the abdominal aorta and iliac arteries. There is no aneurysm or dissection of the vessels. RETROPERITONEUM: No retroperitoneal adenopathy, hemorrhage or mass. BOWEL AND PERITONEAL CAVITY: Colonic diverticulosis without diverticulitis. There is no bowel obstru ction, bowel wall thickening or pericolonic/ perienteric inflammation. There is no mesenteric adenop athy, free intraperitoneal fluid or mesenteric/omental inflammation. APPENDIX: Unable to identify the appendix. There is no pericecal inflammation PELVIS: The uterus is surgically absent. There is no abnormality of the urinary bladder. ABDOMINAL WALL: No mass or hernia. BONES: Degenerative spondylosis and facet arthropathy of the lumbar spine associated with mild dextro convex scoliotic curvature. There is no acute fracture or osseous lesion. OTHER: No other finding. IMPRESSION: Stable CT of the abdomen and pelvis. TECHNICAL DOCUMENTATION: JOB ID: [id number] Quality ID # [id number]: Final reports with documentation of one or more dose reduction techniques (e.g., Au tomated exposure control, adjustment of the mA and/or kV according to patient size, use of iterative reconstruction technique) 2010 [employer]- All Rights Reserved Reading location - IP/workstation name: [email or web address]
== END ==
LOC: RAD 09:56
PROVIDERS: ATTEND Internal Medicine
DX: C34.12 Malignant neoplasm of upper lobe, left bronchus or lung (principal); M84.48XK Pathological fracture, other site, subsequent encounter for fracture with nonunion
CPT/HCPCS: 71260; 74177; 82565

== ENCOUNTER → 2020-05-29 | Outpatient (CLI) | payer MEDICARE ==
--- NOTE | 2020-05-29 13:43 | RADIOLOGY REPORT (SQ) ---
EXAM DESCRIPTION: CT CHEST WITH; CT ABD/PELVIS WITH IV ONLY IMAGES COMPLETED DATE/TIME: 05/29/2020 1:17 pm REASON FOR STUDY: (C34.12)MALIGNANT NEOPLASM OF UPPER LOBE, LEFT BRONCHUS OR LUNG C34.12 MALIGNANT NEOPLASM OF UPPER LOBE, LEFT BRONCHUS OR FE CONTRAST TYPE AND DOSE: contrast/concentration: Isovue 350.00 mmol/ml; Total Contrast Delivered: 80. 0 ml; Total Saline Delivered: 45.0 ml RENAL FUNCTION: Creatinine 1.0 COMPARISON: None. TECHNIQUE: CT scan of the chest performed using helical scanning technique with dynamic intravenous contrast injection. Images reviewed with lung, soft tissue and bone windows. Reconstructed coronal a nd sagittal MPR images reviewed. All images stored on PACS. All CT scanners at this facility use dose modulation, iterative reconstruction, and/or weight based d osing when appropriate to reduce radiation dose to as low as reasonably achievable (ALARA). [facility]: Dose Right [facility]: CareDose [facility]: Dose Right [facility]: Teradose 4D [facility]: [employer] RADIATION DOSE: CT Rad equipment meets quality standard of care and radiation dose reduction techniq ues were employed. CTDIvol: 4.5 - 6.1 mGy. DLP: 719 mGy-cm. . LIMITATIONS: None. FINDINGS: AXILLAE: No adenopathy. CHEST WALL: No masses. No subcutaneous air. LUNGS: Stable right upper lobe spiculated mass. Largest diameter is approximately 2.5 cm. Underlyin g bilateral emphysematous change. Postsurgical changes on the left with volume reduction and consoli dation. PLEURA: Small left pleural effusion. THYROID: No masses or significant asymmetry. HILAR AND MEDIASTINAL STRUCTURES: No identified masses or abnormal nodes. AORTA AND GREAT VESSELS: Atherosclerotic change. No aneurysmal dilatation. PULMONARY ARTERIES: No identified pulmonary emboli. Study not optimized for the pulmonary arteries. HEART: No pericardial effusion. HARDWARE AND LIFELINES: Lszdjl-D-Goth remains in place. BONES: No significant finding. OTHER: No other significant finding. IMPRESSION: Stable spiculated mass in the right upper lobe measured 2.5 cm. Other changes as descri bed. COMPARISON: None. RADIATION DOSE: CT Rad equipment meets quality standard of care and radiation dose reduction techniq ues were employed. CTDIvol: 4.5 - 6.1 mGy. DLP: 719 mGy-cm. mGy. TECHNIQUE: CT scan of the abdomen and pelvis performed with intravenous and oral contrast using mike ben scanning technique with dynamic intravenous contrast injection. Images reviewed with lung, soft tissue and bone windows. Reconstructed coronal and sagittal MPR images reviewed. Delayed images for evaluation of the urinary system also acquired and evaluated. All images stored on PACS. All CT scanners at this facility use dose modulation, iterative reconstruction, and/or weight based d osing when appropriate to reduce radiation dose to as low as reasonably achievable (ALARA). [facility]: Dose Right [facility]: [employer] [facility]: Dose Right [facility]: Teradose 4D [facility]: [employer] FINDINGS: LIVER: Multiple small hypoattenuating hepatic lesions. These are better demonstrated on t sharon's study due to timing of the bolus but are not significantly changed. SPLEEN: Stable small splenic lesion most likely cyst or hemangioma. PANCREAS: No masses. No significant calcifications. No adjacent inflammation or peripancreatic flui d collections. Pancreatic duct not dilated. GALLBLADDER: Gallstones. No surrounding edema. ADRENAL GLANDS: No interval change. RIGHT KIDNEY AND URETER: Small cortical cyst on the right. No solid masses. No significant calcifi cations. No hydronephrosis or hydroureter. LEFT KIDNEY AND URETER: No solid masses. No significant calcifications. No hydronephrosis or hydr oureter. AORTA AND VESSELS: No aneurysm. No dissection. Renal arteries, SMA, celiac without stenosis. RETROPERITONEUM: No retroperitoneal adenopathy, hemorrhage or masses. LARGE AND SMALL BOWEL: Scattered diverticuli. No acute diverticulitis. APPENDIX: Surgically absent. ABDOMINAL WALL: No hernia or masses. PERITONEAL CAVITY: No free air. No free fluid. No peritoneal implants or masses. PELVIS: Mild bladder distention. BONES: Degenerative changes in the spine. OTHER: No other significant finding. IMPRESSION: Stable CT of the abdomen and pelvis. No evidence of metastatic disease. TECHNICAL DOCUMENTATION: JOB ID: [id number] Quality ID # [id number]: Final reports with documentation of one or more dose reduction techniques (e.g., Au tomated exposure control, adjustment of the mA and/or kV according to patient size, use of iterative reconstruction technique) 2010 [employer]- All Rights Reserved Reading location - IP/workstation name: [email or web address]
== END ==
LOC: RAD 12:35
PROVIDERS: ATTEND Internal Medicine
DX: C34.12 Malignant neoplasm of upper lobe, left bronchus or lung (principal)
CPT/HCPCS: 71260; 74177; 82565